=== PATIENT | male | born 1945 | race Caucasian/White ===

== ENCOUNTER 2017-05-20 03:37 | Inpatient (IN) | payer OTHER, MEDICARE ==
[2017-05-20] VITALS (9 sets, daily range): BP systolic 134–172; BP diastolic 70–78; PULSE 69–104; TEMP 36.4–37.6; O2SAT 94–100; Ht 180.3 cm; Wt 120.6 kg
[~2017-05-20] VITALS: Ht 180.3 cm; Wt 120.6 kg
--- NOTE | 2017-05-20 03:53 | EMERGENCY ROOM VISIT NOTE ---
History Report prepared by Radha: Micheal Tello Under the Supervision of: Dr. Ross Calvo M.D. First contact with patient: 03:40 Chief Complaint: CARDIAC ASSESSMENT Stated Complaint: CHEST PAIN/ SHORT OF BREATH History of Present Illness The patient is a 71 year old male who presents to the Emergency Room via EMS with complaints of persistent chest pain that started prior to arrival this morning. He says that the chest pain is in the middle, and is worsened by deep breathing. He adds that the pain woke him up suddenly in the middle of the night , and has been associated with shortness of breath. He notes that for the past few days, he has felt a bit run-down and fatigued. The patient adds that for the past 2 years, he has had persistent leg swelling. He has a history of COPD and CHF, but he does not feel like he is wheezing a lot today. The patient notes that he took 2 aspirin prior to arrival, but he does not take any blood thinners on a daily basis. Per EMS, the patient was 88% on room air in his home , and the patient was given a nebulizer treatment and 7 nitro. The patient notes no history of heart attacks or blood clots. He is an ex-smoker. Source of History: patient, EMS, nursing staff Onset: Prior to arrival this morning Position: chest Timing: other (persistent) Modifying Factors (Worsening): breathing Associated Symptoms: + SOB, + fatigue Note: Associated symptoms: Does not feel like wheezing a lot. 88% on room air prior to arrival. Review of Systems See HPI for pertinent positives & negatives. A total of 10 systems reviewed and were otherwise negative. Past Medical & Surgical Medical Problems: (1) Arthritis (2) CHF (congestive heart failure) (3) COPD (chronic obstructive pulmonary disease) Family History Family history omitted secondary to patient's advanced age. Social History Smoking Status: Former Smoker Marital Status: single Occupation Status: retired Current/Historical Medications Scheduled Ascorbic Acid (Vitamin C), 1,000 MG PO DAILY Calcium Carbonate (Calcium 600), 600 MG PO DAILYBB Celecoxib (CeleBREX), 200 MG PO BID Cholecalciferol (Vitamin D3), 2,000 UNIT PO DAILY Cyanocobalamin (Vitamin B-12), 1,000 MCG PO DAILY Fluticasone Prop/Salmeterol (Advair Diskus 250/50 60 Dose), 1 PUFF INH Q12 Folic Acid (Folic Acid), 1 MG PO 6XWK Furosemide (Lasix), 40 MG PO QAM Furosemide (Lasix), 20 MG PO QPM Sezmbizbqbl-Iexqzzwmqht-Rvk C- (Glucosamine Chondroitin), 1 TABS PO DAILY Methotrexate Sodium (Methotrexate), 5 TABS PO WK Multivitamin (Multivitamin), 1 TAB PO DAILY Potassium Chloride (Potassium Chloride Er), 10 MEQ PO BID Prednisone (Prednisone), 5 MG PO DAILY Vardenafil (Levitra), 20 MG PO DIRECTED Vitamin E (Vitamin E 400 Iu), 400 INTER.UNIT PO DAILY Scheduled PRN Albuterol Sulfate (Proair Respiclick), 2 PUFFS PO Q4 PRN for Wheezing Allergies Coded Allergies: Iodine (Verified Allergy, Unknown, 05/20/17) Physical Exam Vital Signs Date Time Temp Pulse Resp B/P (MAP) Pulse Ox O2 Delivery O2 Flow Rate FiO2 05/20/17 05:23 89 19 142/77 100 BiPAP 4.0 60 Nebulizer 05/20/17 05:07 93 100 60 05/20/17 04:41 101 22 128/60 100 BiPAP Nebulizer 05/20/17 04:41 100 100 100 05/20/17 04:40 100 30 100 BiPAP/CPAP 100 05/20/17 04:31 102 20 132/76 100 BiPAP 05/20/17 04:30 92 Nasal Cannula 4.0 05/20/17 04:22 105 28 125/87 93 Nasal Cannula 4.0 05/20/17 04:00 88 Room Air 05/20/17 03:51 37.1 110 32 167/75 91 Room Air 05/20/17 03:45 110 Physical Exam GENERAL: Patient is in moderate distress and dyspneic. HEENT: No acute trauma, normocephalic atraumatic, mucous membranes moist, no nasal congestion, no scleral icterus. NECK: No stridor, no adenopathy, no meningismus, trachea is midline. LUNGS: Dyspneic/Tachypneic with tight lung sounds throughout and mild expiratory wheezing and crackles at bases. HEART: Tachycardic. No murmurs, rubs, gallops appreciated. ABDOMEN: Soft, nontender, bowel sounds positive, no masses appreciated, no peritonitis. BACK: No midline tenderness, no CVA tenderness EXTREMITIES: Normal motion all extremities. 4+ edema bilateral lower extremities. NEUROLOGIC: Alert and oriented, no acute motor or sensory deficits, no focal weakness, cranial nerves grossly intact. SKIN: No rash, no jaundice, no diaphoresis. Medical Decision & Procedures ER Provider Diagnostic Interpretation: Radiology results and stated below per my review and radiologist interpretation: CHEST 1-VIEW X-RAY: Poor inspiratory effort, diffuse congestive findings, large heart, widened mediastinum. 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 Cardiomegaly. Coronary artery calcifications. No pericardial effusion. Bilateral bullous disease. Bibasilar infiltrates/aspiration. No pleural effusions. No lymphadenopathy. No central PE. More peripheral branches are suboptimally evaluated due to significant respiratory motion and underlying parenchymal abnormalities. Small peripheral PE cannot be excluded based on this exam. Chronic appearing rib deformities. Radiologist: Eriberto Lester M.D. Laboratory Results 05/20/17 03:18 Red Blood Count 4.31, Mean Corpuscular Volume 102.8, Mean Corpuscular Hemoglobin 33.4, Mean Corpuscular Hemoglobin Concent 32.5, Mean Platelet Volume 10.6, Neutrophils (%) (Auto) 80.8, Lymphocytes (%) (Auto) 12.7, Monocytes (%) ( Auto) 4.8, Eosinophils (%) (Auto) 1.1, Basophils (%) (Auto) 0.2, Neutrophils # ( Auto) 7.78, Lymphocytes # (Auto) 1.22, Monocytes # (Auto) 0.46, Eosinophils # ( Auto) 0.11, Basophils # (Auto) 0.02 05/20/17 03:18 Test 05/20/17 03:18 05/20/17 06:02 05/20/17 06:06 White Blood Count 9.63 K/uL (4.8-10.8) Red Blood Count 4.31 M/uL (4.7-6.1) Hemoglobin 14.4 g/dL (14.0-18.0) Hematocrit 44.3 % (42-52) Mean Corpuscular Volume 102.8 fL (80-100) Mean Corpuscular Hemoglobin 33.4 pg (25-34) Mean Corpuscular Hemoglobin Concent 32.5 g/dl (32-36) Platelet Count 187 K/uL (130-400) Mean Platelet Volume 10.6 fL (7.4-10.4) Neutrophils (%) (Auto) 80.8 % Lymphocytes (%) (Auto) 12.7 % Monocytes (%) (Auto) 4.8 % Eosinophils (%) (Auto) 1.1 % Basophils (%) (Auto) 0.2 % Neutrophils # (Auto) 7.78 K/uL (1.4-6.5) Lymphocytes # (Auto) 1.22 K/uL (1.2-3.4) Monocytes # (Auto) 0.46 K/uL (0.11-0.59) Eosinophils # (Auto) 0.11 K/uL (0-0.5) Basophils # (Auto) 0.02 K/uL (0-0.2) RDW Standard Deviation 54.0 fL (36.4-46.3) RDW Coefficient of Variation 14.5 % (11.5-14.5) Immature Granulocyte % (Auto) 0.4 % Immature Granulocyte # (Auto) 0.04 K/uL (0.00-0.02) Prothrombin Time 9.9 SECONDS (9.0-12.0) Prothromb Time International Ratio 0.9 (0.9-1.1) Activated Partial Thromboplast Time 26.8 SECONDS (21.0-31.0) Partial Thromboplastin Ratio 1.0 D-Dimer 600 ug/L FEU (0-500) Anion Gap 7.0 mmol/L (3-11) Est Creatinine Clear Calc Drug Dose 108.4 ml/min Estimated GFR () 102.3 Estimated GFR (Non- 88.3 BUN/Creatinine Ratio 11.3 (10-20) Calcium Level 8.4 mg/dl (8.5-10.1) Magnesium Level 2.2 mg/dl (1.8-2.4) Total Creatine Kinase 60 U/L (39-308) Creatine Kinase MB 0.7 ng/ml (0.5-3.6) Creatine Kinase MB Ratio 1.2 (0-3.0) Troponin I < 0.015 ng/ml (0-0.045) Pro-B-Type Natriuretic Peptide 183 pg/ml (0-900) Laboratory results as reviewed by me. Medications Administered Medications (Trade) Dose Ordered Sig/Malvin Route Start Time Stop Time Status Last Admin Dose Admin Fentanyl Citrate (Fentanyl Inj) 75 mcg NOW STAT IV 05/20/17 04:06 05/20/17 04:08 DC 05/20/17 04:20 75 MCG Nitroglycerin (Nitrostat Tab) 0.4 mg PRN PRN SL 05/20/17 04:15 06/19/17 04:14 05/20/17 04:21 0.4 MG Nitroglycerin (Nitroglycerin 2% Oint) 2 inch NOW ONCE EXT 05/20/17 04:15 05/20/17 06:00 DC 05/20/17 04:21 2 INCH Methylprednisolone Sodium Succinate (Solu-Medrol IV) 125 mg NOW STAT IV 05/20/17 04:13 05/20/17 04:14 DC 05/20/17 04:18 125 MG Diphenhydramine HCl (Benadryl Inj) 50 mg NOW STAT IV 05/20/17 04:18 05/20/17 04:20 DC 05/20/17 04:46 50 MG Albuterol/ Ipratropium (Duoneb) 3 ml NOW STAT INH 05/20/17 04:36 05/20/17 04:37 DC 05/20/17 04:40 3 ML ECG Indication: chest pain Rate (beats per minute): 107 Rhythm: sinus tachycardia, other (poor baseline) Findings: no ectopy, other (no acute STEMI, nonspecific ST abnormalities in septal leads) ED Course 0341: The patient was evaluated in room A2. A complete history and physical exam was performed. 0406: I reevaluated the patient and he has become hypoxic, and is now on 4 liters nasal cannula with an oxygen saturation of 92%. He notes that he is still having some sternal chest pain. Ordered Fentanyl Inj 75 mcg IV. 0412: I reevaluated the patient and he is still quite dyspneic on nasal cannula though he notes that his chest pain is mildly improved. 0413: Ordered Solu-Medrol IV 125 mg IV, Nitroglycerin 2% Oint 2 inch EXT. 0415: Nitrostat Tab 0.4 mg SL PRN. 0418: Ordered Benadryl Inj 50 mg IV. 0433: I reevaluated the patient and his breathing is much improved and he is agreeable to CT. His pain has significantly decreased. 0436: Ordered Duoneb 3 ml INH. 0540: I reevaluated the patient and he feels much better with no further chest pain. He is breathing comfortably. Repeat lung exam shows open lungs with no further wheezing. Exam is much improved. The patient verbally expressed understanding and agreement of the treatment plan. The patient will be evaluated for further treatment. 0553: I discussed the patient with Dr. Eli Wang pattern cleaner - he will evaluate the patient for further treatment. Medical Decision Differential: Cardiac Ischemia (STEMI, NSTEMI, Unstable Angina, etc), Aortic Dissection, Arrhythmia, Pulmonary Embolism, Pneumonia, Pneumothorax, MSK, Infectious, Pericarditis/Myocarditis, Esophageal Rupture, Gastrointestinal, amongst other pathologies entertained. 71 yr old unwell appearing male in acute respiratory distress with active substernal CP noted to be hypoxic on room air and exam with tight lung sounds throughout. Initially CHF vs COPD as primary thus cxr with some congestion though wide mediastinum noted. SLNTG with paste started. ASA by EMS. Fentanyl given as pain continued. Given solumedrol, duoneb and placed on bipap with vast improvement. Benadryl given as need for CT with mild iv dye allergy. CT without large pe. Large aortic root noted without note of dissection/ rupture. Given he has now had resolution of pain I have much lower suspicion that he is actively dissecting and I do not feel further imaging in ED required at this time of aorta though clearly aortic root dilatation is concerning. Initial Trop negative. BNP normal, and no clear congestion noted on CT read thus leaning more this was primary COPD with hypoxia causing cardiac strain. Tolerating Bipap well and otherwise without further complaints. With IV dye load will hold on Lasix given no longer clearly primary diagnosis, though I suspect given his leg swelling he will need some lasix eventually. Medication Reconcilliation Current Medication List: was personally reviewed by me Blood Pressure Screening Patient's blood pressure: Elevated blood pressure Hospitalist will monitor. Consults Time Called: 0550 Consulting Physician: Dr. Eli Wang pattern cleaner Returned Call: [phone] I discussed the patient with Dr. Eli Wang pattern cleaner - he will evaluate the patient for further treatment. Impression Primary Impression: COPD exacerbation Additional Impressions: Substernal chest pain Hypoxia Acute respiratory distress Critical Care I have personally spent greater than 45 minutes of critical care time in the direct management of this patient. This was a life/limb threatening event. This includes time spent evaluating patient, direct bedside care, chart review, placing orders, interpretation of diagnostic studies, discussion with consultants, patient, and family members, as well as other required patient management activities. This 45 minutes is in excess of all separately billable procedures. Scribe Attestation The scribe's documentation has been prepared under my direction and personally reviewed by me in its entirety. I confirm that the note above accurately reflects all work, treatment, procedures, and medical decision making performed by me. Departure Information Dispostion Being Evaluated By Hospitalist Referrals Harjeet Sy D.OAntoinette (PCP) Patient Instructions My [facility] Problem Qualifiers
[2017-05-20 03:59] LABS: BASO % 0.2 %; BASO ABS # 0.02 K/uL (0-0.2); COMPLETE YES; EOS % 1.1 %; HEMATOCRIT 44.3 % (42-52); IG% 0.4 %; LYMPH % 12.7 %; LYMPH ABS # 1.22 K/uL (1.2-3.4); MEAN CELL VOLUME 102.8 fL (80-100); MEAN CORPUSCULAR HEMOGLOBIN 33.4 pg (25-34); MEAN CORPUSCULAR HGB CONC 32.5 g/dl (32-36); MEAN PLATELET VOLUME 10.6 fL (7.4-10.4); MONO % 4.8 %; NEUT % 80.8 %; PLATELET COUNT 187 K/uL (130-400); RED BLOOD COUNT 4.31 M/uL (4.7-6.1); WHITE BLOOD COUNT 9.63 K/uL (4.8-10.8)
[2017-05-20] MEDS ORDERED: FENTANYL CITRATE INJ 50 MCG/1 ML 2 ML VIAL IV STA (04:06)
[2017-05-20 04:12] LABS: INR 0.9 (0.9-1.1); PROTHROMBIN TIME (PATIENT) 9.9 SECONDS (9.0-12.0)
[2017-05-20] MEDS ORDERED: METHYLPREDNISOLONE 125 MG VIAL IV STA (04:13)
[2017-05-20] MEDS ORDERED: NITROGLYCERIN OINT 2% 1GM PACKET EXT ONE (04:15)
[2017-05-20] MEDS ORDERED: NITROGLYCERIN 0.4 MG SL PER TAB CHARGE SL PRN ×2 (04:15→06:45)
[2017-05-20 04:16] LABS: BLOOD UREA NITROGEN 10 mg/dl (7-18); BUN/CREATININE RATIO 11.3 (10-20); CALCIUM 8.4 mg/dl (8.5-10.1); CARBON DIOXIDE 30 mmol/L (21-32); CHLORIDE 107 mmol/L (98-107); CREATININE 0.85 mg/dl (0.60-1.40); GLUCOSE 127 mg/dl (70-99); MAGNESIUM 2.2 mg/dl (1.8-2.4); POTASSIUM 3.6 mmol/L (3.5-5.1); SODIUM 144 mmol/L (136-145)
[2017-05-20] MEDS ORDERED: DiphenhydrAMINE HCL 50 MG/ML VIAL IV STA (04:18)
[2017-05-20 04:21] LABS: CKMB/CK RATIO 1.2 (0-3.0)
[2017-05-20] MEDS ORDERED: OPTIRAY 320 IV PRN (04:30)
[2017-05-20] MEDS ORDERED: POTA1CAP2 PO (04:34)
[2017-05-20] MEDS ORDERED: CLB/200 PO (04:34)
[2017-05-20] MEDS ORDERED: METH2.5T PO (04:34)
[2017-05-20] MEDS ORDERED: PRED-301 PO (04:34)
[2017-05-20] MEDS ORDERED: ADVIN25/60 INH (04:34)
[2017-05-20] MEDS ORDERED: FLV1 PO (04:34)
[2017-05-20] MEDS ORDERED: ALBU18002 PO (04:35)
[2017-05-20] MEDS ORDERED: LVT/20 PO (04:35)
[2017-05-20] MEDS ORDERED: FURO-85 PO ×2 (04:35)
[2017-05-20] MEDS ORDERED: GLUCTAB7 PO (04:36)
[2017-05-20] MEDS ORDERED: ALBUT/IPRATROP 3MG/0.5MG NEB 3 ML VIAL INH STA (04:36)
[2017-05-20] MEDS ORDERED: MULT-506 PO (04:36)
[2017-05-20] MEDS ORDERED: ASCO10003 PO (04:38)
[2017-05-20] MEDS ORDERED: CHOL20005 PO (04:38)
[2017-05-20] MEDS ORDERED: VITA400C3 PO (04:38)
[2017-05-20] MEDS ORDERED: CYAN10005 PO (04:38)
[2017-05-20] MEDS ORDERED: CALC600T PO (04:38)
[2017-05-20] MEDS ORDERED: POTASSIUM CHLORIDE 10 MEQ TABCR PO STA (06:33)
--- NOTE | 2017-05-20 06:36 | DIAGNOSTIC IMAGING REPORT ---
(CHEST FOR PE) ANGIO WITH CT DOSE: 723.20 mGy.cm HISTORY: Chest pain dyspnea TECHNIQUE: Multiaxial CT images of the chest were performed following the intravenous administration of contrast to evaluate the pulmonary arteries. Maximal intensity projection images were also obtained. A dose lowering technique was utilized adhering to the principles of ALARA. COMPARISON STUDY: None. FINDINGS: 4.4 cm dilatation of the a sending thoracic aorta. Emphysematous change with bleb formation throughout. Bibasilar parenchymal infiltrative change. Pulmonary vasculature enhances appropriately. There are no significant filling defect. IMPRESSION: 1. No evidence for major central embolus. 2. 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 3. Bibasilar parenchymal infiltrates. 4. Emphysematous change with bleb formation bilaterally The above report was generated using voice recognition software. It may contain grammatical, syntax or spelling errors. Electronically signed by: Narciso Chowdhury M.D. 05/20/2017 6:35 AM Dictated Date/Time: 05/20/2017 6:33 AM
[2017-05-20] MEDS ORDERED: METOPROLOL TARTRATE 50 MG TAB PO STA (06:38)
[2017-05-20] MEDS ORDERED: FUROSEMIDE INJ 40 MG in SYRINGE 0 ML IV STA (06:38)
[2017-05-20] MEDS ORDERED: ASPIRIN 325 MG ECTAB PO STA (06:38)
[2017-05-20] MEDS ORDERED: FUROSEMIDE 40 MG/4 ML VIAL ONE (06:38)
[2017-05-20] MEDS ORDERED: DOXYCYCLINE IV 100 MG in DEXTROSE 5% 100ML 100 ML IV STA (06:39)
[2017-05-20] MEDS ORDERED: LEVALBUTEROL/IPRATROPIUM NEB INH PRN (06:45)
[2017-05-20] MEDS ORDERED: ACETAMINOPHEN 325 MG TAB PO PRN (06:45)
[2017-05-20] MEDS ORDERED: HYDROmorphone INJ 0.5 MG/0.5 ML SYR IV PRN (07:00)
[2017-05-20] MEDS ORDERED: LEVALBUTEROL 1.25MG/0.5ML NEB INH PRN (07:00)
[2017-05-20] MEDS ORDERED: TRAMADOL HCL 50 MG TAB PO PRN (07:00)
[2017-05-20] MEDS ORDERED: IPRATROPIUM BROMIDE NEB SOLN 0.02% 2.5 ML VIAL INH PRN (07:00)
[2017-05-20] MEDS ORDERED: PROMETHAZINE HCL INJ 12.5 MG in SODIUM CHLORIDE 0.9% 50ML 50 ML IV PRN (07:00)
[2017-05-20 07:06] LABS: ALLEN TEST POS (POS); ARTERIAL BLD GAS O2 SATURATION 98.8 % (90-95); ARTERIAL BLOOD GAS BASE EXCESS -0.8 mEq/L (-9-1.8); ARTERIAL BLOOD GAS HCO3 25 mmol/L (19-24); ARTERIAL BLOOD GAS PO2 135 mm/Hg (80-95); ARTERIAL BLOOD GAS pH 7.36 (7.35-7.45); O2 ADMINISTRATION 60%
--- NOTE | 2017-05-20 07:13 | DIAGNOSTIC IMAGING REPORT ---
CHEST ONE VIEW PORTABLE CLINICAL HISTORY: Chest pain and shortness of breath. COMPARISON STUDY: No previous studies for comparison. FINDINGS: There is no pneumothorax or pleural effusion. Bilateral blebs or bulla are noted. There is no evidence of pulmonary edema. Mild cardiomegaly is noted. There are bibasilar opacities. IMPRESSION: 1. Bibasilar opacities which may reflect pneumonia or atelectasis. 2. Bilateral blebs/bullae within the lungs. 3. Mild cardiomegaly without evidence of pulmonary edema. Electronically signed by: Watson Chaudhari M.D. 05/20/2017 7:11 AM Dictated Date/Time: 05/20/2017 7:09 AM
[2017-05-20] MEDS ORDERED: METOPROLOL TARTRATE 25 MG TAB PO STA (07:48)
--- NOTE | 2017-05-20 08:28 | HISTORY & PHYSICAL EXAMINATION ---
DATE OF ADMISSION: 05/20/2017 PRIMARY CARE PHYSICIAN: Dr. Salcedo. CHIEF COMPLAINT: Chest pain, shortness of breath. HISTORY OF PRESENT ILLNESS: History obtained from the patient and records. Medical history is significant for COPD, past tobacco abuse, rheumatoid arthritis on chronic steroid therapy, erectile dysfunction as per records. History of MRSA. As per the patient in the last 2 weeks, the patient noted increase in weight gain/fluid retention of about 20 pounds, some shortness of breath on exertion. In the last few days, the patient also noted a little worsening of chronic cough productive of yellow white sputum. Denies aspiration. No fever, no chills. Possible sick contacts. Patient woke up this morning with substernal pain, pleuritic. Brought to the Emergency Room. Chest pain and shortness of breath symptoms relieved by nitroglycerin, Solu-Medrol, breathing treatment given in the Emergency Room. BIPAP initiated for respiratory distress. Patient admits to some snoring, is always tired in the morning MEDICAL HISTORY: As above. SURGERIES: He has had carpal tunnel surgery, shoulder surgery, tonsillectomy, wrist surgery. HOME MEDICATIONS: Include, vitamin C, ProAir, Caltrate, Celebrex, vitamin B3, vitamin B12, fluticasone, Lasix, folic acid, glucosamine methotrexate, potassium chloride, multivitamins, prednisone, vitamin E ALLERGIES: TO IODINE. FAMILY HISTORY: Breast cancer. PERSONAL AND SOCIAL HISTORY: Past tobacco abuse, no chronic intake of alcoholic beverages. 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 REVIEW OF SYSTEMS: As per HPI, all other ROS negative. PHYSICAL EXAMINATION: VITAL SIGNS: Blood pressure was noted to be 160/77, pulse rate 110, later 94, RR 32, later 20, temperature 37.5, sats 88 on room air, later 98 on BiPAP GENERAL: Obese, looks younger for stated age. SKIN: Normal color. HEENT: [place] palpebral conjunctivae. Dry mucosa. BiPAP mask in place. NECK: Short neck. LUNGS: Decreased effort. Decreased breath sounds. HEART: Regular rate and rhythm. ABDOMEN: Some distention. EXTREMITIES: Bilateral lower extremity edema/venous stasis. No tenderness. NEUROLOGIC: No gross focality. LABORATORY DATA: Hemoglobin was 14.4, hematocrit 44.3, white cells 9.63, platelets 187. Sodium 140, potassium 3.6, chloride 107, CO2 30, BUN 10, creatinine 0.8, glucose of 127, BNP and troponin normal. IMAGING DATA: CTA initial read showed aneurysmal ascending thoracic aorta measuring 4.5 cm, cardiomegaly, coronary artery calcification, no pericardial effusion, Bullous lung disease, bibasilar infiltrates, question aspiration, no lymphadenopathy, no central PE, suboptimal evaluation of periphery 2 to motion EKG as per my interpretation, rate 105, sinus tachycardia, no ischemia. ASSESSMENT: 1. Acute (? on chronic) respiratory failure multifactorial : chronic obstructive pulmonary disease exacerbation, complicated bronchitis, no sepsis. ro flu Right-sided heart failure (ro sleep disordered breathing) 2. Chest pain multifactorial : chronic obstructive pulmonary disease exacerbation hypertensive urgency rule out acute coronary syndrome. 3. Peripheral vascular disease on CT. 4. Past tobacco abuse. 5. Rheumatoid arthritis,on chronic steroid therapy. 6. Lower extremity swelling secondary RSHF, Rule out deep venous thrombosis. 7, hx MRSA PLAN: PCU continue BiPAP. Baseline ABG. Doxycycline, prednisone course, nebs RTC, p.r.n. flu swab Pulmonary consult RE COPD exacerbation, respiratory failure. Outpatient updated PFTs, sleep study IV diuresis for now, 2D echo RE cp, CHF; Strict IOS, daily weights for possible CHF. follow troponin, ASA for now for CAD prevention until ACS is ruled out. Initiate low dose beta duncan for blood pressure control. Cardio consult RE chest pain, poss RSHF Lower extremity Dopplers RO DVT. Periodic outpx surveillance imaging for TAA DVT prophylaxis, Lovenox subQ. DNR. MTDD
[2017-05-20] MEDS ORDERED: LEVALBUTEROL/IPRATROPIUM NEB INH SCH (09:00)
[2017-05-20] MEDS ORDERED: PERFLUTREN LIPID MICROSPHERE (DEFINITY) IV ONE (09:41)
[2017-05-20] MEDS: MULTIVITAMIN TAB PO SCH (10:34)
[2017-05-20] MEDS: ENOXAPARIN 40 MG/0.4 ML SYR SC SCH (10:35)
[2017-05-20 11:18] LABS: INFLUENZA A PCR Neg for Influ A (NEG); INFLUENZA B PCR Neg for Influ B (NEG)
--- NOTE | 2017-05-20 11:29 | DIAGNOSTIC IMAGING REPORT ---
ULTRASOUND VENOUS DOPPLER LWR EXT BILA CLINICAL HISTORY: leg swelling COMPARISON STUDY: No previous studies for comparison. FINDINGS: On the right, there are chronic changes seen within the distal superficial femoral vein. No acute thrombus is evident. On the left, there is no evidence of acute DVT. The veins are fully compressible. There is no augmentation. There is normal color-flow the proximal trifurcation veins. IMPRESSION: 1. No evidence of acute lower extremity DVT 2. Mild chronic changes visualized within the distal right superficial femoral vein Electronically signed by: Chris Grande M.D. 05/20/2017 11:27 AM Dictated Date/Time: 05/20/2017 11:26 AM
--- NOTE | 2017-05-20 12:45 | ECHOCARDIOGRAM REPORT ---
*NOTICE TO RECEIVING REPUBLICAN AGENCY This information is strictly Confidential and protected under [place] law. [place] law prohibits you from making any further disclosure of this information unless further disclosure is expressly permitted by the written consent of the person to whom it pertains or is authorized by law. A general authorization for the release of medical or other information is not sufficient for this purpose. Hospital accepts no responsibility if the information is made available to any other person, INCLUDING THE PATIENT. Interpretation Summary * Name: OTTO STEWART III Study Date: 05/20/2017 09:21 AM BP: 145/84 mmHg * Patient Location: C.2T\S\E221\S\1 HR: 73 * : 1945 (M/d/yyy) Gender: Male Height: 70 in * Age: 71 yrs Ethnicity: CA Weight: 273 lb * Ordering Physician: Spencer Benitez * Referring Physician: Self, Referred * Performed By: Cade Grimaldo RCS * * Reason For Study: Chest pain * BSA: 2.4 m2 * The study was technically difficult. * The study was technically limited. * -- Conclusions -- * The left ventricular wall motion is normal. * Left ventricular systolic function is normal. * Ejection Fraction = 60-65%. * The right ventricle was not well visualized , however , grossly normal RV chamber size and systolic function were noted on limited visualization. * Grade I diastolic dysfunction, (abnormal relaxation pattern). * There is no significant valvular stenosis or regurgitation on technically limited evaluation. Procedure Details * The study was technically difficult. * There were technical limitations due to patient'sbody habitus * A contrast injection of Definity was performed to improve assessment of LV function. * Contrast was injected into an intravenous site in the right arm. * One vial of Definity ultrasound contrast was diluted in normal saline to a total volume of 10 ml. A total of '4' ml of solution was administered during imaging. * Lot # [id number] of Definity utilized for procedure. * Expiration date . * The attending nurse who injected the contrast agent was ANGELA, RN. * A complete two-dimensional transthoracic echocardiogram was performed (2D, M-mode, Doppler and color flow Doppler). Left Ventricle * The left ventricle is normal in size. * There is normal left ventricular wall thickness. * Ejection Fraction = 60-65%. * Left ventricular systolic function is normal. * The left ventricular wall motion is normal. Right Ventricle * The right ventricle was not well visualized , however , grossly normal RV chamber size and systolic function were noted on limited vizualization. Atria * The left atrial size is normal. * Right atrial size is normal. * There is no evidence of atrial septal defect, but resolution does not allow assessment for a patent foramen ovale. Mitral Valve * Doppler assessement was adequate to exclude stenosis or regurgitation. * There is no mitral valve stenosis. * Significant mitral regurgitation is absent. Tricuspid Valve * Doppler assessement was adequate to exclude stenosis or regurgitation. * There is no tricuspid stenosis. * Significant tricuspid regurgitation is absent. Aortic Valve * The aortic valve was not adequatedly visualized. Doppler assessement was adequate to exclude stenosis or regurgitation. * Aortic stenosis is absent. * There is no significant aortic regurgitation. Pulmonic Valve * The pulmonary valve is not well seen, but the Doppler examination is normal without significant regurgitation or stenosis. Great Vessels * The aortic root and proximal ascending aorta are normal sized. Pericardium/Pleural * There is no pericardial effusion. Great Vessels * Normal inferior vena cava diameter and respiratory variation suggests normal central venous pressure. Left Ventricular Diastolic Function * Grade I diastolic dysfunction, (abnormal relaxation pattern). MMode 2D Measurements and Calculations IVSd 0.97 cm LVIDd 4.5 cm LVIDs 2.4 cm LVPWd 1.1 cm IVS/LVPW 0.84 FS 47.0 % EDV(Teich) 93.2 ml ESV(Teich) 20.0 ml EF(Teich) 78.6 % EDV(cubed) 92.0 ml ESV(cubed) 13.7 ml EF(cubed) 85.1 % LV mass(C)d 166.9 grams LV mass(C)dI 70.1 grams/m\S\2 SV(Teich) 73.2 ml SI(Teich) 30.7 ml/m\S\2 SV(cubed) 78.4 ml SI(cubed) 32.9 ml/m\S\2 Ao root diam 3.5 cm Ao root area 9.4 cm\S\2 LVOT diam 2.0 cm LVOT area 3.2 cm\S\2 LVAd ap4 33.2 cm\S\2 LVLd ap4 8.7 cm EDV(MOD-sp4) 102.2 ml EDV(sp4-el) 107.8 ml LVAs ap4 16.5 cm\S\2 LVLs ap4 6.7 cm ESV(MOD-sp4) 33.5 ml ESV(sp4-el) 34.3 ml EF(MOD-sp4) 67.2 % EF(sp4-el) 68.2 % LVAd ap2 30.1 cm\S\2 LVLd ap2 8.4 cm EDV(MOD-sp2) 87.1 ml EDV(sp2-el) 91.6 ml LVAs ap2 15.4 cm\S\2 LVLs ap2 6.9 cm ESV(MOD-sp2) 27.8 ml ESV(sp2-el) 29.2 ml EF(MOD-sp2) 68.1 % EF(sp2-el) 68.1 % LVLd %diff -3.90 % EDV(MOD-bp) 96.5 ml LVLs %diff 2.5 % ESV(MOD-bp) 30.3 ml EF(MOD-bp) 68.6 % SV(MOD-sp4) 68.7 ml SI(MOD-sp4) 28.8 ml/m\S\2 SV(MOD-sp2) 59.3 ml SI(MOD-sp2) 24.9 ml/m\S\2 SV(MOD-bp) 66.2 ml SI(MOD-bp) 27.8 ml/m\S\2 SV(sp4-el) 73.5 ml SI(sp4-el) 30.8 ml/m\S\2 SV(sp2-el) 62.4 ml SI(sp2-el) 26.2 ml/m\S\2 Doppler Measurements and Calculations MV E max kassie 90.8 cm/sec MV A max kassie 102.8 cm/sec MV E/A 0.88 MV dec time 0.22 sec Ao V2 max 230.1 cm/sec Ao max PG 21.2 mmHg Ao max PG (full) 13.7 mmHg Ao V2 mean 139.2 cm/sec Ao mean PG 9.3 mmHg Ao mean PG (full) 5.3 mmHg Ao V2 VTI 41.1 cm MILLIE(I,A) 2.6 cm\S\2 MILLIE(I,D) 2.6 cm\S\2 MILLIE(V,A) 1.9 cm\S\2 MILLIE(V,D) 1.9 cm\S\2 AI max kassie 409.0 cm/sec AI max PG 66.9 mmHg AI dec slope 181.7 cm/sec\S\2 AI P1/2t 659.1 msec LV V1 max PG 7.4 mmHg LV V1 mean PG 4.0 mmHg LV V1 max 136.2 cm/sec LV V1 mean 94.2 cm/sec LV V1 VTI 32.4 cm SV(Ao) 387.3 ml SI(Ao) 162.5 ml/m\S\2 SV(LVOT) 105.0 ml SI(LVOT) 44.1 ml/m\S\2
[2017-05-20 13:15] LABS: IMMUNOGLOBULN M 66.3 mg/dL (40-230)
--- NOTE | 2017-05-20 13:18 | Pulmonary Consultation ---
History General Date of Service: May 20, 2017. Stated Complaint: CC: Chest pain with SOB, diffuse cystic lung disease HPI The patient is a 71 year old male who presents to [facility] with complaints of Respiratory Failure. The patient's primary care provider is Cobrin Salcedo M.D.. 71y/o male admitted 05/20/17 for Chest pain with SOB. He has a PmHx significant for chronic RA (MTX & prednisone), COPD and CHF. He presented with chest pain and associated SOB that started this am. He notes that his CP is made worse with deep inspiration and awoke him last night. He does not increased fatigue over the previous week. He also notes a history of progressive leg swelling over the past 2 years. When EMS arrived at his home his SaO2 was 88% on room air. During our interview the patient had a dramatic improvement in his overall respiratory status. He did note an acute onset of his productive sputum also complete resolution of his current chest pain/pleurisy. During our conversation he does note a slow decline over the past 1-2 years in his overall physical status/increased dyspnea on exertion. He also notes an increase of belching/ eructation over the past month. + 2 weeks of: 20lb weight gain, SOB, increased chronic coughnow with yellow sputum, possible sick contact Denies: aspiration, fever, chills, wheezing ED/EMS Treatment: 1) Nitro 2) [id number] IV 3) Nedbulizer 4) Duo-Neb 5) Bipap 6) Benadryl 50mg IVIodine contrast allergy Work-Up WBC: 9K (neutron#: 7.78) H/H: 14/44 PLT: 187K AB.36/44/135/25 (60%) D-dimer: 600 Alb: 3.1 Influ A&B Ag: negative CXR: poor penetration, cephalization, hilar fullness, left costo-phrenic blunting CT Thorax: diffuse cytic lung changes, bilateral atelectasis vs. infiltrate at the basis, tracheal-bronchial malacia, widened esophagus, Lingular infiltrate Current medications #1 aspirin 325 mg daily #2 prednisone 40 mg daily #3 Lopressor 12.5 mg twice a day #4 Lasix 40 mg IV daily #5 Lovenox 40 mg subcutaneous daily #6 Atrovent every 6 hours #7 Atrovent/Xopenex every 6 hours when necessary Historian: patient, EMS Review of Systems Constitutional: reports: malaise, weakness Eyes: reports: no symptoms ENT: reports: no symptoms Cardiovascular: reports: as stated in HPI, edema Respiratory: reports: as stated in HPI Gastrointestinal: reports: belching Genitourinary - Male: reports: no symptoms Musculoskeletal: reports: myalgias Integumentary: reports: no symptoms Neurologic: reports: pre-existing deficit Psychiatric: reports: no symptoms Endocrine: no symptoms Hematologic / Lymphatic: no symptoms Allergic / Immunologic: no symptoms Past Medical History Past Medical History: 1) RA---on chronic steroids 2) COPD 3) MRSA 4) Right side heart failure--per reports Past Surgical History: 1) Left Wrist: arthrodesis 2) Carpal tunnel surgery 3) Shoulder surgery 4) Tonsillectomy Family History Breast carcinoma Social History #1 tobacco: Quit smoking back in mid to late 90s #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 #3 chronic alcohol ingestion #4 not /single Hx Tobacco Use In Past Year?: No Smoking Status: Former Smoker Marital status: single Occupational Status: retired History of MDRO History of MDRO: No Allergies Coded Allergies: Iodine (Verified Allergy, Unknown, 05/20/17) Current Medications Reported Home Medications Medications Dose Route/Sig Max Daily Dose Days Date Category Dose Instructions Calcium 600 (Calcium Carbonate) 600 Mg Tab 600 Mg PO DAILYBB 05/20/17 Reported Vitamin B-12 (Cyanocobalamin) 1,000 Mcg Tab 1,000 Mcg PO DAILY 05/20/17 Reported Vitamin D3 (Cholecalciferol) 2,000 Unit Tab 2,000 Unit PO DAILY 05/20/17 Reported Vitamin C (Ascorbic Acid) 1,000 Mg Tab 1,000 Mg PO DAILY 05/20/17 Reported Vitamin E 400 Iu (Vitamin E) 400 Unit Cap 400 Inter.unit PO DAILY 05/20/17 Reported Glucosamine Chondroitin (Oskguycjlor-Jukajbwphma-Tbd C-) 1 Tab Tab 1 Tabs PO DAILY 05/20/17 Reported Multivitamin (Multivitamins) Tab 1 Tab PO DAILY 05/20/17 Reported Lasix (Furosemide) 20 Mg Tab 20 Mg PO QPM 05/20/17 Reported Lasix (Furosemide) 20 Mg Tab 40 Mg PO QAM 05/20/17 Reported Proair Respiclick (Albuterol Sulfate) 108 Mcg/Act Aer 2 Puffs PO Q4 PRN 05/20/17 Reported Levitra (Vardenafil HCl) 20 Mg Tab 20 Mg PO DIRECTED 05/20/17 Reported Potassium Chloride Er (Potassium Chloride) 10 Meq Cap 10 Meq PO BID 05/20/17 Reported Advair Diskus 250/50 60 Dose (Fluticasone Prop/Salmeterol) 1 Ea Aerp 1 Puff INH Q12 05/20/17 Reported Prednisone 5 Mg Tab 5 Mg PO DAILY 05/20/17 Reported Methotrexate (Methotrexate Sodium) 2.5 Mg Tab 5 Tabs PO WK 05/20/17 Reported CeleBREX (Celecoxib) 200 Mg Cap 200 Mg PO BID 05/20/17 Reported Folic Acid 1 Mg Tab 1 Mg PO 6XWK 05/20/17 Reported take daily every day except fridays Physical Physical Exam Vital Signs: Date Time Temp Pulse Resp B/P (MAP) Pulse Ox O2 Delivery O2 Flow Rate FiO2 05/20/17 12:00 Nasal Cannula 4.0 05/20/17 08:02 37.3 94 20 172/78 94 Nasal Cannula 5.0 153/71 05/20/17 07:43 99 20 145/84 98 BiPAP 05/20/17 07:00 98 05/20/17 06:45 94 20 154/79 98 BiPAP 4.0 60 Nebulizer 05/20/17 06:01 90 30 138/68 99 BiPAP 4.0 60 Nebulizer 05/20/17 05:31 92 22 136/71 100 BiPAP 4.0 60 Nebulizer 05/20/17 05:23 89 19 142/77 100 BiPAP 4.0 60 Nebulizer 05/20/17 05:07 93 100 60 05/20/17 04:41 101 22 128/60 100 BiPAP Nebulizer 05/20/17 04:41 100 100 100 05/20/17 04:40 100 30 100 BiPAP/CPAP 100 05/20/17 04:31 102 20 132/76 100 BiPAP 05/20/17 04:30 92 Nasal Cannula 4.0 05/20/17 04:22 105 28 125/87 93 Nasal Cannula 4.0 05/20/17 04:00 88 Room Air 05/20/17 03:51 37.1 110 32 167/75 91 Room Air 05/20/17 03:45 110 General Appearance: mild distress Head: NORMOCEPHALIC, ATRAUMATIC Eyes: PERRLA, NO DISCHARGE, EOMI, SCLERAE NORMAL ENT: NORMAL EAR EXAM, NORMAL NASAL EXAM, NORMAL MOUTH EXAM, other (poor dentition but no oral abscesses or infection noted) Neck: NORMAL RANGE OF MOTION, NO TENDERNESS, TRACHEA MIDLINE Respiratory: other (decreased breath sounds bilaterally greatest at the bases) Cardiovasular: REGULAR RATE/RHYTHM, NORMAL S1S2, NO M/G/R, NO MURMUR, NO GALLOP Abdomen: NON TENDER, NORMAL BOWEL SOUNDS, NO REBOUND, NO MASSES, NO GUARDING, NO ORGANOMEGALY Genitourinary - Male: EXTERNAL GENITALIA NORMAL Back: NORMAL INSPECTION, NO MIDLINE TENDERNESS, NO CVA TENDERNESS, NO PARAVERTEBRAL TTP Upper Extremities: deformity (right upper extremity notable contraction with distraction of the DIP MIP joints) Lower Extremities: edema Edema: Bilateral LE (3+) Pulses: carotid (R) (2+), carotid (L) (2+), dorsalis pedis (R) (1+), dorsalis pedis (L) (1+) Neuro: ALERT, ORIENTED x 3, NORMAL MOTOR EXAM, NORMAL SENSATION Reflexes: biceps (R) (1+), bicpes (L) (1+), patellar (R) (1+), patellar (L) (1+ ) Babinski Testing: right (downgoing), left (downgoing) Psychiatric: NORMAL AFFECT, NO SUICIDAL IDEATION Diagnostics Labs Results Past 24 Hours Test 05/20/17 03:18 05/20/17 06:57 05/20/17 08:00 05/20/17 09:54 Range/Units White Blood Count 9.63 4.8-10.8 K/uL Red Blood Count 4.31 4.7-6.1 M/uL Hemoglobin 14.4 14.0-18.0 g/dL Hematocrit 44.3 42-52 % Mean Corpuscular Volume 102.8 80-100 fL Mean Corpuscular Hemoglobin 33.4 25-34 pg Mean Corpuscular Hemoglobin Concent 32.5 32-36 g/dl Platelet Count 187 130-400 K/uL Mean Platelet Volume 10.6 7.4-10.4 fL Neutrophils (%) (Auto) 80.8 % Lymphocytes (%) (Auto) 12.7 % Monocytes (%) (Auto) 4.8 % Eosinophils (%) (Auto) 1.1 % Basophils (%) (Auto) 0.2 % Neutrophils # (Auto) 7.78 1.4-6.5 K/uL Lymphocytes # (Auto) 1.22 1.2-3.4 K/uL Monocytes # (Auto) 0.46 0.11-0.59 K/uL Eosinophils # (Auto) 0.11 0-0.5 K/uL Basophils # (Auto) 0.02 0-0.2 K/uL RDW Standard Deviation 54.0 36.4-46.3 fL RDW Coefficient of Variation 14.5 11.5-14.5 % Immature Granulocyte % (Auto) 0.4 % Immature Granulocyte # (Auto) 0.04 0.00-0.02 K/uL Prothrombin Time 9.9 9.0-12.0 SECONDS Prothromb Time International Ratio 0.9 0.9-1.1 Activated Partial Thromboplast Time 26.8 21.0-31.0 SECONDS Partial Thromboplastin Ratio 1.0 D-Dimer 600 0-500 ug/L FEU Sodium Level 144 136-145 mmol/L Potassium Level 3.6 3.5-5.1 mmol/L Chloride Level 107 98-107 mmol/L Carbon Dioxide Level 30 21-32 mmol/L Anion Gap 7.0 3-11 mmol/L Blood Urea Nitrogen 10 7-18 mg/dl Creatinine 0.85 0.60-1.40 mg/dl Est Creatinine Clear Calc Drug Dose 108.4 ml/min Estimated GFR () 102.3 Estimated GFR (Non- 88.3 BUN/Creatinine Ratio 11.3 10-20 Random Glucose 127 70-99 mg/dl Calcium Level 8.4 8.5-10.1 mg/dl Magnesium Level 2.2 1.8-2.4 mg/dl Total Creatine Kinase 60 39-308 U/L Creatine Kinase MB 0.7 0.5-3.6 ng/ml Creatine Kinase MB Ratio 1.2 0-3.0 Troponin I < 0.015 < 0.015 0-0.045 ng/ml Pro-B-Type Natriuretic Peptide 183 0-900 pg/ml Arterial Blood pH 7.36 7.35-7.45 Arterial Blood Partial Pressure CO2 44 35-46 mmHg Arterial Blood Partial Pressure O2 135 80-95 mm/Hg Arterial Blood HCO3 25 19-24 mmol/L Arterial Blood Oxygen Saturation 98.8 90-95 % Arterial Blood Base Excess -0.8 -9-1.8 mEq/L Arterial Blood Gas Delivery 60% Leo Test POS POS Thyroid Stimulating Hormone (TSH) 0.569 0.300-4.500 uIu/ml Influenza Type A (RT-PCR) Neg for Influ A NEG Influenza Type A Antigen Neg for Influ A NEG Influenza Type B Antigen Neg for Influ B NEG Influenza Type B (RT-PCR) Neg for Influ B NEG Test 05/20/17 12:09 05/20/17 12:15 Range/Units Troponin I < 0.015 0-0.045 ng/ml Diagnostic Radiology CXR: poor penetration, cephalization, hilar fullness, left costo-phrenic blunting CT Thorax: diffuse cytic lung changes, bilateral atelectasis vs. infiltrate at the basis, tracheal-bronchial malacia, widened esophagus, Lingular infiltrate EKG Sinus tachycardia Impression Assessment and Plan 71-year-old gentleman with hypoxia and abnormal chest CT/multiple cysts: #1 Hypoxia: The patient's clinical history and physical exam suggests he is having an acute on chronic flare at this time. He does have diffuse emphysema with notable cystic lung changes as well as bilateral lower extremity edema. The patient is also been treated with Levitra and has a history of right heart failure. He's been noncompliant with his Levitra as well as other medications. This suggests that the patient might have chronic underlying lung disease with possible right heart failure/cor pulmonale versus ulnar hypertension. At this time echocardiogram is pending. He'll also require patient's previous imaging and possible echocardiograms from the [facility]. #2 cystic lung disease: The patient does have intraparenchymal cyst and abnormal vascular pattern. At this time is not fit any specific pattern based off his age and gender a classic diseases such as [place] Du[place]ie, tracheobronchial papillomatosis, lymphoid interstitial pneumonias, malignancy, chronic infection, lymphangioleiomyomatosis or pulmonary Langerhans' cell histiocytosis also consented this pattern. Once again the patient does not fit the classic profile for most of these diseases. We'll send off at this time multiple serum studies as well as try to obtain previous images. The patient also could have episodes of chronic aspiration which could recuperate this/ these images as he has chronic alcohol issues. Should also not rule out chronic infectious etiologies such as atypical infections with THEO. This would require bronchoscopy for further evaluation but he is unable to go through the procedure safely at this time. 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 Adding this to the patient's underlying cystic lung disease and abnormal high risk CT of the lung vasculitic diseases such as MPG or GPA could be on the differential. The patient may require bronchoscopy in the future but he is on high levels of oxygen support at this time. I will send off for spot protein to creatinine ratio for further evaluation as well as serum studies. #4 right heart failure: Patient has a history father records or right heart failure and previously was treated with Levitra. Further records for evaluation of this particular issue as well as follow-up on the echocardiogram will be important.
--- NOTE | 2017-05-20 13:34 | Cardiology Consultation ---
Cardiology Consultation Date of Consultation: May 20, 2017 History of Present Illness Darshan Maloney III is a 71 year old male seen in cardiology consultation per the request of Dr. Perez for the evaluation of chest discomfort and shortness of breath. The patient's primary care provider is Dr. Corbin Salcedo of [facility]. The patient is not follow-up on a chronic basis with cardiology. Per review of his inpatient and outpatient chart, he has had no past stress testing or echocardiography on file. The patient tells me that he was sleeping in his recliner as per his typical routine last night when he woke up abruptly at 2 AM with severe midline chest discomfort and associated shortness of breath, that was worse on deep inspiration. The discomfort persisted and he was apparently in significant enough respiratory distress that he required transient support with BiPAP. He notes edema has been an issue for at least the last year, with ankle edema. Perhaps he has had a cough with worsening sputum production over the last few days. During my assessment of the patient in room 221-1 he been weaned from BiPAP, he is sitting on the edge of the bed and was very comfortable. Past Medical/Surgical History Problem List: Medical Problems: (1) Arthritis (2) CHF (congestive heart failure) (3) COPD (chronic obstructive pulmonary disease) History Past Medical History: 1. Rheumatoid arthritis 2. Hypertension 3. Chart history of COPD Past Surgical History: 1. Carpal tunnel surgery 2. Remote shoulder surgery 3. 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 His knowledge. Review Of Systems See above for pertinent positives & negatives. A total of 10 systems reviewed and were otherwise negative. Allergies Coded Allergies: Iodine (Verified Allergy, Unknown, 05/20/17) Medications Reported Home Medications Medications Dose Route/Sig Max Daily Dose Days Date Category Dose Instructions Calcium 600 (Calcium Carbonate) 600 Mg Tab 600 Mg PO DAILYBB 05/20/17 Reported Vitamin B-12 (Cyanocobalamin) 1,000 Mcg Tab 1,000 Mcg PO DAILY 05/20/17 Reported Vitamin D3 (Cholecalciferol) 2,000 Unit Tab 2,000 Unit PO DAILY 05/20/17 Reported Vitamin C (Ascorbic Acid) 1,000 Mg Tab 1,000 Mg PO DAILY 05/20/17 Reported Vitamin E 400 Iu (Vitamin E) 400 Unit Cap 400 Inter.unit PO DAILY 05/20/17 Reported Glucosamine Chondroitin (Makuvuaowcl-Rkxvfoudwwt-Aed C-) 1 Tab Tab 1 Tabs PO DAILY 05/20/17 Reported Multivitamin (Multivitamins) Tab 1 Tab PO DAILY 05/20/17 Reported Lasix (Furosemide) 20 Mg Tab 20 Mg PO QPM 05/20/17 Reported Lasix (Furosemide) 20 Mg Tab 40 Mg PO QAM 05/20/17 Reported Proair Respiclick (Albuterol Sulfate) 108 Mcg/Act Aer 2 Puffs PO Q4 PRN 05/20/17 Reported Levitra (Vardenafil HCl) 20 Mg Tab 20 Mg PO DIRECTED 05/20/17 Reported Potassium Chloride Er (Potassium Chloride) 10 Meq Cap 10 Meq PO BID 05/20/17 Reported Advair Diskus 250/50 60 Dose (Fluticasone Prop/Salmeterol) 1 Ea Aerp 1 Puff INH Q12 05/20/17 Reported Prednisone 5 Mg Tab 5 Mg PO DAILY 05/20/17 Reported Methotrexate (Methotrexate Sodium) 2.5 Mg Tab 5 Tabs PO WK 05/20/17 Reported CeleBREX (Celecoxib) 200 Mg Cap 200 Mg PO BID 05/20/17 Reported Folic Acid 1 Mg Tab 1 Mg PO 6XWK 05/20/17 Reported take daily every day except fridays Physical Exam Vital Signs (Last 8hrs): Last 8 Hrs Date Time Temp Pulse Resp B/P (MAP) Pulse Ox O2 Delivery O2 Flow Rate FiO2 05/20/17 12:00 Nasal Cannula 4.0 05/20/17 08:02 37.3 94 20 172/78 94 Nasal Cannula 5.0 153/71 05/20/17 07:43 99 20 145/84 98 BiPAP 05/20/17 07:00 98 05/20/17 06:45 94 20 154/79 98 BiPAP 4.0 60 Nebulizer 05/20/17 06:01 90 30 138/68 99 BiPAP 4.0 60 Nebulizer 05/20/17 05:31 92 22 136/71 100 BiPAP 4.0 60 Nebulizer 05/20/17 05:23 89 19 142/77 100 BiPAP 4.0 60 Nebulizer General Appearance: Alert and Oriented x3. NAD chronically ill in appearance Head: Normocephalic Atraumatic. Eyes: PERRLA, EOMI, conjunctiva and sclera clear Neck: Supple. No carotid bruits noted. No JVD. No HJD. Respiratory: Breath sounds clear to auscultation bilaterally. No w/r/r. Cardiovascular: Reg rate and rhythm. S1 and S2 noted. No murmurs, rubs, gallops. PMI non displace. Abdomen: Normal bowel sounds, soft nontender. no abdominal bruits. Extremities: 2+ nonpitting ankle edema, chronic venous stasis changes Neuro: No focal deficits. Data Last Resulted 05/20/17 03:18 Red Blood Count 4.31, Mean Corpuscular Volume 102.8, Mean Corpuscular Hemoglobin 33.4, Mean Corpuscular Hemoglobin Concent 32.5, Mean Platelet Volume 10.6, Neutrophils (%) (Auto) 80.8, Lymphocytes (%) (Auto) 12.7, Monocytes (%) ( Auto) 4.8, Eosinophils (%) (Auto) 1.1, Basophils (%) (Auto) 0.2, Neutrophils # ( Auto) 7.78, Lymphocytes # (Auto) 1.22, Monocytes # (Auto) 0.46, Eosinophils # ( Auto) 0.11, Basophils # (Auto) 0.02 Last Resulted 05/20/17 03:18 Past 24 Hours Test 05/20/17 03:18 05/20/17 09:54 05/20/17 12:09 Range/Units Creatine Kinase MB 0.7 0.5-3.6 ng/ml Creatine Kinase MB Ratio 1.2 0-3.0 Prothromb Time International Ratio 0.9 0.9-1.1 Prothrombin Time 9.9 9.0-12.0 SECONDS Total Creatine Kinase 60 39-308 U/L Troponin I < 0.015 < 0.015 < 0.015 0-0.045 ng/ml ProBNP screen: 183 PG per mL EKG performed on admission at 3:48 AM on 05/20/70 reviewed in apparently: Sinus rhythm with sinus tachycardia at 107 bpm, no significant ST changes. Chest x-ray radiology report summary: By basilar opacities reflecting possible pneumonia or atelectasis, bilateral blebs, borderline within the lungs, mild cardiomegaly without evidence of papilledema CT angiogram was negative for upon her embolus and per radiology report Dilatation of the thoracic aorta was noted to 4.4 cm at the ascending thoracic aorta Emphysematous changes were noted with bleb formation throughout. Infarction venous duplex: No evidence of acute lower extremity DVT. Mild chronic changes visualized in the right superficial femoral vein Assessment & Plan Echocardiogram performed today and reviewed independently by the undersigned: Technically difficult study, the right ventricle is not well visualized, but was grossly normal in size and systolic function The left ventricle wall motion was normal with normal LVEF. The valves were not well visualized, but no significant stenosis or regurgitation was noted. Impression: 71-year-old male 1. Presented with midline chest discomfort, perhaps a pleuritic component, and respiratory distress. 2. Underlying COPD, emphysema changes on chest x-ray and CT 3. History of rheumatoid arthritis Discussion/recommendations: Would appear the patient had a rapid improvement in his respiratory distress had received 40 mg of IV furosemide, call topical nitroglycerin, IV Solu-Medrol , and BiPAP support. His review graphics studies including his chest x-ray and CT of the chest suggest underlying lung disease, with no overt changes to suggest congestive heart failure. Although his echocardiogram is technically limited due to poor acoustic windows , the biventricular function is grossly normal. He has had serial cardiac enzymes that had been negative thus far, and the single EKG that is on his chart revealed no ischemic changes. His BNP was low, suggestive but did not present with volume overload from congestive heart failure. I question if perhaps he has underlying severe lung disease related to his past cigarette smoking or perhaps related to rheumatoid lung. The patient is being seen by the pulmonary service and multiple tests have been requested. At the present time, I recommend we continue supportive care. I'm going to continue his topical nitrates for now as we trimmed his cardiac enzymes. I've requested another EKG. Frankie Burger,
[2017-05-20] MEDS: IPRATROPIUM BROMIDE NEB SOLN 0.02% 2.5 ML VIAL INH SCH ×2 (15:20→19:42)
[2017-05-20] MEDS: LEVALBUTEROL 1.25MG/0.5ML NEB INH SCH ×2 (15:20→19:42)
[2017-05-20] MEDS ORDERED: FUROSEMIDE INJ 40 MG in SYRINGE 0 ML IV ONE (17:00)
--- NOTE | 2017-05-20 18:52 | Progress Note ---
Internal Med Progress Note Date of Service: May 20, 2017. Provider Documentation: Patient resting comfortably. Sob improved. Chest pain improved. Denies any nausea. Feeling better. cardiology and pulmonary on board. Lasix stopped. To continue prednisone and nebs.Continue to monitor closely ASSESSMENT & PLAN: [] DVT PROPHYLAXIS [] DISPOSITION [] Vital Signs: Date Time Temp Pulse Resp B/P (MAP) Pulse Ox O2 Delivery O2 Flow Rate FiO2 05/20/17 15:50 36.4 69 20 146/74 (98) 96 Nasal Cannula 5.0 05/20/17 15:24 Nasal Cannula 4.0 05/20/17 15:20 104 20 95 Nasal Cannula 5.0 05/20/17 12:31 37.6 73 20 134/70 (91) 94 Nasal Cannula 5.0 05/20/17 12:00 Nasal Cannula 4.0 05/20/17 08:02 37.3 94 20 172/78 94 Nasal Cannula 5.0 153/71 05/20/17 07:43 99 20 145/84 98 BiPAP 05/20/17 07:00 98 05/20/17 06:45 94 20 154/79 98 BiPAP 4.0 60 Nebulizer 05/20/17 06:01 90 30 138/68 99 BiPAP 4.0 60 Nebulizer 05/20/17 05:31 92 22 136/71 100 BiPAP 4.0 60 Nebulizer 05/20/17 05:23 89 19 142/77 100 BiPAP 4.0 60 Nebulizer 05/20/17 05:07 93 100 60 05/20/17 04:41 101 22 128/60 100 BiPAP Nebulizer 05/20/17 04:41 100 100 100 05/20/17 04:40 100 30 100 BiPAP/CPAP 100 05/20/17 04:31 102 20 132/76 100 BiPAP 05/20/17 04:30 92 Nasal Cannula 4.0 05/20/17 04:22 105 28 125/87 93 Nasal Cannula 4.0 05/20/17 04:00 88 Room Air 05/20/17 03:51 37.1 110 32 167/75 91 Room Air 05/20/17 03:45 110 Lab Results: Results Past 24 Hours Test 05/20/17 03:18 05/20/17 06:57 05/20/17 08:00 05/20/17 09:54 Range/Units White Blood Count 9.63 4.8-10.8 K/uL Red Blood Count 4.31 4.7-6.1 M/uL Hemoglobin 14.4 14.0-18.0 g/dL Hematocrit 44.3 42-52 % Mean Corpuscular Volume 102.8 80-100 fL Mean Corpuscular Hemoglobin 33.4 25-34 pg Mean Corpuscular Hemoglobin Concent 32.5 32-36 g/dl Platelet Count 187 130-400 K/uL Mean Platelet Volume 10.6 7.4-10.4 fL Neutrophils (%) (Auto) 80.8 % Lymphocytes (%) (Auto) 12.7 % Monocytes (%) (Auto) 4.8 % Eosinophils (%) (Auto) 1.1 % Basophils (%) (Auto) 0.2 % Neutrophils # (Auto) 7.78 1.4-6.5 K/uL Lymphocytes # (Auto) 1.22 1.2-3.4 K/uL Monocytes # (Auto) 0.46 0.11-0.59 K/uL Eosinophils # (Auto) 0.11 0-0.5 K/uL Basophils # (Auto) 0.02 0-0.2 K/uL RDW Standard Deviation 54.0 36.4-46.3 fL RDW Coefficient of Variation 14.5 11.5-14.5 % Immature Granulocyte % (Auto) 0.4 % Immature Granulocyte # (Auto) 0.04 0.00-0.02 K/uL Prothrombin Time 9.9 9.0-12.0 SECONDS Prothromb Time International Ratio 0.9 0.9-1.1 Activated Partial Thromboplast Time 26.8 21.0-31.0 SECONDS Partial Thromboplastin Ratio 1.0 D-Dimer 600 0-500 ug/L FEU Sodium Level 144 136-145 mmol/L Potassium Level 3.6 3.5-5.1 mmol/L Chloride Level 107 98-107 mmol/L Carbon Dioxide Level 30 21-32 mmol/L Anion Gap 7.0 3-11 mmol/L Blood Urea Nitrogen 10 7-18 mg/dl Creatinine 0.85 0.60-1.40 mg/dl Est Creatinine Clear Calc Drug Dose 108.4 ml/min Estimated GFR () 102.3 Estimated GFR (Non- 88.3 BUN/Creatinine Ratio 11.3 10-20 Random Glucose 127 70-99 mg/dl Calcium Level 8.4 8.5-10.1 mg/dl Magnesium Level 2.2 1.8-2.4 mg/dl Total Creatine Kinase 60 39-308 U/L Creatine Kinase MB 0.7 0.5-3.6 ng/ml Creatine Kinase MB Ratio 1.2 0-3.0 Troponin I < 0.015 < 0.015 0-0.045 ng/ml Pro-B-Type Natriuretic Peptide 183 0-900 pg/ml Arterial Blood pH 7.36 7.35-7.45 Arterial Blood Partial Pressure CO2 44 35-46 mmHg Arterial Blood Partial Pressure O2 135 80-95 mm/Hg Arterial Blood HCO3 25 19-24 mmol/L Arterial Blood Oxygen Saturation 98.8 90-95 % Arterial Blood Base Excess -0.8 -9-1.8 mEq/L Arterial Blood Gas Delivery 60% Leo Test POS POS Thyroid Stimulating Hormone (TSH) 0.569 0.300-4.500 uIu/ml Influenza Type A (RT-PCR) Neg for Influ A NEG Influenza Type A Antigen Neg for Influ A NEG Influenza Type B Antigen Neg for Influ B NEG Influenza Type B (RT-PCR) Neg for Influ B NEG Test 05/20/17 12:09 05/20/17 12:15 Range/Units Troponin I < 0.015 0-0.045 ng/ml Procalcitonin 0.44 0-0.5 ng/ml HIV (1&2) Ab and P24 Ag, 4th Gener NEG NEG Immunoglobulin G 959.0 700-1600 mg/dL Immunoglobulin A 585.0 70-400 mg/dL Immunoglobulin M 66.3 40-230 mg/dL
[2017-05-20] MEDS: DOXYCYCLINE HYCLATE 100 MG CAP PO SCH (20:19)
[2017-05-20] MEDS: METOPROLOL TARTRATE 25 MG TAB PO SCH (20:19)
[2017-05-21] VITALS (11 sets, daily range): BP systolic 133–156; BP diastolic 72–79; PULSE 58–73; TEMP 36.6–37; O2SAT 93–97
[2017-05-21] MEDS: LEVALBUTEROL 1.25MG/0.5ML NEB INH SCH ×4 (01:48→19:37)
[2017-05-21] MEDS: IPRATROPIUM BROMIDE NEB SOLN 0.02% 2.5 ML VIAL INH SCH ×4 (01:48→19:36)
[2017-05-21 05:34] LABS: BASO % 0.1 %; BASO ABS # 0.01 K/uL (0-0.2); COMPLETE YES; EOS % 0.4 %; HEMATOCRIT 40.4 % (42-52); IG% 0.4 %; LYMPH % 13.5 %; LYMPH ABS # 1.25 K/uL (1.2-3.4); MEAN CELL VOLUME 99.8 fL (80-100); MEAN CORPUSCULAR HEMOGLOBIN 33.8 pg (25-34); MEAN CORPUSCULAR HGB CONC 33.9 g/dl (32-36); MEAN PLATELET VOLUME 10.3 fL (7.4-10.4); MONO % 7.6 %; PLATELET COUNT 158 K/uL (130-400); RED BLOOD COUNT 4.05 M/uL (4.7-6.1); WHITE BLOOD COUNT 9.29 K/uL (4.8-10.8)
[2017-05-21 06:00] LABS: BUN/CREATININE RATIO 21.3 (10-20); CALCIUM 8.8 mg/dl (8.5-10.1); CREATININE 0.83 mg/dl (0.60-1.40); POTASSIUM 3.6 mmol/L (3.5-5.1)
[2017-05-21 06:03] LABS: CHOLESTEROL/HDL RATIO 1.6
--- NOTE | 2017-05-21 08:32 | DIAGNOSTIC IMAGING REPORT ---
(BARIUM SWALLOW) ESOPHAGUS CLINICAL HISTORY: possible aspirationdysphagia. Coughing. Heartburn. COMPARISON STUDY: None FLUOROSCOPY TIME: 1.3 minutes. NUMBER OF FLUOROSCOPIC IMAGES: 25 FINDINGS: The patient swallowed effervescent granules and barium without difficulty. No mass lesions or ulcerations were evident within the esophagus. There is disordered esophageal motility. There is a prominent cricopharyngeus impression. The patient swallowed one half inch barium tablet without difficulty. This passed into the stomach. IMPRESSION: 1. Prominent cricopharyngeus impression 2. Disordered esophageal motility 3. No esophageal masses identified. Electronically signed by: Chris Grande M.D. 05/21/2017 8:30 AM Dictated Date/Time: 05/21/2017 8:26 AM
[2017-05-21] MEDS: DOXYCYCLINE HYCLATE 100 MG CAP PO SCH ×2 (08:45→21:41)
[2017-05-21] MEDS: MULTIVITAMIN TAB PO SCH (08:45)
[2017-05-21] MEDS: ASPIRIN 325 MG ECTAB PO SCH (08:46)
[2017-05-21] MEDS: METOPROLOL TARTRATE 25 MG TAB PO SCH ×2 (08:46→21:41)
[2017-05-21] MEDS: POTASSIUM CHLORIDE 10 MEQ TABCR PO SCH (08:46)
[2017-05-21] MEDS: ENOXAPARIN 40 MG/0.4 ML SYR SC SCH (08:47)
--- NOTE | 2017-05-21 09:58 | Progress Note ---
Medicine Progress Note Date & Time of Visit: May 21, 2017 at 09:51. Subjective patient seen sitting in bedside chair, comfortable on 4 liters NC states breathing continues to improve, still has productive cough , green sputum no chest pain today denies other symptoms Objective Last 8 Hrs Date Time Temp Pulse Resp B/P (MAP) Pulse Ox O2 Delivery O2 Flow Rate FiO2 05/21/17 08:00 Nasal Cannula 4.0 05/21/17 07:36 36.6 72 18 133/75 (94) 96 Nasal Cannula 4.0 05/21/17 07:04 68 20 94 Nasal Cannula 4.0 05/21/17 04:00 36.6 70 20 142/72 (95) 95 Nasal Cannula 5.0 05/21/17 04:00 Nasal Cannula 4.0 Physical Exam: General- oriented x 3, not in distress, speaks in sentences with no effort Head- atraumatic Eyes-EOMI, anicteric ENT- oropharynx clear Neck- supple, no JVD Lungs- distant but clear breath sounds bilaterally Heart- regular rhythm; no murmur, normal rate Abdomen- normal bowel sounds, soft, nontender Extremities- (+) mild lower leg edema with hyperpigmentation Neuro- alert, oriented x 3; no gross focal deficits Skin- warm & dry Laboratory Results: Last 24 Hours Test 05/20/17 09:54 05/20/17 12:09 05/20/17 12:15 05/21/17 05:13 Troponin I < 0.015 ng/ml < 0.015 ng/ml Procalcitonin 0.44 ng/ml HIV (1&2) Ab and P24 Ag, 4th Gener NEG Immunoglobulin G 959.0 mg/dL Immunoglobulin A 585.0 mg/dL Immunoglobulin M 66.3 mg/dL White Blood Count 9.29 K/uL Red Blood Count 4.05 M/uL Hemoglobin 13.7 g/dL Hematocrit 40.4 % Mean Corpuscular Volume 99.8 fL Mean Corpuscular Hemoglobin 33.8 pg Mean Corpuscular Hemoglobin Concent 33.9 g/dl Platelet Count 158 K/uL Mean Platelet Volume 10.3 fL Neutrophils (%) (Auto) 78.0 % Lymphocytes (%) (Auto) 13.5 % Monocytes (%) (Auto) 7.6 % Eosinophils (%) (Auto) 0.4 % Basophils (%) (Auto) 0.1 % Neutrophils # (Auto) 7.24 K/uL Lymphocytes # (Auto) 1.25 K/uL Monocytes # (Auto) 0.71 K/uL Eosinophils # (Auto) 0.04 K/uL Basophils # (Auto) 0.01 K/uL RDW Standard Deviation 53.7 fL RDW Coefficient of Variation 14.8 % Immature Granulocyte % (Auto) 0.4 % Immature Granulocyte # (Auto) 0.04 K/uL Sodium Level 140 mmol/L Potassium Level 3.6 mmol/L Chloride Level 104 mmol/L Carbon Dioxide Level 30 mmol/L Anion Gap 6.0 mmol/L Blood Urea Nitrogen 18 mg/dl Creatinine 0.83 mg/dl Est Creatinine Clear Calc Drug Dose 109.8 ml/min Estimated GFR () 103.3 Estimated GFR (Non- 89.2 BUN/Creatinine Ratio 21.3 Random Glucose 102 mg/dl Calcium Level 8.8 mg/dl Triglycerides Level 52 mg/dl Cholesterol Level 139 mg/dl HDL Cholesterol 85 mg/dl LDL Cholesterol, Calculated 44 mg/dl VLDL Cholesterol, Calculated 10 mg/dl Cholesterol/HDL Ratio 1.6 Assessment & Plan ASSESSMENT: ACUTE HYPOXIC RESPIRATORY FAILURE SECONDARY TO COPD EXACERBATION, POSSIBLE BILATERAL LOWER LOBE PNEUMONIA VS. BRONCHITIS R/O ASPIRATION CYSTIC LUNG CHANGES -- now on 4 liters NC continue Prednisone 40mg then taper, Nebs q6h, Doxycycline PO -- appreciate Pulm SVC input CHF DIASTOLIC TYPE -- received IV Lasix with good response usually on PO Lasix -- echo noted Doppler US no DVT -- Cardiology consulted, appreciate the input ESOPHAGEAL DYSMOTILITY -- r/o Aspiration -- Speech Tx eval Peripheral vascular disease on CT. Past tobacco abuse. Rheumatoid arthritis,on chronic steroid therapy. hx MRSA DVT prophylaxis - Lovenox DNR Disposition anticipate d/c home when medically stable, cleared by Pulm will benefit from Home Health Services may need oxygen supplement, 2 step exercise test and Nebulizer Machine at home Current Inpatient Medications: Current Inpatient Medications Medications (Trade) Dose Ordered Sig/Malvin Route Start Time Stop Time Status Last Admin Dose Admin Ioversol (Optiray 320) 100 ml UD PRN IV 05/20/17 04:30 05/24/17 04:29 Aspirin (Ecotrin Tab) 325 mg QAM PO 05/21/17 09:00 06/20/17 08:59 05/21/17 08:46 325 MG Metoprolol Tartrate (Lopressor Tab) 12.5 mg BID PO 05/20/17 21:00 06/19/17 20:59 05/21/17 08:46 12.5 MG Enoxaparin Sodium (Lovenox Inj) 40 mg Q24H SC 05/20/17 09:00 06/19/17 08:59 05/21/17 08:47 40 MG Acetaminophen (Tylenol Tab) 650 mg Q4H PRN PO 05/20/17 06:45 06/19/17 06:44 Nitroglycerin (Nitrostat Tab) 0.4 mg UD PRN SL 05/20/17 06:45 06/19/17 06:44 Prednisone (PredniSONE TAB) 40 mg DAILY PO 05/21/17 09:00 05/26/17 08:59 05/21/17 08:47 40 MG Folic Acid (Folvite Tab) 1 mg [id number]@0900 PO 05/20/17 09:00 06/19/17 08:59 05/21/17 08:45 1 MG Multivitamins (Multivitamin Tab) 1 tab DAILY PO 05/20/17 09:00 06/19/17 08:59 05/21/17 08:45 1 TAB Potassium Chloride (Klor-Con M10) 20 meq DAILY PO 05/21/17 09:00 06/20/17 08:59 05/21/17 08:46 20 MEQ Ipratropium Cresco (Atrovent 0.02% 0.5MG/2.5ML Neb) 0.5 mg Q6R INH 05/20/17 09:00 06/19/17 08:59 05/21/17 07:04 0.5 MG Levalbuterol (Xopenex 1.25MG/ 0.5ML Neb) 1.25 mg Q6R INH 05/20/17 09:00 06/19/17 08:59 05/21/17 07:04 1.25 MG Ipratropium Cresco (Atrovent 0.02% 0.5MG/2.5ML Neb) 0.5 mg Q4H PRN INH 05/20/17 07:00 06/19/17 06:59 Levalbuterol (Xopenex 1.25MG/ 0.5ML Neb) 1.25 mg Q4H PRN INH 05/20/17 07:00 06/19/17 06:59 Hydromorphone HCl (Dilaudid Inj) 0.5 mg Q3H PRN IV 05/20/17 07:00 06/03/17 06:59 Tramadol HCl (Ultram Tab) not relieved by tylenol @ Q6H PRN PO 05/20/17 07:00 06/19/17 06:59 Promethazine HCl 12.5 mg/Sodium Chloride 50.5 ml @ 204 mls/hr Q6H PRN IV 05/20/17 07:00 06/19/17 06:59 Doxycycline Hyclate (Vibramycin Cap) 100 mg BID PO 05/20/17 21:00 05/27/17 20:59 05/21/17 08:45 100 MG
--- NOTE | 2017-05-21 10:13 | Cardiology Follow-Up ---
Subjective General Date of Service: May 21, 2017. Chief Complaint: follow up chest pain, SOB Pt evaluation today including: conversation w/ patient, physical exam History of Present Illness The patient is a 71 year old male seen in follow up. Patient notes mild CP with deep inspiration that he believes is improved. SOB is improved. Telemetry reveals at 7 beat run of ventricular ectopy on 05/21/17 at 1:20 am at 69 bpm with offset to SR. Allergies Coded Allergies: Iodine (Verified Allergy, Unknown, 05/20/17) Social History Smoking Status: Former Smoker Hx Tobacco Use In Past Year?: No Hx Alcohol Use - Type And Amou: Yes (3-4 BEERS ON OCCASION) Hx Substance Use - Type And Am: No Problem List Medical Problems: (1) Acute respiratory distress Status: Acute (2) COPD exacerbation Status: Acute (3) Hypoxia Status: Acute (4) Respiratory failure Status: Acute (5) Substernal chest pain Status: Acute Physical Exam Vital Signs Last Vital Signs Documentation Date Time Temp Pulse Resp B/P (MAP) Pulse Ox O2 Delivery O2 Flow Rate FiO2 05/21/17 08:00 Nasal Cannula 4.0 05/21/17 07:36 36.6 72 18 133/75 (94) 96 05/20/17 06:45 60 Physical Exam Constitutional: Level of Distress: NAD Head: normocephalic Neck: supple Lungs: Auscultation: no wheezing, no rales/crackles Cardiovascular: Heart Auscultation: RRR, no murmurs Abdomen: Inspection & Palpation: soft, non-distended, no tenderness, guarding & rebound Extremities: pertinent finding (1-2+ ankle edema , non pitting, venous stasis changes ) Assessment and Plan Assessment and Plan Echocardiogram performed 05/20/17 and reviewed independently by the undersigned: Technically difficult study, the right ventricle is not well visualized, but was grossly normal in size and systolic function The left ventricle wall motion was normal with normal LVEF. The valves were not well visualized, but no significant stenosis or regurgitation was noted. Impression: 71-year-old male 1. Presented with midline chest discomfort, perhaps a pleuritic component, and respiratory distress. 2. Underlying COPD, emphysema changes and cystic changes on chest x-ray and CT , concern for tracheomalacia 3. History of rheumatoid arthritis 4. Asymptomatic ventricular ectopy Plan: Serial EKG and troponin levels are negative and do not suggest ischemia. RV function is grossly normal. Pt states he has been prescribed Levitra as outpt by PCP for erectile dysfunction, not for RH failure or pulm HTN and he has not taken it. edema likely due to venous insufficiency although perhaps underlying RH failure (although echo not suggestive of RV dysfunction or cor pulmonale). Pulm input noted and appreciated. Continue oxygen supplementation. Continue low dose metoprolol. Continue lovenox for DVT prophylaxis. Laboratory Results Last 24 Hours Test 05/20/17 12:09 05/20/17 12:15 05/21/17 05:13 Troponin I < 0.015 ng/ml Procalcitonin 0.44 ng/ml HIV (1&2) Ab and P24 Ag, 4th Gener NEG Immunoglobulin G 959.0 mg/dL Immunoglobulin A 585.0 mg/dL Immunoglobulin M 66.3 mg/dL White Blood Count 9.29 K/uL Red Blood Count 4.05 M/uL Hemoglobin 13.7 g/dL Hematocrit 40.4 % Mean Corpuscular Volume 99.8 fL Mean Corpuscular Hemoglobin 33.8 pg Mean Corpuscular Hemoglobin Concent 33.9 g/dl Platelet Count 158 K/uL Mean Platelet Volume 10.3 fL Neutrophils (%) (Auto) 78.0 % Lymphocytes (%) (Auto) 13.5 % Monocytes (%) (Auto) 7.6 % Eosinophils (%) (Auto) 0.4 % Basophils (%) (Auto) 0.1 % Neutrophils # (Auto) 7.24 K/uL Lymphocytes # (Auto) 1.25 K/uL Monocytes # (Auto) 0.71 K/uL Eosinophils # (Auto) 0.04 K/uL Basophils # (Auto) 0.01 K/uL RDW Standard Deviation 53.7 fL RDW Coefficient of Variation 14.8 % Immature Granulocyte % (Auto) 0.4 % Immature Granulocyte # (Auto) 0.04 K/uL Sodium Level 140 mmol/L Potassium Level 3.6 mmol/L Chloride Level 104 mmol/L Carbon Dioxide Level 30 mmol/L Anion Gap 6.0 mmol/L Blood Urea Nitrogen 18 mg/dl Creatinine 0.83 mg/dl Est Creatinine Clear Calc Drug Dose 109.8 ml/min Estimated GFR () 103.3 Estimated GFR (Non- 89.2 BUN/Creatinine Ratio 21.3 Random Glucose 102 mg/dl Calcium Level 8.8 mg/dl Triglycerides Level 52 mg/dl Cholesterol Level 139 mg/dl HDL Cholesterol 85 mg/dl LDL Cholesterol, Calculated 44 mg/dl VLDL Cholesterol, Calculated 10 mg/dl Cholesterol/HDL Ratio 1.6
--- NOTE | 2017-05-21 18:57 | Pulmonology Progress Note ---
Pulmonary Progress Note Date of Service May 21, 2017. Attending Dr. Ramires Subjective Patient notes he continues have improvement in his overall respiratory status and is close to his baseline: Objective Patient able to sit up in a chair complete full sentences with no signs of accessory muscle use or increased work of breathing: He is currently using 4 L nasal cannula Vital signs: Stable on 4 L nasal cannula Respiratory: Decreased breath sounds globally Cardiac: S1-S2 distant heart sounds unable to auscultate Abdomen: Positive bowel sounds soft nontender Extremities: 1+ pitting edema Echocardiogram: Within normal limits HIV study: Negative Immunoglobulins: Elevated IgA Pending: DON, ANCA, anti protease 3, anti myeloperoxidase DVT study: No evidence of acute lower extremity DVTs, mild chronic changes within the distal right superficial femoral vein Barium swallow: Disordered esophageal motility, no esophageal mass identified Thoracic CT angio: No evidence for major central emboli Assessment & Plan 71-year-old gentleman with hypoxia and abnormal chest CT/multiple cysts: 1. Hypoxia: At this time the patient's hypoxia is most likely chronic in nature from his underlying pulmonary disease. The echocardiogram does not show signs right ventricular dysfunction. Continue current oxygen support as well as medical regimen. Should performed 2 step tomorrow for evaluation of possible pending discharge. 2. Cystic lung disease: Patient does not fit 1 particular cystic lung disease category but he does have a long history of rheumatoid arthritis and an elevated IgA which could be consistent with active rheumatoid lung but this is most likely seen with fibrosing are inflammatory lung changes not cystic. Patient will need further workup after his discharge. 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 Adding this to the patient's underlying cystic lung disease and abnormal high risk CT of the lung vasculitic diseases such as MPG or GPA could be on the differential. The patient may require bronchoscopy in the future but he is on high levels of oxygen support at this time. I will send off for spot protein to creatinine ratio for further evaluation as well as serum studies. Data Medications: Current Inpatient Medications Medications (Trade) Dose Ordered Sig/Malvin Route Start Time Stop Time Status Last Admin Dose Admin Ioversol (Optiray 320) 100 ml UD PRN IV 05/20/17 04:30 05/24/17 04:29 Aspirin (Ecotrin Tab) 325 mg QAM PO 05/21/17 09:00 06/20/17 08:59 05/21/17 08:46 325 MG Metoprolol Tartrate (Lopressor Tab) 12.5 mg BID PO 05/20/17 21:00 06/19/17 20:59 05/21/17 08:46 12.5 MG Enoxaparin Sodium (Lovenox Inj) 40 mg Q24H SC 05/20/17 09:00 06/19/17 08:59 05/21/17 08:47 40 MG Acetaminophen (Tylenol Tab) 650 mg Q4H PRN PO 05/20/17 06:45 06/19/17 06:44 Nitroglycerin (Nitrostat Tab) 0.4 mg UD PRN SL 05/20/17 06:45 06/19/17 06:44 Prednisone (PredniSONE TAB) 40 mg DAILY PO 05/21/17 09:00 05/26/17 08:59 05/21/17 08:47 40 MG Folic Acid (Folvite Tab) 1 mg SuMoTuWeThSa@0900 PO 05/20/17 09:00 06/19/17 08:59 05/21/17 08:45 1 MG Multivitamins (Multivitamin Tab) 1 tab DAILY PO 05/20/17 09:00 06/19/17 08:59 05/21/17 08:45 1 TAB Potassium Chloride (Klor-Con M10) 20 meq DAILY PO 05/21/17 09:00 06/20/17 08:59 05/21/17 08:46 20 MEQ Ipratropium Kinde (Atrovent 0.02% 0.5MG/2.5ML Neb) 0.5 mg Q6R INH 05/20/17 09:00 06/19/17 08:59 05/21/17 14:16 0.5 MG Levalbuterol (Xopenex 1.25MG/ 0.5ML Neb) 1.25 mg Q6R INH 05/20/17 09:00 06/19/17 08:59 05/21/17 14:16 1.25 MG Ipratropium Kinde (Atrovent 0.02% 0.5MG/2.5ML Neb) 0.5 mg Q4H PRN INH 05/20/17 07:00 06/19/17 06:59 Levalbuterol (Xopenex 1.25MG/ 0.5ML Neb) 1.25 mg Q4H PRN INH 05/20/17 07:00 06/19/17 06:59 Hydromorphone HCl (Dilaudid Inj) 0.5 mg Q3H PRN IV 05/20/17 07:00 06/03/17 06:59 Tramadol HCl (Ultram Tab) not relieved by tylenol @ Q6H PRN PO 05/20/17 07:00 06/19/17 06:59 Promethazine HCl 12.5 mg/Sodium Chloride 50.5 ml @ 204 mls/hr Q6H PRN IV 05/20/17 07:00 06/19/17 06:59 Doxycycline Hyclate (Vibramycin Cap) 100 mg BID PO 05/20/17 21:00 05/27/17 20:59 05/21/17 08:45 100 MG I & O: 24-Hour Column 05/22/17 08:00 Intake Total 275 ml Output Total 300 ml Balance -25 ml Vital Signs: Date Time Temp Pulse Resp B/P (MAP) Pulse Ox O2 Delivery O2 Flow Rate FiO2 05/21/17 16:00 Nasal Cannula 4.0 05/21/17 15:19 36.9 73 20 137/76 (96) 93 Nasal Cannula 4.0 05/21/17 14:17 71 20 95 Nasal Cannula 4.0 05/21/17 11:57 Nasal Cannula 4.0 05/21/17 11:27 37.0 58 18 133/77 (95) 97 Nasal Cannula 4.0 05/21/17 08:00 Nasal Cannula 4.0 05/21/17 07:36 36.6 72 18 133/75 (94) 96 Nasal Cannula 4.0 05/21/17 07:04 68 20 94 Nasal Cannula 4.0 05/21/17 04:00 36.6 70 20 142/72 (95) 95 Nasal Cannula 5.0 05/21/17 04:00 Nasal Cannula 4.0 05/21/17 01:48 59 20 96 Nasal Cannula 5.0 05/21/17 00:01 Nasal Cannula 4.0 05/21/17 00:00 36.6 60 20 141/75 (97) 97 Nasal Cannula 5.0 05/20/17 20:00 Nasal Cannula 4.0 05/20/17 19:42 71 20 95 Nasal Cannula 5.0 05/20/17 19:00 36.7 73 145/70 (95) 95 Nasal Cannula 5.0 Laboratory Results: Last 24 Hours Test 05/21/17 05:13 White Blood Count 9.29 K/uL Red Blood Count 4.05 M/uL Hemoglobin 13.7 g/dL Hematocrit 40.4 % Mean Corpuscular Volume 99.8 fL Mean Corpuscular Hemoglobin 33.8 pg Mean Corpuscular Hemoglobin Concent 33.9 g/dl Platelet Count 158 K/uL Mean Platelet Volume 10.3 fL Neutrophils (%) (Auto) 78.0 % Lymphocytes (%) (Auto) 13.5 % Monocytes (%) (Auto) 7.6 % Eosinophils (%) (Auto) 0.4 % Basophils (%) (Auto) 0.1 % Neutrophils # (Auto) 7.24 K/uL Lymphocytes # (Auto) 1.25 K/uL Monocytes # (Auto) 0.71 K/uL Eosinophils # (Auto) 0.04 K/uL Basophils # (Auto) 0.01 K/uL RDW Standard Deviation 53.7 fL RDW Coefficient of Variation 14.8 % Immature Granulocyte % (Auto) 0.4 % Immature Granulocyte # (Auto) 0.04 K/uL Sodium Level 140 mmol/L Potassium Level 3.6 mmol/L Chloride Level 104 mmol/L Carbon Dioxide Level 30 mmol/L Anion Gap 6.0 mmol/L Blood Urea Nitrogen 18 mg/dl Creatinine 0.83 mg/dl Est Creatinine Clear Calc Drug Dose 109.8 ml/min Estimated GFR () 103.3 Estimated GFR (Non- 89.2 BUN/Creatinine Ratio 21.3 Random Glucose 102 mg/dl Calcium Level 8.8 mg/dl Triglycerides Level 52 mg/dl Cholesterol Level 139 mg/dl HDL Cholesterol 85 mg/dl LDL Cholesterol, Calculated 44 mg/dl VLDL Cholesterol, Calculated 10 mg/dl Cholesterol/HDL Ratio 1.6
[2017-05-22] VITALS (9 sets, daily range): BP systolic 128–158; BP diastolic 63–79; PULSE 57–80; TEMP 36.4–37.2; O2SAT 92–95
[2017-05-22] MEDS: LEVALBUTEROL 1.25MG/0.5ML NEB INH SCH ×2 (02:09→13:57)
[2017-05-22] MEDS: IPRATROPIUM BROMIDE NEB SOLN 0.02% 2.5 ML VIAL INH SCH ×2 (02:09→13:57)
[2017-05-22 06:04] LABS: BUN/CREATININE RATIO 21.5 (10-20); CALCIUM 8.6 mg/dl (8.5-10.1); CREATININE 0.82 mg/dl (0.60-1.40); POTASSIUM 3.9 mmol/L (3.5-5.1)
[2017-05-22] MEDS: ASPIRIN 325 MG ECTAB PO SCH (08:29)
[2017-05-22] MEDS: POTASSIUM CHLORIDE 10 MEQ TABCR PO SCH (08:30)
[2017-05-22] MEDS: METOPROLOL TARTRATE 25 MG TAB PO SCH (08:32)
[2017-05-22] MEDS: MULTIVITAMIN TAB PO SCH (08:32)
[2017-05-22] MEDS: DOXYCYCLINE HYCLATE 100 MG CAP PO SCH (08:34)
[2017-05-22] MEDS: ENOXAPARIN 40 MG/0.4 ML SYR SC SCH (08:36)
--- NOTE | 2017-05-22 15:41 | Pulmonology Progress Note ---
Pulmonary Progress Note Date of Service May 22, 2017. Attending Dr. Ramires Subjective Patient states that he is feeling great today. He is experiencing no real SOB , chest tightness, or chest pain. He does have some very mild on and off cough. Esophagus X-ray yesterday showed prominent cricopharyngeus impression along with disordered esophageal motility, but no masses. Labs reviewed- stable. VS reviewed- note SaO2 >92% on room air. Objective General: Patient is awake, alert, cooperative, and in no acute distress. Obese. Head: Normocephalic, Atraumatic. ENT: PERRLA, No discharge, EOMI, Sclera normal Neck: Normal ROM. Trachea midline. No stridor Respiratory: Mild wheeze LLL. Normal breath sounds. No respiratory distress. No accessory muscle use. Cardiovascular: Regular rate and rhythm. No murmur appreciate. Normal S1/S2. Abdomen: Nontender to palpation. Normal bowel sounds hear throughout. No guarding. Abdomen is soft and nontender Back: Normal inspection. Extremities: 1+ pitting edema of the RLE. Neuro: Alert, Oriented x 3. CN II-XII grossly intact. Sensation and motor function grossly intact. Psych: Mood and affect are normal. Assessment & Plan 1. Hypoxia: Resolved. Likely from underlying pulmonary disease. 2 Step completed today- patient does not require O2. 2. Cystic lung disease: Patient's overall picture is atypical for any particular cystic lung disease category. Multiple studies currently pending. Patient will need further workup as an outpatient to determine the etiology of his cystic lung disease. 3. 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 The patient ultimately may require bronchoscopy in the future pending further workup, but he overall is improved now. He is OK for D/C from Pulmonary perspective, and he will need follow up in 1-2 weeks for further evaluation of cystic lung dz. and tracheobronchial malacia. Thank you Patient seen and examined and the plan agreed with. Data Medications: Current Inpatient Medications Medications (Trade) Dose Ordered Sig/Malvin Route Start Time Stop Time Status Last Admin Dose Admin Ioversol (Optiray 320) 100 ml UD PRN IV 05/20/17 04:30 05/24/17 04:29 Aspirin (Ecotrin Tab) 325 mg QAM PO 05/21/17 09:00 06/20/17 08:59 05/22/17 08:29 325 MG Metoprolol Tartrate (Lopressor Tab) 12.5 mg BID PO 05/20/17 21:00 06/19/17 20:59 05/22/17 08:32 12.5 MG Enoxaparin Sodium (Lovenox Inj) 40 mg Q24H SC 05/20/17 09:00 06/19/17 08:59 05/22/17 08:36 40 MG Acetaminophen (Tylenol Tab) 650 mg Q4H PRN PO 05/20/17 06:45 06/19/17 06:44 Nitroglycerin (Nitrostat Tab) 0.4 mg UD PRN SL 05/20/17 06:45 06/19/17 06:44 Prednisone (PredniSONE TAB) 40 mg DAILY PO 05/21/17 09:00 05/26/17 08:59 05/22/17 08:33 40 MG Folic Acid (Folvite Tab) 1 mg SuMoTuWeThSa@0900 PO 05/20/17 09:00 06/19/17 08:59 05/22/17 08:29 1 MG Multivitamins (Multivitamin Tab) 1 tab DAILY PO 05/20/17 09:00 06/19/17 08:59 05/22/17 08:32 1 TAB Potassium Chloride (Klor-Con M10) 20 meq DAILY PO 05/21/17 09:00 06/20/17 08:59 05/22/17 08:30 20 MEQ Ipratropium [place]ket (Atrovent 0.02% 0.5MG/2.5ML Neb) 0.5 mg Q6R INH 05/20/17 09:00 06/19/17 08:59 05/22/17 13:57 0.5 MG Levalbuterol (Xopenex 1.25MG/ 0.5ML Neb) 1.25 mg Q6R INH 05/20/17 09:00 06/19/17 08:59 05/22/17 13:57 1.25 MG Ipratropium [place] (Atrovent 0.02% 0.5MG/2.5ML Neb) 0.5 mg Q4H PRN INH 05/20/17 07:00 06/19/17 06:59 Levalbuterol (Xopenex 1.25MG/ 0.5ML Neb) 1.25 mg Q4H PRN INH 05/20/17 07:00 06/19/17 06:59 Hydromorphone HCl (Dilaudid Inj) 0.5 mg Q3H PRN IV 05/20/17 07:00 06/03/17 06:59 Tramadol HCl (Ultram Tab) not relieved by tylenol @ Q6H PRN PO 05/20/17 07:00 06/19/17 06:59 Promethazine HCl 12.5 mg/Sodium Chloride 50.5 ml @ 204 mls/hr Q6H PRN IV 05/20/17 07:00 06/19/17 06:59 Doxycycline Hyclate (Vibramycin Cap) 100 mg BID PO 05/20/17 21:00 05/27/17 20:59 05/22/17 08:34 100 MG I & O: 24-Hour Column 05/23/17 08:00 Intake Total 560 ml Output Total 700 ml Balance -140 ml Vital Signs: Date Time Temp Pulse Resp B/P (MAP) Pulse Ox O2 Delivery O2 Flow Rate FiO2 05/22/17 13:58 72 20 93 Room Air 05/22/17 12:00 Room Air 05/22/17 11:21 36.5 60 18 140/72 (94) 92 Room Air 05/22/17 10:19 Room Air 05/22/17 08:27 80 128/71 (90) 05/22/17 08:00 Room Air 05/22/17 07:34 36.5 58 18 158/79 (105) 94 Room Air 05/22/17 04:00 Room Air 05/22/17 03:56 37.2 67 17 138/70 (92) 93 Room Air 05/22/17 02:10 63 20 94 Nasal Cannula 3.0 05/22/17 00:22 36.4 57 18 137/63 (87) 95 Nasal Cannula 2.0 05/22/17 00:01 Nasal Cannula 2.0 05/21/17 23:51 97 Nasal Cannula 2.0 05/21/17 19:48 Nasal Cannula 4.0 05/21/17 19:38 68 20 94 Nasal Cannula 3.0 05/21/17 19:26 36.8 72 20 156/79 (104) 96 Nasal Cannula 4.0 05/21/17 16:00 Nasal Cannula 4.0 Laboratory Results: Last 24 Hours Test 05/22/17 05:11 Sodium Level 141 mmol/L Potassium Level 3.9 mmol/L Chloride Level 103 mmol/L Carbon Dioxide Level 34 mmol/L Anion Gap 4.0 mmol/L Blood Urea Nitrogen 18 mg/dl Creatinine 0.82 mg/dl Est Creatinine Clear Calc Drug Dose 110.7 ml/min Estimated GFR () 103.8 Estimated GFR (Non- 89.6 BUN/Creatinine Ratio 21.5 Random Glucose 96 mg/dl Calcium Level 8.6 mg/dl
--- NOTE | 2017-05-22 16:01 | Progress Note ---
Medicine Progress Note Date & Time of Visit: May 22, 2017 at 15:53. Subjective patient states he feels much better overall denies dyspnea, ambulated in the hallways with no problems cough has improved no fever/chills denies other symptoms states he is ready and would like to be discharged today Objective Last 8 Hrs Date Time Temp Pulse Resp B/P (MAP) Pulse Ox O2 Delivery O2 Flow Rate FiO2 05/22/17 15:48 36.5 72 20 93 Room Air 05/22/17 13:58 72 20 93 Room Air 05/22/17 12:00 Room Air 05/22/17 11:21 36.5 60 18 140/72 (94) 92 Room Air 05/22/17 10:19 Room Air 05/22/17 08:27 80 128/71 (90) 05/22/17 08:00 Room Air Physical Exam: General- oriented x 3, not in distress, speaks in sentences with no effort Eyes- anicteric Neck- no JVD Lungs- clear breath sounds bilaterally Heart- regular rhythm; no murmur, normal rate Abdomen- normal bowel sounds, soft, nontender Extremities- (+) mild lower leg edema with hyperpigmentation Neuro- alert, oriented x 3; no gross focal deficits Skin- warm & dry Laboratory Results: Last 24 Hours Test 05/22/17 05:11 Sodium Level 141 mmol/L Potassium Level 3.9 mmol/L Chloride Level 103 mmol/L Carbon Dioxide Level 34 mmol/L Anion Gap 4.0 mmol/L Blood Urea Nitrogen 18 mg/dl Creatinine 0.82 mg/dl Est Creatinine Clear Calc Drug Dose 110.7 ml/min Estimated GFR () 103.8 Estimated GFR (Non- 89.6 BUN/Creatinine Ratio 21.5 Random Glucose 96 mg/dl Calcium Level 8.6 mg/dl Assessment & Plan ASSESSMENT: ACUTE HYPOXIC RESPIRATORY FAILURE SECONDARY TO COPD EXACERBATION, POSSIBLE BILATERAL LOWER LOBE PNEUMONIA VS. BRONCHITIS CYSTIC LUNG CHANGES -- evaluated by Pulmonary was placed on IV Solumedrol, then Prednisone 40mg daily, Doxycycline 100mg po BID and Nebs q6h gradually improved, weaned off oxygen -- d/c plan: Prednisone taper starting at 40mg po daily then resume usual Prednisone 5mg po every other day Doxycycline 100mg po BID x 5 more days to complete 7 day treatment continue usual Advair, PRN Albuterol -- ff up with PCP in 1 week ff up with Pulmonary Dr. Ramires in 2 weeks for further work up of Cystic Lung Changes, Tracheo-Bronchomalacia (may need bronchoscopy) CHF DIASTOLIC TYPE -- received IV Lasix with good response usually on PO Lasix -- echo noted Doppler US no DVT -- Cardiology consulted patient stable from the Cardiac standpoint continue usual Lasix regimen ESOPHAGEAL DYSMOTILITY -- seen on Barium Swallow -- evaluated by Speech Therapy, recommendations: 1. SLIPPERY regular diet: Choose foods that are moist, loose, slippery; avoid foods that are thick, dry, doughy, pasty; use sauces/gravy/condiments /healthy oils to make foods slippery as needed 2. Compensatory Strategies: Sit fully upright for meals and remain upright for 30 minutes after meal; keep head of bed elevated AT LEAST 30 degrees at ALL times--even for sleep; alternate solids and liquids frequently during meals; avoid icy cold beverages--especially during meals 3. Noify PCP if you experience worsening dysphagia symptoms or s/s aspiration or pain/discomfort with swallowing. Peripheral vascular disease on CT. Past tobacco abuse. Rheumatoid arthritis,on chronic steroid therapy. hx MRSA DVT prophylaxis - Lovenox DNR Disposition d/c home today ff up with PCP in 3-5 days ff up with Pulmonary [facility] Dr. Ramires in 2 weeks Current Inpatient Medications: Current Inpatient Medications Medications (Trade) Dose Ordered Sig/Malvin Route Start Time Stop Time Status Last Admin Dose Admin Ioversol (Optiray 320) 100 ml UD PRN IV 05/20/17 04:30 05/24/17 04:29 Aspirin (Ecotrin Tab) 325 mg QAM PO 05/21/17 09:00 06/20/17 08:59 05/22/17 08:29 325 MG Metoprolol Tartrate (Lopressor Tab) 12.5 mg BID PO 05/20/17 21:00 06/19/17 20:59 05/22/17 08:32 12.5 MG Enoxaparin Sodium (Lovenox Inj) 40 mg Q24H SC 05/20/17 09:00 06/19/17 08:59 05/22/17 08:36 40 MG Acetaminophen (Tylenol Tab) 650 mg Q4H PRN PO 05/20/17 06:45 06/19/17 06:44 Nitroglycerin (Nitrostat Tab) 0.4 mg UD PRN SL 05/20/17 06:45 06/19/17 06:44 Prednisone (PredniSONE TAB) 40 mg DAILY PO 05/21/17 09:00 05/26/17 08:59 05/22/17 08:33 40 MG Folic Acid (Folvite Tab) 1 mg SuMoTuWeThSa@0900 PO 05/20/17 09:00 06/19/17 08:59 05/22/17 08:29 1 MG Multivitamins (Multivitamin Tab) 1 tab DAILY PO 05/20/17 09:00 06/19/17 08:59 05/22/17 08:32 1 TAB Potassium Chloride (Klor-Con M10) 20 meq DAILY PO 05/21/17 09:00 06/20/17 08:59 05/22/17 08:30 20 MEQ Ipratropium Bre[place] (Atrovent 0.02% 0.5MG/2.5ML Neb) 0.5 mg Q6R INH 05/20/17 09:00 06/19/17 08:59 05/22/17 13:57 0.5 MG Levalbuterol (Xopenex 1.25MG/ 0.5ML Neb) 1.25 mg Q6R INH 05/20/17 09:00 06/19/17 08:59 05/22/17 13:57 1.25 MG Ipratropium Bre[place] (Atrovent 0.02% 0.5MG/2.5ML Neb) 0.5 mg Q4H PRN INH 05/20/17 07:00 06/19/17 06:59 Levalbuterol (Xopenex 1.25MG/ 0.5ML Neb) 1.25 mg Q4H PRN INH 05/20/17 07:00 06/19/17 06:59 Hydromorphone HCl (Dilaudid Inj) 0.5 mg Q3H PRN IV 05/20/17 07:00 06/03/17 06:59 Tramadol HCl (Ultram Tab) not relieved by tylenol @ Q6H PRN PO 05/20/17 07:00 06/19/17 06:59 Promethazine HCl 12.5 mg/Sodium Chloride 50.5 ml @ 204 mls/hr Q6H PRN IV 05/20/17 07:00 06/19/17 06:59 Doxycycline Hyclate (Vibramycin Cap) 100 mg BID PO 05/20/17 21:00 05/27/17 20:59 05/22/17 08:34 100 MG
[2017-05-22] MEDS ORDERED: DXY100 PO (16:07)
[2017-05-22] MEDS ORDERED: CLB/200 PO (16:07)
[2017-05-22] MEDS ORDERED: PRED10TA PO (16:07)
[2017-05-22] MEDS ORDERED: LPR25 PO (16:07)
--- NOTE | 2017-05-22 16:17 | Discharge Summary ---
Discharge Summary Date of Service May 22, 2017. Discharge Summary Admission Date: May 20, 2017 at 06:04 Discharge Date: May 23, 2017 Discharge Disposition: Home Principal Diagnosis: ACUTE HYPOXIC RESPIRATORY FAILURE SECONDARY TO COPD EXACERBATION, POSSIBLE BILATERAL LOWER LOBE PNEUMONIA VS. BRONCHITIS CYSTIC LUNG CHANGES Secondary Diagnoses/Problems: PLEASE REFER TO HOSPITAL COURSE BELOW. Procedures: (CHEST FOR PE) ANGIO WITH CT DOSE: 723.20 mGy.cm HISTORY: Chest pain dyspnea TECHNIQUE: Multiaxial CT images of the chest were performed following the intravenous administration of contrast to evaluate the pulmonary arteries. Maximal intensity projection images were also obtained. A dose lowering technique was utilized adhering to the principles of ALARA. COMPARISON STUDY: None. FINDINGS: 4.4 cm dilatation of the a sending thoracic aorta. Emphysematous change with bleb formation throughout. Bibasilar parenchymal infiltrative change. Pulmonary vasculature enhances appropriately. There are no significant filling defect. IMPRESSION: 1. No evidence for major central embolus. 2. 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 3. Bibasilar parenchymal infiltrates. 4. Emphysematous change with bleb formation bilaterally Ordering Phy: Cathy Calloway MD Service Date: 05/21/17 Admit Date: 05/20/1709/18/17 MNE: [id number] CONF: DICTATED BY: Chris Grande M.D.]] CC: Corbin Hayes M.D. Palepu, Rajendra P., MD Waddington, Thomas W., MD Endcc: (BARIUM SWALLOW) ESOPHAGUS CLINICAL HISTORY: possible aspirationdysphagia. Coughing. Heartburn. COMPARISON STUDY: None FLUOROSCOPY TIME: 1.3 minutes. NUMBER OF FLUOROSCOPIC IMAGES: 25 FINDINGS: The patient swallowed effervescent granules and barium without difficulty. No mass lesions or ulcerations were evident within the esophagus. There is disordered esophageal motility. There is a prominent cricopharyngeus impression. The patient swallowed one half inch barium tablet without difficulty. This passed into the stomach. IMPRESSION: 1. Prominent cricopharyngeus impression 2. Disordered esophageal motility 3. No esophageal masses identified. 2D ECHO: * -- Conclusions -- * The left ventricular wall motion is normal. * Left ventricular systolic function is normal. * Ejection Fraction = 60-65%. * The right ventricle was not well visualized , however , grossly normal RV chamber size and systolic function were noted on limited visualization. * Grade I diastolic dysfunction, (abnormal relaxation pattern). * There is no significant valvular stenosis or regurgitation on technically limited evaluation. ULTRASOUND VENOUS DOPPLER LWR EXT BILA CLINICAL HISTORY: leg swelling COMPARISON STUDY: No previous studies for comparison. FINDINGS: On the right, there are chronic changes seen within the distal superficial femoral vein. No acute thrombus is evident. On the left, there is no evidence of acute DVT. The veins are fully compressible. There is no augmentation. There is normal color-flow the proximal trifurcation veins. IMPRESSION: 1. No evidence of acute lower extremity DVT 2. Mild chronic changes visualized within the distal right superficial femoral vein Consultations: PULMONARY DR. CALLOWAY, [facility] [employer] PROGRAM CHAIR DR. DOYLE Pending Studies/Follow-Up: PLEASE REFER TO HOSPITAL COURSE BELOW. Medication Reconciliation New Medications: Prednisone Tab (Prednisone) 10 Mg Tab 10 MG PO UD, #20 TAB take 4 tabs po daily x 2 days, then take 3 tabs po daily x 2 days, then take 2 tabs po daily x 2 days, then take 1 tab po daily x 2 days, then resume your usual Prednisone 5mg po every other day Doxycycline Hyclate (Doxycycline Hyclate) 100 Mg Cap 100 MG PO BID for 5 Days, #10 CAP 0 Refills Metoprolol Tartrate (Lopressor) 25 Mg Tab 12.5 MG PO BID for 30 Days, #30 TAB 2 Refills Changed Medications: Celecoxib (CeleBREX) 200 Mg Cap 200 MG PO BID PRN for Pain for 15 Days (Medication details modified) Continued Medications: Albuterol Sulfate (Proair Respiclick) 108 Mcg/Act Aer 2 PUFFS PO Q4 PRN for Wheezing Ascorbic Acid (Vitamin C) 1,000 Mg Tab 1000 MG PO DAILY Calcium Carbonate (Calcium 600) 600 Mg Tab 600 MG PO DAILYBB Cholecalciferol (Vitamin D3) 2,000 Unit Tab 2000 UNIT PO DAILY Cyanocobalamin (Vitamin B-12) 1,000 Mcg Tab 1000 MCG PO DAILY, TAB Fluticasone Prop/Salmeterol (Advair Diskus 250/50 60 Dose) 1 Ea Aerp 1 PUFF INH Q12, INHALER Folic Acid (Folic Acid) 1 Mg Tab 1 MG PO [id number] take daily every day except fridays Furosemide (Lasix) 20 Mg Tab 40 MG PO QAM, 3 Refills Furosemide (Lasix) 20 Mg Tab 20 MG PO QPM Lxlzmsgokit-Ksckjhlxgbf-Dwy C- (Glucosamine Chondroitin) 1 Tab Tab 1 TABS PO DAILY Multivitamin (Multivitamin) Tab 1 TAB PO DAILY, TAB Potassium Chloride (Potassium Chloride Er) 10 Meq Cap 10 MEQ PO BID, CAP 3 Refills Prednisone (Prednisone) 5 Mg Tab 5 MG PO DAILY, TAB Vitamin E (Vitamin E 400 Iu) 400 Unit Cap 400 INTER.UNIT PO DAILY, CAP Discontinued Medications: Methotrexate Sodium (Methotrexate) 2.5 Mg Tab 5 TABS PO WK, TAB Vardenafil (Levitra) 20 Mg Tab 20 MG PO DIRECTED, TAB Admission Information HPI (per Admitting provider): CHIEF COMPLAINT: Chest pain, shortness of breath. HISTORY OF PRESENT ILLNESS: History obtained from the patient and records. Medical history is significant for COPD, past tobacco abuse, rheumatoid arthritis on chronic steroid therapy, erectile dysfunction as per records. History of MRSA. As per the patient in the last 2 weeks, the patient noted increase in weight gain/fluid retention of about 20 pounds, some shortness of breath on exertion. In the last few days, the patient also noted a little worsening of chronic cough productive of yellow white sputum. Denies aspiration. No fever, no chills. Possible sick contacts. Patient woke up this morning with substernal pain, pleuritic. Brought to the Emergency Room. Chest pain and shortness of breath symptoms relieved by nitroglycerin, Solu-Medrol, breathing treatment given in the Emergency Room. BIPAP initiated for respiratory distress. Patient admits to some snoring, is always tired in the morning Physical Exam (per Admitting): VITAL SIGNS: Blood pressure was noted to be 160/77, pulse rate 110, later 94, RR 32, later 20, temperature 37.5, sats 88 on room air, later 98 on BiPAP GENERAL: Obese, looks younger for stated age. SKIN: Normal color. HEENT: [place] palpebral conjunctivae. Dry mucosa. BiPAP mask in place. NECK: Short neck. LUNGS: Decreased effort. Decreased breath sounds. HEART: Regular rate and rhythm. ABDOMEN: Some distention. EXTREMITIES: Bilateral lower extremity edema/venous stasis. No tenderness. NEUROLOGIC: No gross focality. Hospital Course ACUTE HYPOXIC RESPIRATORY FAILURE SECONDARY TO COPD EXACERBATION, POSSIBLE BILATERAL LOWER LOBE PNEUMONIA VS. BRONCHITIS CYSTIC LUNG CHANGES -- CT Chest: 1. No evidence for major central embolus. 2. 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 3. Bibasilar parenchymal infiltrates. 4. Emphysematous change with bleb formation bilaterally -- evaluated by Pulmonary S[facility] Dr. Calloway was placed on IV Solumedrol, then Prednisone 40mg daily, Doxycycline 100mg po BID and Nebs q6h gradually improved, weaned off oxygen -- d/c plan: Prednisone taper starting at 40mg po daily then resume usual Prednisone 5mg po every other day Doxycycline 100mg po BID x 5 more days to complete 7 day treatment continue usual Advair, PRN Albuterol -- ff up with PCP in 1 week ff up with Pulmonary Dr. 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 Doyle consulted -- Cardiac markers and EKG negative Echo: preserved LVEF Doppler US no DVT -- started on Metoprolol 12.5mg po BID -- remained euvolemic overall patient stable from the Cardiac standpoint continue usual Lasix regimen ESOPHAGEAL DYSMOTILITY -- seen on Barium Swallow -- evaluated by Speech Therapy, recommendations: 1. SLIPPERY regular diet: Choose foods that are moist, loose, slippery; avoid foods that are thick, dry, doughy, pasty; use sauces/gravy/condiments /healthy oils to make foods slippery as needed 2. Compensatory Strategies: Sit fully upright for meals and remain upright for 30 minutes after meal; keep head of bed elevated AT LEAST 30 degrees at ALL times--even for sleep; alternate solids and liquids frequently during meals; avoid icy cold beverages--especially during meals 3. Noify PCP if you experience worsening dysphagia symptoms or s/s aspiration or pain/discomfort with swallowing. Peripheral vascular disease on CT. Past tobacco abuse. Rheumatoid arthritis,on chronic steroid therapy. Disposition d/c home ff up with PCP in 3-5 days ff up with Pulmonary [facility] Dr. Calloway in 2 weeks Total time spent on discharge = 35 minutes This includes examination of the patient, discharge planning, medication reconciliation, and communication with other providers. Discharge Instructions Discharge Instructions Date of Service May 22, 2017. Admission Reason for Admission: Respiratory Failure Discharge Discharge Diagnosis / Problem: ACUTE COPD EXACERBATION SECONDARY TO PNEUMONIA Discharge Goals Goal(s): Diagnostic testing, Therapeutic intervention Activity Recommendations Activity Limitations: as noted below (NO HEAVY EXERTION UNTIL FOLLOW UP WITH PRIMARY CARE PHYSICIAN) Lifting Limitations: until after follow-up appointment Exercise/Sports Limitations: until after follow-up appointment . Instructions / Follow-Up Instructions / Follow-Up PLEASE REVIEW YOUR NEW MEDICATION LIST AND FOLLOW INSTRUCTIONS CAREFULLY. TAKE YOGURT WHILE ON ANTIBIOTICS AND AT LEAST 1 WEEK AFTER. FINISH THE PREDNISONE TAPER THEN RESUME USUAL PREDNISONE 5MG EVERY OTHER DAY. HOLD METHOTREXATE FOR NOW UNTIL FOLLOW UP WITH YOUR PRIMARY CARE PHYSICIAN. CALL YOUR PRIMARY CARE PHYSICIAN OR RETURN TO ER IMMEDIATELY IF WITH RECURRENCE/ WORSENING OF SYMPTOMS. FOLLOW UP WITH DR. HAYES IN 3-5 DAYS (CLINIC WILL CALL YOU FOR THE APPOINTMENT). FOLLOW UP WITH DR. CATHY CALLOWAY (LUNG SPECIALIST) IN 2 WEEKS. PLEASE CALL HIS OFFICE FOR AN APPOINTMENT. TEL NO. Please follow the Speech Therapist recommendations: 1. SLIPPERY regular diet: Choose foods that are moist, loose, slippery; avoid foods that are thick, dry, doughy, pasty; use sauces/gravy/condiments /healthy oils to make foods slippery as needed 2. Compensatory Strategies: Sit fully upright for meals and remain upright for 30 minutes after meal; keep head of bed elevated AT LEAST 30 degrees at ALL times--even for sleep; alternate solids and liquids frequently during meals; avoid icy cold beverages--especially during meals 3. Noify PCP if you experience worsening dysphagia symptoms or s/s aspiration or pain/discomfort with swallowing. Call your Primary Care doctor if any of the following symptoms or problems start or get worse: * Shortness of breath or difficulty breathing * Wake up at night short of breath * Chest pain * Cough * Swelling of your hands, feet, or legs * More fatigued or tired with your normal activity * Palpitations - sudden fast heart beats WEIGHT * Weigh yourself every morning after using the bathroom. * Use the same scale. * Wear the same amount of clothing. * Write your weight down on a chart. * Call your Primary Care doctor if you gain more than 2-3 pounds in 1-2 days. MEDICATIONS * Use this discharge instruction sheet for medication instructions. * Take your medications at the time your doctor ordered. * Do not skip a dose of your medicines. * If you miss a dose of medicine, take it as soon as possible, but DO NOT DOUBLE A DOSE. * Read your medicine information when you get home. * Know all of the side effects of your medicine. If in doubt, ask your pharmacist * Call your Primary Care doctor's office if you have any side effects. * Be sure all of your doctors know what medicine and herbs you take (including cold, flu, and herbal medicine). Take the following with you to your follow-up doctor appointments: * Weight Chart * Medication List * List of questions Do not drink excessive alcohol, beer or wine. Current Hospital Diet Patient's current hospital diet: AHA Diet (Heart Healthy) Discharge Diet Recommended Diet: AHA Diet (Heart Healthy) Fluid Restriction: 2000 ml (8 cups) Pending Studies Studies pending at discharge: yes List of pending studies: C/O LUNG SPECIALIST Laboratory Results Lipid Panel Test 05/21/17 05:13 Range/Units Triglycerides Level 52 0-150 mg/dl Cholesterol Level 139 0-200 mg/dl HDL Cholesterol 85 mg/dl Cholesterol/HDL Ratio 1.6 LDL Cholesterol, Calculated 44 mg/dl
[2017-05-22 22:35] LABS: ALPHA-1-ANTITRYPSIN TC 67710E 174 MG/DL (83-199); MYELOPEROXIDASE AB <1.0 AI (<1.0)
== END 2017-05-22 16:42 | disposition home or self-care (01) | DRG 193 ==
LOC: EDBD 03:37 → C.EDA 03:39 → C.2T 06:04 → ENRESERV 07:07
PROVIDERS: ADMIT Internal Medicine; ATTEND Internal Medicine
DX: J18.9 Pneumonia, unspecified organism (principal); J96.01 Acute respiratory failure with hypoxia; J44.1 Chronic obstructive pulmonary disease with (acute) exacerbation; I50.30 Unspecified diastolic (congestive) heart failure; Z66 Do not resuscitate; K22.4 Dyskinesia of esophagus; I73.9 Peripheral vascular disease, unspecified; M06.9 Rheumatoid arthritis, unspecified; Z79.52 Long term (current) use of systemic steroids; Z87.891 Personal history of nicotine dependence; Z79.82 Long term (current) use of aspirin; Z80.3 Family history of malignant neoplasm of breast

== ENCOUNTER → 2017-07-19 | Outpatient (CLI) | payer OTHER, MEDICARE ==
[~2017-07-19] MED LIST: ADVIN25/60 INH; ALBU18002 PO; ASCO10003 PO; CALC600T PO; CHOL20005 PO; CLB/200 PO; CYAN10005 PO; DXY100 PO; FLV1 PO; FURO-85 PO; GLUCTAB7 PO; LPR25 PO; MULT-506 PO; POTA1CAP2 PO; PRED-301 PO; PRED10TA PO; VITA400C3 PO
[2017-07-19 16:44] LABS: BASO % 0.5 %; BASO ABS # 0.03 K/uL (0-0.2); COMPLETE YES; EOS % 2.4 %; HEMATOCRIT 42.4 % (42-52); IG% 0.4 %; LYMPH % 22.8 %; LYMPH ABS # 1.26 K/uL (1.2-3.4); MEAN CELL VOLUME 98.8 fL (80-100); MEAN CORPUSCULAR HEMOGLOBIN 31.9 pg (25-34); MEAN CORPUSCULAR HGB CONC 32.3 g/dl (32-36); MEAN PLATELET VOLUME 11.3 fL (7.4-10.4); MONO % 8.7 %; NEUT % 65.2 %; PLATELET COUNT 203 K/uL (130-400); RED BLOOD COUNT 4.29 M/uL (4.7-6.1); WHITE BLOOD COUNT 5.53 K/uL (4.8-10.8)
[2017-07-19 16:50] LABS: PARTIAL THROMBOPLASTIN RATIO 1.2; PROTHROMBIN TIME (PATIENT) 10.2 SECONDS (9.0-12.0)
[2017-07-19 17:04] LABS: ALT/SGPT 17 U/L (12-78); AST/SGOT 11 U/L (15-37); BLOOD UREA NITROGEN 11 mg/dl (7-18); BUN/CREATININE RATIO 13.1 (10-20); CALCIUM 8.4 mg/dl (8.5-10.1); CARBON DIOXIDE 28 mmol/L (21-32); CHLORIDE 104 mmol/L (98-107); CREATININE 0.84 mg/dl (0.60-1.40); GLUCOSE 92 mg/dl (70-99); POTASSIUM 3.9 mmol/L (3.5-5.1); SODIUM 139 mmol/L (136-145)
[2017-07-19 17:06] LABS: ALB/GLOB RATIO 0.8 (0.9-2); ALKALINE PHOSPHATASE 82 U/L (45-117)
== END | disposition home or self-care (01) ==
LOC: C.LABBFT 14:34
PROVIDERS: ATTEND Internal Medicine Critical Care Medicine
DX: J44.9 Chronic obstructive pulmonary disease, unspecified (principal); R06.02 Shortness of breath; R05 Cough

== ENCOUNTER → 2017-07-29 | Day surgery (SDC) | payer OTHER, MEDICARE ==
[2017-07-29] VITALS (13 sets, daily range): BP systolic 107–163; BP diastolic 49–89; PULSE 62–75; TEMP 36.5–36.8; O2SAT 91–100; Ht 180.3 cm; Wt 117.2 kg
[~2017-07-29] VITALS: Ht 180.3 cm; Wt 117.2 kg
[~2017-07-29] MED LIST changes: +FENTANYL CITRATE INJ 50 MCG/1 ML 2 ML VIAL IV ONE; +LIDOCAINE 4% INH SOLN 4 ML BTL ONE; +LIDOCAINE HCL 2% LOCAL 50ML VIAL INFIL ONE; +MIDAZOLAM HCL 5 MG/ML 1 ML VIAL IV ONE; +NURSING VERBAL MED ORDER ONE
--- NOTE | 2017-07-29 09:32 | History and Physical ---
History & Physical Date of Service Jul 29, 2017. History & Physical 72-year-old gentleman here for bronchoscopic evaluation of diffuse cystic lung disease, tracheobronchial malacia and poorly controlled COPD requiring chronic prednisone. 71-year-old gentleman here for post hospital follow-up admitted from 05/20/2017 through 05/23/2017 for shortness of breath: Patient has a long history of poorly controlled COPD on chronic prednisone use baseline 5 milligrams daily. He was admitted to the hospital started on IV steroids as well as antibiotics in CT of the chest was performed noting diffuse cystic lung changes. He presents to the office today noting a dramatic improvement in his overall of pulmonary status and is currently back to his baseline respiratory/ADLs. He currently denies: Fever, chills, productive cough , pleurisy or classic cardiac chest pain. PmHx significant for chronic RA (MTX & prednisone), COPD and CHF Echocardiogram 05/20/2017 LV: EF=60-65% RV: Poor visualization, grossly normal RV chamber size and function Atria: Left and right atrial size within normal limits Valve: Anatomically within normal limits Grade 1 diastolic dysfunction Review of Systems Constitutional: negative. Eyes: negative. ENT: negative. Cardiovascular: negative. Respiratory: as noted in HPI. Gastrointestinal: negative. Genitourinary: negative. Musculoskeletal: negative. Integumentary: negative. Neurological: negative. Psychiatric: negative. Endocrine: negative. Hematologic/Lymphatic: negative. Active Problems 1. Arthritis (M19.90) 2. Chest pain (R07.9) 3. Congestive heart failure (I50.9) 4. COPD (chronic obstructive pulmonary disease) with chronic bronchitis (J44.9) 5. Cough (R05) 6. Dyspnea (R06.00) 7. Respiratory failure (J96.90) 8. SOB (shortness of breath) (R06.02) Surgical History 1. History of carpal tunnel surgery 2. History of shoulder surgery 3. History of tonsillectomy 4. History of wrist surgery Social History Former smoker (Z87.891) Social alcohol use (Z78.9) Current Meds 1. Advair Diskus 250-50 MCG/DOSE Inhalation Aerosol Powder Breath Activated; INHALE 1 2. Calcium 600 TABS; TAKE 2 TABLETS DAILY 3. Folic Acid 1 MG Oral Tablet; TAKE 1 TABLET DAILY 4. Glucosamine-Chondroitin Oral Capsule 5. Lasix 20 MG Oral Tablet; TAKE 3 TABLETS DAILY 6. Metoprolol Tartrate 25 MG Oral Tablet; TAKE 1 TABLET TWICE DAILY 7. Multivitamins TABS 8. Potassium Chloride 10 MEQ TBCR; TAKE 1 TABLET TWICE DAILY 9. PredniSONE taper 10. PredniSONE 5 MG Oral Tablet; TAKE 1 TABLET DIRECTED 11. Vitamin B-12 1000 MCG Oral Tablet; TAKE 1 TABLET DAILY DIRECTED 12. Vitamin C 1000 MG Oral Tablet; TAKE 1 TABLET DAILY 13. Vitamin D3 2000 UNIT Oral Capsule; one daily 14. Vitamin E 100 UNIT Oral Capsule; one daily Allergies 1. iodine Vitals Height: 5 ft 11 in Weight: 267 lb 5 oz BMI Calculated: 37.28 BSA Calculated: 2.39 Blood Pressure: 120 / 64 Respiration: 18 Heart Rate: 56 O2 Saturation: 92, RA Temperature: 97.7 F Physical Exam Constitutional General appearance: No acute distress, well appearing and well nourished. Eyes Conjunctiva and lids: No swelling, erythema, or discharge. Pupils and irises: Equal, round and reactive to light. Ears, Nose, Mouth, and Throat External inspection of ears and nose: Normal. Otoscopic examination: Tympanic membrance translucent with normal light reflex. Canals patent without erythema. Oropharynx: Normal with no erythema, edema, exudate or lesions. Pulmonary Respiratory effort: No increased work of breathing or signs of respiratory distress. Auscultation of lungs: Abnormal. ~Decreased breath sounds bilaterally. Cardiovascular Palpation of heart: Normal PMI, no thrills. Auscultation of heart: Normal rate and rhythm, normal S1 and S2, without murmurs. Examination of extremities for edema and/or varicosities: Normal. Abdomen Abdomen: Non-tender, no masses. Liver and spleen: No hepatomegaly or splenomegaly. Lymphatic Palpation of lymph nodes in neck: No lymphadenopathy. Musculoskeletal Gait and station: Normal. Digits and nails: Abnormal. ~Notable it DIP MIP destruction bilaterally right greater than left. Inspection/palpation of joints, bones, and muscles: Normal. Skin Skin and subcutaneous tissue: Normal without rashes or lesions. Neurologic Cranial nerves: Cranial nerves 2-12 intact. Reflexes: 2+ and symmetric. Sensation: No sensory loss. Psychiatric Orientation to person, place and time: Normal. Mood and affect: Normal.
--- NOTE | 2017-07-29 09:49 | Procedure Note ---
Pre-Mod Sedation Assessment General Date of Moderate Sedation: Jul 29, 2017. Vital Signs: Vital Signs Past 12 Hours Date Time Temp Pulse Resp B/P (MAP) Pulse Ox O2 Delivery O2 Flow Rate FiO2 07/29/17 09:27 36.5 66 18 151/60 93 Room Air 07/29/17 08:52 36.5 66 18 151/60 (90) 93 Room Air Review Cardiovascular: regular rate, rhythm, no edema, no gallop, no JVD Abdomen: normal bowel sounds, non tender, soft, no organomegaly, no pulsatile mass Lungs: + pertinent finding (Decreased breath sounds at the bases left greater than right mild rhonchi appreciated) Airway Class: III Pre-Sedation Airway Assessment Oral Cavity: Dentures Able to Visualize Vocal Cords: Yes Short Thick Neck: Yes Hx of Sleep Apnea: No Smoking Status: Former Smoker Mallampati Classification: Class III ASA Classification: Class III Procedure Planning Contraindications-for Mod Sed: None Yes Notes The planned sedation has been discussed with the patient and consent obtained. I have identified the patient, determined the appropriateness of sedation and have assessed the patient immediately prior to the procedure. All medicine(s) and interventions are by my order.
--- NOTE | 2017-07-29 09:49 | History & Physical Bridge Note ---
H&P Re-Evaluation Bridge Note: I have examined the patient, reviewed the History & Physical and in the interval since the performance of the History & Physical I have noted the following changes of clinical significance: No changes noted
--- NOTE | 2017-07-29 10:52 | Bronchoscopy Procedure Note ---
Bronchoscopy Procedure Note Procedure: Bronchoscopy, conscious sedation, bronchial lavage left lower lobe Consent: Obtained through the patient placed into the chart Pre-procedural diagnosis: Chronic cough with cystic changes of the lung Post-procedural diagnosis: Chronic bronchitis Start time: 1012 End time: 1030 Total time: 17 minutes Analgesia: 2% liquid lidocaine: Via nebulizer 4% gel lidocaine: Via right naris 2% liquid lidocaine: Via bronchoscopy Sedation: Versed IV: 3mg Fentanyl IV: 75 g Procedure: The Olympus video bronchoscope was used for this procedure and passed down through the right naris Right naris/posterior naris/posterior oropharynx: Mild erythema and edema of the right naris Glottis: Anatomically within normal limits Vocal cords: Proper abduction and abduction, anatomically within normal limits, mucus secretions appreciated around true and false vocal cords Subglottis/trachea/Johnna: Anatomically within normal limits Right bronchial tree: Right mainstem bronchus: Anatomically within normal limits Right upper lobe: Anatomically within normal limits Bronchus intermedius: Anatomically within normal limits Right middle lobe: Anatomically within normal limits Right lower lobe: Anatomically within normal limits Findings: No significant findings noted Left bronchial tree: Left mainstem bronchus: Anatomically within normal limits Left upper lobe: Notable collapse of the LB1& LB2 subsegments suggesting EDAC like changes Lingula: Anatomically within normal limits, minimal mucus plugs appreciate the opening Left lower lobe: Notable EDAC with diffuse mucus plugs at each of the subsegments Findings: EDAC with diffuse mucus plugging Bronchial alveolar lavage: Left lower lobe EBL: None Complications: None Follow-up: ASU
--- NOTE | 2017-07-29 10:52 | Procedure Note ---
Post-Moderate Sedation Plan General Date of Moderate Sedation Jul 29, 2017. Vital Signs: Vital Signs Past 12 Hours Date Time Temp Pulse Resp B/P (MAP) Pulse Ox O2 Delivery O2 Flow Rate FiO2 07/29/17 10:44 36.8 75 20 151/60 92 Nasal Cannula 4 07/29/17 10:38 68 21 141/77 94 Nasal Cannula 4.0 07/29/17 10:33 69 24 155/81 95 Mask 6.0 07/29/17 10:28 65 21 155/77 95 Mask 6.0 07/29/17 10:23 64 23 163/72 95 Mask 6.0 07/29/17 10:18 62 22 136/68 98 Mask 6.0 07/29/17 09:59 67 18 149/89 100 Mask 6.0 07/29/17 09:27 36.5 66 18 151/60 93 Room Air 07/29/17 08:52 36.5 66 18 151/60 (90) 93 Room Air Review - Discharge Plan Post Moderate Sedation Plan: On clinical assessment, the patient appears to have tolerated the conscious sedation without complications. Patient is recovering as anticipated. Patient will continue to be monitored by nursing and may be discharged when conscious sedation discharge criteria are met.
--- NOTE | 2017-07-29 11:08 | Discharge Instructions ---
Discharge Instructions Date of Service Jul 29, 2017. Admission Reason for Admission: Copd, Cough, Sob Discharge Discharge Diagnosis / Problem: Dynamic airway collapse with associated bronchiectasis especially in the le Discharge Goals Goal(s): Diagnostic testing Activity Recommendations Activity Limitations: resume your previous activity . Instructions / Follow-Up Instructions / Follow-Up Follow-up in the [facility] Current Hospital Diet Patient's current hospital diet: Discharge Diet Recommended Diet: Regular Diet Procedures Procedures Performed: Bronchoscopy, conscious sedation and bronchial lavage of the left lower lobe Pending Studies Studies pending at discharge: no Laboratory Results Lipid Panel Test 05/21/17 05:13 Range/Units Triglycerides Level 52 0-150 mg/dl Cholesterol Level 139 0-200 mg/dl HDL Cholesterol 85 mg/dl Cholesterol/HDL Ratio 1.6 LDL Cholesterol, Calculated 44 mg/dl Medical Emergencies . Who to Call and When: Medical Emergencies: If at any time you feel your situation is an emergency, please call 911 immediately. . Non-Emergent Contact Non-Emergency issues call your: [employer] . . "Provider Documentation" section prepared by Harjeet Ramires. . VTE Core Measure Inpt VTE Proph given/why not?: Treatment not indicated
== END | disposition home or self-care (01) ==
LOC: C.ACU 07:28
PROVIDERS: ATTEND Internal Medicine Critical Care Medicine
DX: J42 Unspecified chronic bronchitis (principal); J44.9 Chronic obstructive pulmonary disease, unspecified; R06.02 Shortness of breath; M19.90 Unspecified osteoarthritis, unspecified site; I50.9 Heart failure, unspecified; Z79.52 Long term (current) use of systemic steroids; Z98.890 Other specified postprocedural states; Z90.89 Acquired absence of other organs; Z87.891 Personal history of nicotine dependence

== ENCOUNTER → 2018-04-20 | Outpatient (CLI) | payer OTHER ==
[~2018-04-20] MED LIST changes: -CLB/200 PO; -DXY100 PO; -FENTANYL CITRATE INJ 50 MCG/1 ML 2 ML VIAL IV ONE; -LIDOCAINE 4% INH SOLN 4 ML BTL ONE; -LIDOCAINE HCL 2% LOCAL 50ML VIAL INFIL ONE; -MIDAZOLAM HCL 5 MG/ML 1 ML VIAL IV ONE; -NURSING VERBAL MED ORDER ONE; -PRED10TA PO
== END | disposition home or self-care (01) ==
LOC: C.LAB 02:39
DX: Z02.83 Encounter for blood-alcohol and blood-drug test (principal)

== ENCOUNTER 2024-06-22 10:24 | Inpatient (IN) ==
--- NOTE | 2024-06-22 10:34 | Emergency Department Note ---
Impression & Plan Thrombocytopenia, Elevated troponin, Symptomatic anemia, Myocardial infarction due to demand ischemia, Lower GI bleed ED Provider Note NAME: OTTO STEWART III AGE: 79 SEX: M : 1945 ARRIVES VIA: Ambulance INFORMANT: Patient ED PROVIDER(S): KATELYNN Guerin, Akira Murillo DO CHIEF COMPLAINT: Shortness of breath HISTORY OF PRESENT ILLNESS: This 79-year-old man patient presents to the emergency department via EMS for evaluation of shortness of breath of the last 2 to 3 weeks. He reports worsening today. He reports right lower extremity pain, with bilateral lower extremity edema. He reports he does take Lasix at home, for congestive heart failure. He also reports left-sided chest pain, with no radiation. REVIEW OF SYSTEMS: A review of systems was performed with positives and pertinent negatives listed in the history of present illness. All other systems were reviewed and are negative. ALLERGIES: See below MEDICATIONS: See below PMH: See below PHYSICAL EXAM: VITALS: Vitals are noted on the nurse's note and reviewed by myself. Vital signs stable. GENERAL: 79-year-old male, in no acute distress, nondiaphoretic, well-developed well-nourished. SKIN: The skin was without rashes, erythema, edema, or bruising. HEAD: Normocephalic atraumatic. EARS: External auditory canals clear, tympanic membranes pearly escamilla without erythema or effusion bilaterally. EYES: Pupils equal round and reactive to light and accommodation. Conjunctivae without injection, sclerae without icterus. Extraocular movements intact. NOSE: Patent, turbinates without inflammation or discharge. No sinus tenderness. MOUTH: Mucous membranes moist. Pharynx without erythema or exudate. Uvula midline. Airway patent. Tongue does not deviate. NECK: Supple without nuchal rigidity. No lymphadenopathy. No thyromegaly. Cervical spine is nontender. No JVD. HEART: Tachycardia present without murmurs gallops or rubs. LUNGS: Coarse lung sounds throughout, no wheezing noted. ABDOMEN: Positive bowel sounds x 4. Soft, nontender, without masses or organomegaly. Olivera sign negative. No guarding or rebound tenderness. MUSCULOSKELETAL: Bilateral lower extremity pitting edema, limited ROM due to swelling and pain. Sensation intact to dull and sharp. NEURO: Patient was alert and oriented to person place and time. No focal neurological deficits. MEDICAL DECISION MAKING: The patient is a pleasant 79-year-old male who arrives to the emergency department for evaluation of the above-stated complaint. A saline lock was established, CBC, CMP, lipase, lactate, troponin, proBNP were obtained. CBC shows no leukocytosis, with a hemoglobin of 4.3, hematocrit 13.4. Platelet count 11. CMP shows potassium 3.4, calcium 8.0, BNP 867, initial troponin 163.2, repeat 2330. EKG shows sinus tachycardia with some ST depression present in lateral leads as well as T wave inversions. No previous for comparison. Chest x-ray was obtained which per my initial interpretation shows pulmonary edema. Type and screen was obtained, packed red blood cells were ordered for administration. A rectal examination was performed and the patient to determine presence of lower GI bleed. Fecal occult was positive. I contacted the hospitalist for patient admission. Kassandra Basliio PA-C agreed to evaluate the patient, and admit the patient under Dr. Duong castillo service. Please refer to their documentation for further patient workup and care. DIFFERENTIAL DIAGNOSIS: Infection, dehydration, metabolic abnormality, hypo/hyperglycemia, electrolyte disturbance, anemia, hypoxia, cardiac sources, intracerebral event, toxicologic, neurologic, as well as other pathologies. Continuous cardiac cath technician: Order was placed for continuous cardiac cath technician. Patient was placed on the cardiac cath technician. Patient was noted to be in sinus tachycardia at an initial rate of 97 bpm. The patient's case was discussed with Dr. Murillo, who agreed with my evaluation and treatment plan. The chart was completed utilizing [email or web address] Speech voice recognition software. Grammatical errors, random word insertions, pronoun errors, and incomplete sentences are an occasional consequence of this system due to software limitations, ambient noise, and hardware issues. Any formal questions or concerns about the content, text, or information contained within the body of this dictation should be directly addressed to the physician for clarification. 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 Symptomatic anemia (Acute) Hypokalemia Elevated troponin (Acute) Thrombocytopenia (Acute) Hematochezia Anemia Prediabetes Heart failure, diastolic, due to HTN Chronic venous insufficiency Rheumatoid arthritis (Chronic) Osteoporosis (Chronic) Migraine variant (Chronic) HTN (hypertension) (Chronic) COPD (chronic obstructive pulmonary disease) (Chronic) Medical History (Updated 06/27/24 @ 01:36 by KATELYNN Forbes) 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 Venous ulcer Lymphedema Chronic venous insufficiency Ocular migraine senior care (current) use of systemic steroids for RA Hypertension History of COVID-2021--mild symptoms, no symptoms now Osteoporosis Torn rotator cuff Edema COPD, moderate uses daily inhalers as prescribed--pt states he rarely uses rescue inhaler Rheumatoid arthritis on prednisone Surgical History (Updated 06/22/24 @ 11:49 by Olinda Basilio PA-C) S/P left cataract extraction History of surgical fusion joint left wrist--hardware in place History of shoulder surgery left "calcium deposit removed" History of tooth extraction full upper/partial lower History of repair of right rotator cuff History of carpal tunnel release of both wrists History of bronchoscopy 07/2017 @ [facility] S/P tonsillectomy Family History (Updated 06/22/24 @ 11:49 by Olinda Basilio PA-C) Other Cancer Heart disease No family history of adverse response to anesthesia Social History (Updated 06/22/24 @ 11:50 by Olinda Basilio PA-C) Smoking Status: Former smoker Tobacco Type: Cigarettes Smoking End Date: 2001; Second Hand Exposure: Yes; Do You Dip or Chew Tobacco: No; Hx Alcohol Use: Yes Alcohol type: beer Hx Substance Use: No Preferred Language: Icelandic Communication Ability: Effective Visual Impairment: No Limitations Hearing Ability: Normal 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 Required: No Beliefs That Will Affect Care: None marital status: Single Current Living Situation: Alone Feels Safe at Home: Yes Safety Concerns: Feels Safe At This Time Diet: ideal protein and low salt Diet Comment: educated to increase protein to assist with wound healing caffeine: No Assistive Devices: None Allergies Allergies Allergy/AdvReac Type Severity Reaction Status Date / Time Iodinated Contrast Media Allergy Intermediate Hives Verified 06/22/24 12:08 iodine Allergy Intermediate HIVES Verified 06/22/24 12:08 Home Meds Home Medications Medication Instructions Recorded Confirmed celecoxib 200 mg capsule (Celebrex) 200 mg PO BID 06/14/22 06/22/24 chlorthalidone 25 mg tablet 25 mg PO QAM 06/14/22 06/22/24 coenzyme Q10 10 mg capsule 10 mg PO DAILY 06/14/22 06/22/24 diclofenac sodium 1 % topical gel 1 g topical QID PRN joint pain 06/14/22 06/22/24 (Voltaren Arthritis Pain) tiotropium bromide 18 mcg capsule 1 cap inhalation BID 06/14/22 06/22/24 with inhalation device (Spiriva with HandiHaler) triamcinolone acetonide 0.1 % 1 applic topical DAILY PRN Rash 06/18/22 06/22/24 topical ointment albuterol sulfate 90 mcg/actuation 2 puff inhalation Q6H PRN 06/27/22 06/22/24 aerosol inhaler Shortness Of Breath ascorbic acid (vitamin C) 1,000 mg 1 g PO DAILY 06/27/22 06/22/24 capsule calcium carbonate 600 mg PO DAILY 06/27/22 06/22/24 cholecalciferol (vitamin D3) 50 50 mcg PO DAILY 06/27/22 06/22/24 mcg (2,000 unit) capsule cyanocobalamin (vitamin B-12) 1,000 mcg PO DAILY 06/27/22 06/22/24 1,000 mcg capsule fluticasone 250 mcg-salmeterol 50 1 inh inhalation Q12H 06/27/22 06/22/24 mcg/dose blistr powdr for inhalation folic acid 1 mg tablet 1 mg PO QAM 06/27/22 06/22/24 furosemide 20 mg tablet 20 mg PO HS 06/27/22 06/22/24 furosemide 40 mg tablet 40 mg PO QDL 06/27/22 06/22/24 metoprolol succinate 25 mg 12.5 mg PO BID 06/27/22 06/22/24 tablet,extended release 24 hr multivitamin 1 tab PO DAILY 06/27/22 06/22/24 potassium chloride 10 mEq 10 meq PO BID 06/27/22 06/22/24 capsule,extended release prednisone 5 mg tablet 5 mg PO QAM 06/27/22 06/22/24 vitamin E mixed 400 unit capsule 400 unit PO DAILY 06/27/22 06/22/24 turmeric 400 mg capsule 400 mg PO DAILY 05/21/24 06/22/24 vit C 30 mg-s.segov[place] 250 mg-celery 1 cap PO DAILY 05/21/24 06/22/24 seed 75 mg-grape seed extrt capsule (Tart Segovia) acetaminophen 500 mg tablet 500 mg PO Q6H PRN PAIN/FEVER 06/22/24 06/22/24 Results & Data (ED) Home Medications Current Medication List: was personally reviewed by me Laboratory Data Attestation: I reviewed the patient's lab results. 06/26/24 07:26 06/26/24 07:26 Lab Results 06/22/24 06/22/24 06/22/24 Range/Units 10:46 11:34 12:32 WBC 5.06 (4.8-10.8) K/ul RBC 1.10 L (4.70-6.10) M/uL Hgb 4.3 L* (14.0-18.0) g/dl Hct 13.4 L* (42.0-52.0) % MCV 121.8 H (80.0-100.0) fL MCH 39.1 H (25.0-34.0) pg MCHC 32.1 (32.0-36.0) g/dL RDW Std Deviation 77.1 H (36.4-46.3) fL RDW Coeff of Kellie 17.7 H (11.5-14.5) % Plt Count 11 L* (130-400) K/uL MPV 13.0 H (9.4-12.4) fL Immature Gran % (Auto) 0.4 % Neut % (Auto) 74.7 % Lymph % (Auto) 18.4 % Cedar % (Auto) 6.1 % Eos % (Auto) 0.4 % Baso % (Auto) 0.0 % Neut # (Auto) 3.78 (1.40-6.50) K/uL Lymph # (Auto) 0.93 L (1.20-3.40) K/uL Cedar # (Auto) 0.31 (0.11-0.59) K/uL Eos # (Auto) 0.02 (0.00-0.50) K/uL Baso # (Auto) 0.00 (0.00-0.20) K/uL Immature Gran # (Auto) 0.02 (0.01-0.20) K/uL Platelet Estimate Signific. Decreased L (Normal) Polychromasia 1+ Macrocytosis Present Tear Drop Cells 1+ Peripher Smr Path Cons Haptoglobin 253 H (43-212) mg/dL Sodium 141 (136-145) mmol/L Potassium 3.4 L (3.5-5.1) mmol/L Chloride 106 (98-107) mmol/L Carbon Dioxide 23 (21-32) mmol/L Anion Gap 12 H (3-11) BUN 23 (6-23) mg/dl Creatinine 1.11 (0.6-1.4) mg/dl Est Cr Clr Drug Dosing Not Reportable eGFR 67.97 BUN/Creatinine Ratio 20.7 H (10-20) Glucose 156 H (70-99(Fasting)) mg/dl Calcium 8.0 L (8.6-10.3) mg/dl Magnesium 2.5 H (1.7-2.4) mg/dl Iron 257 H (35-175) mcg/dl Transferrin 247 (200-360) mg/dl Ferritin 464.0 H (8-388) ng/ml Total Bilirubin 0.5 (0.2-1.0) mg/dl AST 16 (13-39) U/L ALT 11 (7-52) U/L Alkaline Phosphatase 77 (34-104) U/L Lactate Dehydrogenase 177 (86-244) U/L Troponin I High Sens 163.2 H* 221.4 H* D (0-20) pg/ml B-Natriuretic Peptide 867 H (0-100) pg/ml Total Protein 6.3 (6.0-8.3) gm/dl Albumin 3.4 (3.4-5.0) gm/dl Globulin 2.9 (2.5-4.0) gm/dl Albumin/Globulin Ratio 1.2 (0.9-2) Lipase 18 (11-82) U/L Adenovirus (PCR) Not Detected (NotDetected) B. pertussis DNA (PCR) Not Detected (NotDetected) B.parapertussis DNA PCR Not Detected (NotDetected) C. pneumoniae DNA (PCR) Not Detected (NotDetected) Coronavirus OC43 (PCR) Not Detected (NotDetected) Coronavirus HKU1 (PCR) Not Detected (NotDetected) Coronavirus 229E (PCR) Not Detected (NotDetected) SARS-CoV-2 (PCR) Not Detected (NotDetected) Coronavirus NL63 (PCR) Not Detected (NotDetected) Human Metapneumovir PCR Not Detected (NotDetected) Influenza Type A (PCR) Not Detected (NotDetected) Influenza Type B (PCR) Not Detected (NotDetected) M. pneumoniae (PCR) Not Detected (NotDetected) Parainfluenza 1 (PCR) Not Detected (NotDetected) Parainfluenza 2 (PCR) Not Detected (NotDetected) Parainfluenza 3 (PCR) Not Detected (NotDetected) Parainfluenza 4 (PCR) Not Detected (NotDetected) RSV (PCR) Not Detected (NotDetected) Entero/Rhino (PCR) Not Detected (NotDetected) Blood Type O Positive Antibody Screen NEGATIVE Direct Antiglob Test Negative (Negative) KATHLEEN (IgG-AHG) Neg (Negative) KATHLEEN, Polyspecific Neg (Negative) KATHLEEN C3b, C3d 5 Min Neg (Negative) Crossmatch See Detail Administered Medications Acetaminophen (Acetaminophen 325 Mg Tab) 650 mg PO Q4H PRN PRN Reason: Pain or Fever Stop: 07/22/24 13:37 Last Admin: 06/22/24 18:37 Dose: 325 mg Documented By: ASHISH Fluticasone/Vilanterol (Fluticasone/Vilanterol 100/25mcg 14 Puffs/Inhaler) 1 puffs INH DAILY CURTIS Stop: 07/23/24 08:59 Last Admin: 06/26/24 07:40 Dose: 1 puffs Documented By: Admin: 06/25/24 07:29 Dose: 1 puffs Documented By: Admin: 06/24/24 09:18 Dose: 1 puffs Documented By: Admin: 06/23/24 09:16 Dose: 1 puffs Documented By: ASHISH Folic Acid (Folic Acid 1 Mg Tab) 1 mg PO QAM CURTIS Stop: 07/24/24 10:53 Last Admin: 06/26/24 07:40 Dose: 1 mg Documented By: Admin: 06/25/24 07:30 Dose: 1 mg Documented By: Admin: 06/24/24 11:51 Dose: 1 mg Documented By: MADDIE Furosemide (Furosemide 20 Mg Tab) 20 mg PO QAM CURTIS Stop: 07/26/24 08:59 Last Admin: 06/26/24 07:42 Dose: 20 mg Documented By: SHILOH Losartan Potassium (Losartan Potassium 25 Mg Tab) 25 mg PO QAM CURTIS Stop: 07/24/24 11:59 Last Admin: 06/26/24 07:40 Dose: 25 mg Documented By: Admin: 06/25/24 07:31 Dose: 25 mg Documented By: Admin: 06/24/24 13:14 Dose: 25 mg Documented By: MADDIE Metoprolol Succinate (Metoprolol Succ 25mg Ext Rel Tab) 12.5 mg PO BID CURTIS Stop: 07/22/24 20:59 Last Admin: 06/26/24 21:12 Dose: 12.5 mg Documented By: Admin: 06/26/24 07:40 Dose: 12.5 mg Documented By: Admin: 06/25/24 20:08 Dose: Not Given Documented By: Admin: 06/25/24 07:31 Dose: 12.5 mg Documented By: Admin: 06/24/24 20:02 Dose: 12.5 mg Documented By: Admin: 06/24/24 09:19 Dose: 12.5 mg Documented By: Admin: 06/23/24 19:56 Dose: 12.5 mg Documented By: Admin: 06/23/24 09:19 Dose: Not Given Documented By: Admin: 06/22/24 20:20 Dose: 12.5 mg Documented By: NAVI Pantoprazole Sodium (Pantoprazole 40 Mg Tab) 40 mg PO DAILY CURTIS Stop: 07/24/24 08:59 Last Admin: 06/26/24 07:40 Dose: 40 mg Documented By: Admin: 06/25/24 07:31 Dose: 40 mg Documented By: Admin: 06/24/24 09:19 Dose: 40 mg Documented By: SHAMA Potassium Chloride (Potassium Chloride 10 Meq Tabcr) 10 meq PO BID CURTIS Stop: 07/22/24 20:59 Last Admin: 06/26/24 21:13 Dose: 10 meq Documented By: Admin: 06/26/24 07:39 Dose: 10 meq Documented By: Admin: 06/25/24 20:09 Dose: 10 meq Documented By: Admin: 06/25/24 07:35 Dose: 10 meq Documented By: Admin: 06/24/24 20:02 Dose: 10 meq Documented By: Admin: 06/24/24 09:30 Dose: 10 meq Documented By: Admin: 06/23/24 20:00 Dose: 10 meq Documented By: Admin: 06/23/24 09:17 Dose: 10 meq Documented By: Admin: 06/22/24 20:39 Dose: 10 meq Documented By: NAVI Prednisolone Sodium Phosphate (Prednisolone Sod Phos 1% 10 Ml Btl) 1 drops OP QID CURTIS Stop: 07/23/24 16:59 Last Admin: 06/26/24 21:12 Dose: 1 drops Documented By: Admin: 06/26/24 16:07 Dose: 1 drops Documented By: Admin: 06/26/24 12:11 Dose: 1 drops Documented By: Admin: 06/26/24 07:41 Dose: 1 drops Documented By: Admin: 06/25/24 20:09 Dose: 1 drops Documented By: Admin: 06/25/24 16:49 Dose: 1 drops Documented By: Admin: 06/25/24 12:11 Dose: 1 drops Documented By: Admin: 06/25/24 07:33 Dose: 1 drops Documented By: Admin: 06/24/24 20:02 Dose: 1 drops Documented By: Admin: 06/24/24 17:04 Dose: 1 drops Documented By: Admin: 06/24/24 13:14 Dose: 1 drops Documented By: Admin: 06/24/24 09:19 Dose: 1 drops Documented By: Admin: 06/23/24 19:58 Dose: 1 drops Documented By: Admin: 06/23/24 18:26 Dose: 1 drops Documented By: ASHISH Prednisone (Prednisone 5 Mg Tab) 5 mg PO QAM CURTIS Stop: 07/23/24 08:59 Last Admin: 06/26/24 07:41 Dose: 5 mg Documented By: Admin: 06/25/24 07:32 Dose: 5 mg Documented By: Admin: 06/24/24 09:19 Dose: 5 mg Documented By: Admin: 06/23/24 09:17 Dose: 5 mg Documented By: ASHISH Spironolactone (Spironolactone 25 Mg Tab) 25 mg PO QAM CURTIS Stop: 07/24/24 08:59 Last Admin: 06/26/24 07:41 Dose: 25 mg Documented By: Admin: 06/25/24 07:32 Dose: 25 mg Documented By: Admin: 06/24/24 09:19 Dose: 25 mg Documented By: SHAMA Umeclidinium Edgerton (Umeclidinium [place]gerton 62.5mcg/Blister 7 Puffs/Inhaler) 1 puffs INH DAILY CURTIS Stop: 07/23/24 08:59 Last Admin: 06/26/24 07:42 Dose: 1 puffs Documented By: Admin: 06/25/24 07:33 Dose: 1 puffs Documented By: Admin: 06/24/24 09:18 Dose: 1 puffs Documented By: Admin: 06/23/24 09:16 Dose: 1 puffs Documented By: ASHISH Discontinued Medications Acetaminophen (Acetaminophen 1000 Mg/100 Ml Iv) Confirm Administered Dose 1,000 mg IV .STK-MED ONE Stop: 06/23/24 09:37 Last Admin: 06/23/24 10:38 Dose: 1,000 mg Documented By: MAJO Fentanyl Citrate (Fentanyl Citrate Pf 100 Mcg/2 Ml Vial) Confirm Administered Dose 100 mcg .ROUTE .STK-MED ONE Stop: 06/23/24 09:37 Last Admin: 06/23/24 16:51 Dose: Not Given Documented By: ASHISH Furosemide (Furosemide 40 Mg/4 Ml Vial) 20 mg IV ONE ONE Stop: 06/22/24 13:43 Last Admin: 06/22/24 17:08 Dose: 20 mg Documented By: ASHISH Furosemide (Furosemide 20 Mg Tab) 20 mg PO HS CURTIS Stop: 07/22/24 20:59 Last Admin: 06/22/24 20:21 Dose: 20 mg Documented By: NAVI Furosemide (Furosemide 40 Mg Tab) 40 mg PO QDL CURTIS Stop: 07/23/24 11:29 Last Admin: 06/23/24 13:18 Dose: 40 mg Documented By: ASHISH Furosemide (Furosemide Inj 20 Mg/2 Ml Vial) 20 mg IV ONE ONE Stop: 06/23/24 00:08 Last Admin: 06/23/24 00:19 Dose: 20 mg Documented By: NAVI Furosemide (Furosemide Inj 20 Mg/2 Ml Vial) 20 mg IV ONE ONE Stop: 06/23/24 03:49 Last Admin: 06/23/24 04:15 Dose: 20 mg Documented By: NAVI Furosemide (Furosemide 40 Mg Tab) 40 mg PO ONCE ONE Stop: 06/23/24 20:01 Last Admin: 06/23/24 19:55 Dose: 40 mg Documented By: NAVI Furosemide (Furosemide 40 Mg/4 Ml Vial) 40 mg IV ONE ONE Stop: 06/25/24 10:26 Last Admin: 06/25/24 12:28 Dose: 40 mg Documented By: BRIGHT Pantoprazole Sodium 80 mg/ (Dextrose) 120 mls @ 480 mls/hr IV ONE ONE Stop: 06/22/24 14:14 Last Infusion: 06/22/24 16:39 Dose: Infused Documented By: Admin: 06/22/24 15:40 Dose: 480 mls/hr Documented By: ASHISH Pantoprazole Sodium (Protonix) 40 mg in 10 mls @ 5 mls/min IV BID CURTIS Stop: 07/22/24 20:59 Last Admin: 06/23/24 09:17 Dose: 5 mls/min Documented By: Admin: 06/22/24 20:19 Dose: 5 mls/min Documented By: NAVI Potassium Chloride (Potassium Chloride Crtab 20 Meq Tabcr) 40 meq PO NOW STA Stop: 06/22/24 12:18 Last Admin: 06/22/24 12:24 Dose: 40 meq Documented By: CEF Potassium Chloride (Potassium Chloride Crtab 20 Meq Tabcr) 40 meq PO NOW STA Stop: 06/24/24 08:38 Last Admin: 06/24/24 09:18 Dose: 40 meq Documented By: CB Imaging Data Attestation: I personally reviewed and interpreted this imaging study as follows: Discharge Plan Visit Data Chief Complaint: Shortness of Breath/Dyspnea Stated Complaint: SOB ED Provider: Akira Murillo ED Midlevel Provider: Jenny Saeed Discharge Problem: Thrombocytopenia, Elevated troponin, Symptomatic anemia, Myocardial infarction due to demand ischemia, Lower GI bleed Patient Disposition: Admitted As Inpatient Discharge Instructions Interventions: ED Discharge Assessment Last Done: 06/22/24 13:05
[2024-06-22 11:19] LABS: Alanine Aminotransferase 11 U/L (7-52); Albumin Globulin Ratio 1.2 (0.9-2); Albumin Level 3.4 gm/dl (3.4-5.0); Alkaline Phosphatase 77 U/L (34-104); Anion Gap 12 (3-11); Aspartate Aminotransferase 16 U/L (13-39); BUN Creatinine Ratio 20.7 (10-20); Bilirubin,Total 0.5 mg/dl (0.2-1.0); Blood Urea Nitrogen 23 mg/dl (6-23); Carbon Dioxide 23 mmol/L (21-32); Chloride 106 mmol/L (98-107); Globulin 2.9 gm/dl (2.5-4.0); Glucose 156 mg/dl (70-99(Fasting)); Lipase 18 U/L (11-82); Potassium 3.4 mmol/L (3.5-5.1); Sodium 141 mmol/L (136-145); Total Protein 6.3 gm/dl (6.0-8.3)
[2024-06-22 11:20] LABS: Hematocrit (blood only) 13.4 % (42.0-52.0); Hemoglobin 4.3 g/dl (14.0-18.0); Mean Corpuscular Hemoglobin 39.1 pg (25.0-34.0); Mean Corpuscular Hgb Conc 32.1 g/dL (32.0-36.0); Mean Corpuscular Volume 121.8 fL (80.0-100.0); Platelet Count 11 K/uL (130-400); RDW Coefficient of Variation 17.7 % (11.5-14.5); RDW Standard Deviation 77.1 fL (36.4-46.3); White Blood Count 5.06 K/ul (4.8-10.8)
[2024-06-22] MEDS ORDERED: SODIUM CHLORIDE 0.9% 100 ML IV PRN ×2 (11:24→13:37)
[2024-06-22 11:28] LABS: Eosinophils # (auto) 0.02 K/uL (0.00-0.50); Eosinophils % (auto) 0.4 %; Immature Granulocytes # (auto) 0.02 K/uL (0.01-0.20); Immature Granulocytes % (auto) 0.4 %; Lymphocytes # (auto) 0.93 K/uL (1.20-3.40); Lymphocytes % (auto) 18.4 %; Macrocytosis Present; Monocytes # (auto) 0.31 K/uL (0.11-0.59); Monocytes % (auto) 6.1 %; Neutrophils # (auto) 3.78 K/uL (1.40-6.50); Neutrophils % (auto) 74.7 %; Platelet Estimate Signific. Decreased (Normal); Polychromasia 1+; Tear Drop Cells 1+
[2024-06-22 11:34] LABS: Troponin I High Sensitivity 163.2 pg/ml (0-20)
[2024-06-22 11:47] LABS: Adenovirus PCR Not Detected (NotDetected); Bordetella parapertussis PCR Not Detected (NotDetected); Bordetella pertussis PCR Not Detected (NotDetected); Chlamydia pneumoniae PCR Not Detected (NotDetected); Coronavirus 229E PCR Not Detected (NotDetected); Coronavirus CoV-2 (COVID19)PCR Not Detected (NotDetected); Coronavirus HKU1 PCR Not Detected (NotDetected); Coronavirus NL63 PCR Not Detected (NotDetected); Coronavirus OC43PCR Not Detected (NotDetected); Human Metapneumovirus PCR Not Detected (NotDetected); Influenza A PCR Not Detected (NotDetected); Influenza B PCR Not Detected (NotDetected); Mycoplasma pneumoniae PCR Not Detected (NotDetected); Parainfluenza Virus 1 PCR Not Detected (NotDetected); Parainfluenza Virus 2 PCR Not Detected (NotDetected); Parainfluenza Virus 3 PCR Not Detected (NotDetected); Parainfluenza Virus 4 PCR Not Detected (NotDetected); Respiratory Syncytial VirusPCR Not Detected (NotDetected); Rhinovirus/Enterovirus PCR Not Detected (NotDetected)
--- NOTE | 2024-06-22 12:00 | History & Physical Report ---
Date of Service June 22, 2024 Assessment & Plan (1) Anemia: Plan: This is a 79 y/o male with rheumatoid arthritis, chronic steroid use, COPD, HTN, HFpEF, and other history as outlined below who presents to the ED today with worsening shortness of breath for the last 2-3 weeks. Work-up in the ED reveals profound anemia with Hgb of 4.3. Outpatient labs reviewed, and this anemia is new within the last year but significantly worse since labs in March. FOBT in the ED was positive and pt reports intermittent gross hematochezia over the last several months. He has refused recommended outpatient colonoscopy over the last few years, even with positive Cologuard in 2018. - Admit to PCU - Transfuse two units of PRBCs now, follow H&H for stability post-transfusion. - Additional lab work-up ordered to include: iron studies, folate, B12, retic count, peripheral smear, LDH, haptoglobin - Consult hematology - CT abd/pel to rule out retroperitoneal bleed (2) Thrombocytopenia: Plan: Outpatient labs reviewed - platelets were normal in September, decreased but >50,000 in March. Today, decreased to 11,000 and notes new episodic epistaxis over the last few days as well as easy bruising. Transfuse platelets due to bleeding issues with count <50,000 Unclear etiology for drop - consult hematology for additional evaluation (3) Hematochezia: Plan: Ongoing issues x months. No recent colonoscopy Consult GI for additional work-up NPO, IV PPI for now (4) Heart failure, diastolic, due to HTN: Plan: Update ECHO - last done in 2017 IV Lasix between first and second unit of PRBCs (5) Rheumatoid arthritis: Plan: Chronic, stable. On chronic prednisone Continue home regiment (6) HTN (hypertension): Plan: Chronic, BPs in the ED currently lower, likely due to profound anemia. Resume furosemide tomorrow Continue beta-duncan with holds (7) COPD (chronic obstructive pulmonary disease): Plan: Chronic, stable Continue outpatient regimen (8) Elevated troponin: Plan: Likely demand in the setting of profound anemia Trend troponin Repeat EKG in the AM, sooner if develops chest pain (9) Hypokalemia: Plan: Check mag Potassium chloride 40 mEq oral x 1 dose Repeat labs in the AM Plan Pt seen and reviewed with collaborating physician, Dr. Bautista. Plan of care discussed and as outlined above. Code status: full code DVT prophylaxis: hold pharmaceutical prophylaxis in the setting of profound anemia and thrombocytopenia, will re-evaluate tomorrow. Admit to PCU, hematology and GI consults pending Frankie Basilio PA-C History of Present Illness Chief Complaint: shortness of breath Primary Care Provider: Corbin Salcedo MD This is a 79 y/o male with rheumatoid arthritis, chronic steroid use, COPD, HTN, HFpEF, and other history as outlined below who presents to the ED today with worsening shortness of breath for the last 2-3 weeks. Pt underwent cataract surgery earlier this month and has noted progressive dyspnea on exertion since the procedure. Initially dyspnea on with exertion but now present occasionally at rest. He has associated lightheadedness and at times, associated chest pain. He denies syncopal episodes although has had an occasional episode of near- syncope with these symptoms. He reports intermittent episodes of hematochezia for several months. These vary in severity and seem to resolve without intervention. He is unsure if they are getting worse. He had a positive Cologard six years ago but declined to have a colonoscopy in follow-up. His appetite is poor at baseline. No vomiting. Denies dysuria or hematuria. He has developed episodes of epistaxis over the last few days, which is new for him. He has also noted easy bruising. He denies any new medications or vaccines in the last three months. He has a remote history of blood transfusion when he was in the service years ago. Outpatient labs 09/10/23: Hgb 14.6, Hct 45.0, WBC 5.72, Platelets 163 03/12/24: Hgb 11.2 (L), Hct 34.7 (L), WBC 4.51, Platelets 57 (L) Allergies Allergy/AdvReac Type Severity Reaction Status Date / Time Iodinated Contrast Media Allergy Intermediate Hives Verified 06/22/24 12:08 iodine Allergy Intermediate HIVES Verified 06/22/24 12:08 Home Medications Medication Instructions Recorded Confirmed Type celecoxib 200 mg capsule (Celebrex) 200 mg PO BID 06/14/22 06/22/24 History chlorthalidone 25 mg tablet 25 mg PO QAM 06/14/22 06/22/24 History coenzyme Q10 10 mg capsule 10 mg PO DAILY 06/14/22 06/22/24 History diclofenac sodium 1 % topical gel 1 g topical QID PRN joint pain 06/14/22 06/22/24 History (Voltaren Arthritis Pain) tiotropium bromide 18 mcg capsule 1 cap inhalation BID 06/14/22 06/22/24 History with inhalation device (Spiriva with HandiHaler) triamcinolone acetonide 0.1 % 1 applic topical DAILY PRN Rash 06/18/22 06/22/24 History topical ointment albuterol sulfate 90 mcg/actuation 2 puff inhalation Q6H PRN 06/27/22 06/22/24 History aerosol inhaler Shortness Of Breath ascorbic acid (vitamin C) 1,000 mg 1 g PO DAILY 06/27/22 06/22/24 History capsule calcium carbonate 600 mg PO DAILY 06/27/22 06/22/24 History cholecalciferol (vitamin D3) 50 50 mcg PO DAILY 06/27/22 06/22/24 History mcg (2,000 unit) capsule cyanocobalamin (vitamin B-12) 1,000 mcg PO DAILY 06/27/22 06/22/24 History 1,000 mcg capsule fluticasone 250 mcg-salmeterol 50 1 inh inhalation Q12H 06/27/22 06/22/24 History mcg/dose blistr powdr for inhalation folic acid 1 mg tablet 1 mg PO QAM 06/27/22 06/22/24 History furosemide 20 mg tablet 20 mg PO HS 06/27/22 06/22/24 History furosemide 40 mg tablet 40 mg PO QDL 06/27/22 06/22/24 History metoprolol succinate 25 mg 12.5 mg PO BID 06/27/22 06/22/24 History tablet,extended release 24 hr multivitamin 1 tab PO DAILY 06/27/22 06/22/24 History potassium chloride 10 mEq 10 meq PO BID 06/27/22 06/22/24 History capsule,extended release prednisone 5 mg tablet 5 mg PO QAM 06/27/22 06/22/24 History vitamin E mixed 400 unit capsule 400 unit PO DAILY 06/27/22 06/22/24 History turmeric 400 mg capsule 400 mg PO DAILY 05/21/24 06/22/24 History vit C 30 mg-s.[place] 250 mg-celery 1 cap PO DAILY 05/21/24 06/22/24 History seed 75 mg-grape seed extrt capsule (Tart [place]) acetaminophen 500 mg tablet 500 mg PO Q6H PRN PAIN/FEVER 06/22/24 06/22/24 History Past Med/Surg History Problem List (Updated 06/22/24 @ 16:39 by Olinda Basilio PA-C) Hypokalemia Elevated troponin Thrombocytopenia Hematochezia Anemia Prediabetes Heart failure, diastolic, due to HTN Chronic venous insufficiency Rheumatoid arthritis (Chronic) Osteoporosis (Chronic) Migraine variant (Chronic) HTN (hypertension) (Chronic) COPD (chronic obstructive pulmonary disease) (Chronic) Medical History (Updated 06/22/24 @ 16:39 by Olinda Basilio PA-C) 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 Venous ulcer Lymphedema Chronic venous insufficiency 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 Hypertension History of COVID-2021--mild symptoms, no symptoms now Osteoporosis Torn rotator cuff Edema COPD, moderate uses daily inhalers as prescribed--pt states he rarely uses rescue inhaler Rheumatoid arthritis on prednisone Surgical History (Updated 06/22/24 @ 11:49 by Olinda Basilio PA-C) S/P left cataract extraction History of surgical fusion joint left wrist--hardware in place History of shoulder surgery left "calcium deposit removed" History of tooth extraction full upper/partial lower History of repair of right rotator cuff History of carpal tunnel release of both wrists History of bronchoscopy 07/2017 @ [facility] S/P tonsillectomy Family History (Updated 06/22/24 @ 11:49 by Olinda Basilio PA-C) Other Cancer Heart disease No family history of adverse response to anesthesia Social History (Updated 06/22/24 @ 11:50 by Olinda Basilio PA-C) Smoking Status: Former smoker Tobacco Type: Cigarettes Smoking End Date: 2001; Second Hand Exposure: Yes; Do You Dip or Chew Tobacco: No; Hx Alcohol Use: Yes Alcohol type: beer Hx Substance Use: No Preferred Language: Georgian Communication Ability: Effective Visual Impairment: No Limitations Hearing Ability: Normal Wireless Telegrapher Required: No Beliefs That Will Affect Care: None marital status: Single Current Living Situation: Alone Feels Safe at Home: Yes Diet: ideal protein and low salt Diet Comment: educated to increase protein to assist with wound healing caffeine: No Assistive Devices: Denture - Upper and Denture - Lower Review of Systems Review of Systems: All systems reviewed & are unremarkable except as noted in Subjective Physical Exam Physical Exam: General: awake, alert, NAD HEENT: no scleral icterus Heart: regular but tachycardic ~100 bpm Lungs: diminished at bases bilaterally but o/w clear Abdomen: soft, NT, +BS Extremities: right > left 2-3+ pitting edema, chronic skin changes Neurologic: Ox3, no confusion or dysarthria, moving all extremities Results & Data Results & Data Vital Signs (Past 12 Hours) Vital Signs Temp Pulse Resp BP Pulse Ox O2 Del Method 06/22/24 10:47 36.6 C 97 H 19 117/52 L 95 Room Air 06/22/24 10:41 95 Room Air 06/22/24 10:40 95 Room Air 06/22/24 10:35 105 H Laboratory Results Lab Results 06/22/24 Range/Units 10:46 WBC 5.06 (4.8-10.8) K/ul RBC 1.10 L (4.70-6.10) M/uL Hgb 4.3 L* (14.0-18.0) g/dl Hct 13.4 L* (42.0-52.0) % MCV 121.8 H (80.0-100.0) fL MCH 39.1 H (25.0-34.0) pg MCHC 32.1 (32.0-36.0) g/dL RDW Std Deviation 77.1 H (36.4-46.3) fL RDW Coeff of Kellie 17.7 H (11.5-14.5) % Plt Count 11 L* (130-400) K/uL MPV 13.0 H (9.4-12.4) fL Immature Gran % (Auto) 0.4 % Neut % (Auto) 74.7 % Lymph % (Auto) 18.4 % [place] % (Auto) 6.1 % Eos % (Auto) 0.4 % Baso % (Auto) 0.0 % Neut # (Auto) 3.78 (1.40-6.50) K/uL Lymph # (Auto) 0.93 L (1.20-3.40) K/uL [place] # (Auto) 0.31 (0.11-0.59) K/uL Eos # (Auto) 0.02 (0.00-0.50) K/uL Baso # (Auto) 0.00 (0.00-0.20) K/uL Immature Gran # (Auto) 0.02 (0.01-0.20) K/uL Platelet Estimate Signific. Decreased L (Normal) Polychromasia 1+ Macrocytosis Present Tear Drop Cells 1+ Sodium 141 (136-145) mmol/L Potassium 3.4 L (3.5-5.1) mmol/L Chloride 106 (98-107) mmol/L Carbon Dioxide 23 (21-32) mmol/L Anion Gap 12 H (3-11) BUN 23 (6-23) mg/dl Creatinine 1.11 (0.6-1.4) mg/dl Est Cr Clr Drug Dosing Not Reportable eGFR 67.97 BUN/Creatinine Ratio 20.7 H (10-20) Glucose 156 H (70-99(Fasting)) mg/dl Calcium 8.0 L (8.6-10.3) mg/dl Total Bilirubin 0.5 (0.2-1.0) mg/dl AST 16 (13-39) U/L ALT 11 (7-52) U/L Alkaline Phosphatase 77 (34-104) U/L Troponin I High Sens 163.2 H* (0-20) pg/ml B-Natriuretic Peptide 867 H (0-100) pg/ml Total Protein 6.3 (6.0-8.3) gm/dl Albumin 3.4 (3.4-5.0) gm/dl Globulin 2.9 (2.5-4.0) gm/dl Albumin/Globulin Ratio 1.2 (0.9-2) Lipase 18 (11-82) U/L Adenovirus (PCR) Not Detected (NotDetected) B. pertussis DNA (PCR) Not Detected (NotDetected) B.parapertussis DNA PCR Not Detected (NotDetected) C. pneumoniae DNA (PCR) Not Detected (NotDetected) Coronavirus OC43 (PCR) Not Detected (NotDetected) Coronavirus HKU1 (PCR) Not Detected (NotDetected) Coronavirus 229E (PCR) Not Detected (NotDetected) SARS-CoV-2 (PCR) Not Detected (NotDetected) Coronavirus NL63 (PCR) Not Detected (NotDetected) Human Metapneumovir PCR Not Detected (NotDetected) Influenza Type A (PCR) Not Detected (NotDetected) Influenza Type B (PCR) Not Detected (NotDetected) M. pneumoniae (PCR) Not Detected (NotDetected) Parainfluenza 1 (PCR) Not Detected (NotDetected) Parainfluenza 2 (PCR) Not Detected (NotDetected) Parainfluenza 3 (PCR) Not Detected (NotDetected) Parainfluenza 4 (PCR) Not Detected (NotDetected) RSV (PCR) Not Detected (NotDetected) Entero/Rhino (PCR) Not Detected (NotDetected) Diagnostic Findings Chest X-Ray 06/22/24 10:35 XR chest 2V PA/lateral CLINICAL HISTORY: Shortness of breath. COMPARISON STUDY: Chest radiograph and chest CT May 20, 2017. FINDINGS: There is no pneumothorax. Small bilateral pleural effusions are present. There is moderate cardiomegaly. Mild interstitial thickening is present. There is no lobar consolidation. Severe osteoarthritis of the glenohumeral joint is incidentally noted. IMPRESSION: 1. Cardiomegaly with interstitial thickening suggestive of pulmonary edema. An infectious process could appear similar although is considered less likely. Radiographic follow-up is recommended. 2. Small bilateral pleural effusions. ACT 112: Negative or not required by law. Electronically signed by: Watson Chaudhari M.D. 06/22/2024 11:56 AM Supervising Physician Co-Signing Physician Notes 79-year-old male with PMH of prediabetes, COPD, HTN, diastolic heart failure, peripheral vascular disease, lipo dermatosclerosis 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, osteoarthritis of both knees, rheumatoid arthritis on chronic prednisone therapy, migraine, long-term use of steroids presented to the ED with complaint of shortness of breath. Patient reports after he woke up today morning, he was getting ready/got shower to go to his doctor's appointment today. After shower, he started feeling short of breath, did not felt relief with breathing treatment, hence decided to come to the ED. He also reports he has been having some nasal bleeds since last few days [employer]. He also reports he has been having intermittent blood in his stool, red and black, since about 6 months [employer]. He does have history of positive Cologuard, but he has refused colonoscopy in the past. Cancer history in the family: 1 sister with breast cancer, another with liver and brain cancer, and mother with blood cancer. Patient denies fever/sore throat/cough/abdominal pain/any increased or unusual pain than his baseline. Patient recently had left eye cataract surgery, denies use of any vaccine open Flu/COVID] recently, denies any medication changes in the last 3 months. Patient reports he was a big-time drinker in the past, reports currently he is drinking 10-15 beers a month, and last beer is a week ago per patient.Patient quit smoking in per him, denies recreational drug use. Labs reviewedoutpatient and inpatient: Hemoglobin and platelets from December 2022 to March 2024: Hb fluctuation from 14-11 , platelet fluctuation from 185K to 57. Lowest number from March 2024. Admitting hemoglobin of 4.3, admitting platelets of 11K Potassium of 3.4, renal function WNL, LFT and lipase WNL, troponin 163.2, BNP 867. RPP negative. CXR suggestive of pulmonary edema with small bilateral pleural effusion. Active problems: Bicytopenia: Nasal bleeding GI bleed Admitting platelets and hemoglobin low. Patient with history of blood in stool and recent nasal bleed. Patient with history of Cologuard positive and has refused colonoscopy. Transfuse 2 unit PRBC, 4 unit platelets. Goal of hemoglobin greater than 7 and platelet greater than 50K. Hold 2 more unit PRBC and 4 more unit of platelets. GI consult, hematology consult. Bilirubin WNL, complete other hemolysis workup: LDH, haptoglobin, uric acid, peripheral blood smear, [place] test. Will get CT abdomen pelvis to rule out retroperitoneal bleed/splenomegaly/malignancy. Will get iron profile, vitamin B12, folate studies. Fall precaution, strict bedrest. N.p.o., IV PPI twice daily, monitor H&H every 6 hours.Get FOBT.Hold all BP meds. Pulmonary edema: Noted on CXR, will get echo, BNP elevated, 20 Mg IV Lasix in between blood transfusion. Elevated troponin: Likely demand ischemia secondary to anemia. Trend troponin, patient had brief episode of chest discomfort with shortness of breath in the morning. Continue telemetry monitoring. Getting echo. Hypokalemia: Potassium of 3.4, repleted 40 mEq p.o. On exam: GENERAL: Alert and oriented x3. NAD, on 2L NC O2. HEENT: No pallor, no icterus. Pupils equal, round and reactive to light. Oral mucosa moist. NECK: No JVD, no neck masses. HEART: S1 and S2 heard. Regular rate and rhythm. tachy in 90s. No murmur, no gallop. RESPIRATORY SYSTEM: Normal AP diameter. No accessory muscle use. No wheezing, no crackles. ABDOMEN: Soft, bowel sounds present, nontender, no distention. CENTRAL NERVOUS SYSTEM: No facial droop. Speech is clear. Obeys simple commands. Moves extremities. EXTREMITIES: ble chronic skin changes and lymphedema noted. 2-3+ ble edema noted. I have seen and examined the patient and have discussed the case with the provider above. I agree with the assessment and plan as stated. Time spent: 45 min (1) Anemia Anemia type: unspecified type Qualified Code(s): D64.9 - Anemia, unspecified (5) Rheumatoid arthritis Rheumatoid arthritis location: unspecified site Rheumatoid factor presence: unspecified presence Qualified Code(s): M06.9 - Rheumatoid arthritis, unspecified (6) HTN (hypertension) Hypertension type: primary hypertension Qualified Code(s): I10 - Essential (primary) hypertension (7) COPD (chronic obstructive pulmonary disease) COPD type: unspecified COPD Qualified Code(s): J44.9 - Chronic obstructive pulmonary disease, unspecified
[2024-06-22] MEDS: POTASSIUM CHLORIDE CRTAB 20 MEQ TABCR PO STA (12:24)
[2024-06-22 13:07] LABS: Magnesium 2.5 mg/dl (1.7-2.4)
[2024-06-22 13:15] LABS: Troponin I High Sensitivity 221.4 pg/ml (0-20)
[2024-06-22 13:18] LABS: Reticulocyte % 1.96 % (0.50-2.00); Reticulocytes # 0.02 10^6/uL (0.020-0.100)
[2024-06-22 13:56] LABS: Folate (Folic Acid),Ser orPlas > 22.30 ng/ml (>5.38)
[2024-06-22 13:57] LABS: Vitamin B12 1040 pg/ml (180-914)
--- NOTE | 2024-06-22 14:14 | Gastrointestinal Consultation ---
Date of Consultation June 22, 2024 Assessment & Plan (1) Anemia: Patient is a 79 year old male with a past medical history of rheumatoid arthritis, chronic steroid use, COPD, HTN, HFpEF, who presented to the ED today with worsening shortness of breath for the past few months. He was found to have a hgb of 4.3 and platelets of 11 which per patient is new. He reports off and on hematochezia as well as new nose bleeds. - follow hgb/hct. transfuse as needed. he is being set up currently to get a transfusion. - continue with protonix 40mg IV bid. - he will likely need endoscopic evaluation at some point, but this cannot be done with the current state of low hgb and platelets. agree with hematology evaluation. - I will discuss further with Dr. Zelaya, further recommendations to follow. Supervising Physician Co-Signing Physician Notes I saw and examined this patient with our nurse practitioner and agree with her assessment and plan. Patient presents with severe anemia with hemoglobin 4.3 and a low platelet count of 11,000. Iron studies not consistent with iron deficiency anemia. B12 folate normal. Concern for primary hematologic process. Past history of excessive alcohol use however CT scan imaging does not suggest any evidence of liver disease or portal hypertension. Await hematologic evaluation prior to any endoscopic intervention at this time. Continue to monitor blood count check stool for occult blood. History of Present Illness Reason for Consultation: anemia/intermittent hematochezia. Requesting Physician: Olinda LEA Attending Physician: Marielena Bautista MD History of Present Illness Patient is a 79 year old male with a past medical history of rheumatoid arthritis, chronic steroid use, COPD, HTN, HFpEF, who presented to the ED today with worsening shortness of breath for the past few months. He admits that it started out as just being with activity but then gradually started to happen at rest. he feels that symptoms really started to worsen after he underwent cataract surgery earlier this month. He has associated lightheadedness and at times, as well as associated chest pain. He denies syncopal episodes although has had an occasional episode of near-syncope with these symptoms. He reports intermittent episodes of hematochezia for several months but tells me these are not a regular occurrence and he can go weeks between the episodes. he tells me that he suspects they were related to hemorrhoids. He had a positive Cologard six years ago but declined to have a colonoscopy in follow-up. He admits to a poor appetite. No nausea or vomiting. Denies dysuria or hematuria. He has developed episodes of epistaxis over the last few days, which is new for him, but he does not feel it was an excessive amount of blood. He has also noted easy bruising. no blood thinners. He admits to daily use of celebrex. He has regular bowel movements once daily. he denies any melena. 06/22/24 hgb 4.3, platelets 11, iron 257, ferritin 464, b12 1040, folate 22.3. troponin 220. he tells me he has never had an EGD or colonoscopy. Allergies Allergy/AdvReac Type Severity Reaction Status Date / Time Iodinated Contrast Media Allergy Intermediate Hives Verified 06/22/24 12:08 iodine Allergy Intermediate HIVES Verified 06/22/24 12:08 Home Medications Medication Instructions Recorded Confirmed Type celecoxib 200 mg capsule (Celebrex) 200 mg PO BID 06/14/22 06/22/24 History chlorthalidone 25 mg tablet 25 mg PO QAM 06/14/22 06/22/24 History coenzyme Q10 10 mg capsule 10 mg PO DAILY 06/14/22 06/22/24 History diclofenac sodium 1 % topical gel 1 g topical QID PRN joint pain 06/14/22 06/22/24 History (Voltaren Arthritis Pain) tiotropium bromide 18 mcg capsule 1 cap inhalation BID 06/14/22 06/22/24 History with inhalation device (Spiriva with HandiHaler) triamcinolone acetonide 0.1 % 1 applic topical DAILY PRN Rash 06/18/22 06/22/24 History topical ointment albuterol sulfate 90 mcg/actuation 2 puff inhalation Q6H PRN 06/27/22 06/22/24 History aerosol inhaler Shortness Of Breath ascorbic acid (vitamin C) 1,000 mg 1 g PO DAILY 06/27/22 06/22/24 History capsule calcium carbonate 600 mg PO DAILY 06/27/22 06/22/24 History cholecalciferol (vitamin D3) 50 50 mcg PO DAILY 06/27/22 06/22/24 History mcg (2,000 unit) capsule cyanocobalamin (vitamin B-12) 1,000 mcg PO DAILY 06/27/22 06/22/24 History 1,000 mcg capsule fluticasone 250 mcg-salmeterol 50 1 inh inhalation Q12H 06/27/22 06/22/24 History mcg/dose blistr powdr for inhalation folic acid 1 mg tablet 1 mg PO QAM 06/27/22 06/22/24 History furosemide 20 mg tablet 20 mg PO HS 06/27/22 06/22/24 History furosemide 40 mg tablet 40 mg PO QDL 06/27/22 06/22/24 History metoprolol succinate 25 mg 12.5 mg PO BID 06/27/22 06/22/24 History tablet,extended release 24 hr multivitamin 1 tab PO DAILY 06/27/22 06/22/24 History potassium chloride 10 mEq 10 meq PO BID 06/27/22 06/22/24 History capsule,extended release prednisone 5 mg tablet 5 mg PO QAM 06/27/22 06/22/24 History vitamin E mixed 400 unit capsule 400 unit PO DAILY 06/27/22 06/22/24 History turmeric 400 mg capsule 400 mg PO DAILY 05/21/24 06/22/24 History vit C 30 mg-s.segovia 250 mg-celery 1 cap PO DAILY 05/21/24 06/22/24 History seed 75 mg-grape seed extrt capsule (Tart Segovia) acetaminophen 500 mg tablet 500 mg PO Q6H PRN PAIN/FEVER 06/22/24 06/22/24 History Patient History Medical History (Updated 06/22/24 @ 16:39 by Olinda Basilio PA-C) 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 Venous ulcer Lymphedema Chronic venous insufficiency Ocular migraine correction (current) use of systemic steroids for RA Hypertension History of COVID-2021--mild symptoms, no symptoms now Osteoporosis Torn rotator cuff Edema COPD, moderate uses daily inhalers as prescribed--pt states he rarely uses rescue inhaler Rheumatoid arthritis on prednisone Surgical History (Updated 06/22/24 @ 11:49 by Olinda Basilio PA-C) S/P left cataract extraction History of surgical fusion joint left wrist--hardware in place History of shoulder surgery left "calcium deposit removed" History of tooth extraction full upper/partial lower History of repair of right rotator cuff History of carpal tunnel release of both wrists History of bronchoscopy 07/2017 @ [facility] S/P tonsillectomy Family History (Updated 06/22/24 @ 11:49 by Olinda Basilio PA-C) Other Cancer Heart disease No family history of adverse response to anesthesia Social History (Updated 06/22/24 @ 11:50 by Olinda Basilio PA-C) Smoking Status: Former smoker Tobacco Type: Cigarettes Smoking End Date: 2001; Second Hand Exposure: Yes; Do You Dip or Chew Tobacco: No; Hx Alcohol Use: Yes Alcohol type: beer Hx Substance Use: No Preferred Language: Romansh Communication Ability: Effective Visual Impairment: No Limitations Hearing Ability: Normal Research And Development Researcher Required: No Beliefs That Will Affect Care: None marital status: Single Current Living Situation: Alone Feels Safe at Home: Yes Diet: ideal protein and low salt Diet Comment: educated to increase protein to assist with wound healing caffeine: No Assistive Devices: Denture - Upper and Denture - Lower Review of Systems Review of Systems: All systems reviewed & are unremarkable except as noted in HPI & below Physical Exam Constitutional: WD/WN, vitals as above Respiratory: normal respiratory effort, lungs clear to auscultation Cardiovascular: Rate/Rhythm: regular rate and regular rhythm Gastrointestinal (Abdomen): normal bowel sounds, soft, nontender, no hepatosplenomegaly Psychiatric: Orientation: alert and oriented x 3 Affect: euthymic affect Results & Data Vital Signs (Past 12 Hours) Vital Signs Temp Pulse Pulse Resp BP BP Pulse Ox 06/22/24 13:32 97.9 F 104 H 20 103/59 L 98 06/22/24 10:47 97.9 F 97 H 19 117/52 L 95 06/22/24 10:41 95 06/22/24 10:40 95 06/22/24 10:35 105 H O2 Del Method O2 Flow Rate 06/22/24 13:32 Nasal Cannula 2 06/22/24 10:47 Room Air 06/22/24 10:41 Room Air 06/22/24 10:40 Room Air 06/22/24 10:35 Coding Level of Care Code 41601 INT INP/OBS CARE 2/55MIN Diagnoses Anemia D64.9
--- OUTSIDE RECORDS SUMMARY | 2024-06-22 14:14 | External Medical Summary | Summary of Care ---
Author Name Unknown Organization [facility] Address [address] [place] [address] Phone [phone] Care Team Providers Care Cattle Producers Name Role Phone Corbin Salcedo MD Primary Care Provider +1- [phone] Reason for Visit * Reason Onset Date Comments Health Maintenance 05/28/2024 Encounter Details Date Type Department Care Team (Late st Contact Info) Description 05/28/2024 Telephone [facility] [address] [place] [address] Corbin Salcedo MD [address] [place] [address] Health Maintenance Allergies Active Allergy Reactions Criticality Noted Date Comments Iodinated Contrast Media Low 06/29/2022 Other reaction(s): Hives Iodine 06/29/2022 Other reaction(s): HIVES Ivp Dye Hives 02/28/1999 documented as of this encounter (statuses as of 06/16/2024) Medications Medication Sig Dispensed Refills Start Date End Date Status VITAMIN E 400 UNIT PO CAPS one tablet by mouth daily Active VITAMIN C 1000 MG PO TABS one tablet by mouth daily Active CYANOCOBALAMIN 1000 MCG PO TABS one tablet by mouth daily Active CALCIUM 600 600 MG PO TABS one tablet by mouth daily Active VITAMIN D3 2000 UNIT PO CAPS one tablet by mouth daily Active PROAIR HFA 108 (90 Base) MCG/ACT inhalerIndication s:COPD, moderate (HCC) USE 2 PUFFS BY MOUTH EVERY 4 HOURS NEEDED WHEEZING 8.5 g 5 05/30/2017 Active Tiotropium [place] Monohydrate 18 MCG Inhalation Capsule Inhale 1 Capsule by mouth in the morning. For inhaler only, do not swallow. . Active Garlic 100 MG Tablet Take 1 Tablet by mouth in the morning. Active Turmeric Curcumin 500 MG CAPS Take by mouth . Active Coenzyme Q10 (CO Q 10) 10 MG CAPS Take by mouth. Acti ve Betamethasone Dipropionate 0.05 % External OintmentIndicatio ns:Rash and nonspecific skin eruption Apply 2x daily (or more if itchy instead of scratching) to isolated very itchy areas of rash on arms/legs/trunk . 50 g 02/20/2021 Active Triamcinolone Acetonide 0.1 % External Cream (Aristocort) Apply topically to affected area 2 times a day. To affected area. 80 g 5 12/27/2022 Active NATURAL SUPPLEMENT Take by mouth at bedtime. CBD gummies for slee[p Active Diclofenac Sodium 1 % External Gel (Voltaren) APPLY TO AFFECTED AREA 3 TIMES A DAY 100 g 3 05/01/2023 Active Clotrimazole 1 % External Cream (Lotrimin) APPLY TO THE AFFTECTED AREA OF BOTH BOTTOM FEET AT TWICE DAILY 05/15/2023 Active Spiriva Respimat 2.5 MCG/ACT Inhalation Aerosol Solution (Tiotropium [place] Monohydrate) INHALE 2 PUFFS ONCE DAILY 12 g 3 10/16/2023 Active Glucosamine-Chond roitin 500-400 MG Oral Capsule Active Furosemide 20 MG Oral Tablet (Lasix)Indication s:Edema TAKE TWO TABLETS BY MOUTH EVERY MORNING AND 1 EVERY EVENING 270 Tablet 1 12/11/2023 Active Folic Acid 1 MG Oral TabletIndications :Arthritis, rheumatoid (HCC) Take 1 Tablet by mouth in the morning. 90 Tablet 1 12/11/2023 Active Celecoxib 200 MG Oral Capsule (CeleBREX) Take 1 Capsule by mouth 2 times a day. 180 Capsule 1 01/15/2024 Active Potassium Chloride ER 20 MEQ Oral Tablet Extended Release TAKE ONE TABLET BY MOUTH EVERY MORNING AND 1 TABLET BEFORE BEDTIME 180 Tablet 1 01/20/2024 Active Metoprolol Tartrate 25 MG Oral Tablet (Lopressor) TAKE 1/2 TABLET TWICE A DAY BY MOUTH 90 Tablet 1 03/07/2024 Active Fluticasone-Salme terol 250-50 MCG/ACT Inhalation Aerosol Powder Breath Activated (Advair Diskus) USE 1 INHALATION BY MOUTH EVERY 12 HOURS--SAME ADVAIR 180 Each 1 04/10/2024 Active predniSONE 5 MG Oral Tablet (Deltasone) TAKE 1 TABLET BY MOUTH EVERY DAY IN THE MORNING 90 Tablet 1 04/13/2024 Active Chlorthalidone 25 MG Oral Tablet (Hygroton) TAKE 1 TABLET BY MOUTH EVERY DAY 90 Tablet 1 12/17/2023 06/10/20 24 Discontinued documented as of this encounter (statuses as of 06/16/2024) Active Problems Problem Noted Date Diagnosed Date Primary osteoarthritis of both knees 12/05/2023 Prediabetes 01/07/2023 Overview: Per Prediabetes protocol 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 05/21/2022 COPD, group B, by GOLD 2017 classification 07/11 Overview: Per COPD GOLD Classification longterm (current) use of systemic steroids Other rheumatoid arthritis w ith rheumatoid factor of left ankle and foot 02/18/2019 Other atherosclerosis of eugene roxanne arteries of extremities, bilateral legs 02/18/2019 Heart failure, diastolic, due to HTN 02/13/2018 History of migraine 02/13/2018 HTN, goal below 140/90 09/05/2011 BMI 35-39 ISOLATED (SEE ACTUAL BMI) 02/13/2010 Overview: Per Obesity Protocol, #19 documented as of this encounter (statuses as of 06/16/2024) Resolved Problems Problem Noted Date Diagnosed Date Resolved Date Other rheumatoid arthritis w ith rheumatoid factor of right ankle and foot 02/18/2019 3 Pulmonary emphysema 05/24/2017 02/14/20 18 Alcohol ingestion, more than 4 drinks/day on alcohol screening 05/24/2017 02/18/2019 Ascending aorta dilatation 05/24/2017 1 10/26/2018 Chronic use of steroids 09/09/201208/03 COPD, moderate 10/04/2011 07/14/2020 Overview: Per COPD GOLD Classification Benign neoplasm of soft tissue of leg 02/24/2009 09/09/2012 Migraine variant 05/20/2008 02/13/2018 Osteoporosis 08/18/2002 08/25/2019 COPD, severity to be determined 02/17/2001 10/04/2011 Arthritis, rheumatoid 2018 Overview: duplicate Edema 02/13/2018 documented as of this encounter (statuses as of 06/16/2024) Immunizations Name Administration Dates Next Due COVID-19 mRNA, LNP-s, No Pre serve, 2-Dose Series ([employer]) 03/27/2022,08/16/2021,12/06/2020,10/31 COVID-19, MRNA-LNP, 23-24, P F, 50 MCG/0.5 mL, 12 YRS AND ABOVE, IM (MODERNA-Spikevax) 05/22/2023 Pneumococcal Conjugate Vacc, 13 Valent (Prevnar) 09/28/2016 Pneumococcal Polysaccharide PPV23 (Pneumovax) 12/23/2017,10/10/2010 RSV Vac., Recomb, Adjuvant, PF,0.5 Ml (Arexvy) 08/14/2023 Seasonal Influenza Vac., MDV , IM, 0.5 mL (Fluzone) 06/28/2014,07/13/2013,06/10/2012,07/04,07/10/2010,06/13/2009,06/16/20 08,06/30/2007,2006 Seasonal Influenza Virus Vac cine, Unspecified Formulation 05/22/2023 Seasonal Influenza, PF, 6 M & above, IM , (FluLaval or Fluzone) 05/26/2020,06/03/2018,06/07/2017 Seasonal Influenza, Quadriva lent Hd (Fluzone Hd) 05/21/2022,05/20/2021 Seasonal Influenza, Quadriva lent, No Preserve, IM 2016,06/09/2015 Seasonal Influenza, Trivalen t, Adjuvanted, 65+ YRS, PF, (Fluad) 06/23/2019 TD, Preservative Free 08/25/2019 08/25/2029 TDAP (age 10 and older)(Boostrix) 08/14/2023 TDAP, Age 7 and older, IM (Adacel) 08/17/2009 Zoster Vaccine Recombinant (Shingrix) 03/21/2022 ,01/16/2022 documented as of this encounter Social History Tobacco Use Types Packs/Day Years Used Date Smoking Tobacco: Former Cigarettes 1 30 1 - 2002 Smokeless Tobacco: Never Alcohol Use Standard Drinks/Week Comments Yes 2 (1 standard drink = 0.6 oz pur e alcohol) per week PHQ-2 Answer Date Recorded PHQ Adult Total Score 0 12/14/2022 Hunger Vital Sign Answer Date Recorded Within the past 12 months, y ou worried that your food would run out before you got the money to buy more. Never true 03/26/20 23 Within the past 12 months, t he food you bought just didn't last and you didn't have money to get more. Never true 03/26/2023 Childcare Answer Date Recorded Do you feel overwhelmed with taking care of a child, family member or friend? No 03/26/2023 Does your family need help f inding childcare? (Household - for ages 0-17 years) Not on file 03/26/2023 Clothing Answer Date Recorded Have you been unable to get clothing when it was really needed? No 03/26/2023 Is your family able to get c lothes or diapers when needed? (Household - for ages 0-17 years) Not on file 03/26/2023 Personal Safety Answer Date Recorded Do you feel unsafe or have concerns for your saf ety? No 03/26/2023 Do you have concerns for you r family's safety? (Household - for ages 0-17 years) Not on file 03/26/2023 Utilities Answer Date Recorded Do you have trouble paying y our heating, water, or electric bill? (Adult - for ages 18 years and over) Not on file 03/31/2024 Is your family able to pay t he heat, water, or electric bill? (Household - for ages 0-17 years) Not on file 03/31/2024 Does your family have access to good internet? (Household - for ages 0-17 years) Not on file 03/31/2024 Employment Status Answer Date Recorded Are you unemployed or without regular income? No 03/26/2023 Does the household have a re gular source of income? (Household - for ages 0-17 years) Not on file 03/26/2023 Social Connections Answer Date Recorded How often do you feel lonely or isolated from those around you? (Adult - for ages 18 years and over) Not on file 03/31/2024 Financial Resource Strain Answer Date R ecorded Do you have any trouble payi ng for your medications, or do you think you might in the future? No 03/26/2023 Does your family have troubl e paying for medicine? (Household - for ages 0-17 years) Not on file 03/26/2023 Transportation Needs Answer Date Record ed READ ONLY Do you have troubl e getting a ride to medical visits or work? Never True 03/26/2023 Does your family have a hard time getting a ride to doctors visits? (Household - for ages 0-17 years) Not on file 03/26/2023 Has lack of transportation k ept you from medical appointments, meetings, work, or from getting things needed for daily living? Check all that apply. (Adult - for ages 18 years and over) Not on file 03/26/2023 Do you (or your family) have trouble finding or paying for a ride (transportation)? (Household - for ages 0-17 years) Not on file 03/26/2023 Housing Stability Answer Date Recorded Do you currently live in a s helter or have no steady place to sleep at night? No 03/26/2023 READ ONLY Do you think you a re at risk of becoming homeless? No 03/26/2023 Does your family worry about paying for your home or becoming homeless? (Household - for ages 0-17 years) Not on file 0 03/26/2023 Are you homeless or worried that you might be in the future? (Adult - for ages 18 years and over) Not on file Are you (or your family) kobi eless or worried that you might be in the future? (Household - for ages 0-17 years) Not on file Food Insecurity Answer Date Recorded Do you need food for this week? No 03/26/2023 Are you able to get enough f ood for your family? (Household - for ages 0-17 years) Not on file 03/26/2023 Does your family need food t his week? (Household - for ages 0-17 years) Not on file 03/26/2023 Do you always have enough fo od for your family? (Household - for ages 0-17 years) Not on file 03/26/2023 Sex and Gender Information Value Date Recorded Sex Assigned at Male 06/23/2019 9:44 AM EDT Gender Identity Male 06/23/2019 9:44 AM EDT Sexual Orientation Straight 02/18/2019 7: 19 AM EDT Job Start Date Occupation Industry Not on file Not on file Not on file documented as of this encounter Miscellaneous Notes * Telephone Encounter - Della Phillip LPN - 05/28/2024 1:07 PM EDT Care Gaps Comprehensive Care Outreach Last Office/Telemedicine Visit: 03/12/2024 (in office), Visit date not found (telemedicine) Next Office Visit: 10/06/2024 Hemoglobin AIC Results: Lab Results Component Value Date/Time HEMOGLOBIN A1C - [facility] 5.6 03/12/2024 08:58 AM HEMOGLOBIN A1C - [facility] 6.0 (H) 09/10/2023 08:51 AM HEMOGLOBIN A1C - [facility] 6.1 (H) 03/27/2023 12:45 PM BP Readings from Last 1 Encounters: 03/12/24 108/62 Reviewed Health Maintenance below: Health Maintenance Topic Date Due Adult Wellness Visit 08/18/2022 Depression Screening 12/15/2023 Influenza Vaccine (FLU shot) (1) 05/03/2024 COVID-19 Vaccine ( season) 2024 awv Care Gap Outreach Action Taken: Image Insightt message sent documented in this encounter Plan of Treatment Upcoming Encounters Date Type Department Care Team ([facility] st Contact Info) Description 07/14/2024 8:30 AM EST Nurse Only Ancillary Department, [address] [address] [place], Nurse Annual Wellness [address] [place] [address] 09/21/2024 8:40 AM EST Office Visit Rheumatology [facility] [address] [facility] [address] [facility] [place] [address] Jad Parker MD [address] [facility] [address] [facility] [place], [place] [address] 10/06/2024 7:40 AM EST Office Visit [facility], [facility] [address] [facility] [address] Corbin Salcedo MD [address] [facility] [place] [id number] Health Maintenance Due Date Last Done Comments Adult Wellness Visit 08/18/2022 08/18/2021 Depression Screening 12/15/2023 12/14/2022 COVID-19 Vaccine ( season) 2024 12/11/2023, 05/22/2023, 03/27/2022, Additional history exists Influenza Vaccine (FLU shot) (#1) 2024 05/22/2023, 05/21/2022, 05/20/2021, Additional history exists Albumin/Creatinine Ratio 01/11/2025 01/11/2022, 12/02 GFR 03/12/2025 03/12/2024, 0 05/2024, 03/04/2023, Additional history exists HbA1c 03/12/2025 03/12/2024, 0 05/2024, 03/27/2023, Additional history exists O2 ASSESSMENT COMPLETED IN PAST YEAR FOR COPD 03/12/2025 03/12/2024 DXA Scan 01/19/2027 01/20/2024, 01/01, 09/01/2019, Additional history exists DTap/Tdap Vaccines (4 - Td or Tdap) 08/14/2033 08/14/2023, 08/25/2019, 08/17/2009, Additional history exists Pneumococcal Vaccine: 65+ Years Completed 12/23/2017, 09/28/2016, 10/10/2010 Zoster Vaccines Completed 03/21/2022, 01/16/2022 Alpha-1 Antitrypsin Completed 09/10/2023 HPV (Gardasil) Vaccine Aged Out No lo nger eligible based on patient's age to complete this topic Hepatitis B Vaccine Aged Out No longe r eligible based on patient's age to complete this topic MENINGOCOCCAL (MENACTRA/MENVEO) Aged Out No longer eligible based on patient's age to complete this topic documented as of this encounter Medical Devices Not on filedocumented as of this encounter Care Teams Cattle Producers Relationship Specialty Start Date End Date Corbin Salcedo MD [address] [place] [address] PCP - General 11/27/02 documented as of this encounter
--- OUTSIDE RECORDS SUMMARY | 2024-06-22 14:14 | External Medical Summary | Summary of Care ---
Author Name Unknown Organization [facility] Address [address] [place] [address] Phone [phone] Care Team Providers Care Security Systems Integrator Name Role Phone Claire Hayes MD Primary Care Provider +1- [phone] Reason for Visit * Reason Comments eRx-Medication Refill Encounter Details Date Type Department Care Team (Late st Contact Info) Description 06/09/2024 Refill [facility] [address] [place] [address] Claire Hayes MD [address] [place] [address] Allergies Active Allergy Reactions Criticality Noted Date Comments Iodinated Contrast Media Low 06/29/2022 Other reaction(s): Hives Iodine 06/29/2022 Other reaction(s): HIVES Ivp Dye Hives 02/28/1999 documented as of this encounter (statuses as of 06/10/2024) Medications Medication Sig Dispensed Refills Start Date [...] WHEEZING 8.5 g 5 05/30/2017 Active Tiotropium [place] Monohydrate 18 MCG Inhalation Capsule Inhale 1 [...] Respimat 2.5 MCG/ACT Inhalation Aerosol Solution (Tiotropium [place] Monohydrate) INHALE 2 PUFFS ONCE DAILY 12 [...] BY MOUTH EVERY DAY 90 Tablet 1 06/10/2024 Active Chlorthalidone 25 MG Oral Tablet (Hygroton) TAKE 1 TABLET BY MOUTH EVERY DAY 90 Tablet 1 12/17/2023 06/10/20 24 Discontinued documented as of this encounter (statuses as of 06/10/2024) Active Problems Problem Noted Date Diagnosed Date Primary osteoarthritis of both knees 12/05/2023 Prediabetes 01/07/2023 Overview: Per Prediabetes protocol 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 05/21/2022 COPD, group B, by GOLD 2017 classification 07/11 Overview: Per COPD GOLD Classification snf (current) use of systemic steroids Other rheumatoid [...] as of this encounter (statuses as of 06/10/2024) Resolved Problems Problem Noted Date Diagnosed Date [...] as of this encounter (statuses as of 06/10/2024) Immunizations Name Administration Dates Next Due COVID-19 mRNA, LNP-s, No Pre serve, 2-Dose Series ([employer]) 03/27/2022,08/16/2021,12/06/2020,10/31 COVID-19, MRNA-LNP, 23-24, P F, 50 [...] encounter Miscellaneous Notes * Telephone Encounter - Ross Wong RPh - 06/10/2024 4:07 PM EDT Signed Prescriptions: Disp Refills Chlorthalidone 25 MG Oral Tablet (Hygroton)90 Tab*1 Sig: TAKE 1TABLET BY MOUTH EVERY DAYAuthorizing Provider: CLAIRE HAYES User: ROSS WONG [facility] documented in this encounter Plan of Treatment Upcoming Encounters Date Type Department Care Team (Late st Contact Info) Description 10/06/2024 7:40 AM EST Office Visit [facility] [address] [place] [address] Claire Hayes MD [address] [place] [address] Health Maintenance Due Date Last Done Comments [...] filedocumented as of this encounter Care Teams Security Systems Integrator Relationship Specialty Start Date End Date Claire Hayes MD [address] [place] [address] PCP - General 11/27/02 documented as of this encounter
--- OUTSIDE RECORDS SUMMARY | 2024-06-22 14:14 | External Medical Summary | Summary of Care ---
Author Name Unknown Organization [facility] Address [address] [place] [address] Phone [phone] Care Team Providers Care Director Medicare Sales Name Role Phone Corbin Salcedo MD Primary Care Provider +1- [phone] Reason for Visit * Reason Onset Date Comments Advice 03/17/2024 Encounter Details Date Type Department Care Team (Late st Contact Info) Description 03/17/2024 Telephone [facility] [address] [place] [address] Corbin Salcedo MD [address] [place] [address] Advice Allergies Active Allergy Reactions Criticality Noted Date [...] Active PROAIR HFA 108 (90 Base) MCG/ACT inhalerIndications:C OPD, moderate (HCC) USE 2 PUFFS BY MOUTH EVERY 4 HOURS NEEDED WHEEZING 8.5 g 5 05/30/2017 Active Tiotropium [place] Monohydrate 18 MCG Inhalation Capsule Inhale 1 Capsule by mouth in the morning. For inhaler only, do not swallow. . Active Garlic 100 MG Tablet Take 1 Tablet by mouth in the morning. Active Turmeric Curcumin 500 MG CAPS Take by mouth . Active Coenzyme Q10 (CO Q 10) 10 MG CAPS Take by mouth. Active Betamethasone Dipropionate 0.05 % External OintmentIndications: Rash and nonspecific skin eruption Apply 2x daily (or more if itchy instead of scratching) to isolated very itchy areas of rash on arms/legs/trunk. 50 g 02/20/2021 Active Triamcinolone Acetonide 0.1 [...] Respimat 2.5 MCG/ACT Inhalation Aerosol Solution (Tiotropium [place] Monohydrate) INHALE 2 PUFFS ONCE DAILY 12 g 3 10/16/2023 Active Glucosamine-Chondroi tin 500-400 MG Oral Capsule Active Furosemide 20 MG Oral Tablet (Lasix)Indications:E karo TAKE TWO TABLETS BY MOUTH EVERY MORNING AND 1 EVERY EVENING 270 Tablet 1 12/11/2023 Active Folic Acid 1 MG Oral TabletIndications:Ar thritis, rheumatoid (HCC) Take 1 Tablet by mouth [...] BY MOUTH 90 Tablet 1 03/07/2024 Active documented as of this encounter (statuses as of 06/16/2024) Active Problems Problem Noted Date Diagnosed Date Primary osteoarthritis of both knees 12/05/2023 Prediabetes 01/07/2023 Overview: Per Prediabetes protocol 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 Please advise, thank you. documented in this encounter Plan of Treatment Upcoming Encounters Date Type Department Care Team (Late st Contact Info) Description 06/22/2024 2:20 PM EDT Office Visit Rheumatology [address] [place] [address] Jad Parker MD [address] [place] [address] [place] [address] 07/14/2024 8:30 AM EST Nurse Only Ancillary Department, [place] [address] [place] [address] [place], Nurse Annual Wellness [address] [place] [address] 10/06/2024 7:40 AM EST Office Visit Family Practice, [place] [address] [place] [facility] [place] [address] Corbin Salcedo MD [address] [place] [address] Health Maintenance Due Date Last Done Comments Adult Wellness Visit 08/18/2022 08/18/2021 Depression Screening 12/15/2023 12/14/2022 COVID-19 Vaccine ( season) 2024 12/11/2023, 05/22/2023, 03/27/2022, Additional history exists Influenza Vaccine (FLU shot) (#1) 2024 05/22/2023, 05/21/2022, 05/20/2021, Additional history exists Albumin/Creatinine Ratio 01/11/2025 01/11/2022, 12/02 GFR 03/12/2025 03/12/2024, /0 05/2024, 03/04/2023, Additional history exists HbA1c 03/12/2025 03/12/2024, 01/0 05/2024, 03/27/2023, Additional history exists O2 ASSESSMENT [...] filedocumented as of this encounter Care Teams Director Medicare Sales Relationship Specialty Start Date End Date Corbin Salcedo MD [address] [place] [address] PCP - General 11/27/02 documented as of this encounter
--- OUTSIDE RECORDS SUMMARY | 2024-06-22 14:14 | External Medical Summary | Summary of Care ---
Author Name Unknown Organization [facility] Address [address] [place] [address] Phone [phone] Care Team Providers Care Toll Gate Keeper Name Role Phone Corbin Salcedo MD Primary Care Provider +1- [phone] Reason for Visit * Reason Onset Date Comments Health Maintenance 05/28/2024 Encounter Details Date Type Department Care Team (Late st Contact Info) Description 05/28/2024 Telephone [facility] [address] [place] [address] Corbin Salcedo MD [address] [place] [address] Health Maintenance Allergies Active Allergy Reactions Criticality Noted Date Comments Iodinated Contrast Media Low 06/29/2022 Other reaction(s): Hives Iodine 06/29/2022 Other reaction(s): HIVES Ivp Dye Hives 02/28/1999 documented as of this encounter (statuses as of 06/17/2024) Medications Medication Sig Dispensed Refills Start Date [...] WHEEZING 8.5 g 5 05/30/2017 Active Tiotropium [place] Monohydrate 18 MCG Inhalation Capsule Inhale 1 [...] Respimat 2.5 MCG/ACT Inhalation Aerosol Solution (Tiotropium [place] Monohydrate) INHALE 2 PUFFS ONCE DAILY 12 [...] as of this encounter (statuses as of 06/17/2024) Active Problems Problem Noted Date Diagnosed Date Primary osteoarthritis of both knees 12/05/2023 Prediabetes 01/07/2023 Overview: Per Prediabetes protocol 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 05/21/2022 COPD, group B, by GOLD 2017 classification 07/11 Overview: Per COPD GOLD Classification [facility] (current) use of systemic steroids Other rheumatoid [...] as of this encounter (statuses as of 06/17/2024) Resolved Problems Problem Noted Date Diagnosed Date [...] as of this encounter (statuses as of 06/17/2024) Immunizations Name Administration Dates Next Due COVID-19 mRNA, LNP-s, No Pre serve, 2-Dose Series ([employer]) 03/27/2022,08/16/2021,12/06/2020,10/31 COVID-19, MRNA-LNP, 23-24, P F, 50 [...] 2024 awv Care Gap Outreach Action Taken: Adonitt message sent documented in this encounter Plan of Treatment Upcoming Encounters Date Type Department Care Team (Late st Contact Info) Description 06/22/2024 2:20 PM EDT Office Visit Rheumatology [address] [place] [address] Jad Parker MD [address] [place] [address] 07/21/2024 8:30 AM EST Nurse Only Ancillary Department, [place] [address] [facility] [address] [place], Nurse Annual Wellness [address] [facility] [address] 10/06/2024 7:40 AM EST Office Visit Family Practice, [place] [address] [facility] [id number] Corbin Salcedo MD [address] [place] [facility] [address] Health Maintenance Due Date Last Done Comments [...] filedocumented as of this encounter Care Teams Toll Gate Keeper Relationship Specialty Start Date End Date Corbin Salcedo MD [address] [place] [address] PCP - General 11/27/02 documented as of this encounter
--- NOTE | 2024-06-22 14:21 | CT Scan Report ---
CT SCAN OF THE ABDOMEN AND PELVIS WITHOUT IV CONTRAST CLINICAL HISTORY: Acute anemia. Thrombocytopenia COMPARISON STUDY: No priors. TECHNIQUE: CT scan of the abdomen and pelvis is performed from the lung bases to the proximal femora. Images are reviewed in the axial, sagittal, and coronal planes. IV contrast was not administered for this examination. A dose lowering technique was utilized adhering to the principles of ALARA. The ex amination is degraded by motion artifact, as well as by streak artifact from the arms which could not be elevated above the abdomen. CT DOSE: 1394.82 mGy.cm FINDINGS: Lung bases: The heart is top normal in size and without pericardial effusion. The coronary arteries a nd aortic valve leaflets are densely calcified. There is diminished attenuation of the cardiac blood pool last compared to the myocardium suggesting anemia. Emphysematous change is noted. There are smal l pleural effusions with dependent consolidation. There is a tiny hiatal hernia. Liver: The unenhanced liver is normal in size, contour, and attenuation. There is no intrahepatic justin iary ductal dilatation. Gallbladder: Unremarkable. Spleen: Normal in size and attenuation. Pancreas: Unremarkable. Adrenal glands: Unremarkable. Kidneys: The unenhanced kidneys demonstrate mild cortical atrophy and are without hydronephrosis. The re are no renal calculi identified. A 2 cm cyst is noted on the left. Abdominal vasculature: The abdominal aorta is normal in course and caliber noting advanced atheroscle rotic calcification. Bowel: There is mild colonic diverticulosis without CT evidence of acute diverticulitis. No bowel obs truction is seen mild to moderate fecal retention is noted throughout the colon. The appendix is wel l-visualized and normal. Peritoneum/retroperitoneum: No retroperitoneal hematoma is identified. There is no intraperitoneal fr ee air or abdominal ascites. Lymphadenopathy: None. Pelvic viscera: The prostate gland is enlarged and heterogeneous. The bladder wall appears thickened/ trabeculated indicating chronic outlet obstruction. Skeletal structures: The skeletal structures are osteopenic. No lytic or blastic lesions are seen. Mo derate lumbosacral spondylosis is observed. There are chronic/healed left-sided rib fractures. IMPRESSION: 1. No acute infectious or inflammatory findings are identified in the abdomen or pelvis. 2. Emphysema. 3. Small pleural effusions with dependent consolidation. Correlate clinically for evidence of pneumon ia/aspiration pneumonitis. 4. Mild colonic diverticulosis without CT evidence of acute diverticulitis. 5. Additional findings as above. ACT 112: Negative or not required by law. Electronically signed by: Jose Ramirez M.D. 06/22/2024 2:20 PM
[2024-06-22] MEDS: PANTOprazole 80 MG in DEXTROSE 5% 100 ML IV ONE (15:40)
[2024-06-22] MEDS ORDERED: ALBUTEROL HFA 8 GM INHALER INH PRN (16:41)
[2024-06-22] MEDS: FUROSEMIDE 40 MG/4 ML VIAL IV ONE (17:08)
[2024-06-22] MEDS: ACETAMINOPHEN 325 MG TAB PO PRN (18:37)
[2024-06-22] MEDS: PANTOprazole 40 MG/10 ML SYR IV SCH (20:19)
[2024-06-22] MEDS: METOPROLOL SUCC 25MG EXT REL TAB PO SCH (20:20)
[2024-06-22] MEDS: FUROSEMIDE 20 MG TAB PO SCH (20:21)
[2024-06-22] MEDS: POTASSIUM CHLORIDE 10 MEQ TABCR PO SCH (20:39)
[2024-06-22 20:51] LABS: Hematocrit (blood only) 14.2 % (42.0-52.0); Hemoglobin 4.7 g/dl (14.0-18.0); Platelet Count 25 K/uL (130-400)
[2024-06-23] MEDS ORDERED: SODIUM CHLORIDE 0.9% 100 ML IV PRN ×2 (00:08→15:51)
[2024-06-23] MEDS: FUROSEMIDE INJ 20 MG/2 ML VIAL IV ONE ×2 (00:19→04:15)
[2024-06-23 03:15] LABS: BUN Creatinine Ratio 19.4 (10-20); Calcium 7.9 mg/dl (8.6-10.3); Creatinine Clr Calc Pharmacy 84.8 ml/min; Magnesium 2.3 mg/dl (1.7-2.4); Potassium 3.8 mmol/L (3.5-5.1)
[2024-06-23 03:27] LABS: Troponin I High Sensitivity 6001.1 pg/ml (0-20)
--- NOTE | 2024-06-23 07:22 | Oncology Consultation ---
Date of Consultation June 23, 2024 Assessment & Plan (1) Pancytopenia: had a lengthy discussion with the patient in the hospital internal medicine doctor, at this point I am concerned about an underlying bone marrow dysfunction given the multiple cell line dysfunctions. I recommend a bone marrow biopsy as there is a huge concern about underlying myelodysplastic syndrome. Hematology will continue to follow the patient make appropriate recommendation. Transfuse if hemoglobin is close to 7 or platelet count is less than 10 or if the patient is actively bleeding. Plan Thank you for this interesting hematological consult. Total of 60 minutes on counseling, coordination of care, review of prior records. History of Present Illness Reason for Consultation: Bicytopenia, anemia and thrombocytopenia Attending Physician: Malik Calderon, History of Present Illness the patient is a very pleasant 79-year-old man, who comes to the hospital with hematochezia. On admission he was found to be severely anemic and thrombocytopenic. He has received platelet transfusion. After platelet transfusion he stopped bleeding. Hematology has been consulted to assist in management of this patient with bicytopenia, macrocytic anemia and severe thrombocytopenia. Allergies Allergy/AdvReac Type Severity Reaction Status Date / Time Iodinated Contrast Media Allergy Intermediate Hives Verified 06/22/24 12:08 iodine Allergy Intermediate HIVES Verified 06/22/24 12:08 Home Medications Medication Instructions Recorded Confirmed Type celecoxib 200 mg capsule (Celebrex) 200 mg PO BID 06/14/22 06/22/24 History chlorthalidone 25 mg tablet 25 mg PO QAM 06/14/22 06/22/24 History coenzyme Q10 10 mg capsule 10 mg PO DAILY 06/14/22 06/22/24 History diclofenac sodium 1 % topical gel 1 g topical QID PRN joint pain 06/14/22 06/22/24 History (Voltaren Arthritis Pain) tiotropium bromide 18 mcg capsule 1 cap inhalation BID 06/14/22 06/22/24 History with inhalation device (Spiriva with HandiHaler) triamcinolone acetonide 0.1 % 1 applic topical DAILY PRN Rash 06/18/22 06/22/24 History topical ointment albuterol sulfate 90 mcg/actuation 2 puff inhalation Q6H PRN 06/27/22 06/22/24 History aerosol inhaler Shortness Of Breath ascorbic acid (vitamin C) 1,000 mg 1 g PO DAILY 06/27/22 06/22/24 History capsule calcium carbonate 600 mg PO DAILY 06/27/22 06/22/24 History cholecalciferol (vitamin D3) 50 50 mcg PO DAILY 06/27/22 06/22/24 History mcg (2,000 unit) capsule cyanocobalamin (vitamin B-12) 1,000 mcg PO DAILY 06/27/22 06/22/24 History 1,000 mcg capsule fluticasone 250 mcg-salmeterol 50 1 inh inhalation Q12H 06/27/22 06/22/24 History mcg/dose blistr powdr for inhalation folic acid 1 mg tablet 1 mg PO QAM 06/27/22 06/22/24 History furosemide 20 mg tablet 20 mg PO HS 06/27/22 06/22/24 History furosemide 40 mg tablet 40 mg PO QDL 06/27/22 06/22/24 History metoprolol succinate 25 mg 12.5 mg PO BID 06/27/22 06/22/24 History tablet,extended release 24 hr multivitamin 1 tab PO DAILY 06/27/22 06/22/24 History potassium chloride 10 mEq 10 meq PO BID 06/27/22 06/22/24 History capsule,extended release prednisone 5 mg tablet 5 mg PO QAM 06/27/22 06/22/24 History vitamin E mixed 400 unit capsule 400 unit PO DAILY 06/27/22 06/22/24 History turmeric 400 mg capsule 400 mg PO DAILY 05/21/24 06/22/24 History vit C 30 mg-s.segovia 250 mg-celery 1 cap PO DAILY 05/21/24 06/22/24 History seed 75 mg-grape seed extrt capsule (Tart Segovia) acetaminophen 500 mg tablet 500 mg PO Q6H PRN PAIN/FEVER 06/22/24 06/22/24 History Patient History Medical History (Updated 06/23/24 @ 16:01 by Malik Calderon DO) 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 Venous ulcer Lymphedema Chronic 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 insufficiency 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 for RA Hypertension History of COVID-2021--mild symptoms, no symptoms now Osteoporosis Torn rotator cuff Edema COPD, moderate uses daily inhalers as prescribed--pt states he rarely uses rescue inhaler Rheumatoid arthritis on prednisone Surgical History (Updated 06/22/24 @ 11:49 by Olinda Basilio PA-C) S/P left cataract extraction History of surgical fusion joint left wrist--hardware in place History of shoulder surgery left "calcium deposit removed" History of tooth extraction full upper/partial lower History of repair of right rotator cuff History of carpal tunnel release of both wrists History of bronchoscopy 07/2017 @ [facility] S/P tonsillectomy Family History (Updated 06/22/24 @ 11:49 by Olinda Basilio PA-C) Other Cancer Heart disease No family history of adverse response to anesthesia Social History (Updated 06/22/24 @ 11:50 by Olinda Basilio PA-C) Smoking Status: Former smoker Tobacco Type: Cigarettes Smoking End Date: 2001; Second Hand Exposure: Yes; Do You Dip or Chew Tobacco: No; Hx Alcohol Use: Yes Alcohol type: beer Hx Substance Use: No Preferred Language: Malian Communication Ability: Effective Visual Impairment: No Limitations Hearing Ability: Normal Franchise Development Manager Required: No Beliefs That Will Affect Care: None marital status: Single Current Living Situation: Alone Feels Safe at Home: Yes Safety Concerns: Feels Safe At This Time Diet: ideal protein and low salt Diet Comment: educated to increase protein to assist with wound healing caffeine: No Assistive Devices: None Review of Systems Review of Systems: All systems reviewed & are unremarkable except as noted in HPI & below Constitutional: as per Subjective / HPI Eyes: as per Subjective / HPI Ear, Nose, Mouth, Throat: as per Subjective / HPI Respiratory: as per Subjective / HPI Cardiovascular: as per Subjective / HPI Gastrointestinal: as per Subjective / HPI Genitourinary: + as per Subjective / HPI Musculoskeletal: as per Subjective / HPI Integumentary: as per Subjective / HPI Neurologic: as per Subjective / HPI Psychiatric: as per Subjective / HPI Physical Exam Constitutional: WD/WN, vitals as above Eyes: PERRL, conjunctivae normal, anicteric sclerae ENMT: external ear and nose normal, oropharynx normal Neck: trachea midline, no thyromegaly Respiratory: normal respiratory effort, lungs clear to auscultation Cardiovascular: RRR, no murmur, no edema Gastrointestinal (Abdomen): normal bowel sounds, soft, nontender, no hepatosplenomegaly Musculoskeletal: no cyanosis or clubbing, extremities motor strength 5/5 Skin: no rashes, warm and dry Neurologic: patellar DTR's 2+ bilat, sensation intact Psychiatric: A+Ox3, euthymic affect Genitourinary: no testicular masses, no penis abnormality Lymphatic: no cervical or axillary lymphadenopathy Results & Data Vital Signs (Past 12 Hours) Vital Signs Temp Pulse Pulse Resp BP BP Pulse Ox 06/23/24 07:12 36.7 C 75 16 113/64 95 06/23/24 06:26 101/49 L 06/23/24 06:10 36.8 C 75 16 94/52 L 94 06/23/24 05:10 36.7 C 75 17 109/65 94 06/23/24 04:40 36.8 C 70 16 117/66 94 06/23/24 04:25 36.8 C 70 18 107/65 94 06/23/24 04:08 36.5 C 76 17 104/61 95 06/23/24 03:39 36.8 C 78 17 106/58 L 93 06/23/24 02:39 36.8 C 78 17 106/58 L 93 06/23/24 02:39 36.7 C 75 20 119/69 94 06/23/24 01:39 36.6 C 80 17 111/66 95 06/23/24 01:38 36.6 C 79 18 111/66 95 06/23/24 01:09 36.9 C 80 17 113/66 94 06/23/24 01:00 83 06/23/24 00:54 36.6 C 80 17 118/64 94 06/23/24 00:29 36.8 C 87 17 120/67 94 06/23/24 00:09 37.4 C 85 20 113/56 L 94 06/23/24 00:09 37.4 C 85 20 113/56 L 94 06/22/24 23:31 06/22/24 23:15 36.7 C 84 17 109/62 93 06/22/24 22:15 36.6 C 82 17 109/59 L 96 06/22/24 21:45 36.7 C 82 20 113/63 97 06/22/24 21:30 36.7 C 86 18 112/64 95 06/22/24 21:30 36.7 C 86 18 112/64 95 06/22/24 21:13 36.7 C 89 18 112/67 95 06/22/24 20:09 36.7 C 83 18 103/61 96 06/22/24 19:54 36.7 C 84 18 104/62 95 O2 Del Method O2 Flow Rate 06/23/24 07:12 06/23/24 06:26 06/23/24 06:10 2 06/23/24 05:10 2 06/23/24 04:40 2 06/23/24 04:25 2 06/23/24 04:08 06/23/24 03:39 2 06/23/24 02:39 2 06/23/24 02:39 2 06/23/24 01:39 06/23/24 01:38 06/23/24 01:09 06/23/24 01:00 06/23/24 00:54 06/23/24 00:29 06/23/24 00:09 06/23/24 00:09 2 06/22/24 23:31 Nasal Cannula 2 06/22/24 23:15 06/22/24 22:15 06/22/24 21:45 2 06/22/24 21:30 2 06/22/24 21:30 2 06/22/24 21:13 2 06/22/24 20:09 06/22/24 19:54 Room Air
[2024-06-23 08:42] LABS: Hematocrit (blood only) 21.1 % (42.0-52.0); Hemoglobin 7.1 g/dl (14.0-18.0); Mean Corpuscular Hemoglobin 33.8 pg (25.0-34.0); Mean Corpuscular Hgb Conc 33.6 g/dL (32.0-36.0); Mean Corpuscular Volume 100.5 fL (80.0-100.0); Mean Platelet Volume 10.9 fL (9.4-12.4); Platelet Count 25 K/uL (130-400); RDW Coefficient of Variation 23.4 % (11.5-14.5); RDW Standard Deviation 79.9 fL (36.4-46.3); White Blood Count 2.99 K/ul (4.8-10.8)
[2024-06-23 08:47] LABS: Anisocytosis Present; Basophils # (auto) 0.01 K/uL (0.00-0.20); Basophils % (auto) 0.3 %; Eosinophils # (auto) 0.06 K/uL (0.00-0.50); Lymphocytes # (auto) 0.81 K/uL (1.20-3.40); Lymphocytes % (auto) 27.1 %; Monocytes % (auto) 6.7 %; Neutrophils # (auto) 1.91 K/uL (1.40-6.50); Neutrophils % (auto) 63.9 %
[2024-06-23] MEDS: UMECLIDINIUM BROMIDE 62.5MCG/BLISTER 7 PUFFS/INHALER INH SCH (09:16)
[2024-06-23] MEDS: FLUTICASONE/VILANTEROL 100/25MCG 14 PUFFS/INHALER INH SCH (09:16)
[2024-06-23] MEDS: predniSONE 5 MG TAB PO SCH (09:17)
[2024-06-23] MEDS: ACETAMINOPHEN 1000 MG/100 ML IV IV ONE (10:38)
[2024-06-23] MEDS: FUROSEMIDE 40 MG TAB PO SCH (13:18)
--- NOTE | 2024-06-23 15:42 | CT Scan Report ---
CT-GUIDED BONE MARROW BIOPSY CLINICAL HISTORY: Pancytopenia PROCEDURE: Procedure and risks were explained. Informed consent was obtained. A final timeout was com pleted. The patient was placed prone on the CT exam table. The left gluteal region was prepped and dr aped in sterile fashion. 1% lidocaine was utilized for skin anesthesia. The patient received 1 g Tyle nol IV. Utilizing CT guidance, an 11-gauge bone biopsy needle was advanced into the left iliac bone. Multiple aspirates and one bone core was obtained and given to the lab. The needle was removed and Band-Aid a pplied. The patient tolerated the procedure well. Vital signs will be monitored on the floor. IMPRESSION: Bone marrow biopsy as above. Performed, dictated, and signed by Micheal Morel PA-C; to be co-signed by Dr. Jose Ramirez. Electronically signed by: Jose Ramirez M.D. 06/23/2024 3:59 PM
--- NOTE | 2024-06-23 16:03 | Hospitalist Progress Note ---
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 Patient symptoms improved posttransfusion Given additional unit of PRBCs, 10 to get hemoglobin greater than 8 in the setting of cardiac disease Communication with oncology, proceed with bone marrow biopsy today. Communication after bone marrow biopsy with oncology, concern for mild dysplasia or even possible some type of bone marrow cancer. Transfuse platelets only if having spontaneous bleeding or platelets less than 10 Goal-directed medical therapy for his decreased ejection fraction Continue eyedrops as at home Suspect patient's lower GI bleeding may be due to his thrombocytopenia. Patient's blood counts will need to be stabilized prior to undergoing any type of GI procedure GI consultation noted Patient support people at bedside and updated Monitor electrolytes, renal function and blood counts Admission and Anticipated Discharge Date Admission Date: June 22, 2024 Subjective Patient feeling significantly improved after blood transfusions, shortness of breath improved. No chest pain Physical Exam Physical Exam: Constitutional: Alert, nontoxic HEENT: Mucous membranes moist. Lungs: Clear to auscultation, decreased, no wheezes rales or rhonchi CV: S1-S2, regular Abdomen: Soft, nontender, nondistended Extremities: No significant edema, trace pretibial edema Neuro: No focal deficits generalized weakness Psych: Cooperative, normal mood Results & Data Results & Data Vital Signs (Past 12 Hours) Vital Signs Temp Pulse Pulse Resp BP BP Pulse Ox 06/23/24 15:00 36.7 C 70 16 109/60 95 06/23/24 12:21 36.6 C 72 15 110/62 98 06/23/24 09:20 59 L 06/23/24 08:50 36.7 C 71 16 112/66 100 06/23/24 08:13 70 06/23/24 08:13 06/23/24 08:07 36.8 C 64 20 146/62 H 99 06/23/24 07:12 36.7 C 75 16 113/64 95 06/23/24 06:26 101/49 L 06/23/24 06:10 36.8 C 75 16 94/52 L 94 06/23/24 05:10 36.7 C 75 17 109/65 94 06/23/24 04:40 36.8 C 70 16 117/66 94 06/23/24 04:25 36.8 C 70 18 107/65 94 06/23/24 04:08 36.5 C 76 17 104/61 95 O2 Del Method O2 Flow Rate 06/23/24 15:00 Nasal Cannula 5 06/23/24 12:21 Nasal Cannula 5 06/23/24 09:20 06/23/24 08:50 Nasal Cannula 4 06/23/24 08:13 06/23/24 08:13 Nasal Cannula 5 06/23/24 08:07 Nasal Cannula 8 06/23/24 07:12 06/23/24 06:26 06/23/24 06:10 2 06/23/24 05:10 2 06/23/24 04:40 2 06/23/24 04:25 2 06/23/24 04:08 Diagnostic Findings Reviewed imaging, laboratory and diagnostic studies. Pertinent findings as below. Echocardiogram ejection fraction 40 to 45%, Significant hypokinesis of the anterior septal wall, right ventricular pressure greater than 60 mmHg Troponin 6001 After transfusion platelets and PRBCs hemoglobin 7.1, platelets 25, WBCs 2.99 (7) HTN (hypertension) Hypertension type: primary hypertension Qualified Code(s): I10 - Essential (primary) hypertension
[2024-06-23] MEDS: fentaNYL citrate PF 100 MCG/2 ML VIAL ONE (16:51)
[2024-06-23] MEDS: prednisoLONE sod phos 1% 10 ML BTL OP SCH (18:26)
[2024-06-23] MEDS: FUROSEMIDE 40 MG TAB PO ONE (19:55)
[2024-06-23] MEDS ORDERED: PANTOprazole 40 MG TAB PO SCH (21:00)
--- NOTE | 2024-06-24 04:48 | Communication Note ---
Date of Service: June 24, 2024 Patient with hematochezia as per RN. No abdominal pain. Patient was straining prior to episode as per RN. AP LGIB CBC now Clear liquid diet until CBC resulted
[2024-06-24 06:29] LABS: Hematocrit (blood only) 23.4 % (42.0-52.0); Hemoglobin 7.9 g/dl (14.0-18.0); Mean Corpuscular Hemoglobin 33.1 pg (25.0-34.0); Mean Corpuscular Hgb Conc 33.8 g/dL (32.0-36.0); Mean Corpuscular Volume 97.9 fL (80.0-100.0); Mean Platelet Volume 12.2 fL (9.4-12.4); Platelet Count 18 K/uL (130-400); RDW Standard Deviation 78.4 fL (36.4-46.3); Red Blood Count 2.39 M/uL (4.70-6.10); White Blood Count 3.12 K/ul (4.8-10.8)
[2024-06-24 06:48] LABS: Anisocytosis Present; Eosinophils # (auto) 0.11 K/uL (0.00-0.50); Eosinophils % (auto) 3.5 %; Immature Granulocytes # (auto) 0.01 K/uL (0.01-0.20); Immature Granulocytes % (auto) 0.3 %; Lymphocytes # (auto) 0.76 K/uL (1.20-3.40); Lymphocytes % (auto) 24.4 %; Monocytes % (auto) 6.4 %; Neutrophils # (auto) 2.04 K/uL (1.40-6.50); Neutrophils % (auto) 65.4 %; Polychromasia 1+
[2024-06-24 06:49] LABS: BUN Creatinine Ratio 18.3 (10-20); Calcium 7.7 mg/dl (8.6-10.3); Creatinine Clr Calc Pharmacy 72.4 ml/min; Potassium 3.7 mmol/L (3.5-5.1)
[2024-06-24] MEDS ORDERED: SODIUM CHLORIDE 0.9% 100 ML IV PRN (07:59)
[2024-06-24] MEDS: POTASSIUM CHLORIDE CRTAB 20 MEQ TABCR PO STA (09:18)
[2024-06-24] MEDS: PANTOprazole 40 MG TAB PO SCH (09:19)
[2024-06-24] MEDS: SPIRONOLACTONE 25 MG TAB PO SCH (09:19)
[2024-06-24] MEDS: FOLIC ACID 1 MG TAB PO SCH (11:51)
--- NOTE | 2024-06-24 11:58 | Hospitalist Progress Note ---
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 Patient with evidence of bleeding from: Most likely due to the thrombocytopenia indication for platelet transfusion Transfuse 1 pack of platelets Continue to monitor blood counts Okay MedSurg Activity as tolerated Anticipate discharge when blood counts have stabilized and no evidence of ongoing significant blood loss. Will follow-up with hematology outpatient for management options of his bone marrow failure. Patient with demand ischemia TN and systolic congestive heart failure. Continue to work towards goal directed medical therapy Add low-dose ARB Admission and Anticipated Discharge Date Admission Date: June 22, 2024 Subjective Patient had bloody stool overnight. No lightheadedness, no chest pain, no shortness of breath. Physical Exam Physical Exam: Constitutional: Alert, nontoxic, no acute distress HEENT: Mucous membranes moist. Lungs: Clear to auscultation, decreased, no wheezes rales or rhonchi CV: S1-S2, regular Abdomen: Soft, nontender, nondistended Extremities: Trace ankle edema right greater than left, chronic Neuro: No focal deficits Psych: Cooperative, normal mood Results & Data Results & Data Vital Signs (Past 12 Hours) Vital Signs Temp Pulse Pulse Resp BP BP Pulse Ox 06/24/24 10:50 36.6 C 73 18 114/74 93 06/24/24 10:09 36.6 C 65 18 112/63 94 06/24/24 09:39 37.1 C 63 18 118/66 95 06/24/24 09:24 36.7 C 61 18 115/67 94 06/24/24 09:07 36.4 C L 63 18 108/62 97 06/24/24 08:30 06/24/24 07:21 36.6 C 71 18 106/52 L 96 06/24/24 07:20 63 06/24/24 04:39 68 18 121/61 94 06/24/24 02:43 36.6 C 66 18 103/55 L 96 O2 Del Method O2 Flow Rate 06/24/24 10:50 06/24/24 10:09 2 06/24/24 09:39 2 06/24/24 09:24 2 06/24/24 09:07 3 06/24/24 08:30 Nasal Cannula 2 06/24/24 07:21 Nasal Cannula 2 06/24/24 07:20 06/24/24 04:39 Nasal Cannula 3 06/24/24 02:43 Nasal Cannula Diagnostic Findings Reviewed imaging, laboratory and diagnostic studies. Pertinent findings as below. WBCs 3.1 Hemoglobin 7.9, improved Platelets 18, decreasing Basic metabolic profile stable Bone marrow biopsy pathology pending (7) HTN (hypertension) Hypertension type: primary hypertension Qualified Code(s): I10 - Essential (primary) hypertension
[2024-06-24] MEDS: LOSARTAN POTASSIUM 25 MG TAB PO SCH (13:14)
[2024-06-24 15:23] LABS: Hematocrit (blood only) 23.7 % (42.0-52.0); Hemoglobin 7.9 g/dl (14.0-18.0); Mean Corpuscular Hemoglobin 32.9 pg (25.0-34.0); Mean Corpuscular Hgb Conc 33.3 g/dL (32.0-36.0); Mean Corpuscular Volume 98.8 fL (80.0-100.0); Mean Platelet Volume 11.1 fL (9.4-12.4); Platelet Count 43 K/uL (130-400); RDW Coefficient of Variation 22.5 % (11.5-14.5); RDW Standard Deviation 77.3 fL (36.4-46.3); White Blood Count 2.97 K/ul (4.8-10.8)
--- NOTE | 2024-06-25 05:27 | Electrocardiogram Report ---
Test Reason : Blood Pressure : */* mmHG Vent. Rate : 102 BPM Atrial Rate : 102 BPM P-R Int : 160 ms QRS Dur : 80 ms QT Int : 340 ms P-R-T Axes : 56 13 121 degrees QTcB Int : 443 ms Sinus tachycardia Abnormal ECG When compared with ECG of 21-May-2017 06:44, Vent. rate has increased by [address] now depressed in Inferolateral leads T wave inversion now evident in Lateral leads Confirmed by Watson Miranda ([id number]) on 06/25/2024 5:27:24 AM Referred By: REFERRED SELF Confirmed By: Watson Miranda
[2024-06-25 07:47] LABS: Hematocrit (blood only) 22.5 % (42.0-52.0); Hemoglobin 7.5 g/dl (14.0-18.0); Mean Corpuscular Hemoglobin 33.3 pg (25.0-34.0); Mean Corpuscular Hgb Conc 33.3 g/dL (32.0-36.0); Platelet Count 31 K/uL (130-400); RDW Coefficient of Variation 22.1 % (11.5-14.5); RDW Standard Deviation 78.4 fL (36.4-46.3); Red Blood Count 2.25 M/uL (4.70-6.10); White Blood Count 2.81 K/ul (4.8-10.8)
[2024-06-25 08:02] LABS: BUN Creatinine Ratio 19.6 (10-20); Creatinine Clr Calc Pharmacy 85.8 ml/min; Potassium 4.2 mmol/L (3.5-5.1)
[2024-06-25] MEDS ORDERED: SODIUM CHLORIDE 0.9% 100 ML IV PRN (10:25)
[2024-06-25] MEDS: FUROSEMIDE 40 MG/4 ML VIAL IV ONE (12:28)
--- NOTE | 2024-06-25 12:34 | Hospitalist Progress Note ---
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 Still on oxygen. Transfuse 1 additional unit of packed red blood cells to try and get his hemoglobin closer to 8 in the setting of demand ischemia myocardial infarction No evidence of ongoing bleeding, no additional platelets at this time Monitor CBC Attempted titrate oxygen to off Two-step oxygen testing today to evaluate for home oxygen Anticipate if hemoglobin stable, no recurrent bleeding, discharge home tomorrow with outpatient follow-up with PCP and hematology to review bone marrow biopsy results. Admission and Anticipated Discharge Date Admission Date: June 22, 2024 Subjective Patient feeling better. Denies bleeding from his gums, no blood in his urine, no additional bloody stools. Little bit of blood when he blows his nose probably from the oxygen drying his nasal passages. Physical Exam Physical Exam: Constitutional: Alert, nontoxic HEENT: Mucous membranes moist. Lungs: Decreased breath sounds, no Rales or wheezes CV: S1-S2, regular, systolic murmur Abdomen: Soft, nontender, nondistended Extremities: No significant edema Neuro: No focal deficits Psych: Cooperative, normal mood Results & Data Results & Data Vital Signs (Past 12 Hours) Vital Signs Temp Pulse Pulse Resp BP BP Pulse Ox 06/25/24 12:25 37.2 C 70 18 106/65 95 06/25/24 12:09 37.2 C 67 16 111/64 95 06/25/24 07:52 36.5 C 65 16 112/58 L 96 06/25/24 07:20 O2 Del Method O2 Flow Rate 06/25/24 12:25 2 06/25/24 12:09 2 06/25/24 07:52 Nasal Cannula 2 06/25/24 07:20 Nasal Cannula 2 Diagnostic Findings Reviewed imaging, laboratory and diagnostic studies. Pertinent findings as below. WBCs 2.8 Hemoglobin 7.5 Platelets 31 Electrolytes all within normal range Creatinine 0.92 (7) HTN (hypertension) Hypertension type: primary hypertension Qualified Code(s): I10 - Essential (primary) hypertension
--- NOTE | 2024-06-26 05:57 | Electrocardiogram Report ---
Test Reason : Blood Pressure : */* mmHG Vent. Rate : 75 BPM Atrial Rate : 75 BPM P-R Int : 156 ms QRS Dur : 78 ms QT Int : 418 ms P-R-T Axes : 43 14 39 degrees QTcB Int : 466 ms Sinus rhythm with Premature atrial complexes When compared with ECG of 22-Jun-2024 10:38, ST no longer depressed in Inferior leads T wave inversion no longer evident in Lateral leads Confirmed by Watson Miranda ([id number] on 06/26/2024 5:57:49 AM Referred By: REFERRED SELF Confirmed By: Watson Miranda
[2024-06-26] MEDS: FUROSEMIDE 20 MG TAB PO SCH (07:42)
[2024-06-26 08:23] LABS: BUN Creatinine Ratio 21.6 (10-20); Creatinine Clr Calc Pharmacy 89.7 ml/min; Potassium 4.1 mmol/L (3.5-5.1)
[2024-06-26 08:28] LABS: Hematocrit (blood only) 25.7 % (42.0-52.0); Hemoglobin 8.2 g/dl (14.0-18.0); Mean Corpuscular Hemoglobin 31.8 pg (25.0-34.0); Mean Corpuscular Hgb Conc 31.9 g/dL (32.0-36.0); Mean Corpuscular Volume 99.6 fL (80.0-100.0); Mean Platelet Volume 12.1 fL (9.4-12.4); Platelet Count 24 K/uL (130-400); RDW Coefficient of Variation 21.7 % (11.5-14.5); RDW Standard Deviation 75.5 fL (36.4-46.3); Red Blood Count 2.58 M/uL (4.70-6.10)
--- NOTE | 2024-06-26 17:06 | Hospitalist Progress Note ---
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: (2) Symptomatic anemia: (3) Pancytopenia: (4) Myocardial infarction due to demand ischemia: (5) Acute on chronic systolic (congestive) heart failure: (6) Lower GI bleed: (7) HTN (hypertension): Plan Pancytopenia Possible myelodysplastic syndrome Symptomatic anemia S/P bone marrow biopsy--pathology pending S/P 6 units PRBCs, 2 units platelets --Anemia workup reviewed --Flow cytometry studies pending --Appreciate hematology oncology input Monitor CBC closely Plan to keep hemoglobin> 7 and platelet count > 10K Continue PT OT, fall precautions May need endoscopic evaluation at some point GI consulted as well Check fecal occult Continue Protonix Acute HFpEF Valvular heart disease Significant troponin elevation ?Demand ischemia --ECHO: Mild concentric LVH, large apical, septal, anteroseptal wall motion abnormality with hypokinesis of the segments, EF 45 to 50%, left atrium is mildly dilated, mild valvular aortic stenosis, trace aortic, tricuspid regurgitation, right ventricular systolic pressure elevated at > 60 mmHg --Received IV Lasix Monitor volume status, I's and O's, daily weight Will request cardiology evaluation Continue Lasix, Aldactone Hypoxia Secondary to above Continue supplemental oxygen as needed Will need to step prior to discharge Hypokalemia Replace and monitor Other chronic conditions Rheumatoid arthritis--on chronic steroids Hypertension--blood pressure low COPD--continue home inhalers Continue home medications as able DVT Px: SCDs for now CODE STATUS Full code Admission and Anticipated Discharge Date Admission Date: June 22, 2024 Subjective Patient is seen and examined at bedside States feeling very tired and and reports generalized weakness Also reports bilateral leg pain States having minimal rectal bleed today Denies any chest pain, dyspnea, nausea, vomiting, abdominal pain Review of Systems Review of Systems: All systems reviewed & are unremarkable except as noted in Subjective Physical Exam Physical Exam: Physical Exam: Vitals signs as noted above General Appearance:Obese, no apparent distress Head: normocephalic, Atraumatic Eyes: normal inspection, EOMI Neck: supple, Trachea midline Respiratory/Chest: Decreased breath sounds, CTA, No accessory muscle use Cardiovascular: S1, S2, + murmur Abdomen/GI:Soft, Non tender, Bowel sounds present Extremities/Musculoskeletal:normal inspection, no edema, + chronic venous stasis changes Neurologic/Psych:AAOX3, grossly no focal neurological deficits Skin: normal color, warm Results & Data Results & Data Vital Signs (Past 12 Hours) Vital Signs Temp Pulse Resp BP Pulse Ox Pulse Ox O2 Del Method 06/26/24 16:12 75 96/58 L 06/26/24 16:00 94 06/26/24 15:29 36.9 C 66 16 93/50 L 94 Nasal Cannula 06/26/24 08:00 97 06/26/24 07:36 Nasal Cannula 06/26/24 07:31 36.7 C 69 16 108/65 97 Room Air O2 Del Method O2 Flow Rate O2 Flow Rate 06/26/24 16:12 06/26/24 16:00 Nasal Cannula 1 06/26/24 15:29 1 06/26/24 08:00 Nasal Cannula 2 06/26/24 07:36 2 06/26/24 07:31 Laboratory Results Short CBC 06/26/24 Range/Units 07:26 WBC 2.50 L (4.8-10.8) K/ul Hgb 8.2 L (14.0-18.0) g/dl Hct 25.7 L (42.0-52.0) % Plt Count 24 L* (130-400) K/uL BMP 06/26/24 07:26 Sodium 140 Potassium 4.1 Chloride 104 Carbon Dioxide 32 BUN 19 Creatinine 0.88 Glucose 99 Calcium 8.0 L (7) HTN (hypertension) Hypertension type: primary hypertension Qualified Code(s): I10 - Essential (primary) hypertension
[2024-06-27 07:44] LABS: Hematocrit (blood only) 22.5 % (42.0-52.0); Hemoglobin 7.4 g/dl (14.0-18.0); Mean Corpuscular Hemoglobin 31.6 pg (25.0-34.0); Mean Corpuscular Hgb Conc 32.9 g/dL (32.0-36.0); Mean Corpuscular Volume 96.2 fL (80.0-100.0); Platelet Count 20 K/uL (130-400); RDW Coefficient of Variation 20.6 % (11.5-14.5); RDW Standard Deviation 70.5 fL (36.4-46.3); Red Blood Count 2.34 M/uL (4.70-6.10); White Blood Count 2.69 K/ul (4.8-10.8)
[2024-06-27 07:50] LABS: BUN Creatinine Ratio 25.5 (10-20); Calcium 8.1 mg/dl (8.6-10.3); Creatinine Clr Calc Pharmacy 83.9 ml/min; Potassium 4.1 mmol/L (3.5-5.1)
[2024-06-27 08:11] LABS: Anisocytosis Present; Eosinophils # (auto) 0.07 K/uL (0.00-0.50); Eosinophils % (auto) 2.6 %; Immature Granulocytes # (auto) 0.01 K/uL (0.01-0.20); Immature Granulocytes % (auto) 0.4 %; Lymphocytes # (auto) 0.64 K/uL (1.20-3.40); Lymphocytes % (auto) 23.8 %; Monocytes # (auto) 0.18 K/uL (0.11-0.59); Monocytes % (auto) 6.7 %; Neutrophils # (auto) 1.79 K/uL (1.40-6.50); Neutrophils % (auto) 66.5 %; Polychromasia 1+
--- NOTE | 2024-06-27 08:22 | Cardiology Consultation ---
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 Found to be profoundly anemic in addition to other abnormalities. Significant elevation in troponin with new echocardiogram imaging abnormalities. Request for cardiology evaluation. Plan: 1. symptomatic anemia 2. Hematochezia 3. thrombocytopenia 4. 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 Hematology is on board with recent bone marrow biopsy, results pending. -Has received a total of 6 units of PRBCs since day of admission. Hgb this AM 7.4g/dl -Continued management per hematology/GI (due to hematochezia) and primary team. 5. Myocardial infarction due to demand ischemia -Initial troponin 163.2 and has since trended to 6001.1pg/ml. Last checked 06/23. -patients EKG shows evidence of infarct and echocardiogram demonstrates wall motion abnormalities with a moderately reduced EF. -Patient remains asymptomatic. While his shortness of breath that prompted presentation was likely multifactorial, his profound anemia is the largest target for his obvious demand ischemia -Patient's hemoglobin and platelet count make is too dangerous to attempt heparin or consideration for anti-platelet therapy at this time. Consideration for adding anti-platelet therapy will be at the discretion of hematology when they feel it is appropriate. -Pursuing invasive cardiac imaging through catheterization therefore can not be of consideration at this time. -At this time, cardiology will pursue conservative management with medication therapies. Continue Toprol xl 12.5mg PO BID, Spironolactone 25mg Daily, and Losartan 25mg daily 6. Acute on chronic systolic heart failure: -patient offers no significant complaints at time of exam; however, is currently on supplemental O2 at 1LPM. -Appears near euvolemic on exam, trace BLE edema -Continue current HF regimen including Toprol xl, Spironolactone, Losartan and Furosemide 20mg PO QD. -Monitor fluid status closely in the setting of multiple transfusions. -Strict I&O, daily weights, and close monitoring of labs. -Renal function and electrolytes remain stable. goal serum K > 4.0, and serum mag > 2.0 Case has been discussed with Dr. Koroma. Further recommendations regarding plan of care as per his assessment. I spent a total of 40 minutes on the date of service in preparation, delivery, documentation of the care provided to the patient excluding any time spent in the performance of separately billed services. KATELYNN Florian [facility] Supervising Physician Co-Signing Physician Notes Patient seen and personally examined. Full cardiac assessment as outlined above. Care and management discussed in detail with advanced provider and personally endorsed 79-year-old male presented with symptomatic anemia with profound anemia in association with significant blood dyscrasia. No acute cardiac symptoms however on presentation elevated troponins noted echocardiogram consistent with LAD distribution wall motion abnormality and mildly reduced ejection fraction. Stress mediated component not completely excluded. Would recommend repeat echocardiogram 1 month EKGs without evidence of acute ST elevation myocardial infarction Goal management of above would be ongoing medical therapies. High risk for anticoagulant for any procedure Patient agreeable Already on good therapies as noted Would add statin Recommend discuss with hematology. We would optimally like patient to be on antiplatelet therapy with aspiri 81 mg/day n History of Present Illness Reason for Consultation: CHF; abnormal echo [facility]: Rubin Crockett MD History of Present Illness HPI: patient is a 79 year old male with PMHx significant for RA, chronic steroid use, COPD, HTN, HFpEF, thrombocytopenia that presented to the ER on 06/22/24 with worsening shortness of breath x2-3 weeks. FOBT positive and patient endorses gross hematochezia over the last several months. He had refused a colonscopy OP despite a d postive cologuard in 2018 H/H on admission 4.3/13.4 Platelet count 11 chest xray IMPRESSION: 1. Cardiomegaly with interstitial thickening suggestive of pulmonary edema. An infectious process could appear similar although is considered less likely. Radiographic follow-up is recommended. 2. Small bilateral pleural effusions. High sensitivity Troponin 163.2 and has since trended up to 6001.1 on 06/23/24. Initial EKG on admission demonstrates ST with ST-T wave abnormality in the inferior and lateral leads.(ST depression) Repeat EKG demonstrates SR with PAC's, now there is presence of inverted T waves in his lateral leads Echocardiogram demonstrates Mild concentric LVH large sized apical, septal and anterior-septal wall motion abnormality with hypokinesis of the segments All other wall segments are hyperdynamic LVEF 45-50% Left atrium is mildly dilated Aortic valve mildly calcified Mild Trace AI Trace TR right ventricular systolic pressure is > 60mmHg Patient is not on Telemetry. Allergies Allergy/AdvReac Type Severity Reaction Status Date / Time Iodinated Contrast Media Allergy Intermediate Hives Verified 06/22/24 12:08 iodine Allergy Intermediate HIVES Verified 06/22/24 12:08 Home Medications Medication Instructions Recorded Confirmed Type celecoxib 200 mg capsule (Celebrex) 200 mg PO BID 06/14/22 06/22/24 History chlorthalidone 25 mg tablet 25 mg PO QAM 06/14/22 06/22/24 History coenzyme Q10 10 mg capsule 10 mg PO DAILY 06/14/22 06/22/24 History diclofenac sodium 1 % topical gel 1 g topical QID PRN joint pain 06/14/22 06/22/24 History (Voltaren Arthritis Pain) tiotropium bromide 18 mcg capsule 1 cap inhalation BID 06/14/22 06/22/24 History with inhalation device (Spiriva with HandiHaler) triamcinolone acetonide 0.1 % 1 applic topical DAILY PRN Rash 06/18/22 06/22/24 History topical ointment albuterol sulfate 90 mcg/actuation 2 puff inhalation Q6H PRN 06/27/22 06/22/24 History aerosol inhaler Shortness Of Breath ascorbic acid (vitamin C) 1,000 mg 1 g PO DAILY 06/27/22 06/22/24 History capsule calcium carbonate 600 mg PO DAILY 06/27/22 06/22/24 History cholecalciferol (vitamin D3) 50 50 mcg PO DAILY 06/27/22 06/22/24 History mcg (2,000 unit) capsule cyanocobalamin (vitamin B-12) 1,000 mcg PO DAILY 06/27/22 06/22/24 History 1,000 mcg capsule fluticasone 250 mcg-salmeterol 50 1 inh inhalation Q12H 06/27/22 06/22/24 History mcg/dose blistr powdr for inhalation folic acid 1 mg tablet 1 mg PO QAM 06/27/22 06/22/24 History furosemide 20 mg tablet 20 mg PO HS 06/27/22 06/22/24 History furosemide 40 mg tablet 40 mg PO QDL 06/27/22 06/22/24 History metoprolol succinate 25 mg 12.5 mg PO BID 06/27/22 06/22/24 History tablet,extended release 24 hr multivitamin 1 tab PO DAILY 06/27/22 06/22/24 History potassium chloride 10 mEq 10 meq PO BID 06/27/22 06/22/24 History capsule,extended release prednisone 5 mg tablet 5 mg PO QAM 06/27/22 06/22/24 History vitamin E mixed 400 unit capsule 400 unit PO DAILY 06/27/22 06/22/24 History turmeric 400 mg capsule 400 mg PO DAILY 05/21/24 06/22/24 History vit C 30 mg-s.[place] 250 mg-celery 1 cap PO DAILY 05/21/24 06/22/24 History seed 75 mg-grape seed extrt capsule (Tart Segov[place]) acetaminophen 500 mg tablet 500 mg PO Q6H PRN PAIN/FEVER 06/22/24 06/22/24 History Patient History Medical History 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 Venous ulcer Lymphedema Chronic venous insufficiency Ocular migraine half-way (current) use of systemic steroids for RA Hypertension History of COVID-2021--mild symptoms, no symptoms now Osteoporosis Torn rotator cuff Edema COPD, moderate uses daily inhalers as prescribed--pt states he rarely uses rescue inhaler Rheumatoid arthritis on prednisone Surgical History S/P left cataract extraction History of surgical fusion joint left wrist--hardware in place History of shoulder surgery left "calcium deposit removed" History of tooth extraction full upper/partial lower History of repair of right rotator cuff History of carpal tunnel release of both wrists History of bronchoscopy 07/2017 @ [facility] S/P tonsillectomy Family History Other Cancer Heart disease No family history of adverse response to anesthesia Social History Smoking Status: Former smoker Tobacco Type: Cigarettes Smoking End Date: 2001; Second Hand Exposure: Yes; Do You Dip or Chew Tobacco: No; Hx Alcohol Use: Yes Alcohol type: beer Hx Substance Use: No Preferred Language: Swiss Communication Ability: Effective Visual Impairment: No Limitations Hearing Ability: Normal Electric Motor Analyst Required: No Beliefs That Will Affect Care: None marital status: Single Current Living Situation: Alone Feels Safe at Home: Yes Safety Concerns: Feels Safe At This Time Diet: ideal protein and low salt Diet Comment: educated to increase protein to assist with wound healing caffeine: No Assistive Devices: None Review of Systems Review of Systems: All systems reviewed & are unremarkable except as noted in HPI & below Physical Exam Constitutional: well developed and well nourished Neck: normal visual inspection and trachea midline Respiratory: normal respiratory effort, lungs clear to auscultation Cardiovascular: Rate/Rhythm: regular rate and regular rhythm Heart Sounds: normal S1, normal S2 and + murmur (+I/ systolic) Vessels: no JVD Extremities: + edema (trace BLE) Skin: no rashes, warm and dry Psychiatric: A+Ox3, euthymic affect Results & Data Vital Signs (Past 12 Hours) Vital Signs Temp Pulse Resp BP Pulse Ox Pulse Ox O2 Del Method 06/27/24 07:26 Nasal Cannula 06/27/24 07:26 06/27/24 07:13 36.5 C 62 16 111/60 94 Nasal Cannula 06/27/24 00:00 94 06/26/24 23:45 Nasal Cannula 06/26/24 22:42 36.5 C 70 18 107/66 93 Nasal Cannula O2 Del Method O2 Flow Rate O2 Flow Rate 06/27/24 07:26 1 06/27/24 07:26 Nasal Cannula 1 06/27/24 07:13 1 06/27/24 00:00 Nasal Cannula 1 06/26/24 23:45 1 06/26/24 22:42 1 Laboratory Results CBC 06/27/24 Range/Units 06:42 WBC 2.69 L (4.8-10.8) K/ul RBC 2.34 L (4.70-6.10) M/uL Hgb 7.4 L (14.0-18.0) g/dl Hct 22.5 L (42.0-52.0) % Plt Count 20 L* (130-400) K/uL Neut # (Auto) 1.79 (1.40-6.50) K/uL Lymph # (Auto) 0.64 L (1.20-3.40) K/uL [place] # (Auto) 0.18 (0.11-0.59) K/uL Eos # (Auto) 0.07 (0.00-0.50) K/uL Baso # (Auto) 0.00 (0.00-0.20) K/uL Comprehensive Metabolic Panel 06/27/24 Range/Units 06:42 Sodium 137 (136-145) mmol/L Potassium 4.1 (3.5-5.1) mmol/L Chloride 104 (98-107) mmol/L Carbon Dioxide 28 (21-32) mmol/L BUN 24 H (6-23) mg/dl Creatinine 0.94 (0.6-1.4) mg/dl Glucose 96 (70-99(Fasting)) mg/dl Calcium 8.1 L (8.6-10.3) mg/dl Intake and Output 06/26/24 06/27/24 06/27/24 22:59 06:59 14:59 Intake Total 780 / 1080 300 / 1080 Output Total 500 / 500 Balance 780 / 580 -200 / 580 Intake: Oral 780 / 1080 300 / 1080 Output: Urine 500 / 500 Other: # Unmeasured Voids 800
--- NOTE | 2024-06-27 11:53 | Electrocardiogram Report ---
Test Reason : Blood Pressure : */* mmHG Vent. Rate : 67 BPM Atrial Rate : 67 BPM P-R Int : 164 ms QRS Dur : 88 ms QT Int : 396 ms P-R-T Axes : 30 3 110 degrees QTcB Int : 418 ms Sinus rhythm with Premature atrial complexes Nonspecific T wave abnormality Abnormal ECG When compared with ECG of 23-Jun-2024 05:18, Inverted T waves have replaced nonspecific T wave abnormality in Lateral leads Confirmed by Wiley Love ([id number] on 06/27/2024 11:53:22 AM Referred By: REFERRED SELF Confirmed By: Wiley Love
--- NOTE | 2024-06-27 14:10 | Hospitalist Progress Note ---
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: (2) Symptomatic anemia: (3) Pancytopenia: (4) Myocardial infarction due to demand ischemia: (5) Acute on chronic systolic (congestive) heart failure: (6) Lower GI bleed: (7) HTN (hypertension): Plan Pancytopenia Possible myelodysplastic syndrome Symptomatic anemia Myelosuppression from chronic alcohol use likely contributing as well S/P bone marrow biopsy--pathology pending S/P 6 units PRBCs, 2 units platelets --Anemia workup reviewed --Flow cytometry studies pending --Appreciate hematology oncology input Plan to keep hemoglobin> 7 and platelet count > 10K Continue PT OT, fall precautions May need endoscopic evaluation at some point GI consulted as well Fecal occult negative Continue Protonix Hemoglobin 7.4 today Platelet count 20K today Monitor CBC and transfuse as needed Acute HFpEF Valvular heart disease Significant troponin elevation ?Demand ischemia Vs stress-induced --ECHO: Mild concentric LVH, large apical, septal, anteroseptal wall motion abnormality with hypokinesis of the segments, EF 45 to 50%, left atrium is mildly dilated, mild valvular aortic stenosis, trace aortic, tricuspid regurgitation, right ventricular systolic pressure elevated at > 60 mmHg --Received IV Lasix Monitor volume status, I's and O's, daily weight Appreciate cardiology input Continue Lasix, Aldactone Needs repeat echo in 1 month Added Lipitor Consider aspirin 81 mg daily when hemoglobin stable Hypoxia Secondary to above Continue supplemental oxygen as needed Will need 2 step prior to discharge Hypokalemia Replace and monitor Other chronic conditions Rheumatoid arthritis--on chronic steroids Hypertension--blood pressure low COPD--continue home inhalers Alcohol use disorder--currently no signs of withdrawal. Counseled to quit alcohol use Continue home medications as able DVT Px: SCDs for now Re: anemia, thrombocytopenia CODE STATUS Full code Admission and Anticipated Discharge Date Admission Date: June 22, 2024 Subjective Patient is seen and examined at bedside States having mild right foot pain today No overt bleeding issues today Family at bedside Denies any chest pain, dyspnea, nausea, vomiting, abdominal pain Review of Systems Review of Systems: All systems reviewed & are unremarkable except as noted in Subjective Physical Exam Physical Exam: Physical Exam: Vitals signs as noted above General Appearance:Obese, no apparent distress Head: normocephalic, Atraumatic Eyes: normal inspection, EOMI Neck: supple, Trachea midline Respiratory/Chest: Decreased breath sounds, CTA, No accessory muscle use Cardiovascular: S1, S2, + murmur Abdomen/GI:Soft, Non tender, Bowel sounds present Extremities/Musculoskeletal:normal inspection, no edema, + chronic venous stasis changes Neurologic/Psych:AAOX3, grossly no focal neurological deficits Skin: normal color, warm Results & Data Results & Data Vital Signs (Past 12 Hours) Vital Signs Temp Pulse Resp BP Pulse Ox O2 Del Method O2 Del Method 06/27/24 07:26 Nasal Cannula 06/27/24 07:26 Nasal Cannula 06/27/24 07:13 36.5 C 62 16 111/60 94 Nasal Cannula O2 Flow Rate O2 Flow Rate 06/27/24 07:26 1 06/27/24 07:26 1 06/27/24 07:13 1 Laboratory Results Short CBC 06/27/24 Range/Units 06:42 WBC 2.69 L (4.8-10.8) K/ul Hgb 7.4 L (14.0-18.0) g/dl Hct 22.5 L (42.0-52.0) % Plt Count 20 L* (130-400) K/uL BMP 06/27/24 06:42 Sodium 137 Potassium 4.1 Chloride 104 Carbon Dioxide 28 BUN 24 H Creatinine 0.94 Glucose 96 Calcium 8.1 L (7) HTN (hypertension) Hypertension type: primary hypertension Qualified Code(s): I10 - Essential (primary) hypertension
[2024-06-28] MEDS: ATORVASTATIN 20 MG TAB PO SCH (08:32)
[2024-06-28 08:50] LABS: BUN Creatinine Ratio 25.9 (10-20); Calcium 8.2 mg/dl (8.6-10.3); Creatinine Clr Calc Pharmacy 95.6 ml/min; Potassium 4.3 mmol/L (3.5-5.1)
[2024-06-28 09:58] LABS: Hematocrit (blood only) 24.6 % (42.0-52.0); Hemoglobin 7.9 g/dl (14.0-18.0); Mean Corpuscular Hemoglobin 31.9 pg (25.0-34.0); Mean Corpuscular Hgb Conc 32.1 g/dL (32.0-36.0); Mean Corpuscular Volume 99.2 fL (80.0-100.0); Mean Platelet Volume 11.5 fL (9.4-12.4); Platelet Count 15 K/uL (130-400); RDW Coefficient of Variation 20.2 % (11.5-14.5); RDW Standard Deviation 70.8 fL (36.4-46.3); Red Blood Count 2.48 M/uL (4.70-6.10); White Blood Count 2.77 K/ul (4.8-10.8)
[2024-06-28 09:59] LABS: Anisocytosis Present; Eosinophils # (auto) 0.09 K/uL (0.00-0.50); Eosinophils % (auto) 3.2 %; Immature Granulocytes # (auto) 0.02 K/uL (0.01-0.20); Immature Granulocytes % (auto) 0.7 %; Lymphocytes # (auto) 0.55 K/uL (1.20-3.40); Lymphocytes % (auto) 19.9 %; Monocytes % (auto) 7.2 %; Neutrophils # (auto) 1.91 K/uL (1.40-6.50)
--- NOTE | 2024-06-28 17:58 | Hospitalist Progress Note ---
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 Maloney is a 79 y/o male with rheumatoid arthritis, chronic steroid use, COPD, HTN, HFpEF, and other history as outlined below who was admitted for sob and found to be anemic with hemoglobin to 4.3. Patient is s/p 6 transfusions of PRBC and 2 platelets this admission. Bone marrow biopsy pending. Spoke to Dr. Amaya who remarks that there is a likely MDS component, however results will likely take time as there is further evaluation for ?MGUS or other platelet dyscrasia. Course also complicated by NSTEMI iso of notable anemia and heart failure. #Pancytopenia, c/f myelodysplastic syndrome #Symptomatic anemia, likely will be transfusion dependent Myelosuppression from chronic alcohol use likely contributing as well S/P bone marrow biopsy--pathology pending S/P 6 units PRBCs, 2 units platelets --Anemia workup reviewed --Flow cytometry studies pending, will likely be "weeks" per hematology --Appreciate hematology oncology input Plan to keep hemoglobin> 7 and platelet count > 10K Plan for close OP f/u and transfusions prn Continue PT OT, fall precautions -[facility] dispo May need endoscopic evaluation at some point GI consulted as well: no further recommendations, continue protonix BID Fecal occult negative Trend CBC, transfuse prn #Acute on Chronic heart failure with preserved EF #NSTEMI iso severe anemia #Valvular heart disease --ECHO: Mild concentric LVH, large apical, septal, anteroseptal wall motion abnormality with hypokinesis of the segments, EF 45 to 50%, left atrium is mildly dilated, mild valvular aortic stenosis, trace aortic, tricuspid regurgitation, right ventricular systolic pressure elevated at > 60 mmHg --Received IV Lasix Monitor volume status, I's and O's, daily weight Appreciate cardiology input Continue Toprol xl 12.5mg PO BID, Spironolactone 25mg Daily, and Losartan 25mg daily Continue lasix 20mg daily Needs repeat echo in 1 month Continue Lipitor Consider aspirin 81 mg daily when hemoglobin stable #Hypoxia Secondary to above Continue supplemental oxygen as needed Will need 2 step prior to discharge #Hypokalemia Replace and monitor Other chronic conditions Rheumatoid arthritis--on chronic steroids Hypertension--blood pressure low COPD--continue home inhalers Alcohol use disorder--currently no signs of withdrawal. Counseled to quit alcohol use Continue home medications as able DVT Px: SCDs for now Re: anemia, thrombocytopenia CODE STATUS Full code Admission and Anticipated Discharge Date Admission Date: June 22, 2024 Subjective NAEO Reports feeling good overall with no acute concerns Physical Exam Constitutional: WD/WN, vitals as above Respiratory: normal respiratory effort, lungs clear to auscultation Cardiovascular: RRR ZAY+ Results & Data Results & Data Vital Signs (Past 12 Hours) Vital Signs Temp Pulse Resp BP Pulse Ox O2 Del Method O2 Flow Rate 06/28/24 16:01 70 105/51 L 06/28/24 15:27 36.6 C 64 16 96/41 L 95 Nasal Cannula 1 06/28/24 08:15 Nasal Cannula 1 06/28/24 07:49 36.5 C 68 16 111/65 94 Nasal Cannula 1 Laboratory Results Short CBC 06/28/24 Range/Units 07:42 WBC 2.77 L (4.8-10.8) K/ul Hgb 7.9 L (14.0-18.0) g/dl Hct 24.6 L (42.0-52.0) % Plt Count 15 L* (130-400) K/uL BMP 06/28/24 07:42 Sodium 138 Potassium 4.3 Chloride 104 Carbon Dioxide 29 BUN 21 Creatinine 0.81 Glucose 100 H Calcium 8.2 L Medications Administered Home Medications Medication Instructions Recorded Confirmed Last Taken celecoxib 200 mg capsule (Celebrex) 200 mg PO BID 06/14/22 06/22/24 06/21/24 chlorthalidone 25 mg tablet 25 mg PO QAM 06/14/22 06/22/24 06/21/24 coenzyme Q10 10 mg capsule 10 mg PO DAILY 06/14/22 06/22/24 06/21/24 diclofenac sodium 1 % topical gel 1 g topical QID PRN joint pain 06/14/22 06/22/24 05/26/24 (Voltaren Arthritis Pain) tiotropium bromide 18 mcg capsule 1 cap inhalation BID 06/14/22 06/22/24 06/21/24 with inhalation device (Spiriva with HandiHaler) triamcinolone acetonide 0.1 % 1 applic topical DAILY PRN Rash 06/18/22 06/22/24 05/26/24 topical ointment albuterol sulfate 90 mcg/actuation 2 puff inhalation Q6H PRN 06/27/22 06/22/24 05/26/24 aerosol inhaler Shortness Of Breath ascorbic acid (vitamin C) 1,000 mg 1 g PO DAILY 06/27/22 06/22/24 06/21/24 capsule calcium carbonate 600 mg PO DAILY 06/27/22 06/22/24 06/21/24 cholecalciferol (vitamin D3) 50 50 mcg PO DAILY 06/27/22 06/22/24 06/21/24 mcg (2,000 unit) capsule cyanocobalamin (vitamin B-12) 1,000 mcg PO DAILY 06/27/22 06/22/24 06/21/24 1,000 mcg capsule fluticasone 250 mcg-salmeterol 50 1 inh inhalation Q12H 06/27/22 06/22/24 06/21/24 mcg/dose blistr powdr for inhalation folic acid 1 mg tablet 1 mg PO QAM 06/27/22 06/22/24 06/21/24 furosemide 20 mg tablet 20 mg PO HS 06/27/22 06/22/24 06/20/24 furosemide 40 mg tablet 40 mg PO QDL 06/27/22 06/22/24 06/21/24 metoprolol succinate 25 mg 12.5 mg PO BID 06/27/22 06/22/24 06/21/24 tablet,extended release 24 hr multivitamin 1 tab PO DAILY 06/27/22 06/22/24 06/21/24 potassium chloride 10 mEq 10 meq PO BID 06/27/22 06/22/24 06/21/24 capsule,extended release prednisone 5 mg tablet 5 mg PO QAM 06/27/22 06/22/24 06/21/24 vitamin E mixed 400 unit capsule 400 unit PO DAILY 06/27/22 06/22/24 06/21/24 turmeric 400 mg capsule 400 mg PO DAILY 05/21/24 06/22/24 06/21/24 vit C 30 mg-s.segovia 250 mg-celery 1 cap PO DAILY 09/06/22/24 06/21/24 seed 75 mg-grape seed extrt capsule (Tart Segov[place]) acetaminophen 500 mg tablet 500 mg PO Q6H PRN PAIN/FEVER 06/22/24 06/22/24 Unknown Active Medications Generic Name Dose Route Start Last Admin Trade Name Freq PRN Reason Stop Dose Admin Acetaminophen 650 mg 06/22/24 13:38 06/22/24 18:37 Acetaminophen 325 Mg Tab PO 07/22/24 13:37 325 mg Q4H PRN Administration Pain or Fever Atorvastatin Calcium 20 mg 06/28/24 09:00 06/28/24 08:32 Atorvastatin 20 Mg Tab PO 07/28/24 08:59 20 mg QAM CURTIS Administration Fluticasone/Vilanterol 1 puffs 06/23/24 09:00 06/28/24 08:26 Fluticasone/Vilanterol 100/25mcg 14 Puffs/Inhaler INH 07/23/24 08:59 1 puffs DAILY CURTIS Administration Folic Acid 1 mg 06/24/24 10:54 06/28/24 08:31 Folic Acid 1 Mg Tab PO 07/24/24 10:53 1 mg QAM CURTIS Administration Furosemide 20 mg 06/26/24 09:00 06/28/24 08:31 Furosemide 20 Mg Tab PO 07/26/24 08:59 20 mg QAM CURTIS Administration Losartan Potassium 25 mg 06/24/24 12:00 06/26/24 07:40 Losartan Potassium 25 Mg Tab PO 07/24/24 11:59 25 mg QAM CURTIS Administration Metoprolol Succinate 12.5 mg 06/22/24 21:00 06/28/24 08:31 Metoprolol Succ 25mg Ext Rel Tab PO 07/22/24 20:59 12.5 mg BID CURTIS Administration Pantoprazole Sodium 40 mg 06/24/24 09:00 06/28/24 08:29 Pantoprazole 40 Mg Tab PO 07/24/24 08:59 40 mg DAILY CURTIS Administration Potassium Chloride 10 meq 06/22/24 21:00 06/28/24 08:30 Potassium Chloride 10 Meq Tabcr PO 07/22/24 20:59 10 meq BID CURTIS Administration Prednisolone Sodium Phosphate 1 drops 06/23/24 17:00 06/28/24 16:47 Prednisolone Sod Phos 1% 10 Ml Btl OP 07/23/24 16:59 1 drops QID CURTIS Administration Prednisone 5 mg 06/23/24 09:00 06/28/24 08:31 Prednisone 5 Mg Tab PO 07/23/24 08:59 5 mg QAM CURTIS Administration Spironolactone 25 mg 06/24/24 09:00 06/28/24 08:29 Spironolactone 25 Mg Tab PO 07/24/24 08:59 25 mg QAM CURTIS Administration Umeclidinium [place] 1 puffs 06/23/24 09:00 06/28/24 08:27 Umeclidinium [place] 62.5mcg/Blister 7 Puffs/Inhaler INH 07/23/24 08:59 1 puffs DAILY CURTIS Administration (7) HTN (hypertension) Hypertension type: primary hypertension Qualified Code(s): I10 - Essential (primary) hypertension
[2024-06-29 08:45] LABS: BUN Creatinine Ratio 24.3 (10-20); Calcium 8.5 mg/dl (8.6-10.3); Creatinine Clr Calc Pharmacy 87.6 ml/min; Potassium 4.4 mmol/L (3.5-5.1)
[2024-06-29 08:47] LABS: Hemoglobin 7.6 g/dl (14.0-18.0); Mean Corpuscular Hemoglobin 31.3 pg (25.0-34.0); Mean Corpuscular Hgb Conc 31.7 g/dL (32.0-36.0); Mean Corpuscular Volume 98.8 fL (80.0-100.0); Mean Platelet Volume 13.1 fL (9.4-12.4); Platelet Count 13 K/uL (130-400); RDW Coefficient of Variation 20.1 % (11.5-14.5); RDW Standard Deviation 67.7 fL (36.4-46.3); Red Blood Count 2.43 M/uL (4.70-6.10); White Blood Count 2.74 K/ul (4.8-10.8)
--- NOTE | 2024-06-29 14:54 | Hospitalist Progress Note ---
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 Maloney is a 79 y/o male with rheumatoid arthritis, chronic steroid use, COPD, HTN, HFpEF, and other history as outlined below who was admitted for sob and found to be anemic with hemoglobin to 4.3. Patient is s/p 6 transfusions of PRBC and 2 platelets this admission. Bone marrow biopsy pending. Spoke to Dr. Amaya who remarks that there is a likely MDS component, however results will likely take time as there is further evaluation for ?MGUS or other platelet dyscrasia. Course also complicated by NSTEMI iso of notable anemia and heart failure. Patient likely to dispo tomorrow #Pancytopenia, c/f myelodysplastic syndrome #Symptomatic anemia, likely will be transfusion dependent Myelosuppression from chronic alcohol use likely contributing as well S/P bone marrow biopsy--pathology pending S/P 6 units PRBCs, 2 units platelets --Anemia workup reviewed --Flow cytometry studies pending, will likely be "weeks" per hematology --Appreciate hematology oncology input Plan to keep hemoglobin> 7 and platelet count > 10K Plan for close OP f/u and transfusions prn Continue PT OT, fall precautions -[facility] rehab dispo May need endoscopic evaluation at some point GI consulted as well: no further recommendations, continue protonix BID Fecal occult negative Trend CBC, transfuse prn #Acute on Chronic heart failure with preserved EF #NSTEMI iso severe anemia #Valvular heart disease --ECHO: Mild concentric LVH, large apical, septal, anteroseptal wall motion abnormality with hypokinesis of the segments, EF 45 to 50%, left atrium is mildly dilated, mild valvular aortic stenosis, trace aortic, tricuspid regurgitation, right ventricular systolic pressure elevated at > 60 mmHg --Received IV Lasix Monitor volume status, I's and O's, daily weight Appreciate cardiology input Continue Toprol xl 12.5mg PO BID, Spironolactone 25mg Daily, and Losartan 25mg daily Continue lasix 20mg daily Needs repeat echo in 1 month Continue Lipitor Consider aspirin 81 mg daily when hemoglobin stable #Hypoxia Secondary to above Continue supplemental oxygen as needed Will need 2 step prior to discharge #Hypokalemia Replace and monitor Other chronic conditions Rheumatoid arthritis--on chronic steroids Hypertension--blood pressure low COPD--continue home inhalers Alcohol use disorder--currently no signs of withdrawal. Counseled to quit alcohol use Continue home medications as able DVT Px: SCDs for now Re: anemia, thrombocytopenia CODE STATUS Full code Admission and Anticipated Discharge Date Admission Date: June 22, 2024 Subjective NAEO Physical Exam Constitutional: WD/WN, vitals as above Respiratory: normal respiratory effort, lungs clear to auscultation Cardiovascular: RRR, no murmur, no edema Skin: no edema, venous stasis changes Results & Data Results & Data Vital Signs (Past 12 Hours) Vital Signs Temp Pulse Resp BP Pulse Ox O2 Del Method O2 Flow Rate 06/29/24 14:52 36.5 C 66 18 110/62 95 Nasal Cannula 1 06/29/24 07:59 Nasal Cannula 06/29/24 07:24 36.4 C L 60 18 106/57 L 94 Nasal Cannula 1 Laboratory Results Short CBC 06/29/24 Range/Units 07:47 WBC 2.74 L (4.8-10.8) K/ul Hgb 7.6 L (14.0-18.0) g/dl Hct 24.0 L (42.0-52.0) % Plt Count 13 L* (130-400) K/uL BMP 06/29/24 07:47 Sodium 140 Potassium 4.4 Chloride 104 Carbon Dioxide 32 BUN 18 Creatinine 0.74 Glucose 94 Calcium 8.5 L Medications Administered Home Medications Medication Instructions Recorded Confirmed Last Taken celecoxib 200 mg capsule (Celebrex) 200 mg PO BID 06/14/22 06/22/24 06/21/24 chlorthalidone 25 mg tablet 25 mg PO QAM 06/14/22 06/22/24 06/21/24 coenzyme Q10 10 mg capsule 10 mg PO DAILY 06/14/22 06/22/24 06/21/24 diclofenac sodium 1 % topical gel 1 g topical QID PRN joint pain 06/14/22 06/22/24 05/26/24 (Voltaren Arthritis Pain) tiotropium bromide 18 mcg capsule 1 cap inhalation BID 06/14/22 06/22/24 06/21/24 with inhalation device (Spiriva with HandiHaler) triamcinolone acetonide 0.1 % 1 applic topical DAILY PRN Rash 06/18/22 06/22/24 05/26/24 topical ointment albuterol sulfate 90 mcg/actuation 2 puff inhalation Q6H PRN 06/27/22 06/22/24 05/26/24 aerosol inhaler Shortness Of Breath ascorbic acid (vitamin C) 1,000 mg 1 g PO DAILY 06/27/22 06/22/24 06/21/24 capsule calcium carbonate 600 mg PO DAILY 06/27/22 06/22/24 06/21/24 cholecalciferol (vitamin D3) 50 50 mcg PO DAILY 06/27/22 06/22/24 06/21/24 mcg (2,000 unit) capsule cyanocobalamin (vitamin B-12) 1,000 mcg PO DAILY 06/27/22 06/22/24 06/21/24 1,000 mcg capsule fluticasone 250 mcg-salmeterol 50 1 inh inhalation Q12H 06/27/22 06/22/24 06/21/24 mcg/dose blistr powdr for inhalation folic acid 1 mg tablet 1 mg PO QAM 06/27/22 06/22/24 06/21/24 furosemide 20 mg tablet 20 mg PO HS 06/27/22 06/22/24 06/20/24 furosemide 40 mg tablet 40 mg PO QDL 06/27/22 06/22/24 06/21/24 metoprolol succinate 25 mg 12.5 mg PO BID 06/27/22 06/22/24 06/21/24 tablet,extended release 24 hr multivitamin 1 tab PO DAILY 06/27/22 06/22/24 06/21/24 potassium chloride 10 mEq 10 meq PO BID 06/27/22 06/22/24 06/21/24 capsule,extended release prednisone 5 mg tablet 5 mg PO QAM 06/27/22 06/22/24 06/21/24 vitamin E mixed 400 unit capsule 400 unit PO DAILY 06/27/22 06/22/24 06/21/24 turmeric 400 mg capsule 400 mg PO DAILY 05/21/24 06/22/24 06/21/24 vit C 30 mg-s.segovia 250 mg-celery 1 cap PO DAILY 0906/22/24 06/21/24 seed 75 mg-grape seed extrt capsule (Tart [place]) acetaminophen 500 mg tablet 500 mg PO Q6H PRN PAIN/FEVER 06/22/24 06/22/24 Unknown Active Medications Generic Name Dose Route Start Last Admin Trade Name Freq PRN Reason Stop Dose Admin Acetaminophen 650 mg 06/22/24 13:38 06/22/24 18:37 Acetaminophen 325 Mg Tab PO 07/22/24 13:37 325 mg Q4H PRN Administration Pain or Fever Atorvastatin Calcium 20 mg 06/28/24 09:00 06/29/24 08:11 Atorvastatin 20 Mg Tab PO 07/28/24 08:59 20 mg QAM CURTIS Administration Fluticasone/Vilanterol 1 puffs 06/23/24 09:00 06/29/24 08:11 Fluticasone/Vilanterol 100/25mcg 14 Puffs/Inhaler INH 07/23/24 08:59 1 puffs DAILY CURTIS Administration Folic Acid 1 mg 06/24/24 10:54 06/29/24 08:12 Folic Acid 1 Mg Tab PO 07/24/24 10:53 1 mg QAM CURTIS Administration Furosemide 20 mg 06/26/24 09:00 06/29/24 08:12 Furosemide 20 Mg Tab PO 07/26/24 08:59 20 mg QAM CURTIS Administration Losartan Potassium 25 mg 06/24/24 12:00 06/26/24 07:40 Losartan Potassium 25 Mg Tab PO 07/24/24 11:59 25 mg QAM CURTIS Administration Metoprolol Succinate 12.5 mg 06/22/24 21:00 06/29/24 08:12 Metoprolol Succ 25mg Ext Rel Tab PO 07/22/24 20:59 12.5 mg BID CURTIS Administration Pantoprazole Sodium 40 mg 06/24/24 09:00 06/29/24 08:13 Pantoprazole 40 Mg Tab PO 07/24/24 08:59 40 mg DAILY CURTIS Administration Potassium Chloride 10 meq 06/22/24 21:00 06/29/24 08:21 Potassium Chloride 10 Meq Tabcr PO 07/22/24 20:59 10 meq BID CURTIS Administration Prednisolone Sodium Phosphate 1 drops 06/23/24 17:00 06/29/24 14:11 Prednisolone Sod Phos 1% 10 Ml Btl OP 07/23/24 16:59 1 drops QID CURTIS Administration Prednisone 5 mg 06/23/24 09:00 06/29/24 08:13 Prednisone 5 Mg Tab PO 07/23/24 08:59 5 mg QAM CURTIS Administration Spironolactone 25 mg 06/24/24 09:00 06/29/24 08:14 Spironolactone 25 Mg Tab PO 07/24/24 08:59 25 mg QAM CURTIS Administration Umeclidinium [place] 1 puffs 06/23/24 09:00 06/29/24 08:14 Umeclidinium [place] 62.5mcg/Blister 7 Puffs/Inhaler INH 07/23/24 08:59 1 puffs DAILY CURTIS Administration (7) HTN (hypertension) Hypertension type: primary hypertension Qualified Code(s): I10 - Essential (primary) hypertension
[2024-06-30 08:06] LABS: Calcium 8.5 mg/dl (8.6-10.3); Creatinine Clr Calc Pharmacy 80.1 ml/min; Potassium 4.4 mmol/L (3.5-5.1)
[2024-06-30 08:39] LABS: Hematocrit (blood only) 22.1 % (42.0-52.0); Hemoglobin 7.3 g/dl (14.0-18.0); Mean Corpuscular Volume 96.9 fL (80.0-100.0); Mean Platelet Volume 12.1 fL (9.4-12.4); Platelet Count 8 K/uL (130-400); RDW Coefficient of Variation 19.9 % (11.5-14.5); RDW Standard Deviation 67.3 fL (36.4-46.3); Red Blood Count 2.28 M/uL (4.70-6.10); White Blood Count 2.75 K/ul (4.8-10.8)
[2024-06-30] MEDS ORDERED: SODIUM CHLORIDE 0.9% 50 ML IV PRN ×2 (08:42→09:00)
[2024-06-30] MEDS ORDERED: SODIUM CHLORIDE 0.9% 100 ML IV PRN ×2 (08:42→09:00)
--- NOTE | 2024-06-30 13:32 | Hospitalist Progress Note ---
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 Maloney is a 79 y/o male with rheumatoid arthritis, chronic steroid use, COPD, HTN, HFpEF, and other history as outlined below who was admitted for sob and found to be anemic with hemoglobin to 4.3. Patient is s/p 6 transfusions of PRBC and 2 platelets this admission. Bone marrow biopsy pending. Spoke to Dr. Amaya who remarks that there is a likely MDS component, however results will likely take time as there is further evaluation for ?MGUS or other platelet dyscrasia. Course also complicated by NSTEMI iso of notable anemia and heart failure. Was to discharge today after platelet transfusion, however, no beds available. Possibly tomorrow Platelets 8 today---1 Unit ordered. #Pancytopenia, c/f myelodysplastic syndrome #Symptomatic anemia, likely will be transfusion dependent Myelosuppression from chronic alcohol use likely contributing as well S/P bone marrow biopsy--pathology pending S/P 6 units PRBCs, 3 units platelets --Anemia workup reviewed --Flow cytometry studies pending, will likely be "weeks" per hematology --Appreciate hematology oncology input Plan to keep hemoglobin> 7 and platelet count > 10K Plan for close OP f/u and transfusions prn Continue PT OT, fall precautions:rehab May need endoscopic evaluation at some point GI consulted as well: no further recommendations, continue protonix BID Fecal occult negative Trend CBC, transfuse prn #Acute on Chronic heart failure with preserved EF #NSTEMI iso severe anemia #Valvular heart disease --ECHO: Mild concentric LVH, large apical, septal, anteroseptal wall motion abnormality with hypokinesis of the segments, EF 45 to 50%, left atrium is mildly dilated, mild valvular aortic stenosis, trace aortic, tricuspid regurgitation, right ventricular systolic pressure elevated at > 60 mmHg --Received IV Lasix Monitor volume status, I's and O's, daily weight Appreciate cardiology input Continue Toprol xl 12.5mg PO BID, Spironolactone 25mg Daily, and Losartan 25mg daily Continue lasix 20mg daily Needs repeat echo in 1 month Continue Lipitor Consider aspirin 81 mg daily when hemoglobin stable #Hypoxia Secondary to above Continue supplemental oxygen as needed Will need 2 step prior to discharge #Hypokalemia Replace and monitor Other chronic conditions Rheumatoid arthritis--on chronic steroids Hypertension--blood pressure low COPD--continue home inhalers Alcohol use disorder--currently no signs of withdrawal. Counseled to quit alcohol use Continue home medications as able DVT Px: SCDs for now Re: anemia, thrombocytopenia CODE STATUS Full code Admission and Anticipated Discharge Date Admission Date: June 22, 2024 Subjective NAEO Reports accidentally pinching scrotum on urinal with some discomfort and small lesion Otherwise, no sob, chest pain, or other acute concerns Physical Exam Constitutional: WD/WN, vitals as above Respiratory: normal respiratory effort, lungs clear to auscultation Cardiovascular: RRR, no murmur, no edema Gastrointestinal (Abdomen): normal bowel sounds, soft, nontender, no hepatosplenomegaly Results & Data Results & Data Vital Signs (Past 12 Hours) Vital Signs Temp Pulse Pulse Resp BP BP Pulse Ox 06/30/24 12:36 36.9 C 67 20 135/65 94 06/30/24 11:28 36.5 C 65 20 98/60 L 96 06/30/24 10:59 36.4 C L 65 20 100/59 L 96 06/30/24 10:25 36.5 C 66 20 95/60 L 95 06/30/24 10:08 36.7 C 67 20 106/64 94 06/30/24 09:41 36.6 C 71 20 96/58 L 95 06/30/24 08:30 06/30/24 07:40 36.7 C 64 18 116/66 95 O2 Del Method O2 Flow Rate 06/30/24 12:36 1 06/30/24 11:28 1 06/30/24 10:59 1 06/30/24 10:25 1 06/30/24 10:08 1 06/30/24 09:41 1 06/30/24 08:30 Nasal Cannula 1 06/30/24 07:40 Nasal Cannula 1 Laboratory Results Short CBC 06/30/24 Range/Units 07:36 WBC 2.75 L (4.8-10.8) K/ul Hgb 7.3 L (14.0-18.0) g/dl Hct 22.1 L (42.0-52.0) % Plt Count 8 L* (130-400) K/uL BMP 06/30/24 07:36 Sodium 140 Potassium 4.4 Chloride 104 Carbon Dioxide 30 BUN 17 Creatinine 0.81 Glucose 98 Calcium 8.5 L Medications Administered Home Medications Medication Instructions Recorded Confirmed Last Taken celecoxib 200 mg capsule (Celebrex) 200 mg PO BID 06/14/22 06/22/24 06/21/24 chlorthalidone 25 mg tablet 25 mg PO QAM 06/14/22 06/22/24 06/21/24 coenzyme Q10 10 mg capsule 10 mg PO DAILY 06/14/22 06/22/24 06/21/24 diclofenac sodium 1 % topical gel 1 g topical QID PRN joint pain 06/14/22 06/22/24 05/26/24 (Voltaren Arthritis Pain) tiotropium bromide 18 mcg capsule 1 cap inhalation BID 06/14/22 06/22/24 06/21/24 with inhalation device (Spiriva with HandiHaler) triamcinolone acetonide 0.1 % 1 applic topical DAILY PRN Rash 06/18/22 06/22/24 05/26/24 topical ointment albuterol sulfate 90 mcg/actuation 2 puff inhalation Q6H PRN 06/27/22 06/22/24 05/26/24 aerosol inhaler Shortness Of Breath ascorbic acid (vitamin C) 1,000 mg 1 g PO DAILY 06/27/22 06/22/24 06/21/24 capsule calcium carbonate 600 mg PO DAILY 06/27/22 06/22/24 06/21/24 cholecalciferol (vitamin D3) 50 50 mcg PO DAILY 06/27/22 06/22/24 06/21/24 mcg (2,000 unit) capsule cyanocobalamin (vitamin B-12) 1,000 mcg PO DAILY 06/27/22 06/22/24 06/21/24 1,000 mcg capsule fluticasone 250 mcg-salmeterol 50 1 inh inhalation Q12H 06/27/22 06/22/24 06/21/24 mcg/dose blistr powdr for inhalation folic acid 1 mg tablet 1 mg PO QAM 06/27/22 06/22/24 06/21/24 furosemide 20 mg tablet 20 mg PO HS 06/27/22 06/22/24 06/20/24 furosemide 40 mg tablet 40 mg PO QDL 06/27/22 06/22/24 06/21/24 metoprolol succinate 25 mg 12.5 mg PO BID 06/27/22 06/22/24 06/21/24 tablet,extended release 24 hr multivitamin 1 tab PO DAILY 06/27/22 06/22/24 06/21/24 potassium chloride 10 mEq 10 meq PO BID 06/27/22 06/22/24 06/21/24 capsule,extended release prednisone 5 mg tablet 5 mg PO QAM 06/27/22 06/22/24 06/21/24 vitamin E mixed 400 unit capsule 400 unit PO DAILY 06/27/22 06/22/24 06/21/24 turmeric 400 mg capsule 400 mg PO DAILY 05/21/24 06/22/24 06/21/24 vit C 30 mg-s.[place] 250 mg-celery 1 cap PO DAILY 05/21/24 06/22/24 06/21/24 seed 75 mg-grape seed extrt capsule (Tart [place]) acetaminophen 500 mg tablet 500 mg PO Q6H PRN PAIN/FEVER 06/22/24 06/22/24 Unknown Active Medications Generic Name Dose Route Start Last Admin Trade Name Freq PRN Reason Stop Dose Admin Acetaminophen 650 mg 06/22/24 13:38 06/22/24 18:37 Acetaminophen 325 Mg Tab PO 07/22/24 13:37 325 mg Q4H PRN Administration Pain or Fever Atorvastatin Calcium 20 mg 06/28/24 09:00 06/30/24 08:20 Atorvastatin 20 Mg Tab PO 07/28/24 08:59 20 mg QAM CURTIS Administration Fluticasone/Vilanterol 1 puffs 06/23/24 09:00 06/30/24 08:20 Fluticasone/Vilanterol 100/25mcg 14 Puffs/Inhaler INH 07/23/24 08:59 1 puffs DAILY CURTIS Administration Folic Acid 1 mg 06/24/24 10:54 06/30/24 08:20 Folic Acid 1 Mg Tab PO 07/24/24 10:53 1 mg QAM CURTIS Administration Furosemide 20 mg 06/26/24 09:00 06/30/24 08:21 Furosemide 20 Mg Tab PO 07/26/24 08:59 20 mg QAM CURTIS Administration Losartan Potassium 25 mg 06/24/24 12:00 06/26/24 07:40 Losartan Potassium 25 Mg Tab PO 07/24/24 11:59 25 mg QAM CURTIS Administration Metoprolol Succinate 12.5 mg 06/22/24 21:00 06/30/24 08:21 Metoprolol Succ 25mg Ext Rel Tab PO 07/22/24 20:59 12.5 mg BID CURTIS Administration Pantoprazole Sodium 40 mg 06/24/24 09:00 06/30/24 08:21 Pantoprazole 40 Mg Tab PO 07/24/24 08:59 40 mg DAILY CURTIS Administration Potassium Chloride 10 meq 06/22/24 21:00 06/30/24 08:30 Potassium Chloride 10 Meq Tabcr PO 07/22/24 20:59 10 meq BID CURTIS Administration Prednisolone Sodium Phosphate 1 drops 06/23/24 17:00 06/30/24 08:23 Prednisolone Sod Phos 1% 10 Ml Btl OP 07/23/24 16:59 1 drops QID CURTIS Administration Prednisone 5 mg 06/23/24 09:00 06/30/24 08:22 Prednisone 5 Mg Tab PO 07/23/24 08:59 5 mg QAM CURTIS Administration Spironolactone 25 mg 06/24/24 09:00 06/30/24 10:27 Spironolactone 25 Mg Tab PO 07/24/24 08:59 25 mg QAM CURTIS Administration Umeclidinium [place] 1 puffs 06/23/24 09:00 06/30/24 09:55 Umeclidinium [place] 62.5mcg/Blister 7 Puffs/Inhaler INH 07/23/24 08:59 1 puffs DAILY CURTIS Administration (7) HTN (hypertension) Hypertension type: primary hypertension Qualified Code(s): I10 - Essential (primary) hypertension
[2024-07-01 08:43] LABS: BUN Creatinine Ratio 23.9 (10-20); Calcium 8.4 mg/dl (8.6-10.3); Creatinine Clr Calc Pharmacy 73.7 ml/min
[2024-07-01 09:03] LABS: Hematocrit (blood only) 20.2 % (42.0-52.0); Hemoglobin 6.5 g/dl (14.0-18.0); Mean Corpuscular Hemoglobin 31.7 pg (25.0-34.0); Mean Corpuscular Hgb Conc 32.2 g/dL (32.0-36.0); Mean Corpuscular Volume 98.5 fL (80.0-100.0); Mean Platelet Volume 12.5 fL (9.4-12.4); Platelet Count 8 K/uL (130-400); RDW Coefficient of Variation 19.9 % (11.5-14.5); RDW Standard Deviation 68.1 fL (36.4-46.3); Red Blood Count 2.05 M/uL (4.70-6.10); White Blood Count 2.69 K/ul (4.8-10.8)
[2024-07-01] MEDS ORDERED: SODIUM CHLORIDE 0.9% 100 ML IV PRN ×2 (09:06)
[2024-07-01] MEDS ORDERED: SODIUM CHLORIDE 0.9% 50 ML IV PRN ×2 (09:06)
[2024-07-01] MEDS ORDERED: FUROSEMIDE INJ 20 MG/2 ML VIAL IV ONE (12:31)
[2024-07-01] MEDS: FUROSEMIDE INJ 20 MG/2 ML VIAL IV SCH (16:45)
--- NOTE | 2024-07-01 17:09 | Hospitalist Progress Note ---
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 Maloney is a 79 y/o male with rheumatoid arthritis, chronic steroid use, COPD, HTN, HFpEF, and other history as outlined below who was admitted for sob and found to be anemic with hemoglobin to 4.3. Patient is s/p 6 transfusions of PRBC and 2 platelets this admission. Bone marrow biopsy pending. Prior hospitalist spoke with Dr. Amaya who remarks that there is a likely MDS component, however results will likely take time as there is further evaluation for ?MGUS or other platelet dyscrasia. Pancytopenia, c/f myelodysplastic syndrome Symptomatic anemia, likely will be transfusion dependent Myelosuppression from chronic alcohol use likely contributing as well S/P bone marrow biopsy--pathology pending S/P 6 units PRBCs, 3 units platelets --Anemia workup reviewed --Flow cytometry studies pending, will likely be "weeks" per hematology --Appreciate hematology oncology input Plan to keep hemoglobin> 7 and platelet count > 10K Plan for close OP f/u and transfusions prn Continue PT OT, fall precautions:rehab May need endoscopic evaluation at some point GI consulted as well: no further recommendations, continue protonix BID Fecal occult negative Trend CBC, transfuse prn And to give 1 unit PRBC, 2 unit platelets today Monitor CBC, will give a dose of Lasix after blood transfusion Acute on Chronic heart failure with preserved EF NSTEMI iso severe anemia Valvular heart disease --ECHO: Mild concentric LVH, large apical, septal, anteroseptal wall motion abnormality with hypokinesis of the segments, EF 45 to 50%, left atrium is mildly dilated, mild valvular aortic stenosis, trace aortic, tricuspid regurgitation, right ventricular systolic pressure elevated at > 60 mmHg --Received IV Lasix Monitor I's and O's, daily weight Appreciate cardiology input Continue Toprol xl 12.5mg PO BID, Spironolactone 25mg Daily, and Losartan 25mg daily Continue lasix 20mg daily Needs repeat echo in 1 month Continue Lipitor Consider aspirin 81 mg daily when hemoglobin stable Monitor volume status Hypoxia Secondary to above Continue supplemental oxygen as needed Hypokalemia Replace and monitor Other chronic conditions Rheumatoid arthritis--on chronic steroids Hypertension--blood pressure low COPD--continue home inhalers Alcohol use disorder--currently no signs of withdrawal. Counseled to quit alcohol use Continue home medications as able DVT Px: SCDs for now Re: anemia, thrombocytopenia CODE STATUS Full code Disposition Rehab as able Admission and Anticipated Discharge Date Admission Date: June 22, 2024 Subjective Patient is seen and examined at bedside Subjectively feels well Family at bedside Noted drop in hemoglobin, platelet count No overt bleeding issues Denies any chest pain, dyspnea No other complaints Review of Systems Review of Systems: All systems reviewed & are unremarkable except as noted in Subjective Physical Exam Physical Exam: Physical Exam: Vitals signs as noted above General Appearance:Obese, no apparent distress Head: normocephalic, Atraumatic Eyes: normal inspection, EOMI Neck: supple, Trachea midline Respiratory/Chest: Decreased breath sounds, CTA, No accessory muscle use Cardiovascular: S1, S2, + murmur Abdomen/GI:Soft, Non tender, Bowel sounds present Extremities/Musculoskeletal:normal inspection, no edema, + chronic venous stasis changes Neurologic/Psych:AAOX3, grossly no focal neurological deficits Skin: normal color, warm Results & Data Results & Data Vital Signs (Past 12 Hours) Vital Signs Temp Pulse Pulse Resp BP BP Pulse Ox 07/01/24 16:26 36.6 C 63 16 114/60 94 07/01/24 16:11 36.9 C 65 16 117/63 93 07/01/24 15:56 36.6 C 70 18 110/52 L 94 07/01/24 15:39 36.8 C 71 16 118/62 94 07/01/24 14:36 36.6 C 68 16 115/62 95 07/01/24 13:36 37 C 67 16 103/58 L 95 07/01/24 13:06 36.7 C 69 16 105/52 L 95 07/01/24 12:51 36.8 C 71 18 109/51 L 96 07/01/24 12:36 36.7 C 73 18 101/41 L 94 07/01/24 12:19 36.7 C 70 18 110/51 L 94 07/01/24 11:15 07/01/24 11:02 36.5 C 67 16 104/52 L 97 07/01/24 10:32 68 18 99/46 L 94 07/01/24 10:17 60 16 105/52 L 94 07/01/24 10:01 36.6 C 69 18 94/54 L 91 07/01/24 08:16 105/53 L 07/01/24 07:14 36.7 C 64 16 91/51 L 95 O2 Del Method O2 Flow Rate 07/01/24 16:26 07/01/24 16:11 1 07/01/24 15:56 1 07/01/24 15:39 07/01/24 14:36 1 07/01/24 13:36 1 07/01/24 13:06 1 07/01/24 12:51 1 07/01/24 12:36 1 07/01/24 12:19 1 07/01/24 11:15 Nasal Cannula 1 07/01/24 11:02 1 07/01/24 10:32 1 07/01/24 10:17 1 07/01/24 10:01 1 07/01/24 08:16 07/01/24 07:14 Nasal Cannula 1 Laboratory Results Short CBC 07/01/24 Range/Units 07:48 WBC 2.69 L (4.8-10.8) K/ul Hgb 6.5 L* (14.0-18.0) g/dl Hct 20.2 L* (42.0-52.0) % Plt Count 8 L* (130-400) K/uL BMP 07/01/24 07:48 Sodium 141 Potassium 4.0 Chloride 105 Carbon Dioxide 32 BUN 21 Creatinine 0.88 Glucose 96 Calcium 8.4 L (7) HTN (hypertension) Hypertension type: primary hypertension Qualified Code(s): I10 - Essential (primary) hypertension
[2024-07-01 20:17] VITALS: TEMP 97.9; O2SAT 93
[2024-07-01 20:17] LABS: Hematocrit (blood only) 22.4 % (42.0-52.0); Hemoglobin 7.5 g/dl (14.0-18.0); Mean Corpuscular Hemoglobin 32.1 pg (25.0-34.0); Mean Corpuscular Hgb Conc 33.5 g/dL (32.0-36.0); Mean Corpuscular Volume 95.7 fL (80.0-100.0); Mean Platelet Volume 10.3 fL (9.4-12.4); Platelet Count 33 K/uL (130-400); RDW Coefficient of Variation 19.5 % (11.5-14.5); RDW Standard Deviation 63.2 fL (36.4-46.3); Red Blood Count 2.34 M/uL (4.70-6.10)
[2024-07-02 07:25] VITALS: BP 102/54; PULSE 61; RESP 16
[2024-07-02 07:35] LABS: Hemoglobin 7.1 g/dl (14.0-18.0); Mean Corpuscular Hemoglobin 31.8 pg (25.0-34.0); Mean Corpuscular Hgb Conc 32.3 g/dL (32.0-36.0); Mean Corpuscular Volume 98.7 fL (80.0-100.0); Mean Platelet Volume 11.2 fL (9.4-12.4); Platelet Count 33 K/uL (130-400); RDW Coefficient of Variation 19.6 % (11.5-14.5); RDW Standard Deviation 65.5 fL (36.4-46.3); Red Blood Count 2.23 M/uL (4.70-6.10); White Blood Count 2.94 K/ul (4.8-10.8)
[2024-07-02 07:50] LABS: BUN Creatinine Ratio 22.1 (10-20); Calcium 8.3 mg/dl (8.6-10.3); Creatinine Clr Calc Pharmacy 75.4 ml/min
--- NOTE | 2024-07-02 12:57 | Hospitalist Progress Note ---
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 Maloney is a 79 y/o male with rheumatoid arthritis, chronic steroid use, COPD, HTN, HFpEF, and other history as outlined below who was admitted for sob and found to be anemic with hemoglobin to 4.3. Patient is s/p 6 transfusions of PRBC and 2 platelets this admission. Bone marrow biopsy pending. Prior hospitalist spoke with Dr. Amaya who remarks that there is a likely MDS component, however results will likely take time as there is further evaluation for ?MGUS or other platelet dyscrasia. Pancytopenia, c/f myelodysplastic syndrome Symptomatic anemia, likely will be transfusion dependent Myelosuppression from chronic alcohol use likely contributing as well S/P bone marrow biopsy--pathology pending S/P 7 units PRBCs, 5 units platelets --Anemia workup reviewed --Flow cytometry studies pending --Appreciate hematology oncology input Plan to keep hemoglobin> 7 and platelet count > 10K Plan for close OP f/u and transfusions prn Continue PT OT, fall precautions:rehab May need endoscopic evaluation at some point GI consulted as well: no further recommendations, continue Protonix BID Fecal occult negative Trend CBC, transfuse prn Plan to discharge to rehab facility today Will need blood work at rehab facility to monitor is hemoglobin, platelet count Acute on Chronic heart failure with preserved EF NSTEMI iso severe anemia Valvular heart disease --ECHO: Mild concentric LVH, large apical, septal, anteroseptal wall motion abnormality with hypokinesis of the segments, EF 45 to 50%, left atrium is mildly dilated, mild valvular aortic stenosis, trace aortic, tricuspid regurgitation, right ventricular systolic pressure elevated at > 60 mmHg --Received IV Lasix Monitor I's and O's, daily weight Appreciate cardiology input Continue Toprol xl 12.5mg PO BID, Spironolactone 25mg Daily, and Losartan 25mg daily Continue lasix 20mg daily Needs repeat echo in 1 month Continue Lipitor Consider aspirin 81 mg daily when hemoglobin stable Monitor volume status Continue current medications Hypoxia Secondary to above Continue supplemental oxygen as needed Hypokalemia Replace and monitor Other chronic conditions Rheumatoid arthritis--on chronic steroids Hypertension--blood pressure low COPD--continue home inhalers Alcohol use disorder--currently no signs of withdrawal. Counseled to quit alcohol use Continue home medications as able DVT Px: SCDs for now Re: anemia, thrombocytopenia CODE STATUS Full code Disposition Rehab today Admission and Anticipated Discharge Date Admission Date: June 22, 2024 Subjective Patient is seen and examined at bedside No new complaints today Family at bedside No overt bleeding issues Denies any chest pain, dyspnea, nausea, vomiting, abdominal pain Plan to be discharged to rehab facility today Review of Systems 2 Review of Systems: All systems reviewed & are unremarkable except as noted in Subjective Physical Exam Physical Exam: Physical Exam: Vitals signs as noted above General Appearance:Obese, no apparent distress Head: normocephalic, Atraumatic Eyes: normal inspection, EOMI Neck: supple, Trachea midline Respiratory/Chest: Decreased breath sounds, CTA, No accessory muscle use Cardiovascular: S1, S2, + murmur Abdomen/GI:Soft, Non tender, Bowel sounds present Extremities/Musculoskeletal:normal inspection, no edema, + chronic venous stasis changes Neurologic/Psych:AAOX3, grossly no focal neurological deficits Skin: normal color, warm Results & Data Results & Data Vital Signs (Past 12 Hours) Vital Signs Temp Pulse Resp BP Pulse Ox O2 Del Method O2 Flow Rate 07/02/24 10:29 Nasal Cannula 1 07/02/24 07:24 36.6 C 61 16 102/54 L 93 Nasal Cannula 1 Laboratory Results Short CBC 07/01/24 07/02/24 Range/Units 20:01 06:55 WBC 3.10 L 2.94 L (4.8-10.8) K/ul Hgb 7.5 L 7.1 L (14.0-18.0) g/dl Hct 22.4 L 22.0 L (42.0-52.0) % Plt Count 33 L D 33 L (130-400) K/uL BMP 07/02/24 06:55 Sodium 141 Potassium 4.0 Chloride 103 Carbon Dioxide 32 BUN 19 Creatinine 0.86 Glucose 101 H Calcium 8.3 L (7) HTN (hypertension) Hypertension type: primary hypertension Qualified Code(s): I10 - Essential (primary) hypertension
--- NOTE | 2024-07-02 13:14 | Discharge Summary ---
Date of Service July 02, 2024 Admission HPI Per Admitting Provider This is a 79 y/o male with rheumatoid arthritis, chronic steroid use, COPD, HTN, HFpEF, and other history as outlined below who presents to the ED today with worsening shortness of breath for the last 2-3 weeks. Pt underwent cataract surgery earlier this month and has noted progressive dyspnea on exertion since the procedure. Initially dyspnea on with exertion but now present occasionally at rest. He has associated lightheadedness and at times, associated chest pain. He denies syncopal episodes although has had an occasional episode of near- syncope with these symptoms. He reports intermittent episodes of hematochezia for several months. These vary in severity and seem to resolve without intervention. He is unsure if they are getting worse. He had a positive Cologard six years ago but declined to have a colonoscopy in follow-up. His appetite is poor at baseline. No vomiting. Denies dysuria or hematuria. He has developed episodes of epistaxis over the last few days, which is new for him. He has also noted easy bruising. He denies any new medications or vaccines in the last three months. He has a remote history of blood transfusion when he was in the service years ago. Outpatient labs 09/10/23: Hgb 14.6, Hct 45.0, WBC 5.72, Platelets 163 03/12/24: Hgb 11.2 (L), Hct 34.7 (L), WBC 4.51, Platelets 57 (L) Admission Exam Per Admitting Provider General: awake, alert, NAD HEENT: no scleral icterus Heart: regular but tachycardic ~100 bpm Lungs: diminished at bases bilaterally but o/w clear Abdomen: soft, NT, +BS Extremities: right > left 2-3+ pitting edema, chronic skin changes Neurologic: Ox3, no confusion or dysarthria, moving all extremities Principal Diagnosis Myelodysplasia of the bone marrow Pancytopenia Acute on chronic heart failure with preserved EF Hypoxia Discharge Data Allergies Allergy/AdvReac Type Severity Reaction Status Date / Time Iodinated Contrast Media Allergy Intermediate Hives Verified 06/22/24 12:08 iodine Allergy Intermediate HIVES Verified 06/22/24 12:08 Consultations 06/22/24 12:03 ED Decision to Admit Stat 06/22/24 13:38 Consult Gastroenterology Routine Consult Hematology Routine 06/27/24 08:00 Consult Cardiology Routine Ordered Studies Laboratory Results WBC 2.94 K/ul (4.8-10.8) L 07/02/24 06:55 RBC 2.23 M/uL (4.70-6.10) L 07/02/24 06:55 Hgb 7.1 g/dl (14.0-18.0) L 07/02/24 06:55 Hct 22.0 % (42.0-52.0) L 07/02/24 06:55 MCV 98.7 fL (80.0-100.0) 07/02/24 06:55 MCH 31.8 pg (25.0-34.0) 07/02/24 06:55 MCHC 32.3 g/dL (32.0-36.0) 07/02/24 06:55 RDW Std Deviation 65.5 fL (36.4-46.3) H 07/02/24 06:55 RDW Coeff of Kellie 19.6 % (11.5-14.5) H 07/02/24 06:55 Plt Count 33 K/uL (130-400) L 07/02/24 06:55 MPV 11.2 fL (9.4-12.4) 07/02/24 06:55 Immature Gran % (Auto) 0.7 % 06/28/24 07:42 Neut % (Auto) 69.0 % 06/28/24 07:42 Lymph % (Auto) 19.9 % 06/28/24 07:42 Bullock % (Auto) 7.2 % 06/28/24 07:42 Eos % (Auto) 3.2 % 06/28/24 07:42 Baso % (Auto) 0.0 % 06/28/24 07:42 Reticulocyte % (Auto) 1.96 % (0.50-2.00) 06/22/24 12:41 Neut # (Auto) 1.91 K/uL (1.40-6.50) 06/28/24 07:42 Lymph # (Auto) 0.55 K/uL (1.20-3.40) L 06/28/24 07:42 Bullock # (Auto) 0.20 K/uL (0.11-0.59) 06/28/24 07:42 Eos # (Auto) 0.09 K/uL (0.00-0.50) 06/28/24 07:42 Baso # (Auto) 0.00 K/uL (0.00-0.20) 06/28/24 07:42 Reticulocyte # 0.020 10^6/uL (0.020-0.100) 06/22/24 12:41 Immature Gran # (Auto) 0.02 K/uL (0.01-0.20) 06/28/24 07:42 Platelet Estimate Signific. Decreased (Normal) L 06/22/24 10:46 Polychromasia 1+ 06/27/24 06:42 Anisocytosis Present 06/28/24 07:42 Macrocytosis Present 06/22/24 10:46 Tear Drop Cells 1+ 06/22/24 10:46 Peripher Smr Path Cons Cancelled 06/22/24 12:41 Haptoglobin 253 mg/dL (43-212) H 06/22/24 10:46 Sodium 141 mmol/L (136-145) 07/02/24 06:55 Potassium 4.0 mmol/L (3.5-5.1) 07/02/24 06:55 Chloride 103 mmol/L (98-107) 07/02/24 06:55 Carbon Dioxide 32 mmol/L (21-32) 07/02/24 06:55 Anion Gap 6 (3-11) 07/02/24 06:55 BUN 19 mg/dl (6-23) 07/02/24 06:55 Creatinine 0.86 mg/dl (0.6-1.4) 07/02/24 06:55 Est Cr Clr Drug Dosing 75.4 ml/min 07/02/24 06:55 eGFR 88.63 07/02/24 06:55 BUN/Creatinine Ratio 22.1 (10-20) H 07/02/24 06:55 Glucose 101 mg/dl (70-99(Fasting)) H 07/02/24 06:55 Calcium 8.3 mg/dl (8.6-10.3) L 07/02/24 06:55 Magnesium 2.3 mg/dl (1.7-2.4) 06/23/24 02:43 Iron 257 mcg/dl (35-175) H 06/22/24 12:32 Transferrin 247 mg/dl (200-360) 06/22/24 12:32 Ferritin 464.0 ng/ml (8-388) H 06/22/24 12:32 Total Bilirubin 0.5 mg/dl (0.2-1.0) 06/22/24 10:46 AST 16 U/L (13-39) 06/22/24 10:46 ALT 11 U/L (7-52) 06/22/24 10:46 Alkaline Phosphatase 77 U/L (34-104) 06/22/24 10:46 Lactate Dehydrogenase 177 U/L (86-244) 06/22/24 12:32 Troponin I High Sens 6001.1 pg/ml (0-20) H* D 06/23/24 02:43 B-Natriuretic Peptide 867 pg/ml (0-100) H 06/22/24 10:46 Total Protein 6.3 gm/dl (6.0-8.3) 06/22/24 10:46 Albumin 3.4 gm/dl (3.4-5.0) 06/22/24 10:46 Globulin 2.9 gm/dl (2.5-4.0) 06/22/24 10:46 Albumin/Globulin Ratio 1.2 (0.9-2) 06/22/24 10:46 Lipase 18 U/L (11-82) 06/22/24 10:46 Vitamin B12 1040 pg/ml (180-914) H 06/22/24 12:41 Folate > 22.30 ng/ml (>5.38) 06/22/24 12:41 Stool Occult Bld Scrn Negative (Negative) 06/27/24 13:45 Adenovirus (PCR) Not Detected (NotDetected) 06/22/24 10:46 B. pertussis DNA (PCR) Not Detected (NotDetected) 06/22/24 10:46 B.parapertussis DNA PCR Not Detected (NotDetected) 06/22/24 10:46 C. pneumoniae DNA (PCR) Not Detected (NotDetected) 06/22/24 10:46 Coronavirus OC43 (PCR) Not Detected (NotDetected) 06/22/24 10:46 Coronavirus HKU1 (PCR) Not Detected (NotDetected) 06/22/24 10:46 Coronavirus 229E (PCR) Not Detected (NotDetected) 06/22/24 10:46 SARS-CoV-2 (PCR) Not Detected (NotDetected) 06/22/24 10:46 Coronavirus NL63 (PCR) Not Detected (NotDetected) 06/22/24 10:46 Human Metapneumovir PCR Not Detected (NotDetected) 06/22/24 10:46 Influenza Type A (PCR) Not Detected (NotDetected) 06/22/24 10:46 Influenza Type B (PCR) Not Detected (NotDetected) 06/22/24 10:46 M. pneumoniae (PCR) Not Detected (NotDetected) 06/22/24 10:46 Parainfluenza 1 (PCR) Not Detected (NotDetected) 06/22/24 10:46 Parainfluenza 2 (PCR) Not Detected (NotDetected) 06/22/24 10:46 Parainfluenza 3 (PCR) Not Detected (NotDetected) 06/22/24 10:46 Parainfluenza 4 (PCR) Not Detected (NotDetected) 06/22/24 10:46 RSV (PCR) Not Detected (NotDetected) 06/22/24 10:46 Entero/Rhino (PCR) Not Detected (NotDetected) 06/22/24 10:46 BM Chromosome Analysis See Comment 06/23/24 Unknown Flow Cytometry Comment See Comment 06/23/24 Unknown Blood Type O Positive 07/01/24 09:13 Blood Type Recheck O Positive 06/22/24 12:41 Antibody Screen NEGATIVE 07/01/24 09:13 Direct Antiglob Test Negative (Negative) 06/22/24 11:34 KATHLEEN (IgG-AHG) Neg (Negative) 06/22/24 11:34 KATHLEEN, Polyspecific Neg (Negative) 06/22/24 11:34 KATLHEEN C3b, C3d 5 Min Neg (Negative) 06/22/24 11:34 Crossmatch See Detail 07/01/24 09:13 Impressions Chest X-Ray 06/22/24 10:35 XR chest 2V PA/lateral CLINICAL HISTORY: Shortness of breath. COMPARISON STUDY: Chest radiograph and chest CT May 20, 2017. FINDINGS: There is no pneumothorax. Small bilateral pleural effusions are present. There is moderate cardiomegaly. Mild interstitial thickening is present. There is no lobar consolidation. Severe osteoarthritis of the glenohumeral joint is incidentally noted. IMPRESSION: 1. Cardiomegaly with interstitial thickening suggestive of pulmonary edema. An infectious process could appear similar although is considered less likely. Radiographic follow-up is recommended. 2. Small bilateral pleural effusions. ACT 112: Negative or not required by law. Electronically signed by: Watson Chaudhari M.D. 06/22/2024 11:56 AM Abdomen/Pelvis CT 06/22/24 12:26 CT SCAN OF THE ABDOMEN AND PELVIS WITHOUT IV CONTRAST CLINICAL HISTORY: Acute anemia. Thrombocytopenia COMPARISON STUDY: No priors. TECHNIQUE: CT scan of the abdomen and pelvis is performed from the lung bases to the proximal femora. Images are reviewed in the axial, sagittal, and coronal planes. IV contrast was not administered for this examination. A dose lowering technique was utilized adhering to the principles of ALARA. The examination is degraded by motion artifact, as well as by streak artifact from the arms which could not be elevated above the abdomen. CT DOSE: 1394.82 mGy.cm FINDINGS: Lung bases: The heart is top normal in size and without pericardial effusion. The coronary arteries and aortic valve leaflets are densely calcified. There is diminished attenuation of the cardiac blood pool last compared to the myocardium suggesting anemia. Emphysematous change is noted. There are small pleural effusions with dependent consolidation. There is a tiny hiatal hernia. Liver: The unenhanced liver is normal in size, contour, and attenuation. There is no intrahepatic biliary ductal dilatation. Gallbladder: Unremarkable. Spleen: Normal in size and attenuation. Pancreas: Unremarkable. Adrenal glands: Unremarkable. Kidneys: The unenhanced kidneys demonstrate mild cortical atrophy and are without hydronephrosis. There are no renal calculi identified. A 2 cm cyst is noted on the left. Abdominal vasculature: The abdominal aorta is normal in course and caliber noting advanced atherosclerotic calcification. Bowel: There is mild colonic diverticulosis without CT evidence of acute diverticulitis. No bowel obstruction is seen mild to moderate fecal retention is noted throughout the colon. The appendix is well-visualized and normal. Peritoneum/retroperitoneum: No retroperitoneal hematoma is identified. There is no intraperitoneal free air or abdominal ascites. Lymphadenopathy: None. Pelvic viscera: The prostate gland is enlarged and heterogeneous. The bladder wall appears thickened/trabeculated indicating chronic outlet obstruction. Skeletal structures: The skeletal structures are osteopenic. No lytic or blastic lesions are seen. Moderate lumbosacral spondylosis is observed. There are chronic/healed left-sided rib fractures. IMPRESSION: 1. No acute infectious or inflammatory findings are identified in the abdomen or pelvis. 2. Emphysema. 3. Small pleural effusions with dependent consolidation. Correlate clinically for evidence of pneumonia/aspiration pneumonitis. 4. Mild colonic diverticulosis without CT evidence of acute diverticulitis. 5. Additional findings as above. ACT 112: Negative or not required by law. Electronically signed by: Jose Ramirez M.D. 06/22/2024 2:20 PM Bone Marrow Biopsy w/ CT 06/23/24 09:12 CT-GUIDED BONE MARROW BIOPSY CLINICAL HISTORY: Pancytopenia PROCEDURE: Procedure and risks were explained. Informed consent was obtained. A final timeout was completed. The patient was placed prone on the CT exam table. The left gluteal region was prepped and draped in sterile fashion. 1% lidocaine was utilized for skin anesthesia. The patient received 1 g Tylenol IV. Utilizing CT guidance, an 11-gauge bone biopsy needle was advanced into the left iliac bone. Multiple aspirates and one bone core was obtained and given to the lab. The needle was removed and Band-Aid applied. The patient tolerated the procedure well. Vital signs will be monitored on the floor. IMPRESSION: Bone marrow biopsy as above. Performed, dictated, and signed by Micheal Morel PA-C; to be co-signed by Dr. Jose Ramirez. Electronically signed by: Jose Ramirez M.D. 06/23/2024 3:59 PM Hospital Course (1) 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: (2) Symptomatic anemia: (3) Pancytopenia: (4) Myocardial infarction due to demand ischemia: (5) Acute on chronic systolic (congestive) heart failure: (6) Lower GI bleed: (7) HTN (hypertension): Plan Mr. Maloney is a 79 y/o male with rheumatoid arthritis, chronic steroid use, COPD, HTN, HFpEF, and other history as outlined below who was admitted for sob and found to be anemic with hemoglobin to 4.3. Patient is s/p 6 transfusions of PRBC and 2 platelets this admission. Bone marrow biopsy pending. Prior hospitalist spoke with Dr. Amaya who remarks that there is a likely MDS component, however results will likely take time as there is further evaluation for ?MGUS or other platelet dyscrasia. Pancytopenia, c/f myelodysplastic syndrome Symptomatic anemia, likely will be transfusion dependent Myelosuppression from chronic alcohol use likely contributing as well S/P bone marrow biopsy--pathology pending S/P 7 units PRBCs, 5 units platelets --Anemia workup reviewed --Flow cytometry studies pending --Appreciate hematology oncology input Plan to keep hemoglobin> 7 and platelet count > 10K Plan for close OP f/u and transfusions prn Continue PT OT, fall precautions:rehab May need endoscopic evaluation at some point GI consulted as well: no further recommendations, continue Protonix BID Fecal occult negative Trend CBC, transfuse prn Plan to discharge to rehab facility today Will need blood work at rehab facility to monitor is hemoglobin, platelet count Acute on Chronic heart failure with preserved EF NSTEMI iso severe anemia Valvular heart disease --ECHO: Mild concentric LVH, large apical, septal, anteroseptal wall motion abnormality with hypokinesis of the segments, EF 45 to 50%, left atrium is mildly dilated, mild valvular aortic stenosis, trace aortic, tricuspid regurgitation, right ventricular systolic pressure elevated at > 60 mmHg --Received IV Lasix Monitor I's and O's, daily weight Appreciate cardiology input Continue Toprol xl 12.5mg PO BID, Spironolactone 25mg Daily, and Losartan 25mg daily Continue lasix 20mg daily Needs repeat echo in 1 month Continue Lipitor Consider aspirin 81 mg daily when hemoglobin stable Monitor volume status Continue current medications Hypoxia Secondary to above Continue supplemental oxygen as needed Hypokalemia Replace and monitor Other chronic conditions Rheumatoid arthritis--on chronic steroids Hypertension--blood pressure low COPD--continue home inhalers Alcohol use disorder--currently no signs of withdrawal. Counseled to quit alcohol use Continue home medications as able DVT Px: SCDs for now Re: anemia, thrombocytopenia CODE STATUS Full code Disposition Rehab today Total Time Total Time Spent Total Time Spent (In Minutes): 47 minutes Discharge Plan Discharge Items Patient Disposition: Home - Home Health Services Reason For Visit: ACUTE ANEMIA, HF Discharge Diagnosis: Myelodysplasia of the bone marrow Pancytopenia Acute on chronic heart failure with preserved EF Hypoxia Activity: As commented below Activity Comment: Increase activity as tolerated Non-emergency contact: Primary Care Provider and Oncologist Call non-emergency contact if: you have any medication questions and your symptoms worsen Follow-up/Referrals: Corbin Salcedo MD [Primary Care Provider] - Alphonso Amaya MD [Physician] - Diet: Low Sodium (2gm) Fluids: 1800ml (7 cups) Addtl Attending Provider Instructions: Call 911 and go to the Emergency Room if: * You have tightness or pain in your chest that does not go away with rest or Nitroglycerin * You are very short of breath even with rest Call your doctor if any of the following symptoms or problems start or get worse: * Shortness of breath or difficulty breathing * Wake up at night short of breath * Chest pain * Cough * Swelling of your hands, fee, or legs * More fatigued or tired with your normal activity * Palpitations - sudden fast heart beats WEIGHT * Weigh yourself every morning after using the bathroom. * Use the same scale. * Wear the same amount of clothing. * Write your weight down on your chart. * Call your doctor if you gain more than 2-3 pounds in 1-2 days. MEDICATIONS * Use this discharge instruction sheet for instructions. * Take your medications at the time your doctor ordered. * Do not skip a dose of your medicines. * If you miss a dose of medicine, take as soon as possible, but DO NOT DOUBLE A DOSE. * Read your medicine information when you get home. * Know all of the side effects of your medicine. * Call your doctor's office if you have any side effects. * Be sure all of your doctors know what medicine and herbs you take (including cold, flu, and herbal medicine). * Pain Medicine: If you do not get relief from your pain, please call your doctor for help. Take the following with you to your follow-up doctor appointments: * Weight Chart * Medication List * List of questions Do not drink excessive alcohol, beer or wine. 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 -- Strongly advised to avoid alcohol use in the future. --Your blood pressure has been running low while you are hospitalized. Monitor your blood pressure regularly as advised. Discuss with your physician for further adjustment of medications as needed. --Your home diuretics may need to be readjusted based on your volume status. 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 Pending Studies at Discharge: Yes Studies:: Bone marrow biopsy pathology Stand-Alone Forms: My [facility] [address], Smoking Cessation Medications and DC Order Prescriptions: New atorvastatin 20 mg Tablet 20 mg PO QAM Qty: 30 0RF spironolactone 25 mg Tablet 25 mg PO QAM Qty: 30 0RF pantoprazole 40 mg Tablet,Delayed Release (Dr/Ec) 40 mg PO DAILY Qty: 30 0RF Continued Spiriva with HandiHaler 18 mcg capsule, w/inhalation device 1 cap inhalation BID Rx Instructions: puncture 1 cap using device; one dose = 2 inhalations diclofenac sodium [Voltaren Arthritis Pain] 1 % gel 1 g topical QID PRN (Reason: joint pain) Rx Instructions: apply to single elbow, wrist or hand; for hand includes palm/fingers/back of hand coenzyme Q10 10 mg capsule 10 mg PO DAILY triamcinolone acetonide 0.1 % ointment 1 applic topical DAILY PRN (Reason: Rash) albuterol sulfate 90 mcg/actuation HFA aerosol inhaler 2 puff inhalation Q6H PRN (Reason: Shortness Of Breath) ascorbic acid (vitamin C) 1,000 mg capsule 1 g PO DAILY calcium carbonate 600 mg calcium (1,500 mg) tablet 600 mg PO DAILY Rx Instructions: before breakfast cholecalciferol (vitamin D3) 50 mcg (2,000 unit) capsule 50 mcg PO DAILY cyanocobalamin (vitamin B-12) 1,000 mcg capsule 1,000 mcg PO DAILY fluticasone propion-salmeterol 250-50 mcg/dose blister with device 1 inh inhalation Q12H folic acid 1 mg tablet 1 mg PO QAM metoprolol succinate 25 mg tablet extended release 24 hr 12.5 mg PO BID multivitamin Tablet 1 tab PO DAILY potassium chloride 10 mEq capsule, extended release 10 meq PO BID prednisone 5 mg tablet 5 mg PO QAM vitamin E mixed 400 unit capsule 400 unit PO DAILY Tart Segovia 50-880-23-75-20 mg Capsule 1 cap PO DAILY turmeric 400 mg Capsule 400 mg PO DAILY acetaminophen [Tylenol Ex Str Rapid Release] 500 mg Tablet 500 mg PO Q6H PRN (Reason: PAIN/FEVER) Changed furosemide 20 mg tablet 20 mg PO DAILY Qty: 0 0RF Held furosemide 40 mg tablet 40 mg PO QDL Hold Instructions: Until further recommendations from your primary care physician/cold storage superintendent and your blood pressure improves Discontinued celecoxib [Celebrex] 200 mg capsule 200 mg PO BID chlorthalidone 25 mg tablet 25 mg PO QAM Discharge Orders: Discharge Order (Routine); Ordered 07/02/24 Ordered By: Rubin Crockett Admission Data Admit Date/Time: 06/22/24 12:34 Attending Provider: Rubin Crockett Admit Provider: Marielena Bautista Primary Care Provider: Corbin Salcedo Other Providers: Marielena Bautista; Roderick Zelaya I; Alphonso Amaya; [facility]; Jenni Galindo; Richard Burger; Terrence Koroma; Harjeet Castañeda; Kulwinder Roberson; Narciso Tim; Khushbu Manuel; Mary Jane Aiken; John Travis Ashley M.; Cooper Augustine; Eyad Medeiros; Dalila Garcia; Razia Duarte; Janett Berger; Lvi Alaniz; Phillip Peter; Gretchen Maharaj; Barbara Ballard
== END 2024-07-02 16:47 | disposition home health service (06) | DRG 811 ==
LOC: ED 10:24 → 4W 12:34 → SUATTDRO 12:34 → 4W 13:05 → 3W 06-24 16:22

== ENCOUNTER 2024-07-14 06:21 | Inpatient (IN) ==
[2024-07-14 07:13] LABS: Hematocrit (blood only) 23.8 % (42.0-52.0); Hemoglobin 7.6 g/dl (14.0-18.0); Mean Corpuscular Hemoglobin 30.5 pg (25.0-34.0); Mean Corpuscular Hgb Conc 31.9 g/dL (32.0-36.0); Mean Corpuscular Volume 95.6 fL (80.0-100.0); Mean Platelet Volume 11.8 fL (9.4-12.4); Platelet Count 9 K/uL (130-400); RDW Coefficient of Variation 17.4 % (11.5-14.5); RDW Standard Deviation 58.3 fL (36.4-46.3); Red Blood Count 2.49 M/uL (4.70-6.10); White Blood Count 2.46 K/ul (4.8-10.8)
[2024-07-14 07:19] LABS: BUN Creatinine Ratio 22.3 (10-20); Calcium 8.7 mg/dl (8.6-10.3); Creatinine Clr Calc Pharmacy 81.5 ml/min; Potassium 4.2 mmol/L (3.5-5.1)
[2024-07-14 07:22] LABS: Eosinophils # (auto) 0.07 K/uL (0.00-0.50); Eosinophils % (auto) 2.8 %; Immature Granulocytes # (auto) 0.01 K/uL (0.01-0.20); Immature Granulocytes % (auto) 0.4 %; Lymphocytes # (auto) 0.88 K/uL (1.20-3.40); Lymphocytes % (auto) 35.8 %; Monocytes # (auto) 0.18 K/uL (0.11-0.59); Monocytes % (auto) 7.3 %; Neutrophils # (auto) 1.32 K/uL (1.40-6.50); Neutrophils % (auto) 53.7 %; RBC Morphology Unremarkable
--- NOTE | 2024-07-14 07:32 | Emergency Department Note ---
Impression & Plan GIB (gastrointestinal bleeding), Anemia, Thrombocytopenia ED Provider Note NAME: OTTO STEWART III AGE: 79 SEX: M : 1945 ARRIVES VIA: Ambulance INFORMANT: Patient, ED PROVIDER(S): Caprice Sagastume MD CHIEF COMPLAINT: GIB HPI: This is a 79-year-old male presenting for GI bleed. Patient has history of pancytopenia, significant anemia requiring multiple transfusions. Patient had bleeding from his rectum in the past 3 to 4 days. He notes there was blood mixed in his stool. Today he notes that it was some small amounts of clot and blood dripping out of his rectum with standing. He notes no current pain with this. He reports he was here a few weeks ago for low blood levels. ROS: See above HPI for pertinent positives & negatives. A total of 10 systems reviewed and were otherwise negative. PAST MEDICAL HISTORY: See Below PAST SURGICAL HISTORY: See Below FAMILY HISTORY: See Below SOCIAL HISTORY: See Below HOME MEDICATIONS: See Below ALLERGIES: See Below VITALS: See Below PHYSICAL EXAMINATION: General: resting comfortably in no acute distress Head: Normocephalic and atraumatic Eyes: Normal inspection, extraocular muscles intact Ear, nose, throat: Normal external exam Neck: Normal range of motion Respiratory: lungs clear to auscultation bilaterally Cardiovascular: Regular rate/rhythm, no murmur GI: soft, nontender, no guarding or rebound : Blood clot in rectal vault, slight excoriation to the buttocks Extremities: nontender, moves all extremities Neuro: The patient awake and alert, appropriately conversive, no focal deficits, symmetric faces Skin: Warm, dry, and intact MEDICAL DECISION MAKING: This is a 79-year-old male presenting for GI bleed. Patient has reassuring vital signs at this time we will continue to trend his blood pressure. Will get type and screen in case blood products are required. -Hemoglobin is 7.6, with active GI bleed, will give 1 unit at this time -Otherwise his platelet count is currently 9. This is concerning as he is still actively bleeding. Will get plate transfusion as well. -Patient currently otherwise hemodynamically stable. -Due to his current anemia, pancytopenia, MDS, will require admission due to active GI bleed and GI management. Discussed care with managing hospitalist service, under Dr. Ma Differential diagnosis: Lower GI bleed, hemorrhoids, AVM, thrombocytopenia, anemia ER treatment provided: See below Diagnostics interpreted by me: ECG: None Cardiac Monitoring: An order was placed for continuous cardiac monitoring. The monitor shows a rate of 63 with sinus rhythm. Laboratory studies: As stated above and show below. Imaging studies: See below. Critical Care Note: I have personally spent 35 minutes of critical care time in the direct management of this patient. This includes bedside care, interpretation of diagnostic studies, and testing, discussion with consultants, patient, and family members, and other required patient management activities. This 35 minutes is in excess of all separately billable procedures. 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 Symptomatic anemia (Acute) Hypokalemia Elevated troponin (Acute) Thrombocytopenia (Acute) Hematochezia Anemia Prediabetes Heart failure, diastolic, due to HTN Chronic venous insufficiency Rheumatoid arthritis (Chronic) Osteoporosis (Chronic) Migraine variant (Chronic) HTN (hypertension) (Chronic) COPD (chronic obstructive pulmonary disease) (Chronic) Medical History 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 Venous ulcer Lymphedema Chronic venous insufficiency 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 Hypertension History of COVID-2021--mild symptoms, no symptoms now Osteoporosis Torn rotator cuff Edema COPD, moderate uses daily inhalers as prescribed--pt states he rarely uses rescue inhaler Rheumatoid arthritis on prednisone Surgical History S/P left cataract extraction History of surgical fusion joint left wrist--hardware in place History of shoulder surgery left "calcium deposit removed" History of tooth extraction full upper/partial lower History of repair of right rotator cuff History of carpal tunnel release of both wrists History of bronchoscopy 07/2017 @ [facility] S/P tonsillectomy Family History Other Cancer Heart disease No family history of adverse response to anesthesia Social History Smoking Status: Former smoker Tobacco Type: Cigarettes Second Hand Exposure: Yes; Do You Dip or Chew Tobacco: No; Hx Alcohol Use: Yes Alcohol type: beer Hx Substance Use: No Preferred Language: Zimbabwean Communication Ability: Effective Visual Impairment: No Limitations Hearing 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: Normal 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 Health Insurance Required: No Beliefs That Will Affect Care: None marital status: Single Current Living Situation: Alone Feels Safe at Home: Yes Diet: ideal protein and low salt Diet Comment: educated to increase protein to assist with wound healing caffeine: No Assistive Devices: None Allergies Allergies Allergy/AdvReac Type Severity Reaction Status Date / Time Iodinated Contrast Media Allergy Intermediate Hives Verified 07/10/24 11:34 iodine Allergy Intermediate HIVES Verified 07/10/24 11:34 Home Meds Home Medications Medication Instructions Recorded Confirmed coenzyme Q10 10 mg capsule 10 mg PO DAILY 06/14/22 07/14/24 diclofenac sodium 1 % topical gel 1 g topical QID PRN joint pain 06/14/22 07/14/24 (Voltaren Arthritis Pain) tiotropium bromide 18 mcg capsule 1 cap inhalation BID 06/14/22 07/14/24 with inhalation device (Spiriva with HandiHaler) triamcinolone acetonide 0.1 % 1 applic topical DAILY PRN Rash 06/18/22 07/14/24 topical ointment albuterol sulfate 90 mcg/actuation 2 puff inhalation Q6H PRN 06/27/22 07/14/24 aerosol inhaler Shortness Of Breath ascorbic acid (vitamin C) 1,000 mg 1 g PO DAILY 06/27/22 07/14/24 capsule calcium carbonate 600 mg PO DAILY 06/27/22 07/14/24 cholecalciferol (vitamin D3) 50 50 mcg PO DAILY 06/27/22 07/14/24 mcg (2,000 unit) capsule cyanocobalamin (vitamin B-12) 1,000 mcg PO DAILY 06/27/22 07/14/24 1,000 mcg capsule fluticasone 250 mcg-salmeterol 50 1 inh inhalation Q12H 06/27/22 07/14/24 mcg/dose blistr powdr for inhalation folic acid 1 mg tablet 1 mg PO QAM 06/27/22 07/14/24 furosemide 40 mg tablet 40 mg PO QDL 06/27/22 07/14/24 metoprolol succinate 25 mg 12.5 mg PO BID 06/27/22 07/14/24 tablet,extended release 24 hr multivitamin 1 tab PO DAILY 06/27/22 07/14/24 potassium chloride 10 mEq 10 meq PO BID 06/27/22 07/14/24 capsule,extended release prednisone 5 mg tablet 5 mg PO QAM 06/27/22 07/14/24 vitamin E mixed 400 unit capsule 400 unit PO DAILY 06/27/22 07/14/24 turmeric 400 mg capsule 400 mg PO DAILY 05/21/24 07/14/24 vit C 30 mg-s.segovia 250 mg-celery 1 cap PO DAILY 05/21/24 07/14/24 seed 75 mg-grape seed extrt capsule (Tart Segovia) acetaminophen 500 mg tablet 500 mg PO Q6H PRN PAIN/FEVER 06/22/24 07/14/24 colchicine 0.6 mg tablet 0.6 mg PO UD 07/14/24 07/14/24 ondansetron HCl 8 mg tablet 8 mg PO DIRECTED PRN n/v 07/14/24 07/14/24 Previous Rx's Medication Instructions Recorded atorvastatin 20 mg tablet 20 mg PO QAM #30 tabs 07/02/24 furosemide 20 mg tablet 20 mg PO DAILY #0 tabs 07/02/24 pantoprazole 40 mg tablet,delayed 40 mg PO DAILY #30 tabs 07/02/24 release spironolactone 25 mg tablet 25 mg PO QAM #30 tabs 07/02/24 Results & Data (ED) Vital Signs Vital Signs - 24 hr 07/14/24 06:12 07/14/24 06:32 07/14/24 08:29 Temperature 36.6 C 36.7 C Temperature Source Oral Oral Pulse Rate 70 67 64 Pulse Rhythm Regular Regular Pulse Strength Normal Respiratory Rate 17 18 Respiratory Effort / Characteristics Non-Labored Spontaneous Respiratory Depth Normal Respiratory Pattern Regular Blood Pressure 122/53 L 136/63 Blood Pressure Mean 76 87 Blood Pressure Position Sitting Semi-fowlers Pulse Oximetry 95 92 Oxygen Delivery Method Room Air Sepsis Recent Fever Within 48 Hours No Sepsis New/Unexplained Change in Mental Status N/A Sepsis Action Taken by Nursing No Action Required 07/14/24 08:47 Temperature 36.7 C Temperature Source Oral Pulse Rate 60 Pulse Rhythm Pulse Strength Respiratory Rate 20 Respiratory Effort / Characteristics Respiratory Depth Respiratory Pattern Blood Pressure 131/50 L Blood Pressure Mean 77 Blood Pressure Position Semi-fowlers Pulse Oximetry 97 Oxygen Delivery Method Sepsis Recent Fever Within 48 Hours Sepsis New/Unexplained Change in Mental Status Sepsis Action Taken by Nursing Laboratory Data 07/14/24 06:42 07/14/24 06:42 Lab Results 07/14/24 07/14/24 Range/Units 06:42 06:48 WBC 2.46 L (4.8-10.8) K/ul RBC 2.49 L (4.70-6.10) M/uL Hgb 7.6 L (14.0-18.0) g/dl Hct 23.8 L (42.0-52.0) % MCV 95.6 (80.0-100.0) fL MCH 30.5 (25.0-34.0) pg MCHC 31.9 L (32.0-36.0) g/dL RDW Std Deviation 58.3 H (36.4-46.3) fL RDW Coeff of Kellie 17.4 H (11.5-14.5) % Plt Count 9 L* (130-400) K/uL MPV 11.8 (9.4-12.4) fL Immature Gran % (Auto) 0.4 % Neut % (Auto) 53.7 % Lymph % (Auto) 35.8 % Sherman % (Auto) 7.3 % Eos % (Auto) 2.8 % Baso % (Auto) 0.0 % Neut # (Auto) 1.32 L (1.40-6.50) K/uL Lymph # (Auto) 0.88 L (1.20-3.40) K/uL Sherman # (Auto) 0.18 (0.11-0.59) K/uL Eos # (Auto) 0.07 (0.00-0.50) K/uL Baso # (Auto) 0.00 (0.00-0.20) K/uL Immature Gran # (Auto) 0.01 (0.01-0.20) K/uL RBC Morphology Unremarkable Sodium 141 (136-145) mmol/L Potassium 4.2 (3.5-5.1) mmol/L Chloride 105 (98-107) mmol/L Carbon Dioxide 30 (21-32) mmol/L Anion Gap 6 (3-11) BUN 21 (6-23) mg/dl Creatinine 0.94 (0.6-1.4) mg/dl Est Cr Clr Drug Dosing 81.5 ml/min eGFR 82.98 BUN/Creatinine Ratio 22.3 H (10-20) Glucose 106 H (70-99(Fasting)) mg/dl Calcium 8.7 (8.6-10.3) mg/dl Blood Type O Positive Antibody Screen NEGATIVE Crossmatch See Detail Administered Medications Colchicine (Colchicine 0.6 Mg Tab) 0.6 mg PO DAILY CURTIS Stop: 08/13/24 09:15 Last Admin: 07/14/24 10:12 Dose: 0.6 mg Documented By: ANT Cyanocobalamin (Cyanocobalamin (B-12) 500 Mcg Tablet) 1,000 mcg PO DAILY CURTIS Stop: 08/13/24 08:59 Last Admin: 07/14/24 10:12 Dose: 1,000 mcg Documented By: ANT Folic Acid (Folic Acid 1 Mg Tab) 1 mg PO QAM CURTIS Stop: 08/13/24 09:15 Last Admin: 07/14/24 10:12 Dose: 1 mg Documented By: ANT Furosemide (Furosemide 20 Mg Tab) 20 mg PO DAILY CURTIS Stop: 08/13/24 09:15 Last Admin: 07/14/24 10:11 Dose: 20 mg Documented By: ANT Pantoprazole Sodium 40 mg/ (Dextrose) 100 mls @ 20 mls/hr IV Q5H CURTIS Stop: 08/13/24 09:29 Last Admin: 07/14/24 10:12 Dose: 8 mg/hr, 20 mls/hr Documented By: ANT Metoprolol Succinate (Metoprolol Succ 25mg Ext Rel Tab) 12.5 mg PO BID CURTIS Stop: 08/13/24 09:15 Last Admin: 07/14/24 10:11 Dose: 12.5 mg Documented By: ANT Multivitamins (Multivitamin Tab) 1 tab PO DAILY CURTIS Stop: 08/13/24 08:59 Last Admin: 07/14/24 10:12 Dose: 1 tab Documented By: ANT Vitamin D (Cholecalciferol 25 Mcg (1000 Units) Tab) 50 mcg PO DAILY CURTIS Stop: 08/13/24 08:59 Last Admin: 07/14/24 10:12 Dose: 50 mcg Documented By: ANT Discharge Plan Visit Data Chief Complaint: Rectal Bleed Stated Complaint: RECTAL BLEED ED Provider: Caprice Sagastume Discharge Problem: GIB (gastrointestinal bleeding), Anemia, Thrombocytopenia Patient Disposition: Admitted As Inpatient Discharge Instructions Interventions: ED Discharge Assessment Last Done: 07/14/24 09:16
[2024-07-14] MEDS ORDERED: SODIUM CHLORIDE 0.9% 50 ML IV PRN ×5 (07:33→19:38)
[2024-07-14] MEDS ORDERED: SODIUM CHLORIDE 0.9% 100 ML IV PRN ×5 (07:33→19:38)
[2024-07-14] MEDS ORDERED: ACETAMINOPHEN 500 MG TAB PO PRN (09:16)
[2024-07-14] MEDS ORDERED: ALBUTEROL HFA 8 GM INHALER INH PRN (09:16)
--- NOTE | 2024-07-14 09:59 | Gastrointestinal Consultation ---
Date of Consultation July 14, 2024 Assessment & Plan (1) Anemia: Recent history of bone marrow biopsy suggestive of Myelodysplastic Syndrome for which he is following with hematology. History of positive cologuard study that he had previously refused endoscopic intervention for. GI has been consulted due to concern for anemia & GI bleed. Unfortunately, patient is not a current candidate for endoscopic evaluation due to his thromboyctopenia. Supervising Physician Co-Signing Physician Notes I saw and examined this patient with our nurse practitioner and agree with her assessment and plan. Definite bright red blood per rectum on digital rectal exam and perianal area. No signs of external hemorrhoids or anal fissures. Could possibly be due to internal hemorrhoids less likely neoplasm or proctitis. However did have a positive Cologuard test many years ago. Could consider doing a diagnostic sigmoidoscopy if rectal bleeding persists or if there is further concern about the etiology of his rectal bleeding. Unless his platelet count could be treated to a safer level we are limited in doing a colonoscopy at this time. Await hematology input. History of Present Illness Reason for Consultation: Rectal bleed Attending Physician: Marielena Bautista MD History of Present Illness Patient is a 79 yo male with PMH of rheumatoid arthritis, COPD, HTN, HFpEF who presents to the hospital with worsening shortness of breath over the past few m onths. He was recently hospitalized and noted to have pancytopenia. He underwent a bone marrow biopsy that indicated a myelodysplastic syndrome. He is following with hematology. GI was involved during his last admission due to concerns for possible GI bleeding. He notes intermittent BRBPR. No rectal pain. He notes some resolution with Preparation H but then symptoms returned. Patient has a history of a positive Cologuard study for which he had declined endoscopic evaluation in the past. GI was unable to pursue endoscopic evaluation for this patient due to his significant pancytopenia during the last admission. He notes poor appetite. He denies n/v. No changes in his bowel habits. He uses Celebrex daily. No hematochezia or melena. He notes regular nosebleeds. He is notably pancytopenic. H/H is currently 7.5/23.8. Platelets are lower than previous admission at 9,000. Allergies Allergy/AdvReac Type Severity Reaction Status Date / Time Iodinated Contrast Media Allergy Intermediate Hives Verified 07/10/24 11:34 iodine Allergy Intermediate HIVES Verified 07/10/24 11:34 Home Medications Medication Instructions Recorded Confirmed Type coenzyme Q10 10 mg capsule 10 mg PO DAILY 06/14/22 07/14/24 History diclofenac sodium 1 % topical gel 1 g topical QID PRN joint pain 06/14/22 07/14/24 History (Voltaren Arthritis Pain) tiotropium bromide 18 mcg capsule 1 cap inhalation BID 06/14/22 07/14/24 History with inhalation device (Spiriva with HandiHaler) triamcinolone acetonide 0.1 % 1 applic topical DAILY PRN Rash 06/18/22 07/14/24 History topical ointment albuterol sulfate 90 mcg/actuation 2 puff inhalation Q6H PRN 06/27/22 07/14/24 History aerosol inhaler Shortness Of Breath ascorbic acid (vitamin C) 1,000 mg 1 g PO DAILY 06/27/22 07/14/24 History capsule calcium carbonate 600 mg PO DAILY 06/27/22 07/14/24 History cholecalciferol (vitamin D3) 50 50 mcg PO DAILY 06/27/22 07/14/24 History mcg (2,000 unit) capsule cyanocobalamin (vitamin B-12) 1,000 mcg PO DAILY 06/27/22 07/14/24 History 1,000 mcg capsule fluticasone 250 mcg-salmeterol 50 1 inh inhalation Q12H 06/27/22 07/14/24 History mcg/dose blistr powdr for inhalation folic acid 1 mg tablet 1 mg PO QAM 06/27/22 07/14/24 History furosemide 40 mg tablet 40 mg PO QDL 06/27/22 07/14/24 History metoprolol succinate 25 mg 12.5 mg PO BID 06/27/22 07/14/24 History tablet,extended release 24 hr multivitamin 1 tab PO DAILY 06/27/22 07/14/24 History potassium chloride 10 mEq 10 meq PO BID 06/27/22 07/14/24 History capsule,extended release prednisone 5 mg tablet 5 mg PO QAM 06/27/22 07/14/24 History vitamin E mixed 400 unit capsule 400 unit PO DAILY 06/27/22 07/14/24 History turmeric 400 mg capsule 400 mg PO DAILY 05/21/24 07/14/24 History vit C 30 mg-s.segovia 250 mg-celery 1 cap PO DAILY 05/21/24 07/14/24 History seed 75 mg-grape seed extrt capsule (Tart Segovia) acetaminophen 500 mg tablet 500 mg PO Q6H PRN PAIN/FEVER 06/22/24 07/14/24 History atorvastatin 20 mg tablet 20 mg PO QAM #30 tabs 07/02/24 07/14/24 Rx furosemide 20 mg tablet 20 mg PO DAILY #0 tabs 07/02/24 07/14/24 Rx pantoprazole 40 mg tablet,delayed 40 mg PO DAILY #30 tabs 07/02/24 07/14/24 Rx release spironolactone 25 mg tablet 25 mg PO QAM #30 tabs 07/02/24 07/14/24 Rx colchicine 0.6 mg tablet 0.6 mg PO UD 07/14/24 07/14/24 History ondansetron HCl 8 mg tablet 8 mg PO DIRECTED PRN n/v 07/14/24 07/14/24 History Patient History Medical History 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 Venous ulcer Lymphedema Chronic venous insufficiency 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 for RA Hypertension History of COVID-2021--mild symptoms, no symptoms now Osteoporosis Torn rotator cuff Edema COPD, moderate uses daily inhalers as prescribed--pt states he rarely uses rescue inhaler Rheumatoid arthritis on prednisone Surgical History S/P left cataract extraction History of surgical fusion joint left wrist--hardware in place History of shoulder surgery left "calcium deposit removed" History of tooth extraction full upper/partial lower History of repair of right rotator cuff History of carpal tunnel release of both wrists History of bronchoscopy 07/2017 @ [facility] S/P tonsillectomy Family History Other Cancer Heart disease No family history of adverse response to anesthesia Social History Smoking Status: Former smoker Tobacco Type: Cigarettes Second Hand Exposure: Yes; Do You Dip or Chew Tobacco: No; Hx Alcohol Use: Yes Alcohol type: beer Hx Substance Use: No Preferred Language: Montenegrin Communication Ability: Effective Visual Impairment: No Limitations Hearing Ability: Normal Computing Consultant Required: No Beliefs That Will Affect Care: None marital status: Single Current Living Situation: Alone Feels Safe at Home: Yes Diet: ideal protein and low salt Diet Comment: educated to increase protein to assist with wound healing caffeine: No Assistive Devices: None Review of Systems Constitutional: no fever and no chills Respiratory: + dyspnea on exertion Gastrointestinal: + blood in stools; no abdominal pain, no heartburn, no nausea, no vomiting, no coffee ground emesis, no hematemesis, no change in bowel habits, no constipation, no diarrhea/loose stools and no melena Psychiatric: no problem reported Hematologic / Lymphatic: no unexplained weight loss Physical Exam Constitutional: well developed Respiratory: normal respiratory effort Gastrointestinal (Abdomen): normal bowel sounds, soft, nontender, no hepatosplenomegaly Psychiatric: Orientation: alert and oriented x 3 Results & Data Vital Signs (Past 12 Hours) Vital Signs Temp Pulse Pulse Resp BP BP Pulse Ox 07/14/24 09:32 36.2 C L 66 12 120/49 L 98 07/14/24 09:31 07/14/24 09:31 36.4 C L 68 12 120/49 L 96 07/14/24 09:22 36.4 C L 72 20 118/58 L 96 07/14/24 09:02 36.5 C 64 18 131/61 94 07/14/24 08:47 36.7 C 60 20 131/50 L 97 07/14/24 08:29 36.7 C 64 18 136/63 92 07/14/24 06:32 67 07/14/24 06:12 36.6 C 70 17 122/53 L 95 Pulse Ox O2 Del Method O2 Del Method 07/14/24 09:32 07/14/24 09:31 96 Room Air 07/14/24 09:31 Room Air 07/14/24 09:22 Room Air 07/14/24 09:02 07/14/24 08:47 07/14/24 08:29 07/14/24 06:32 07/14/24 06:12 Room Air PG Care Time/CCT Total # of Minutes Spent Total Time Spent with Patient: Total time spent is greater than 50% in coordination of care (as documented) at patient's floor/unit and/or counseling patient: Coding Level of Care Code 26521 INT INP/OBS CARE MIN Diagnoses Anemia, unspecified type D64.9 Anemia type: unspecified type (1) Anemia Anemia type: unspecified type Qualified Code(s): D64.9 - Anemia, unspecified
--- OUTSIDE RECORDS SUMMARY | 2024-07-14 10:00 | External Medical Summary ---
Author Name Unknown Address Unknown Organization [id number]:[facility] [place] [address] Laboratory Report Ordering Provider Test Date Status ABRAN ISIDRO 07/10/2024 06:07:47 Final Observation Date Value Abnormality Reference (Units ) Status BUN 07/10/2024 06:07:47 19 6-20 (mg/dL) Final Creatinine 07/10/2024 06:07:47 0.8 0.6-1.2 (mg/dL) Final Glomerular filtration rate/1.73 sq M.predicted [Volume Rate/Area] in Serum, Plasma or Blood by Creatinine-based formula (CKD-EPI) 07/10/2024 06:07:47 89 >=60 (mL/min) Final eGFR is calculated based on the CKD-EPI 2020 equation. Sodium 07/10/2024 06:07:47 139 135-146 (m mol/L) Final Potassium 07/10/2024 06:07:47 4.3 3.5-5.1 (m mol/L) Final Cl 07/10/2024 06:07:47 103 98-107 (mm ol/L) Final CO2 07/10/2024 06:07:47 28 22-32 (mmo l/L) Final Anion gap 07/10/2024 06:07:47 8 7-15 (mmol /L) Final Glucose 07/10/2024 06:07:47 100 70-120 (mg /dL) Final Calcium 07/10/2024 06:07:47 8.2 Below low normal 8.4 -10.2 (mg/dL) Final Performing Location [facility] [place] [address]
--- OUTSIDE RECORDS SUMMARY | 2024-07-14 10:00 | External Medical Summary ---
Author Name Unknown Address Unknown Organization [id number]:[facility] [place] - [address] [place] [address] Laboratory Report Ordering Provider Test Date Status BUZZLEXUSMAYELA 07/08/2024 06:15:04 Final If patient had blood drawn t his a.m. can use this specimen for his uric acid level. Observation Date Value Abnormality Reference (Units ) Status Uric Acid 07/08/2024 06:15:04 5.0 3.4-7.0 (m g/dL) Final Performing Location [facility] [place] - [address] [place] [address]
--- OUTSIDE RECORDS SUMMARY | 2024-07-14 10:00 | External Medical Summary ---
Author Name Unknown Address Unknown Organization K09:[facility] [place] [address] Laboratory Report Ordering Provider Test Date Status ABRAN ISIDRO 07/10/2024 06:07:47 Final Observation Date Value Abnormality Reference (Units ) Status WBC, Total 07/10/2024 06:07:47 2.50 Below low normal 4.00-10.80 (K/uL) Final RBC 07/10/2024 06:07:47 2.23 4.50-5.25 (M/uL) Final Hemoglobin 07/10/2024 06:07:47 7.0 Below low normal 14.0-16.8 (g/dL) Final HCT 07/10/2024 06:07:47 22.2 Below low normal 40.0-48.4 (%) Final MCV 07/10/2024 06:07:47 99.6 82.0-99.5 (fL) Final MCH 07/10/2024 06:07:47 31.4 27.0-34.0 (pg) Final MCHC 07/10/2024 06:07:47 31.5 32.0-36.0 (g/dL) Final RDW 07/10/2024 06:07:47 18.7 11.5-15.5 (%) Final Platelets 07/10/2024 06:07:47 18 Below lower panic limits 140-400 (K/uL) Final MPV 07/10/2024 06:07:47 10.5 6.6-11.1 (fL) Final Performing Location [facility] [place] [place] [address]
--- OUTSIDE RECORDS SUMMARY | 2024-07-14 10:00 | External Medical Summary ---
Author Name Unknown Address Unknown Organization [id number]:[facility] [place] [address] Laboratory Report Ordering Provider Test Date Status CATHY SULLIVAN 07/09/2024 06:59:05 Final Observation Date Value Abnormality Reference (Units ) Status WBC, Total 07/09/2024 06:59:05 2.46 Below low normal 4. 00-10.80 (K/uL) Final RBC 07/09/2024 06:59:05 2.26 4.50-5.25 (M/uL) Final Hemoglobin 07/09/2024 06:59:05 7.2 Below low normal 14 .0-16.8 (g/dL) Final HCT 07/09/2024 06:59:05 22.7 Below low normal 40. 0-48.4 (%) Final MCV 07/09/2024 06:59:05 100.4 82.0-99.5 (fL) Final MCH 07/09/2024 06:59:05 31.9 27.0-34.0 (pg) Final MCHC 07/09/2024 06:59:05 31.7 32.0-36.0 (g/dL) Final RDW 07/09/2024 06:59:05 19.1 11.5-15.5 (%) Final Platelets 07/09/2024 06:59:05 26 Below low normal 140 -400 (K/uL) Final MPV 07/09/2024 06:59:05 11.1 6.6-11.1 ( fL) Final Performing Location [facility] [place] [address]
--- OUTSIDE RECORDS SUMMARY | 2024-07-14 10:00 | External Medical Summary ---
Author Name Unknown Address Unknown Organization K09:[facility] [id number] Laboratory Report Ordering Provider Test Date Status HY,DEPAMPHILIS 07/13/2024 05:58:18 Final Observation Date Value Abnormality Reference (Units ) Status WBC, Total 07/13/2024 05:58:18 2.33 Below low normal 4.00-10.80 (K/uL) Final RBC 07/13/2024 05:58:18 2.46 4.50-5.25 (M/uL) Final Hemoglobin 07/13/2024 05:58:18 7.7 Below low normal 14.0-16.8 (g/dL) Final HCT 07/13/2024 05:58:18 24.4 Below low normal 40.0-48.4 (%) Final MCV 07/13/2024 05:58:18 99.2 82.0-99.5 (fL) Final MCH 07/13/2024 05:58:18 31.3 27.0-34.0 (pg) Final MCHC 07/13/2024 05:58:18 31.6 32.0-36.0 (g/dL) Final RDW 07/13/2024 05:58:18 17.8 11.5-15.5 (%) Final Platelets 07/13/2024 05:58:18 13 Below lower panic limits 140-400 (K/uL) Final MPV 07/13/2024 05:58:18 11.5 6.6-11.1 (fL) Final Performing Location [facility] [id number]
[2024-07-14] MEDS: FUROSEMIDE 20 MG TAB PO SCH (10:11)
[2024-07-14] MEDS: METOPROLOL SUCC 25MG EXT REL TAB PO SCH (10:11)
[2024-07-14] MEDS: CYANOCOBALAMIN (B-12) 500 MCG TABLET PO SCH (10:12)
[2024-07-14] MEDS: CHOLECALCIFEROL 25 MCG (1000 UNITS) TAB PO SCH (10:12)
[2024-07-14] MEDS: FOLIC ACID 1 MG TAB PO SCH (10:12)
[2024-07-14] MEDS: COLCHICINE 0.6 MG TAB PO SCH (10:12)
[2024-07-14] MEDS: MULTIVITAMIN TAB PO SCH (10:12)
[2024-07-14] MEDS: PANTOprazole 40 MG in DEXTROSE 5% MINI-B 100 ML IV SCH (10:12)
--- NOTE | 2024-07-14 10:22 | History & Physical Report ---
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 hemodynamically stable, hold off on IV fluids with history of CHF for now Acute on chronic diastolic CHF Hx HTN/recent NSTEMI -Continue metoprolol with hold parameters, hold Aldactone for now, continue Lasix There was consideration of starting aspirin last admission, likely not a candidate with MDS Plan for repeat echo the end of July 2024 Hx RA: On 5 mg prednisone chronically, currently on hold, may need to consider discontinuing indefinitely Hx COPD: Not in acute exacerbation, continue home inhalers A total of a total of 60 minutes was spent on chart review, reviewing diagnostic data, facilitation of plan of care, discussion with consultants DNR/DNI VTE prophylaxis: SCDs, avoid AC with rectal bleeding Admission and Anticipated Discharge Date Admission Date: July 14, 2024 History of Present Illness Chief Complaint: Rectal bleeding Primary Care Provider: Corbin Salcedo MD The patient is a 79-year-old male with a past medical history of RA, chronic steroid use, COPD, HTN, newly diagnosed MDS, NH, acute on chronic systolic CHF, alcohol use disorder who presents to the ED on 07/14/2024 from [facility] with concerns of bright red blood and clots in his stool x 2 days. The patient was recently hospitalized here last month, see below. Patient reports he has been having intermittent bleeding in his stool. He has been following up with heme-onc and there were plans to start him on outpatient transfusions for MDS next Saturday. He does report feeling weak but otherwise denies any shortness of breath/chest pain/fever/chills. Denies any nausea/vomiting/diarrhea. Does not have any abdominal pain on exam. The patient was recently hospitalized from 06/22/2024 to 07/02/2024 with worseni ng shortness of breath, found to be pancytopenic requiring 6 transfusions of PRBC and 2 platelets that admission. Had a bone marrow biopsy at this time that was suspicious for MDS. Heme/unk was consulted and following. GI was consulted at that time and recommended continuing Protonix twice daily. He was also diagnosed with a NSTEMI at that time in setting of severe anemia and started on Toprol as well as spironolactone and losartan for CHF. Patient will need a repeat echo around 08/01/2024. On arrival to the ED, labs are remarkable for WBC 2.4, RBC 2.4, hemoglobin 7.6, platelet 9, The patient was ordered 1 unit PRBC and 1 unit platelets in the ED, GI was consulted and the patient be admitted for further management. Allergies Allergy/AdvReac Type Severity Reaction Status Date / Time Iodinated Contrast Media Allergy Intermediate Hives Verified 07/10/24 11:34 iodine Allergy Intermediate HIVES Verified 07/10/24 11:34 Home Medications Medication Instructions Recorded Confirmed Type coenzyme Q10 10 mg capsule 10 mg PO DAILY 06/14/22 07/14/24 History diclofenac sodium 1 % topical gel 1 g topical QID PRN joint pain 06/14/22 07/14/24 History (Voltaren Arthritis Pain) tiotropium bromide 18 mcg capsule 1 cap inhalation BID 06/14/22 07/14/24 History with inhalation device (Spiriva with HandiHaler) triamcinolone acetonide 0.1 % 1 applic topical DAILY PRN Rash 06/18/22 07/14/24 History topical ointment albuterol sulfate 90 mcg/actuation 2 puff inhalation Q6H PRN 06/27/22 07/14/24 History aerosol inhaler Shortness Of Breath ascorbic acid (vitamin C) 1,000 mg 1 g PO DAILY 06/27/22 07/14/24 History capsule calcium carbonate 600 mg PO DAILY 06/27/22 07/14/24 History cholecalciferol (vitamin D3) 50 50 mcg PO DAILY 06/27/22 07/14/24 History mcg (2,000 unit) capsule cyanocobalamin (vitamin B-12) 1,000 mcg PO DAILY 06/27/22 07/14/24 History 1,000 mcg capsule fluticasone 250 mcg-salmeterol 50 1 inh inhalation Q12H 06/27/22 07/14/24 History mcg/dose blistr powdr for inhalation folic acid 1 mg tablet 1 mg PO QAM 06/27/22 07/14/24 History furosemide 40 mg tablet 40 mg PO QDL 06/27/22 07/14/24 History metoprolol succinate 25 mg 12.5 mg PO BID 06/27/22 07/14/24 History tablet,extended release 24 hr multivitamin 1 tab PO DAILY 06/27/22 07/14/24 History potassium chloride 10 mEq 10 meq PO BID 06/27/22 07/14/24 History capsule,extended release prednisone 5 mg tablet 5 mg PO QAM 06/27/22 07/14/24 History vitamin E mixed 400 unit capsule 400 unit PO DAILY 06/27/22 07/14/24 History turmeric 400 mg capsule 400 mg PO DAILY 05/21/24 07/14/24 History vit C 30 mg-s.segovia 250 mg-celery 1 cap PO DAILY 05/21/24 07/14/24 History seed 75 mg-grape seed extrt capsule (Tart Segovia) acetaminophen 500 mg tablet 500 mg PO Q6H PRN PAIN/FEVER 06/22/24 07/14/24 History atorvastatin 20 mg tablet 20 mg PO QAM #30 tabs 07/02/24 07/14/24 Rx furosemide 20 mg tablet 20 mg PO DAILY #0 tabs 07/02/24 07/14/24 Rx pantoprazole 40 mg tablet,delayed 40 mg PO DAILY #30 tabs 07/02/24 07/14/24 Rx release spironolactone 25 mg tablet 25 mg PO QAM #30 tabs 07/02/24 07/14/24 Rx colchicine 0.6 mg tablet 0.6 mg PO UD 07/14/24 07/14/24 History ondansetron HCl 8 mg tablet 8 mg PO DIRECTED PRN n/v 07/14/24 07/14/24 History Past Med/Surg History Problem List Lower GI bleed (Acute) Acute on chronic systolic (congestive) heart failure Myocardial infarction due to demand ischemia (Acute) Pancytopenia 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 Symptomatic anemia (Acute) Hypokalemia Elevated troponin (Acute) Thrombocytopenia (Acute) Hematochezia Anemia Prediabetes Heart failure, diastolic, due to HTN Chronic venous insufficiency Rheumatoid arthritis (Chronic) Osteoporosis (Chronic) Migraine variant (Chronic) HTN (hypertension) (Chronic) COPD (chronic obstructive pulmonary disease) (Chronic) Medical History 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 Venous ulcer Lymphedema Chronic venous insufficiency Ocular migraine half-way (current) use of systemic steroids for RA Hypertension History of COVID-2021--mild symptoms, no symptoms now Osteoporosis Torn rotator cuff Edema COPD, moderate uses daily inhalers as prescribed--pt states he rarely uses rescue inhaler Rheumatoid arthritis on prednisone Surgical History S/P left cataract extraction History of surgical fusion joint left wrist--hardware in place History of shoulder surgery left "calcium deposit removed" History of tooth extraction full upper/partial lower History of repair of right rotator cuff History of carpal tunnel release of both wrists History of bronchoscopy 07/2017 @ [facility] S/P tonsillectomy Family History Other Cancer Heart disease No family history of adverse response to anesthesia Social History Smoking Status: Former smoker Tobacco Type: Cigarettes Second Hand Exposure: Yes; Do You Dip or Chew Tobacco: No; Hx Alcohol Use: Yes Alcohol type: beer Hx Substance Use: No Preferred Language: Tongan Communication Ability: Effective Visual Impairment: No Limitations Hearing Ability: Normal Headliner Installer Required: No Beliefs That Will Affect Care: None marital status: Single Current Living Situation: Alone Feels Safe at Home: Yes Diet: ideal protein and low salt Diet Comment: educated to increase protein to assist with wound healing caffeine: No Assistive Devices: None Review of Systems Review of Systems: All systems reviewed & are unremarkable except as noted in HPI & below Physical Exam Constitutional: WD/WN, vitals as above Eyes: PERRL, conjunctivae normal, anicteric sclerae ENMT: external ear and nose normal, oropharynx normal Neck: trachea midline, no thyromegaly Respiratory: normal respiratory effort, lungs clear to auscultation Cardiovascular: RRR, no murmur, no edema (+2 pitting bilateral lower extremity edema) Gastrointestinal (Abdomen): normal bowel sounds, soft, nontender, no hep atosplenomegaly Musculoskeletal: no cyanosis or clubbing, extremities motor strength 5/5 Skin: no rashes, warm and dry Neurologic: PERRL, EOMI, accommodation nl, no face palsy, no dysarthria Psychiatric: A+Ox3, euthymic affect Genitourinary: no testicular masses, no penis abnormality Results & Data Results & Data Vital Signs (Past 12 Hours) Vital Signs Temp Pulse Pulse Resp BP BP Pulse Ox 07/14/24 09:32 36.2 C L 66 12 120/49 L 98 07/14/24 09:31 07/14/24 09:31 36.4 C L 68 12 120/49 L 96 07/14/24 09:22 36.4 C L 72 20 118/58 L 96 07/14/24 09:02 36.5 C 64 18 131/61 94 07/14/24 08:47 36.7 C 60 20 131/50 L 97 07/14/24 08:29 36.7 C 64 18 136/63 92 07/14/24 06:32 67 07/14/24 06:12 36.6 C 70 17 122/53 L 95 Pulse Ox O2 Del Method O2 Del Method 07/14/24 09:32 07/14/24 09:31 96 Room Air 07/14/24 09:31 Room Air 07/14/24 09:22 Room Air 07/14/24 09:02 07/14/24 08:47 07/14/24 08:29 07/14/24 06:32 07/14/24 06:12 Room Air Diagnostic Findings Laboratory Results WBC 2.46 K/ul (4.8-10.8) L 07/14/24 06:42 RBC 2.49 M/uL (4.70-6.10) L 07/14/24 06:42 Hgb 7.6 g/dl (14.0-18.0) L 07/14/24 06:42 Hct 23.8 % (42.0-52.0) L 07/14/24 06:42 MCV 95.6 fL (80.0-100.0) 07/14/24 06:42 MCH 30.5 pg (25.0-34.0) 07/14/24 06:42 MCHC 31.9 g/dL (32.0-36.0) L 07/14/24 06:42 RDW Std Deviation 58.3 fL (36.4-46.3) H 07/14/24 06:42 RDW Coeff of Kellie 17.4 % (11.5-14.5) H 07/14/24 06:42 Plt Count 9 K/uL (130-400) L* 07/14/24 06:42 MPV 11.8 fL (9.4-12.4) 07/14/24 06:42 Immature Gran % (Auto) 0.4 % 07/14/24 06:42 Neut % (Auto) 53.7 % 07/14/24 06:42 Lymph % (Auto) 35.8 % 07/14/24 06:42 Parker % (Auto) 7.3 % 07/14/24 06:42 Eos % (Auto) 2.8 % 07/14/24 06:42 Baso % (Auto) 0.0 % 07/14/24 06:42 Neut # (Auto) 1.32 K/uL (1.40-6.50) L 07/14/24 06:42 Lymph # (Auto) 0.88 K/uL (1.20-3.40) L 07/14/24 06:42 Parker # (Auto) 0.18 K/uL (0.11-0.59) 07/14/24 06:42 Eos # (Auto) 0.07 K/uL (0.00-0.50) 07/14/24 06:42 Baso # (Auto) 0.00 K/uL (0.00-0.20) 07/14/24 06:42 Immature Gran # (Auto) 0.01 K/uL (0.01-0.20) 07/14/24 06:42 RBC Morphology Unremarkable 07/14/24 06:42 Sodium 141 mmol/L (136-145) 07/14/24 06:42 Potassium 4.2 mmol/L (3.5-5.1) 07/14/24 06:42 Chloride 105 mmol/L (98-107) 07/14/24 06:42 Carbon Dioxide 30 mmol/L (21-32) 07/14/24 06:42 Anion Gap 6 (3-11) 07/14/24 06:42 BUN 21 mg/dl (6-23) 07/14/24 06:42 Creatinine 0.94 mg/dl (0.6-1.4) 07/14/24 06:42 Est Cr Clr Drug Dosing 81.5 ml/min 07/14/24 06:42 eGFR 82.98 07/14/24 06:42 BUN/Creatinine Ratio 22.3 (10-20) H 07/14/24 06:42 Glucose 106 mg/dl (70-99(Fasting)) H 07/14/24 06:42 Calcium 8.7 mg/dl (8.6-10.3) 07/14/24 06:42 Blood Type O Positive 07/14/24 06:48 Antibody Screen NEGATIVE 07/14/24 06:48 Crossmatch See Detail 07/14/24 06:48 Supervising Physician Co-Signing Physician Notes 79-year-old male with PMH of rheumatoid arthritis on low-dose prednisone chronically, COPD, HTN, newly diagnosed MDS, NH, systolic CHF, alcohol use disorder presented to the ED from [facility] with concern of BRBPR last few days. Patient reports having intermittent BRBPR for last several weeks, increasing last few days per patient. Of note, he has recently diagnosed MDS and scheduled for outpatient transfusion next Saturday. He denies fever or belly pain or sore throat or Increased cough. he reports quitting smoking in , drinks 3-5 beers a week. Labs reviewed. Pancytopenia noted with hemoglobin of 7.6 and platelet of 9K. Renal function fairly WNL. GI bleeding in setting of pancytopenia ISO newly diagnosed MDS: N.p.o., GI consult, PPI drip, HnH every 6 hours. Transfuse 1 unit PRBC and 3 unit platelets, repeat CBC after transfusion is done. hematology consult. Chronic prednisone on hold. Chronic diastolic CHF, patient appears euvolemic on exam, no lung crackles, will continue with Lasix as long as blood pressure permits, will hold Aldactone given soft blood pressure. will get bnp. On exam: GENERAL: Alert and oriented x3. NAD, on RA. HEENT: No pallor, no icterus. Pupils equal, round and reactive to light. Oral mucosa moist. NECK: No JVD, no neck masses. HEART: S1 and S2 heard. Regular rate and rhythm. No murmur, no gallop. RESPIRATORY SYSTEM: Normal AP diameter. No accessory muscle use. No wheezing, no crackles. ABDOMEN: Soft, bowel sounds present, nontender, no distention. CENTRAL NERVOUS SYSTEM: No facial droop. Speech is clear. Obeys simple commands. Moves extremities. EXTREMITIES: 1+ ble edema, ble chronic skin changes noted. Left ant painter dressing, underlying fresh scab noted, no s/s infection (warmth,tender,expanding erythema) I have seen and examined the patient and have discussed the case with the provider above. I agree with the assessment and plan as stated. Time spent: 30 min. (8) HTN (hypertension) Hypertension type: primary hypertension Qualified Code(s): I10 - Essential (primary) hypertension (9) COPD (chronic obstructive pulmonary disease) COPD type: unspecified COPD Qualified Code(s): J44.9 - Chronic obstructive pulmonary disease, unspecified
--- OUTSIDE RECORDS SUMMARY | 2024-07-14 16:39 | External Medical Summary ---
Author Name Unknown Address Unknown Organization K09:[facility] [place] [address] Laboratory Report Ordering Provider Test Date Status CATHY SULLIVAN 07/14/2024 05:45:40 Final Observation Date Value Abnormality Reference (Units ) Status WBC, Total 07/14/2024 05:45:40 2.52 Below low normal 4.00-10.80 (K/uL) Final RBC 07/14/2024 05:45:40 2.51 4.50-5.25 (M/uL) Final Hemoglobin 07/14/2024 05:45:40 7.8 Below low normal 14.0-16.8 (g/dL) Final HCT 07/14/2024 05:45:40 25.1 Below low normal 40.0-48.4 (%) Final MCV 07/14/2024 05:45:40 100.0 82.0-99.5 (fL) Final MCH 07/14/2024 05:45:40 31.1 27.0-34.0 (pg) Final MCHC 07/14/2024 05:45:40 31.1 32.0-36.0 (g/dL) Final RDW 07/14/2024 05:45:40 17.7 11.5-15.5 (%) Final Platelets 07/14/2024 05:45:40 10 Below lower panic limits 140-400 (K/uL) Final MPV 07/14/2024 05:45:40 Final No result - abnormal platele t distribution. Performing Location [facility] [place] [id number]
[2024-07-14 17:38] LABS: Hematocrit (blood only) 23.1 % (42.0-52.0); Hemoglobin 7.6 g/dl (14.0-18.0); Mean Corpuscular Hgb Conc 32.9 g/dL (32.0-36.0); Mean Corpuscular Volume 94.3 fL (80.0-100.0); Mean Platelet Volume 9.4 fL (9.4-12.4); Platelet Count 23 K/uL (130-400); RDW Coefficient of Variation 17.5 % (11.5-14.5); Red Blood Count 2.45 M/uL (4.70-6.10)
[2024-07-15 06:33] LABS: Eosinophils # (auto) 0.05 K/uL (0.00-0.50); Eosinophils % (auto) 2.4 %; Hematocrit (blood only) 23.3 % (42.0-52.0); Hemoglobin 7.6 g/dl (14.0-18.0); Immature Granulocytes # (auto) 0.01 K/uL (0.01-0.20); Immature Granulocytes % (auto) 0.5 %; Lymphocytes # (auto) 0.61 K/uL (1.20-3.40); Lymphocytes % (auto) 29.5 %; Mean Corpuscular Hemoglobin 30.9 pg (25.0-34.0); Mean Corpuscular Hgb Conc 32.6 g/dL (32.0-36.0); Mean Corpuscular Volume 94.7 fL (80.0-100.0); Monocytes % (auto) 9.7 %; Neutrophils % (auto) 57.9 %; Platelet Count 38 K/uL (130-400); RDW Coefficient of Variation 17.3 % (11.5-14.5); RDW Standard Deviation 58.3 fL (36.4-46.3); Red Blood Count 2.46 M/uL (4.70-6.10); White Blood Count 2.07 K/ul (4.8-10.8)
[2024-07-15 07:02] LABS: Albumin Level 2.9 gm/dl (3.4-5.0); BUN Creatinine Ratio 19.7 (10-20); Bilirubin,Total 0.7 mg/dl (0.2-1.0); Calcium 8.6 mg/dl (8.6-10.3); Creatinine Clr Calc Pharmacy 99.9 ml/min; Globulin 2.8 gm/dl (2.5-4.0); Potassium 3.8 mmol/L (3.5-5.1); Total Protein 5.7 gm/dl (6.0-8.3)
[2024-07-15 07:03] LABS: RBC Morphology Unremarkable
--- NOTE | 2024-07-15 07:28 | Oncology Consultation ---
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 At this point we were planning to start outpatient hypomethylating agent with Vidaza. However the patient was admitted to the hospital with rectal bleeding given his severe thrombocytopenia secondary to MDS (2) Thrombocytopenia: Recommend transfusion of platelets if he is actively bleeding or the platelet count is less than 10,000/mcL. Preferably would want to maintain platelets close to 20-25,000 (3) Anemia: . Transfuse packed red blood cells if the hemoglobin is less than 8 g/dL given that he has underlying cardiac comorbidities. Plan There are hematology will continue to follow the patient make appropriate recommendations. Thank you for this interesting hematological consult. History of Present Illness Reason for Consultation: myelodysplastic syndrome, transfusion dependent Attending Physician: Malik Calderon DO History of Present Illness Diagnosis: Myelodysplastic syndrome Date of diagnosis: 06/23/2024 Pathology: FINAL DIAGNOSIS Peripheral blood, bone marrow aspiration, core biopsy and clot section: - Myelodysplastic syndrome NOS - single lineage dysplasia (Myelodysplastic neoplasm with low blasts, WHO 5th edition) - Monoclonal plasma cell population (10%) - Variably cellular marrow (20-50%) with trilineage hematopoiesis Comment: The marrow shows the presence of dysplastic red cells (12% by manual count) along with a mutation in U2AF1 and del (1p). Also present are frequent monoclonal plasma cells (10%). A full plasma cell FISH panel was attempted but due to low cellularity only 1 Karyotype: 46,XY,del(1)(p36.1p34)[3]/46,XY[17] R IPSS score: 4, intermediate cytogenetics, less than 2% blasts, hemoglobin less than 7 g/dL, platelets less than 50, ANC greater than 0.8 Current treatment: Vidaza the patient is a very pleasant 79-year-old male who is well-known to me, from a recent diagnosis of myelodysplastic syndrome who was to be started on hypomethylating agents for high risk, R IPSS score for MDS, who is allogenic stem cell transplant ineligible, requiring multiple blood and platelet transfusions. He was admitted to the hospital at [facility] with rectal bleeding, thrombocytopenia. His platelet count on arrival was 9. Hematology has been consulted to assist in management of this patient with MDS, thrombocytopenia, anemia. Allergies Allergy/AdvReac Type Severity Reaction Status Date / Time Iodinated Contrast Media Allergy Intermediate Hives Verified 07/10/24 11:34 iodine Allergy Intermediate HIVES Verified 07/10/24 11:34 Home Medications Medication Instructions Recorded Confirmed Type coenzyme Q10 10 mg capsule 10 mg PO DAILY 06/14/22 07/14/24 History diclofenac sodium 1 % topical gel 1 g topical QID PRN joint pain 06/14/22 07/14/24 History (Voltaren Arthritis Pain) tiotropium bromide 18 mcg capsule 1 cap inhalation BID 06/14/22 07/14/24 History with inhalation device (Spiriva with HandiHaler) triamcinolone acetonide 0.1 % 1 applic topical DAILY PRN Rash 06/18/22 07/14/24 History topical ointment albuterol sulfate 90 mcg/actuation 2 puff inhalation Q6H PRN 06/27/22 07/14/24 History aerosol inhaler Shortness Of Breath ascorbic acid (vitamin C) 1,000 mg 1 g PO DAILY 06/27/22 07/14/24 History capsule calcium carbonate 600 mg PO DAILY 06/27/22 07/14/24 History cholecalciferol (vitamin D3) 50 50 mcg PO DAILY 06/27/22 07/14/24 History mcg (2,000 unit) capsule cyanocobalamin (vitamin B-12) 1,000 mcg PO DAILY 06/27/22 07/14/24 History 1,000 mcg capsule fluticasone 250 mcg-salmeterol 50 1 inh inhalation Q12H 06/27/22 07/14/24 History mcg/dose blistr powdr for inhalation folic acid 1 mg tablet 1 mg PO QAM 06/27/22 07/14/24 History furosemide 40 mg tablet 40 mg PO QDL 06/27/22 07/14/24 History metoprolol succinate 25 mg 12.5 mg PO BID 06/27/22 07/14/24 History tablet,extended release 24 hr multivitamin 1 tab PO DAILY 06/27/22 07/14/24 History potassium chloride 10 mEq 10 meq PO BID 06/27/22 07/14/24 History capsule,extended release prednisone 5 mg tablet 5 mg PO QAM 06/27/22 07/14/24 History vitamin E mixed 400 unit capsule 400 unit PO DAILY 06/27/22 07/14/24 History turmeric 400 mg capsule 400 mg PO DAILY 05/21/24 07/14/24 History vit C 30 mg-s.segovia 250 mg-celery 1 cap PO DAILY 05/21/24 07/14/24 History seed 75 mg-grape seed extrt capsule (Tart Segovia) acetaminophen 500 mg tablet 500 mg PO Q6H PRN PAIN/FEVER 06/22/24 07/14/24 History atorvastatin 20 mg tablet 20 mg PO QAM #30 tabs 07/02/24 07/14/24 Rx furosemide 20 mg tablet 20 mg PO DAILY #0 tabs 07/02/24 07/14/24 Rx pantoprazole 40 mg tablet,delayed 40 mg PO DAILY #30 tabs 07/02/24 07/14/24 Rx release spironolactone 25 mg tablet 25 mg PO QAM #30 tabs 07/02/24 07/14/24 Rx colchicine 0.6 mg tablet 0.6 mg PO UD 07/14/24 07/14/24 History ondansetron HCl 8 mg tablet 8 mg PO DIRECTED PRN n/v 07/14/24 07/14/24 History Patient History Medical History 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 Venous ulcer Lymphedema Chronic venous insufficiency Ocular migraine snf (current) use of systemic steroids for RA Hypertension History of COVID-2021--mild symptoms, no symptoms now Osteoporosis Torn rotator cuff Edema COPD, moderate uses daily inhalers as prescribed--pt states he rarely uses rescue inhaler Rheumatoid arthritis on prednisone Surgical History S/P left cataract extraction History of surgical fusion joint left wrist--hardware in place History of shoulder surgery left "calcium deposit removed" History of tooth extraction full upper/partial lower History of repair of right rotator cuff History of carpal tunnel release of both wrists History of bronchoscopy 07/2017 @ [facility] S/P tonsillectomy Family History Other Cancer Heart disease No family history of adverse response to anesthesia Social History Smoking Status: Former smoker Tobacco Type: Cigarettes Second Hand Exposure: Yes; Do You Dip or Chew Tobacco: No; Hx Alcohol Use: Yes (occasional) Alcohol type: beer Hx Substance Use: No Preferred Language: Thai Communication Ability: Effective Visual Impairment: No Limitations Hearing Ability: Normal Chemical Process Operator Required: No Beliefs That Will Affect Care: None marital status: Single Current Living Situation: Rehab Current Living Situation Comment: [facility] Feels Safe at Home: Yes Diet: ideal protein and low salt Diet Comment: educated to increase protein to assist with wound healing caffeine: No Assistive Devices: Cane, Denture - Upper and Denture - Lower Review of Systems Review of Systems: All systems reviewed & are unremarkable except as noted in HPI & below Lower GI bleeding Constitutional: as per Subjective / HPI Eyes: as per Subjective / HPI Ear, Nose, Mouth, Throat: as per Subjective / HPI Respiratory: as per Subjective / HPI Cardiovascular: as per Subjective / HPI Gastrointestinal: as per Subjective / HPI Genitourinary: + as per Subjective / HPI Musculoskeletal: as per Subjective / HPI Integumentary: as per Subjective / HPI Neurologic: as per Subjective / HPI Psychiatric: as per Subjective / HPI Endocrine: as per Subjective / HPI Physical Exam Constitutional: WD/WN, vitals as above Eyes: PERRL, conjunctivae normal, anicteric sclerae ENMT: external ear and nose normal, oropharynx normal Neck: trachea midline, no thyromegaly Respiratory: normal respiratory effort, lungs clear to auscultation Cardiovascular: RRR, no murmur, no edema Gastrointestinal (Abdomen): normal bowel sounds, soft, nontender, no hepatosplenomegaly Musculoskeletal: no cyanosis or clubbing, extremities motor strength 5/5 Skin: no rashes, warm and dry Neurologic: patellar DTR's 2+ bilat, sensation intact Results & Data Vital Signs (Past 12 Hours) Vital Signs Temp Pulse Pulse Resp BP BP Pulse Ox 07/15/24 03:29 36.8 C 68 16 105/53 L 92 07/15/24 00:00 59 L 07/14/24 23:27 36.5 C 55 L 22 111/50 L 95 07/14/24 22:59 36.5 C 55 L 22 122/60 96 07/14/24 22:50 36.4 C L 64 16 111/58 L 96 07/14/24 22:44 36.5 C 63 21 117/53 L 97 07/14/24 22:21 36.6 C 60 97/65 L 95 07/14/24 20:00 07/14/24 19:30 36.5 C 66 19 123/56 L 97 O2 Del Method 07/15/24 03:29 Room Air 07/15/24 00:00 07/14/24 23:27 07/14/24 22:59 07/14/24 22:50 Room Air 07/14/24 22:44 07/14/24 22:21 07/14/24 20:00 Room Air 07/14/24 19:30 Room Air
[2024-07-15] MEDS: ATORVASTATIN 20 MG TAB PO SCH (07:58)
[2024-07-15] MEDS: FLUTICASONE/VILANTEROL 100/25MCG 14 PUFFS/INHALER INH SCH (08:01)
--- NOTE | 2024-07-15 10:42 | Gastroenterology Progress Note ---
Date of Service July 15, 2024 Assessment & Plan (1) GIB (gastrointestinal bleeding): Plan: Patient has received blood products. Continue to follow H&H and platelets as we would like to proceed with endoscopic evaluation for further evaluation of maame blood per rectum when platelets allow. Would keep patient on a clear liquid diet today. NPO after midnight with exception of bowel prep. Discussed with hospitalist regarding giving patient platelets in the morning on 07/16 prior to moving forward with his colonoscopy. Dr. Zelaya will attempt a colonoscopy on 07/16/24. Admission and Anticipated Discharge Date Admission Date: July 14, 2024 Supervising Physician Co-Signing Physician Notes I saw and examined this patient with our nurse practitioner and agree with her assessment and plan. In light of rectal bleeding remote history of positive Cologuard test will proceed with colonoscopy. We may be limited and will begin to therapeutically in light of low platelet count. Recommend platelet transfusion prior to the procedure. Subjective Patient is a 79 yo male who presents for rectal bleeding. He denies bowel movements or rectal bleeding overnight. His platelet count is 38,000 this AM. H/H 7.6/23.3. No new complaints. Review of Systems Gastrointestinal: no abdominal pain, no constipation and no blood in stools Physical Exam Constitutional: well developed Respiratory: normal respiratory effort Gastrointestinal (Abdomen): normal bowel sounds, soft, nontender, no hepatosplenomegaly Psychiatric: Orientation: alert and oriented x 3 Results & Data Results & Data Vital Signs (Past 12 Hours) Vital Signs Temp Pulse Pulse Resp BP BP Pulse Ox 07/15/24 09:40 07/15/24 07:33 36.9 C 67 18 120/60 92 07/15/24 03:29 36.8 C 68 16 105/53 L 92 07/15/24 00:00 59 L 07/14/24 23:27 36.5 C 55 L 22 111/50 L 95 07/14/24 22:59 36.5 C 55 L 22 122/60 96 07/14/24 22:50 36.4 C L 64 16 111/58 L 96 07/14/24 22:44 36.5 C 63 21 117/53 L 97 O2 Del Method 07/15/24 09:40 Room Air 07/15/24 07:33 Room Air 07/15/24 03:29 Room Air 07/15/24 00:00 07/14/24 23:27 07/14/24 22:59 07/14/24 22:50 Room Air 07/14/24 22:44 Laboratory Results Laboratory Results - last 48 hr 07/14/24 07/14/24 07/14/24 06:42 06:48 17:16 WBC 2.46 L 2.10 L RBC 2.49 L 2.45 L Hgb 7.6 L 7.6 L Hct 23.8 L 23.1 L MCV 95.6 94.3 MCH 30.5 31.0 MCHC 31.9 L 32.9 RDW Std Deviation 58.3 H 56.0 H RDW Coeff of Kellie 17.4 H 17.5 H Plt Count 9 L* 23 L* D MPV 11.8 9.4 Immature Gran % (Auto) 0.4 Neut % (Auto) 53.7 Lymph % (Auto) 35.8 [place] % (Auto) 7.3 Eos % (Auto) 2.8 Baso % (Auto) 0.0 Neut # (Auto) 1.32 L Lymph # (Auto) 0.88 L [place] # (Auto) 0.18 Eos # (Auto) 0.07 Baso # (Auto) 0.00 Immature Gran # (Auto) 0.01 RBC Morphology Unremarkable Sodium 141 Potassium 4.2 Chloride 105 Carbon Dioxide 30 Anion Gap 6 BUN 21 Creatinine 0.94 Est Cr Clr Drug Dosing 81.5 eGFR 82.98 BUN/Creatinine Ratio 22.3 H Glucose 106 H Calcium 8.7 Total Bilirubin AST ALT Alkaline Phosphatase B-Natriuretic Peptide 506 H Total Protein Albumin Globulin Albumin/Globulin Ratio Blood Type O Positive Antibody Screen NEGATIVE Crossmatch See Detail 07/15/24 05:49 WBC 2.07 L RBC 2.46 L Hgb 7.6 L Hct 23.3 L MCV 94.7 MCH 30.9 MCHC 32.6 RDW Std Deviation 58.3 H RDW Coeff of Kellie 17.3 H Plt Count 38 L D MPV 10.0 Immature Gran % (Auto) 0.5 Neut % (Auto) 57.9 Lymph % (Auto) 29.5 [place] % (Auto) 9.7 Eos % (Auto) 2.4 Baso % (Auto) 0.0 Neut # (Auto) 1.20 L Lymph # (Auto) 0.61 L [place] # (Auto) 0.20 Eos # (Auto) 0.05 Baso # (Auto) 0.00 Immature Gran # (Auto) 0.01 RBC Morphology Unremarkable Sodium 141 Potassium 3.8 Chloride 104 Carbon Dioxide 31 Anion Gap 6 BUN 15 Creatinine 0.76 Est Cr Clr Drug Dosing 99.9 eGFR 92.00 BUN/Creatinine Ratio 19.7 Glucose 94 Calcium 8.6 Total Bilirubin 0.7 AST 10 L ALT 13 Alkaline Phosphatase 68 B-Natriuretic Peptide Total Protein 5.7 L Albumin 2.9 L Globulin 2.8 Albumin/Globulin Ratio 1.0 Blood Type Antibody Screen Crossmatch PG Care Time/CCT Total # of Minutes Spent Total Time Spent with Patient: Total time spent is greater than 50% in coordination of care (as documented) at patient's floor/unit and/or counseling patient: Coding Level of Care Code 68090 SUB INP/OBS CARE 3/50MIN Diagnoses GIB (gastrointestinal bleeding) K92.2
[2024-07-15] MEDS ORDERED: SODIUM CHLORIDE 0.9% 100 ML IV PRN (11:11)
[2024-07-15] MEDS ORDERED: SODIUM CHLORIDE 0.9% 50 ML IV PRN (11:11)
--- NOTE | 2024-07-15 12:56 | Hospitalist Progress Note ---
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 Transfuse an additional unit of packed red blood cells in the setting of heart disease, goal hemoglobin greater than 8 if possible Communication with GI team. Hoping to prep for colonoscopy tomorrow, will coordinate platelet transfusion with colonoscopy tomorrow [facility] to [facility] Plan for starting treatment for his MDS next week as coordinated by oncology outpatient Admission and Anticipated Discharge Date Admission Date: July 14, 2024 Subjective Patient reports no additional bleeding. No chest pain or shortness of breath Physical Exam Physical Exam: Constitutional: Alert, nontoxic, no acute distress HEENT: Mucous membranes moist. Lungs: Clear to auscultation, decreased, no wheezes rales or rhonchi CV: S1-S2, regular Abdomen: Soft, nontender, nondistended Extremities: Pretibial edema Neuro: No focal deficits Derm: Numerous ecchymosis Psych: Cooperative, normal mood Results & Data Results & Data Vital Signs (Past 12 Hours) Vital Signs Temp Pulse Pulse Resp BP BP Pulse Ox 07/15/24 12:45 36.7 C 68 18 91/74 L 96 07/15/24 10:59 36.4 C L 62 18 111/55 L 90 07/15/24 09:40 07/15/24 09:00 62 07/15/24 07:33 36.9 C 67 18 120/60 92 07/15/24 03:29 36.8 C 68 16 105/53 L 92 O2 Del Method 07/15/24 12:45 07/15/24 10:59 Room Air 07/15/24 09:40 Room Air 07/15/24 09:00 07/15/24 07:33 Room Air 07/15/24 03:29 Room Air Diagnostic Findings Reviewed imaging, laboratory and diagnostic studies. Pertinent findings as below. Hemoglobin 7.6, stable WBCs 2.0 Platelets 38 Electrolytes stable Creatinine 0.76 (7) HTN (hypertension) Hypertension type: primary hypertension Qualified Code(s): I10 - Essential (primary) hypertension (8) COPD (chronic obstructive pulmonary disease) COPD type: unspecified COPD Qualified Code(s): J44.9 - Chronic obstructive pulmonary disease, unspecified
[2024-07-15] MEDS: FUROSEMIDE INJ 20 MG/2 ML VIAL IV ONE (13:19)
[2024-07-15] MEDS: bisacodyL 5 MG TABEC PO ONE (15:41)
[2024-07-15] MEDS: POLYETHYLENE (MIRALAX) 17 GM PACK PO SCH (18:15)
[2024-07-16] MEDS: MAGNESIUM CITRATE 296 ML/BTL PO ONE (05:23)
[2024-07-16 07:23] LABS: Mean Corpuscular Hgb Conc 33.3 g/dL (32.0-36.0); Mean Corpuscular Volume 93.1 fL (80.0-100.0); Mean Platelet Volume 9.5 fL (9.4-12.4); Platelet Count 33 K/uL (130-400); RDW Coefficient of Variation 16.9 % (11.5-14.5); RDW Standard Deviation 53.9 fL (36.4-46.3); White Blood Count 2.81 K/ul (4.8-10.8)
[2024-07-16] MEDS ORDERED: SODIUM CHLORIDE 0.9% 50 ML IV PRN (07:32)
[2024-07-16] MEDS ORDERED: SODIUM CHLORIDE 0.9% 100 ML IV PRN (07:32)
[2024-07-16 07:34] LABS: BUN Creatinine Ratio 15.9 (10-20); Creatinine Clr Calc Pharmacy 67.2 ml/min; Potassium 3.5 mmol/L (3.5-5.1)
--- NOTE | 2024-07-16 08:59 | Electrocardiogram Report ---
Test Reason : Blood Pressure : */* mmHG Vent. Rate : 57 BPM Atrial Rate : 57 BPM P-R Int : 166 ms QRS Dur : 90 ms QT Int : 460 ms P-R-T Axes : 46 14 93 degrees QTcB Int : 447 ms Poor data quality, interpretation may be adversely affected Sinus bradycardia Normal ECG When compared with ECG of 27-Jun-2024 08:31, Premature atrial complexes are no longer Present Confirmed by Jace Ghosh ([id number]) on 07/16/2024 8:59:10 AM Referred By: [facility] Confirmed By: Jace Ghosh
--- NOTE | 2024-07-16 09:26 | History & Physical Bridge Note ---
Date of Service July 16, 2024 History & Physical Bridge Note I have discussed with the RN, reviewed the History & Physical, and in the interval since the performance of the History & Physical I have noted the following changes of clinical significance: no changes noted Patient continues to move his bowels at the time of my visit. He completed the entire bowel prep of Miralax 238 gm along with Dulcolax 20 mg. Nursing reports he also was given Mag Citrate as well. He is passing liquid stools. H/H 05/29.0. Platelets 33,000. Primary team has arranged for platelet administration to occur at 11 AM today. Keep NPO and proceed with colonoscopy today. Supervising Physician Co-Signing Physician Notes I saw and examined this patient with our nurse practitioner and agree with her assessment and plan. Will proceed with colonoscopy.
[2024-07-16] MEDS: predniSONE 5 MG TAB PO SCH (10:03)
[2024-07-16] MEDS: PANTOprazole 40 MG TAB PO SCH (10:03)
[2024-07-16] MEDS: SPIRONOLACTONE 25 MG TAB PO SCH (10:03)
--- NOTE | 2024-07-16 13:15 | Anesthesiology Consultation ---
Date of Service July 16, 2024 Assessment & Plan Chart Review Chart Review: Acceptable Risk for Surgery ASA ASA3 Proposed Anesthesia Anesthesia Type: MAC Risk / Benefits Reviewed With: PT / POA / Parent / Guardian, Accepts Plan and Informed Consent Obtained History Surgery Operation Date: 07/16/24 16:45 Proposed Procedures p Colonoscopy Dr. Garcia Zelaya MD Height/Weight Height: 5 ft 11 in Weight: 104.8 kg Allergies Allergy/AdvReac Type Severity Reaction Status Date / Time Iodinated Contrast Media Allergy Intermediate Hives Verified 07/10/24 11:34 iodine Allergy Intermediate HIVES Verified 07/10/24 11:34 Medications Home Medications Medication Instructions Recorded Confirmed Last Taken coenzyme Q10 10 mg capsule 10 mg PO DAILY 06/14/22 07/14/24 06/21/24 diclofenac sodium 1 % topical gel 1 g topical QID PRN joint pain 06/14/22 07/14/24 05/26/24 (Voltaren Arthritis Pain) tiotropium bromide 18 mcg capsule 1 cap inhalation BID 06/14/22 07/14/24 06/21/24 with inhalation device (Spiriva with HandiHaler) triamcinolone acetonide 0.1 % 1 applic topical DAILY PRN Rash 06/18/22 07/14/24 05/26/24 topical ointment albuterol sulfate 90 mcg/actuation 2 puff inhalation Q6H PRN 06/27/22 07/14/24 05/26/24 aerosol inhaler Shortness Of Breath ascorbic acid (vitamin C) 1,000 mg 1 g PO DAILY 06/27/22 07/14/24 06/21/24 capsule calcium carbonate 600 mg PO DAILY 06/27/22 07/14/24 06/21/24 cholecalciferol (vitamin D3) 50 50 mcg PO DAILY 06/27/22 07/14/24 06/21/24 mcg (2,000 unit) capsule cyanocobalamin (vitamin B-12) 1,000 mcg PO DAILY 06/27/22 07/14/24 06/21/24 1,000 mcg capsule fluticasone 250 mcg-salmeterol 50 1 inh inhalation Q12H 06/27/22 07/14/24 06/21/24 mcg/dose blistr powdr for inhalation folic acid 1 mg tablet 1 mg PO QAM 06/27/22 07/14/2406/21/24 furosemide 40 mg tablet 40 mg PO QDL 06/27/22 07/14/24 06/21/24 metoprolol succinate 25 mg 12.5 mg PO BID 06/27/22 07/14/24 06/21/24 tablet,extended release 24 hr multivitamin 1 tab PO DAILY 06/27/22 07/14/24 06/21/24 potassium chloride 10 mEq 10 meq PO BID 06/27/22 07/14/24 06/21/24 capsule,extended release prednisone 5 mg tablet 5 mg PO QAM 06/27/22 07/14/24 06/21/24 vitamin E mixed 400 unit capsule 400 unit PO DAILY 06/27/22 07/14/24 06/21/24 turmeric 400 mg capsule 400 mg PO DAILY 05/21/24 07/14/24 06/21/24 vit C 30 mg-s.segovia 250 mg-celery 1 cap PO DAILY 05/21/24 07/14/24 06/21/24 seed 75 mg-grape seed extrt capsule (Tart Seg[place]) acetaminophen 500 mg tablet 500 mg PO Q6H PRN PAIN/FEVER 06/22/24 07/14/24 Unknown atorvastatin 20 mg tablet 20 mg PO QAM #30 tabs 07/02/24 07/14/24 Unknown furosemide 20 mg tablet 20 mg PO DAILY #0 tabs 07/02/24 07/14/24 06/20/24 pantoprazole 40 mg tablet,delayed 40 mg PO DAILY #30 tabs 07/02/24 07/14/24 Unknown release spironolactone 25 mg tablet 25 mg PO QAM #30 tabs 07/02/24 07/14/24 Unknown colchicine 0.6 mg tablet 0.6 mg PO UD 07/14/24 07/14/24 Unknown ondansetron HCl 8 mg tablet 8 mg PO DIRECTED PRN n/v 07/14/24 07/14/24 Unknown Active Medications Generic Name Dose Route Start Last Admin Trade Name Freq PRN Reason Stop Dose Admin Atorvastatin Calcium 20 mg 07/15/24 09:00 07/16/24 10:02 Atorvastatin 20 Mg Tab PO 08/14/24 08:59 Not Given QAM [facility] Colchicine 0.6 mg 07/14/24 09:16 07/16/24 10:03 Colchicine 0.6 Mg Tab PO 08/13/24 09:15 Not Given DAILY [facility] Cyanocobalamin 1,000 mcg 07/14/24 09:00 07/16/24 10:03 Cyanocobalamin (B-12) 500 Mcg Tablet PO 08/13/24 08:59 Not Given DAILY [facility] Fluticasone/Vilanterol 1 puffs 07/15/24 09:00 07/16/24 10:03 Fluticasone/Vilanterol 100/25mcg 14 Puffs/Inhaler INH 08/14/24 08:59 Not Given DAILY [facility] Protocol Folic Acid 1 mg 07/14/24 09:16 07/16/24 10:03 Folic Acid 1 Mg Tab PO 08/13/24 09:15 Not Given QAM [facility] Furosemide 20 mg 07/14/24 09:16 07/16/24 10:03 Furosemide 20 Mg Tab PO 08/13/24 09:15 Not Given DAILY [facility] Metoprolol Succinate 12.5 mg 07/14/24 09:16 07/16/24 10:03 Metoprolol Succ 25mg Ext Rel Tab PO 08/13/24 09:15 Not Given BID [facility] Multivitamins 1 tab 07/14/24 09:00 07/16/24 10:03 Multivitamin Tab PO 08/13/24 08:59 Not Given DAILY [facility] Pantoprazole Sodium 40 mg 07/16/24 09:00 07/16/24 10:03 Pantoprazole 40 Mg Tab PO 08/15/24 08:59 Not Given QAM [facility] Prednisone 5 mg 07/16/24 09:00 07/16/24 10:03 Prednisone 5 Mg Tab PO 08/15/24 08:59 Not Given QAM [facility] Spironolactone 25 mg 07/16/24 09:00 07/16/24 10:03 Spironolactone 25 Mg Tab PO 08/15/24 08:59 Not Given QAM [facility] Vitamin D 50 mcg 07/14/24 09:00 07/16/24 10:03 Cholecalciferol 25 Mcg (1000 Units) Tab PO 08/13/24 08:59 Not Given DAILY [facility] NPO Date Last Intake of Fluids: 07/16/24 Time Last Intake of Fluids: 09:00 Last Intake of Fluids Comment: finished prep Date Last Intake of Solids: 07/13/24 Past Medical History Medical History 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 Venous ulcer Lymphedema Chronic venous insufficiency Ocular migraine [facility] (current) use of systemic steroids for RA Hypertension History of COVID-2021--mild symptoms, no symptoms now Osteoporosis Torn rotator cuff Edema COPD, moderate uses daily inhalers as prescribed--pt states he rarely uses rescue inhaler Rheumatoid arthritis on prednisone Exercise / Class Metabolic Activity II 4-5 Yardwork/Stairs/Walk up hill Past Family History Family History Other Cancer Heart disease No family history of adverse response to anesthesia Past Surgical History Surgical History S/P left cataract extraction History of surgical fusion joint left wrist--hardware in place History of shoulder surgery left "calcium deposit removed" History of tooth extraction full upper/partial lower History of repair of right rotator cuff History of carpal tunnel release of both wrists History of bronchoscopy 07/2017 @ [facility] S/P tonsillectomy Past Anesthesia History No Hx of Anesthesia Complications History of PONV No Hx of PONV Social History Smoking Status: Former smoker Do You Dip or Chew Tobacco: No Hx Alcohol Use: Yes (occasional) Alcohol type: beer alcohol intake frequency: holidays/special occasions only Hx Substance Use: No substance use type: does not use Physical Exam Vital Signs Last Vital Signs Temp 36.7 C 07/16/24 13:05 Pulse 79 07/16/24 13:05 Resp 16 07/16/24 13:05 BP 133/50 L 07/16/24 13:05 Pulse Ox 95 07/16/24 13:05 O2 Del Method Room Air 07/16/24 13:05 O2 Flow Rate 2 07/14/24 18:28 ENMT Thyromental Distance: > or= 3.5 Finger Breadths Respiratory normal respiratory effort Auscultation: lungs clear to auscultation bilaterally Cardiovascular Rate/Rhythm: regular rate and regular rhythm Neurologic moves all extremities Psychiatric Orientation: alert and oriented x 3 Testing Laboratory Results 07/16/24 06:42 07/16/24 06:42 Blood Type O Positive 07/14/24 06:48 Antibody Screen NEGATIVE 07/14/24 06:48
--- NOTE | 2024-07-16 13:27 | Hospitalist Progress Note ---
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 Transfusion platelets this morning with anticipated colonoscopy immediately after transfusion completed Continue to monitor laboratory studies Continue to encourage activity Patient was admitted from [facility], however that was his final day at [facility] and was anticipating being discharged. Will need to see outpatient response after colonoscopy with therapies possibly discharge home with home therapy. Follow-up with oncology as scheduled next week to initiate treatment for myelodysplasia syndrome Admission and Anticipated Discharge Date Admission Date: July 14, 2024 Subjective Patient states he still no bleeding with colonoscopy prep. No chest pain or shortness of breath. Physical Exam Physical Exam: Constitutional: Alert, no acute distress HEENT: Mucous membranes moist. Lungs: Clear to auscultation, decreased, no wheezes rales or rhonchi CV: S1-S2, regular Abdomen: Soft, nontender, nondistended Extremities: No significant edema Neuro: No focal deficits Psych: Cooperative, normal mood Results & Data Results & Data Vital Signs (Past 12 Hours) Vital Signs Temp Pulse Pulse Resp BP BP Pulse Ox 07/16/24 13:05 36.7 C 79 16 133/50 L 95 07/16/24 11:17 36.8 C 76 16 147/79 H 91 07/16/24 10:54 36.4 C L 68 18 156/83 H 95 07/16/24 10:39 36.4 C L 70 18 162/65 H 95 07/16/24 10:23 36.4 C L 69 18 140/68 96 07/16/24 07:41 36.7 C 67 16 109/57 L 93 O2 Del Method 07/16/24 13:05 Room Air 07/16/24 11:17 Room Air 07/16/24 10:54 07/16/24 10:39 07/16/24 10:23 07/16/24 07:41 Room Air Diagnostic Findings Reviewed imaging, laboratory and diagnostic studies. Pertinent findings as below. WBCs 2.8 Hemoglobin 9.0 Platelets 33 (7) HTN (hypertension) Hypertension type: primary hypertension Qualified Code(s): I10 - Essential (primary) hypertension (8) COPD (chronic obstructive pulmonary disease) COPD type: unspecified COPD Qualified Code(s): J44.9 - Chronic obstructive pulmonary disease, unspecified
--- NOTE | 2024-07-16 14:35 | GI REPORT ---
[facility] Patient: OTTO STEWART : 1945 Sex at : Male Age: 79 Years Procedure: Colonoscopy Date: 07/16/2024 Attending Physician: Roderick Zelaya MD Referring MD: Daria Baeza Indications: - Hematochezia Medications: - Monitored Anesthesia Care Complications: - No immediate complications. Procedure: - Prior to the procedure, a History and Physical was performed, and patient medications and allergies were reviewed. The patient's tolerance of previous anesthesia was also reviewed. The risks and benefits of the procedure and the sedation options and risks were discussed with the patient. All questions were answered, and informed consent was obtained. [Anticoagulant Agents] [Days Prior to Procedure]. [ASA Grade]. After reviewing the risks and benefits, the patient was deemed in satisfactory condition to undergo the procedure. - The adult colonoscope was introduced through the anus and advanced to the cecum, identified by appendiceal orifice and ileocecal valve. - The colonoscopy was performed without difficulty. - The patient tolerated the procedure well. - The quality of the bowel preparation was [Prep Quality]. - [Anatomical Structures] photographed. Findings: - The perianal and digital rectal examinations were normal. - Two sessile polyps were found in the descending colon and rectum. The polyps were small (4-6 mm) in size. These polyps were removed with a cold snare. Resection and retrieval were complete. To prevent bleeding after the polypectomy, two hemostatic clips were successfully placed. There was no bleeding at the end of the procedure. - No other significant abnormalities were identified in a careful examination of the remainder of the colon. Impression: - Two small (4-6 mm) polyps in the descending colon and in the rectum, removed with a cold snare. Resected and retrieved. Clips were placed. Recommendation: - Await pathology results. - Resume previous diet. - Repeat colonoscopy pending biopsies. - Patient has a contact number available for emergencies. The signs and symptoms of potential delayed complications were discussed with the patient. Return to normal activities tomorrow. Written discharge instructions were provided to the patient. Procedure Code(s): - 95884, Colonoscopy, flexible; with removal of tumor(s), polyp(s), or other lesion(s) by snare technique Diagnosis Code(s): - D12.4, Benign neoplasm of descending colon - D12.8, Benign neoplasm of rectum CPT(R) - 2023 copyright [employer]. All Rights Reserved. The CPT codes, CCI edits and ICD codes generated are intended as suggestions and were generated based on input data. These codes are preliminary and upon anesthesia resident review may be revised to meet current compliance and payer requirements. The provider is responsible for the final determination of appropriate codes, and modifiers. Roderick Zelaya MD This document has been electronically signed. Note Initiated:07/16/2024 Note Completed:07/16/2024 2:35 PM \\[email or web address]\[id number]
[2024-07-16] MEDS: PROPOFOL IV EMULSION 10 MG/ML 20 ML VIAL IV ONE (15:38)
[2024-07-16] MEDS: LIDOCAINE 2% 2 ML VIAL/AMP(20MG/ML) INFIL ONE (15:38)
[2024-07-17 07:49] LABS: BUN Creatinine Ratio 18.1 (10-20); Calcium 8.5 mg/dl (8.6-10.3); Creatinine Clr Calc Pharmacy 90.4 ml/min; Potassium 3.6 mmol/L (3.5-5.1)
[2024-07-17 08:19] LABS: Hematocrit (blood only) 24.3 % (42.0-52.0); Hemoglobin 7.9 g/dl (14.0-18.0); Mean Corpuscular Hemoglobin 30.5 pg (25.0-34.0); Mean Corpuscular Hgb Conc 32.5 g/dL (32.0-36.0); Mean Corpuscular Volume 93.8 fL (80.0-100.0); Mean Platelet Volume 10.6 fL (9.4-12.4); Platelet Count 24 K/uL (130-400); Platelet Estimate Decreased (Normal); RDW Coefficient of Variation 16.7 % (11.5-14.5); RDW Standard Deviation 54.4 fL (36.4-46.3); Red Blood Count 2.59 M/uL (4.70-6.10); White Blood Count 2.05 K/ul (4.8-10.8)
[2024-07-17] MEDS ORDERED: SODIUM CHLORIDE 0.9% 100 ML IV PRN (08:23)
[2024-07-17] MEDS ORDERED: SODIUM CHLORIDE 0.9% 50 ML IV PRN (08:23)
[2024-07-17 10:11] VITALS: RESP 18
--- NOTE | 2024-07-17 11:01 | Gastroenterology Progress Note ---
Date of Service July 17, 2024 Assessment & Plan (1) Lower GI bleed: Plan: No ongoing GI bleeding. Unremarkable colonoscopy with exception of polyps. No further GI interventions at present. Patient begins treatment for his MDS on 07/20/24. Admission and Anticipated Discharge Date Admission Date: July 14, 2024 Supervising Physician Co-Signing Physician Notes I saw and examined this patient with our nurse practitioner and agree with her assessment and plan. Denies any recent rectal bleeding. Tolerated colonoscopy well. Significant pathology on colonoscopy. Possible anorectal bleeding that is now resolved. No further workup at this time unless symptoms recur. Subjective Patient is a 79 yo male with rectal bleeding. He underwent a colonoscopy on 07/16/24 that indicated 2 hyperplastic polyps. He denies further bleeding. H/H 7.9/24.3. Review of Systems Constitutional: no fever and no chills Gastrointestinal: no blood in stools and no melena Physical Exam Constitutional: well developed Respiratory: normal respiratory effort Gastrointestinal (Abdomen): normal bowel sounds, soft, nontender, no hepatosplenomegaly Results & Data Results & Data Vital Signs (Past 12 Hours) Vital Signs Temp Pulse Resp BP Pulse Ox 07/17/24 10:54 36.6 C 69 18 100/52 L 95 07/17/24 10:11 36.6 C 69 18 114/61 94 PG Care Time/CCT Total # of Minutes Spent Total Time Spent with Patient: Total time spent is greater than 50% in coordination of care (as documented) at patient's floor/unit and/or counseling patient: Coding Level of Care Code 62992 SUB INP/OBS CARE 2/35MIN Diagnoses Lower GI bleed K92.2
[2024-07-17] MEDS: FUROSEMIDE 40 MG/4 ML VIAL IV ONE (11:24)
[2024-07-17 15:07] VITALS: BP 110/66; PULSE 72; TEMP 97.9; O2SAT 94
--- NOTE | 2024-07-17 15:31 | Discharge Summary ---
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 Patient has known myelodysplastic syndrome with severe pancytopenia with previous GI bleeds due to his thrombocytopenia. Patient does have significant cardiac disease. In the emergency room patient was a little bit more anemic but due to his pancytopenia was referred for further evaluation. Patient was admitted to the hospital. Due to his cardiac disease goal was to try and get his hemoglobin greater than 8. He was transfused a unit of packed red blood cells. He was also transfused platelets. GI consultation was obtained. Oncology consultation was obtained. Patient has plans to start interventions on his MDS with oncology next week. Patient reportedly had an abnormal Cologuard testing which was never followed up with colonoscopy. GI wanted to proceed with colonoscopy. Patient was given platelets just prior to his colonoscopy and underwent colonoscopy exam. Colonoscopy did reveal 2 small polyps that were removed. But no signs of active bleeding. Post colonoscopy course was uneventful. He was given additional unit of packed red blood cells to get his hemoglobin over 8. He was evaluated by therapies he was able to assist himself adequately that he could return home with home health care. He will follow-up with oncology as scheduled next week. To follow-up with GI for the results of his colon polyp pathology. Patient may need outpatient transfusions arranged until his MDS can be further treated. Notes For Next Care Provider Patient may need ongoing outpatient transfusions of platelets and PRBCs Medication Changes From Visit No changes Admission HPI Per Admitting Provider The patient is a 79-year-old male with a past medical history of RA, chronic steroid use, COPD, HTN, newly diagnosed MDS, CA, acute on chronic systolic CHF, alcohol use disorder who presents to the ED on 07/14/2024 from [facility] with concerns of bright red blood and clots in his stool x 2 days. The patient was recently hospitalized here last month, see below. Patient reports he has been having intermittent bleeding in his stool. He has been following up with jose [id number] and there were plans to start him on outpatient transfusions for MDS next Saturday. He does report feeling weak but otherwise denies any shortness of breath/chest pain/fever/chills. Denies any nausea/vomiting/diarrhea. Does not have any abdominal pain on exam. The patient was recently hospitalized from 06/22/2024 to 07/02/2024 with worsening shortness of breath, found to be pancytopenic requiring 6 transfusions of PRBC and 2 platelets that admission. Had a bone marrow biopsy at this time that was suspicious for MDS. Heme/unk was consulted and following. GI was consulted at that time and recommended continuing Protonix twice daily. He was also diagnosed with a NSTEMI at that time in setting of severe anemia and started on Toprol as well as spironolactone and losartan for CHF. Patient will need a repeat echo around 08/01/2024. On arrival to the ED, labs are remarkable for WBC 2.4, RBC 2.4, hemoglobin 7.6, platelet 9, The patient was ordered 1 unit PRBC and 1 unit platelets in the ED, GI was consulted and the patient be admitted for further management. Admission Exam Per Admitting Provider See H&P Discharge Exam Constitutional: Alert, no acute distress HEENT: Mucous membranes moist. Lungs: Prolonged expiratory phase, few crackles at bases CV: S1-S2, regular Abdomen: Soft, nontender, nondistended Extremities: No significant edema Neuro: No focal deficits Psych: Cooperative, normal mood Derm: Numerous purpura due to his thrombocytopenia. Updated Medication List Medication Instructions Recorded Confirmed Type coenzyme Q10 10 mg capsule 10 mg PO DAILY 06/14/22 07/14/24 History diclofenac sodium 1 % topical gel 1 g topical QID PRN joint pain 06/14/22 07/14/24 History (Voltaren Arthritis Pain) tiotropium bromide 18 mcg capsule 1 cap inhalation BID 06/14/22 07/14/24 History with inhalation device (Spiriva with HandiHaler) triamcinolone acetonide 0.1 % 1 applic topical DAILY PRN Rash 06/18/22 07/14/24 History topical ointment albuterol sulfate 90 mcg/actuation 2 puff inhalation Q6H PRN 06/27/22 07/14/24 History aerosol inhaler Shortness Of Breath ascorbic acid (vitamin C) 1,000 mg 1 g PO DAILY 06/27/22 07/14/24 History capsule calcium carbonate 600 mg PO DAILY 06/27/22 07/14/24 History cholecalciferol (vitamin D3) 50 50 mcg PO DAILY 06/27/22 07/14/24 History mcg (2,000 unit) capsule cyanocobalamin (vitamin B-12) 1,000 mcg PO DAILY 06/27/22 07/14/24 History 1,000 mcg capsule fluticasone 250 mcg-salmeterol 50 1 inh inhalation Q12H 06/27/22 07/14/24 History mcg/dose blistr powdr for inhalation folic acid 1 mg tablet 1 mg PO QAM 06/27/22 07/14/24 History furosemide 40 mg tablet 40 mg PO QDL 06/27/22 07/14/24 History metoprolol succinate 25 mg 12.5 mg PO BID 06/27/22 07/14/24 History tablet,extended release 24 hr multivitamin 1 tab PO DAILY 06/27/22 07/14/24 History potassium chloride 10 mEq 10 meq PO BID 06/27/22 07/14/24 History capsule,extended release prednisone 5 mg tablet 5 mg PO QAM 06/27/22 07/14/24 History vitamin E mixed 400 unit capsule 400 unit PO DAILY 06/27/22 07/14/24 History turmeric 400 mg capsule 400 mg PO DAILY 05/21/24 07/14/24 History vit C 30 mg-s.[place] 250 mg-celery 1 cap PO DAILY 05/21/24 07/14/24 History seed 75 mg-grape seed extrt capsule (Tart [place]) acetaminophen 500 mg tablet 500 mg PO Q6H PRN PAIN/FEVER 06/22/24 07/14/24 History pantoprazole 40 mg tablet,delayed 40 mg PO DAILY #30 tabs 07/02/24 07/14/24 Rx release colchicine 0.6 mg tablet 0.6 mg PO UD 07/14/24 07/14/24 History ondansetron HCl 8 mg tablet 8 mg PO DIRECTED PRN n/v 07/14/24 07/14/24 History atorvastatin 20 mg tablet 20 mg PO QAM #30 tabs 07/17/24 Rx furosemide 20 mg tablet 20 mg PO DAILY #30 tabs 07/17/24 Rx spironolactone 25 mg tablet 25 mg PO QAM #30 tabs 07/17/24 Rx Hospital Stay Data Consultations 07/14/24 08:49 Consult Gastroenterology Routine 07/14/24 09:04 ED Decision to Admit Stat 07/14/24 09:16 Consult Hematology Routine Procedures Performed Operation Date: 07/16/24 16:45 Actual Procedures p Colonoscopy Polypectomy - Roderick Zelaya MD Diagnostic Imagining Performed Reviewed imaging, laboratory and diagnostic studies. Pertinent findings as below. Colonoscopy showed 2 colon polyps, I refer you to the full report for details WBCs 2.0 Hemoglobin 7.9 prior to final PRBCs Platelets 24, essentially his baseline, no evidence of active bleeding Electrolytes within normal range Creatinine 0.83 Pending Results Patient Have Any Pending Studies at Discharge: Yes Discharge Instructions Given to Patient (Per Discharging Provider) Follow-up with your oncologist as planned for starting treatment for MDS Follow-up with GI as coordinated through their office Discussed with oncology monitoring her hemoglobin and coordinating outpatient transfusions as needed Home Health Attestation I certify that this patient is under my care and that I, or a physicians assistant track coach working with me, had a face to-face encounter that meets the home health [id number] encounter requirements with this patient. The encounter with the patient was in whole, or in part, for the following medical condition, which is the primary reason for home health care (list medical condition): I certify that, based on my findings, the following services are medically necessary home health services: My clinical findings support the need for the above services because: Further, I certify that my clinical findings support that this patient is homebound (i.e. absences from home require considerable and taxing effort and are for medical reasons or confucianism services or infrequently or of short duration when for other reasons) because: Certification for Home Health Services: Based on the above findings, I certify that this patient is confined to the home and needs intermittent halfway care, physical therapy and/or speech therapy or continues to need occupational therapy. The patient is under my care, and I have initiated the establishment of the plan of care. This patient will be followed by a physician who will periodically review the plan of care. Total Time Total Time Spent Total Time Spent (In Minutes): 39
[2024-07-17] MEDS: INFLUENZA VACC TS2024-25(65y+)/PF (IIV3) 0.5mL Syr IM ONE (15:47)
== END 2024-07-17 16:26 | disposition home health service (06) | DRG 377 ==
LOC: ED 06:21 → SUATTDRO 08:50 → EDINP 08:50 → 2E 18:49 → 3W 07-15 15:59

== ENCOUNTER 2024-08-28 11:10 | Inpatient (IN) ==
--- NOTE | 2024-08-28 11:39 | Emergency Department Note ---
Impression & Plan Multifocal pneumonia, Pancytopenia, Neutropenic fever ED Provider Note Name: OTTO STEWART III Age: 79 Sex: Male Arrives Via: Walk-In Informant: Patient, family ED Provider: Ross Calvo MD Chief Complaint: Illness Impression: As per impressions above Medical Decision Makin-year-old gentleman with a history of myelodysplastic syndrome and requires frequent transfusions of platelets and PRBCs arrives for evaluation worsening weakness and fatigue. Patient is ill-appearing and thus blood cultures obtained. He was given empiric IV Zosyn once a pneumonia was noted on that chest x-ray. Laboratory workup did reveal an elevated procalcitonin, significant neutropenia new from previous, and a within normal range lactate. While patient does have pneumonia and neutropenia I do not feel that he is truly septic at this time. He was given some IV fluids along with empiric IV Zosyn. Hospitalist consulted for further management. Patient was also ordered a transfusion of PRBCs as well as platelets. I did ask that PRBCs be irradiated given his acute neutropenia. Will defer further discussion with his primary team. Triage/Nursing Notes reviewed by Me Differential:Infection, dehydration, metabolic abnormality, hypo/hyperglycemia, electrolyte disturbance, anemia, hypoxia, cardiac sources, intracerebral event, toxicologic, neurologic, as well as other pathologies. Vital Signs: reviewed and remarkable for mild hypotension on arrival improved with IV fluids Interventions: IV fluids, Zosyn, PRBC IV, platelets ordered Labs:ED labs Reviewed by me and remarkable for pancytopenia, elevated procalcitonin, normal lactate amongst other abnormalities Imagin view chest x-ray reveals multiple areas of the left lower lobe with infiltrate as per my interpretation. EKG: As per my interpretation. Indication weakness. Sinus at 84 bpm QTc of 456. There is no ischemia. PACs are noted. When compared to EKG of July 22, 2024 there is no significant change. Cardiac/Tele Monitoring: Cardiac Monitoring: An Order was placed for continuous cardiac monitoring. The monitor shows a rate of 80 with a normal sinus rhythm. Consults:Discussed with hospitalist who will further evaluate and manage. Plan: Disposition:Hospitalization. Condition: Good History of Present Illness: 79-year-old gentleman arrives for evaluation of weakness. Patient with worsening weakness and fatigue over the last 24 to 48 hours. Associated with low-grade fevers, chills, body aches and lack of appetite. He notes a runny nose along with a nosebleed earlier today. Denies any significant difficulty with breathing. Feeling a bit weak with standing. Has not eaten as much the last 2 days either. No known sick contacts. Patient is currently being treated for a myelodysplastic syndrome and bone marrow cancer requiring frequent blood transfusions as well as platelet transfusions. Not having any current chest pain, shortness of breath, abdominal pain, urinary burning, sore throat, headache, syncope or other concerning signs or symptoms. Past Medical History:See Below Home Medications:See Below Allergies:See Below Vitals:Blood Pressure: 95/58, Pulse 85, RR 18, T 37.1C, O2 97% on RA Physical Exam: GENERAL: Patient is tired/chronically unwell appearing and in mild distress. RESPIRATORY: No dyspnea. Clear to auscultation and equal bilaterally. CARDIOVASCULAR: Regular rate and rhythm.No murmur appreciated. GASTROINTESTINAL: Abdomen soft, non-tender, no peritonitis. EXTREMITIES: Normal motion all extremities, no cyanosis, no edema. NEUROLOGIC: Alert and oriented. No focal neurologic deficits appreciated SKIN: No rash, no jaundice, no diaphoresis. PSYCH: Appropriate GCS: 15 ED Course: Times/Reassessments: Patient feeling much better after some IV fluids. Monitor closely throughout and will bring in for further management. Critical Care: I have personally spent 35 minutes of critical care time in the direct management of this patient. Acute neutropenic illness in setting of pneumonia with requirement for transfusion due to significant anemia and thrombocytopenia. . This was a life/limb threatening event. This 35 minutes is in excess of all separately billable procedures. Ross Calvo MD Past Med/Surg History Problem List (Updated 08/29/24 @ 14:52 by Ross Calvo MD) Neutropenic fever (Acute) Pancytopenia (Acute) Pulmonary hypertension Multifocal pneumonia (Acute) Abnormal chest CT Type 2 ND (myocardial infarction) Colon polyps Chronic systolic congestive heart failure Thrombocytopenia (Acute) Anemia (Acute) GIB (gastrointestinal bleeding) (Acute) Lower GI bleed (Acute) Acute on chronic systolic (congestive) heart failure Myocardial infarction due to demand ischemia (Acute) Pancytopenia 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 Symptomatic anemia (Acute) Hypokalemia Elevated troponin (Acute) Thrombocytopenia (Acute) Hematochezia Anemia Prediabetes Heart failure, diastolic, due to HTN Chronic venous insufficiency Rheumatoid arthritis (Chronic) Osteoporosis (Chronic) Migraine variant (Chronic) HTN (hypertension) (Chronic) COPD (chronic obstructive pulmonary disease) (Chronic) Medical History 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 Venous ulcer Lymphedema Chronic venous insufficiency 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 Hypertension History of COVID-2021--mild symptoms, no symptoms now Osteoporosis Torn rotator cuff Edema COPD, moderate uses daily inhalers as prescribed--pt states he rarely uses rescue inhaler Rheumatoid arthritis on prednisone Surgical History S/P left cataract extraction History of surgical fusion joint left wrist--hardware in place History of shoulder surgery left "calcium deposit removed" History of tooth extraction full upper/partial lower History of repair of right rotator cuff History of carpal tunnel release of both wrists History of bronchoscopy 07/2017 @ [facility] S/P tonsillectomy Family History Other Cancer Heart disease No family history of adverse response to anesthesia Social History Smoking Status: Former smoker Tobacco Type: Cigarettes Smoking End Date: ; Second Hand Exposure: No; Do You Dip or Chew Tobacco: No; Tobacco Cessation Education Requested by Patient: No Hx Alcohol Use: No Hx Substance Use: No Preferred Language: British Communication Ability: Effective Visual Impairment: No Limitations Hearing Ability: Normal [employer]visor [employer] Required: No Beliefs That Will Affect Care: None marital status: Single Current Living Situation: Alone Current Living Situation Comment: [facility] Other Information That Helps Us Care for You: No Feels Safe at Home: Yes Safety Concerns: Feels Safe At This Time Diet: ideal protein and low salt Diet Comment: educated to increase protein to assist with wound healing caffeine: No Assistive Devices: Stair Lift and Walker Allergies Allergies Allergy/AdvReac Type Severity Reaction Status Date / Time Iodinated Contrast Media Allergy Intermediate Hives Verified 08/25/24 07:49 iodine Allergy Intermediate HIVES Verified 08/25/24 07:49 Home Meds Home Medications Medication Instructions Recorded Confirmed coenzyme Q10 10 mg capsule 10 mg PO DAILY 06/14/22 08/28/24 diclofenac sodium 1 % topical gel 1 g topical QID PRN joint pain 06/14/22 08/28/24 (Voltaren Arthritis Pain) tiotropium bromide 18 mcg capsule 1 cap inhalation BID 06/14/22 08/28/24 with inhalation device (Spiriva with HandiHaler) triamcinolone acetonide 0.1 % 1 applic topical DAILY PRN Rash 06/18/22 08/28/24 topical ointment albuterol sulfate 90 mcg/actuation 2 puff inhalation Q6H PRN 06/27/22 08/25/24 aerosol inhaler Shortness Of Breath calcium carbonate 600 mg PO DAILY 06/27/22 08/28/24 cholecalciferol (vitamin D3) 50 50 mcg PO DAILY 06/27/22 08/28/24 mcg (2,000 unit) capsule cyanocobalamin (vitamin B-12) 1,000 mcg PO DAILY 06/27/22 08/28/24 1,000 mcg capsule fluticasone 250 mcg-salmeterol 50 1 inh inhalation Q12H 06/27/22 08/28/24 mcg/dose blistr powdr for inhalation folic acid 1 mg tablet 1 mg PO QAM 06/27/22 08/28/24 metoprolol succinate 25 mg 12.5 mg PO BID 06/27/22 08/28/24 tablet,extended release 24 hr multivitamin 1 tab PO DAILY 06/27/22 08/28/24 potassium chloride 10 mEq 20 meq PO BID 06/27/22 08/28/24 capsule,extended release prednisone 5 mg tablet 5 mg PO QAM 06/27/22 08/28/24 acetaminophen 500 mg tablet 500 mg PO Q6H PRN PAIN/FEVER 06/22/24 08/25/24 colchicine 0.6 mg tablet 0.6 mg PO UD 07/14/24 08/28/24 ondansetron HCl 8 mg tablet 8 mg PO DIRECTED PRN n/v 07/14/24 08/28/24 celecoxib 200 mg capsule 200 mg PO BID 08/28/24 08/28/24 chlorthalidone 25 mg tablet 25 mg PO DAILY 08/28/24 08/28/24 Previous Rx's Medication Instructions Recorded pantoprazole 40 mg tablet,delayed 40 mg PO DAILY #30 tabs 07/02/24 release atorvastatin 20 mg tablet 20 mg PO QAM #30 tabs 07/17/24 furosemide 20 mg tablet 20 mg PO DAILY #30 tabs 07/17/24 spironolactone 25 mg tablet 25 mg PO QAM #30 tabs 07/17/24 Results & Data (ED) Vital Signs Vital Signs - 24 hr 08/28/24 11:15 08/28/24 11:27 Temperature 37.1 C Temperature Source Oral Pulse Rate 89 85 Respiratory Rate 18 Respiratory Effort / Characteristics Non-Labored Spontaneous Respiratory Depth Normal Respiratory Pattern Regular Blood Pressure 115/57 L Blood Pressure Mean 76 Pulse Oximetry 97 Oxygen Delivery Method Room Air Sepsis Recent Fever Within 48 Hours No Sepsis New/Unexplained Change in Mental Status No Sepsis Action Taken by Nursing No Action Required Laboratory Data 08/29/24 14:18 08/29/24 09:28 Lab Results 08/28/24 08/28/24 08/28/24 Range/Units 11:33 11:33 11:33 WBC (4.8-10.8) K/ul RBC (4.70-6.10) M/uL Hgb (14.0-18.0) g/dl Hct (42.0-52.0) % MCV (80.0-100.0) fL MCH (25.0-34.0) pg MCHC (32.0-36.0) g/dL RDW Std Deviation (36.4-46.3) fL RDW Coeff of Kellie (11.5-14.5) % Plt Count (130-400) K/uL MPV (9.4-12.4) fL Immature Gran % (Auto) Neut % (Auto) Lymph % (Auto) [place] % (Auto) Eos % (Auto) Baso % (Auto) Neut # (Auto) Lymph # (Auto) [place] # (Auto) Eos # (Auto) Baso # (Auto) Immature Gran # (Auto) Neutrophils % (Manual) Band Neutrophils % Lymphocytes % (Manual) Prolymphocyte % Reactive Lymphs % (Man) Monocytes % (Manual) Eosinophils % (Manual) Basophils % (Manual) Metamyelocytes % (Man) Myelocytes % (Man) Promyelocytes % (Man) Blast Cells % (Manual) Plasma Cell % (Manual) Other Cells % Nucleated RBC % Neutrophils # (Manual) Band Neutrophils # Total Absolute Neuts Lymphocytes # (Manual) Prolymphocyte # Reactive Lymphs # Total Abs Lymphocytes Monocytes # (Manual) Eosinophils # (Manual) Basophils # (Manual) Metamyelocytes # (Man) Myelocytes # (Manual) Promyelocytes # (Man) Blast Cells # (Man) Plasma Cell # (Manual) Other Cells # Nucleated RBCs # (Man) Hypersegmented Neuts Hyposegmented Neuts Hypogranular Neuts Large Granular Lymphs # Lrg Granular Lymphs Hairy Cells Smudge Cells Toxic Granulation Toxic Vacuolation Dohle Bodies Minal Rods Hypogranular Platelets Giant Platelets Platelet Satelliting RBC Morphology Polychromasia Hypochromasia Poikilocytosis Basophilic Stippling Anisocytosis Microcytosis Macrocytosis Spherocytes Pappenheimer Bodies Sickle Cells Target Cells Tear Drop Cells Ovalocytes Stomatocytes Yoo-Venturia Bodies Echinocytes Acanthocytes (Spur) Rouleaux RBC Agglutinates Schistocytes Sezary Cell Sodium (136-145) mmol/L Potassium (3.5-5.1) mmol/L Chloride (98-107) mmol/L Carbon Dioxide (21-32) mmol/L Anion Gap (3-11) BUN (6-23) mg/dl Creatinine (0.6-1.4) mg/dl Est Cr Clr Drug Dosing eGFR BUN/Creatinine Ratio (10-20) Glucose (70-99(Fasting)) mg/dl Lactate (0.4-2.0) mmol/L Calcium (8.6-10.3) mg/dl Magnesium (1.7-2.4) mg/dl Iron (35-175) mcg/dl TIBC (250-450) mcg/dl Transferrin (200-360) mg/dl Transferrin % Sat (20-50) % Total Bilirubin (0.2-1.0) mg/dl Direct Bilirubin (0-0.2) mg/dl AST (13-39) U/L ALT (7-52) U/L Alkaline Phosphatase (34-104) U/L Troponin I High Sens (0-20) pg/ml Total Protein (6.0-8.3) gm/dl Albumin (3.4-5.0) gm/dl Procalcitonin (0-0.5) ng/ml Adenovirus (PCR) Not Detected (NotDetected) B. pertussis DNA (PCR) Not Detected (NotDetected) B.parapertussis DNA PCR Not Detected (NotDetected) C. pneumoniae DNA (PCR) Not Detected (NotDetected) Coronavirus OC43 (PCR) Not Detected (NotDetected) Coronavirus HKU1 (PCR) Not Detected (NotDetected) Coronavirus 229E (PCR) Not Detected (NotDetected) SARS-CoV-2 (PCR) NEGATIVE Not Detected (Negative) Coronavirus NL63 (PCR) Not Detected (NotDetected) Enterobacterales (PCR) (NotDetected) E. coli (PCR) (NotDetected) Human Metapneumovir PCR Not Detected (NotDetected) Influenza Type A (PCR) Negative Not Detected (Neg) Influenza Type B (PCR) Negative (Neg) M. pneumoniae (PCR) (NotDetected) Parainfluenza 1 (PCR) (NotDetected) Parainfluenza 2 (PCR) (NotDetected) Parainfluenza 3 (PCR) (NotDetected) Parainfluenza 4 (PCR) (NotDetected) RSV (RT-PCR) (Neg) RSV (PCR) (NotDetected) Entero/Rhino (PCR) (NotDetected) mcr-1 Colistin Res Gene PCR (NotDetected) Streptococcus sp PCR (NotDetected) blaIMP Car res Gene PCR (NotDetected) KPC-Carbap Res Gene PCR (NotDetected) blaNDM Car Res Gene PCR (NotDetected) OXA-48 Carbapenem Resis Gene (PCR) (NotDetected) blaVIM Car Res Gene PCR (NotDetected) CTX-M Gene Resistance (PCR) (NotDetected) Bld Cult ID Panel PCR (NotDetected) Blood Parasites ID Blood Type Antibody Screen Crossmatch 08/28/24 08/28/24 08/28/24 Range/Units 11:33 11:46 11:52 WBC 0.34 L* (4.8-10.8) K/ul RBC 2.11 L (4.70-6.10) M/uL Hgb 6.3 L* (14.0-18.0) g/dl Hct 18.6 L* (42.0-52.0) % MCV 88.2 (80.0-100.0) fL MCH 29.9 (25.0-34.0) pg MCHC 33.9 (32.0-36.0) g/dL RDW Std Deviation 40.4 (36.4-46.3) fL RDW Coeff of Kellie 12.7 (11.5-14.5) % Plt Count 6 L* (130-400) K/uL MPV 11.2 (9.4-12.4) fL Immature Gran % (Auto) Cancelled Neut % (Auto) Cancelled Lymph % (Auto) Cancelled [place] % (Auto) Cancelled Eos % (Auto) Cancelled Baso % (Auto) Cancelled Neut # (Auto) Cancelled Lymph # (Auto) Cancelled [place] # (Auto) Cancelled Eos # (Auto) Cancelled Baso # (Auto) Cancelled Immature Gran # (Auto) Cancelled Neutrophils % (Manual) Cancelled Band Neutrophils % Cancelled Lymphocytes % (Manual) Cancelled Prolymphocyte % Cancelled Reactive Lymphs % (Man) Cancelled Monocytes % (Manual) Cancelled Eosinophils % (Manual) Cancelled Basophils % (Manual) Cancelled Metamyelocytes % (Man) Cancelled Myelocytes % (Man) Cancelled Promyelocytes % (Man) Cancelled Blast Cells % (Manual) Cancelled Plasma Cell % (Manual) Cancelled Other Cells % Cancelled Nucleated RBC % Cancelled Neutrophils # (Manual) Cancelled Band Neutrophils # Cancelled Total Absolute Neuts Cancelled Lymphocytes # (Manual) Cancelled Prolymphocyte # Cancelled Reactive Lymphs # Cancelled Total Abs Lymphocytes Cancelled Monocytes # (Manual) Cancelled Eosinophils # (Manual) Cancelled Basophils # (Manual) Cancelled Metamyelocytes # (Man) Cancelled Myelocytes # (Manual) Cancelled Promyelocytes # (Man) Cancelled Blast Cells # (Man) Cancelled Plasma Cell # (Manual) Cancelled Other Cells # Cancelled Nucleated RBCs # (Man) Cancelled Hypersegmented Neuts Cancelled Hyposegmented Neuts Cancelled Hypogranular Neuts Cancelled Large Granular Lymphs Cancelled # Lrg Granular Lymphs Cancelled Hairy Cells Cancelled Smudge Cells Cancelled Toxic Granulation Cancelled Toxic Vacuolation Cancelled Dohle Bodies Cancelled Minal Rods Cancelled Hypogranular Platelets Cancelled Giant Platelets Cancelled Platelet Satelliting Cancelled RBC Morphology Cancelled Polychromasia Cancelled Hypochromasia Cancelled Poikilocytosis Cancelled Basophilic Stippling Cancelled Anisocytosis Cancelled Microcytosis Cancelled Macrocytosis Cancelled Spherocytes Cancelled Pappenheimer Bodies Cancelled Sickle Cells Cancelled Target Cells Cancelled Tear Drop Cells Cancelled Ovalocytes Cancelled Stomatocytes Cancelled Yoo-Venturia Bodies Cancelled Echinocytes Cancelled Acanthocytes (Spur) Cancelled Rouleaux Cancelled RBC Agglutinates Cancelled Schistocytes Cancelled Sezary Cell Cancelled Sodium 139 (136-145) mmol/L Potassium 3.8 (3.5-5.1) mmol/L Chloride 98 (98-107) mmol/L Carbon Dioxide 33 H (21-32) mmol/L Anion Gap 8 (3-11) BUN 27 H (6-23) mg/dl Creatinine 1.15 (0.6-1.4) mg/dl Est Cr Clr Drug Dosing Not Reportable eGFR 65.14 BUN/Creatinine Ratio 23.5 H (10-20) Glucose 141 H (70-99(Fasting)) mg/dl Lactate 1.9 (0.4-2.0) mmol/L Calcium 8.8 (8.6-10.3) mg/dl Magnesium 2.1 (1.7-2.4) mg/dl Iron 153 (35-175) mcg/dl TIBC 200 L (250-450) mcg/dl Transferrin 143 L (200-360) mg/dl Transferrin % Sat 77 H (20-50) % Total Bilirubin 0.9 (0.2-1.0) mg/dl Direct Bilirubin 0.2 (0-0.2) mg/dl AST 7 L (13-39) U/L ALT 7 (7-52) U/L Alkaline Phosphatase 69 (34-104) U/L Troponin I High Sens 8.5 (0-20) pg/ml Total Protein 7.3 (6.0-8.3) gm/dl Albumin 3.1 L (3.4-5.0) gm/dl Procalcitonin 0.76 H (0-0.5) ng/ml Adenovirus (PCR) (NotDetected) B. pertussis DNA (PCR) (NotDetected) B.parapertussis DNA PCR (NotDetected) C. pneumoniae DNA (PCR) (NotDetected) Coronavirus OC43 (PCR) (NotDetected) Coronavirus HKU1 (PCR) (NotDetected) Coronavirus 229E (PCR) (NotDetected) SARS-CoV-2 (PCR) (Negative) Coronavirus NL63 (PCR) (NotDetected) Enterobacterales (PCR) DETECTED A (NotDetected) E. coli (PCR) DETECTED A (NotDetected) Human Metapneumovir PCR (NotDetected) Influenza Type A (PCR) (Neg) Influenza Type B (PCR) Not Detected (Neg) M. pneumoniae (PCR) Not Detected (NotDetected) Parainfluenza 1 (PCR) Not Detected (NotDetected) Parainfluenza 2 (PCR) Not Detected (NotDetected) Parainfluenza 3 (PCR) Not Detected (NotDetected) Parainfluenza 4 (PCR) Not Detected (NotDetected) RSV (RT-PCR) Negative (Neg) RSV (PCR) Not Detected (NotDetected) Entero/Rhino (PCR) Not Detected (NotDetected) mcr-1 Colistin Res Gene PCR Not Detected (NotDetected) Streptococcus sp PCR DETECTED A (NotDetected) blaIMP Car res Gene PCR Not Detected (NotDetected) KPC-Carbap Res Gene PCR Not Detected (NotDetected) blaNDM Car Res Gene PCR Not Detected (NotDetected) OXA-48 Carbapenem Resis Gene (PCR) Not Detected (NotDetected) blaVIM Car Res Gene PCR Not Detected (NotDetected) CTX-M Gene Resistance (PCR) Not Detected (NotDetected) Bld Cult ID Panel PCR See PCR Comment (NotDetected) Blood Parasites ID Cancelled Blood Type O Positive Antibody Screen NEGATIVE Crossmatch See Detail Administered Medications Acetaminophen (Acetaminophen 325 Mg Tab) 650 mg PO Q4H PRN PRN Reason: Moderate Pain (Scale 4, 5, 6) Stop: 09/27/24 15:55 Last Admin: 08/28/24 16:08 Dose: 650 mg Documented By: SHANEL Atorvastatin Calcium (Atorvastatin 20 Mg Tab) 20 mg PO [facility]IM [facility] Stop: 09/28/24 08:59 Last Admin: 08/29/24 08:29 Dose: 20 mg Documented By: SHANEL Azithromycin (Azithromycin 250 Mg Tab) 250 mg PO QAM [facility] Stop: 09/03/24 08:59 Last Admin: 08/29/24 08:29 Dose: 250 mg Documented By: SHANEL Benzonatate (Benzonatate 100 Mg Capsule) 100 mg PO TID [facility] Stop: 09/27/24 15:55 Last Admin: 08/29/24 08:29 Dose: 100 mg Documented By: Admin: 08/28/24 20:20 Dose: 100 mg Documented By: Admin: 08/28/24 17:10 Dose: 100 mg Documented By: SHANEL Filgrastim (Filgrastim 480 Mcg/1.6 Ml Vial) 480 mcg SC DAILY [facility] Stop: 08/31/24 08:59 Last Admin: 08/29/24 09:10 Dose: 480 mcg Documented By: SHANEL Fluticasone/Vilanterol (Fluticasone/Vilanterol 200/25mcg 14 Puffs/Inhaler) 1 puffs INH DAILY [facility] Stop: 09/28/24 08:59 Last Admin: 08/29/24 08:27 Dose: 1 puffs Documented By: SHANEL Guaifenesin (Guaifenesin 600 Mg Tabcr) 1,200 mg PO Q12 [facility] Stop: 09/27/24 20:59 Last Admin: 08/29/24 08:28 Dose: 1,200 mg Documented By: Admin: 08/28/24 20:20 Dose: 1,200 mg Documented By: KRYSTYNA Piperacillin Sod/Tazobactam Sod (Zosyn) 4.5 gm in 100 mls @ 25 mls/hr IV Q8H [facility]; Protocol Stop: 09/02/24 20:44 Last Admin: 08/29/24 12:45 Dose: 25 mls/hr Documented By: Infusion: 08/29/24 12:45 Dose: Infused Documented By: Infusion: 08/29/24 08:42 Dose: 0 mls/hr Documented By: Admin: 08/29/24 05:54 Dose: 25 mls/hr Documented By: Infusion: 08/29/24 03:58 Dose: Infused Documented By: Admin: 08/28/24 23:58 Dose: 25 mls/hr Documented By: KRYSTYNA Sodium Chloride (Nss) 50 mls @ 15 mls/hr IV .Q3H20M PRN PRN Reason: For Transfusion Duration Stop: 08/29/24 18:24 Last Infusion: 08/29/24 14:45 Dose: Infused Documented By: Admin: 08/29/24 10:52 Dose: 15 mls/hr Documented By: SHANEL Ipratropium Gustine (Ipratropium Gustine Neb Soln 0.02% 0.5mg/2.5ml Vial) 0.5 mg NEB Q6RWA [facility] Stop: 09/27/24 18:59 Last Admin: 08/29/24 12:31 Dose: 0.5 mg Documented By: Admin: 08/29/24 07:27 Dose: 0.5 mg Documented By: Admin: 08/28/24 19:16 Dose: 0.5 mg Documented By: LOLA Levalbuterol HCl (Levalbuterol 1.25 Mg/3 Ml Neb) 1.25 mg NEB Q6RWA [facility] Stop: 09/27/24 18:59 Last Admin: 08/29/24 12:31 Dose: 1.25 mg Documented By: Admin: 08/29/24 07:27 Dose: 1.25 mg Documented By: Admin: 08/28/24 19:16 Dose: 1.25 mg Documented By: LOLA Metoprolol Succinate (Metoprolol Succ 25mg Ext Rel Tab) 12.5 mg PO DAILY [facility] Stop: 09/28/24 08:59 Last Admin: 08/29/24 08:27 Dose: 12.5 mg Documented By: SHANEL Pantoprazole Sodium (Pantoprazole 40 Mg Tab) 40 mg PO DAILY [facility] Stop: 09/28/24 08:59 Last Admin: 08/29/24 08:29 Dose: 40 mg Documented By: SHANEL Prednisone (Prednisone 5 Mg Tab) 5 mg PO QAM [facility] Stop: 09/28/24 08:59 Last Admin: 08/29/24 08:29 Dose: 5 mg Documented By: SHANEL Umeclidinium Gustine (Umeclidinium Gustine 62.5mcg/Blister 7 Puffs/Inhaler) 1 puffs INH DAILY [facility] Stop: 09/28/24 08:59 Last Admin: 08/29/24 08:30 Dose: 1 puffs Documented By: SHANEL Discontinued Medications Acetaminophen (Acetaminophen 325 Mg Tab) Confirm Administered Dose 650 mg .ROUTE .STK-MED ONE Stop: 08/28/24 16:08 Last Admin: 08/28/24 18:39 Dose: Not Given Documented By: SHANEL Acetaminophen (Acetaminophen 325 Mg Tab) 650 mg PO PRE-TREAT ONE Stop: 08/29/24 02:22 Last Admin: 08/28/24 20:19 Dose: 650 mg Documented By: KRYSTYNA Acetaminophen (Acetaminophen 325 Mg Tab) 650 mg PO PRE-TREAT@0230 [facility] Stop: 08/29/24 06:00 Last Admin: 08/29/24 03:40 Dose: 650 mg Documented By: KRYSTYNA Azithromycin (Azithromycin 250 Mg Tab) 500 mg PO NOW STA; Protocol Stop: 08/28/24 16:12 Last Admin: 08/28/24 17:10 Dose: 500 mg Documented By: SHANEL Diphenhydramine HCl (Diphenhydramine Capsule 25 Mg Cap) 25 mg PO PRE-TREAT@0230 [facility] Stop: 08/29/24 06:00 Last Admin: 08/29/24 03:40 Dose: 25 mg Documented By: KRYSTYNA Furosemide (Furosemide Inj 20 Mg/2 Ml Vial) 20 mg IV ONE ONE Stop: 08/28/24 15:57 Last Admin: 08/28/24 17:18 Dose: 20 mg Documented By: SHANEL Furosemide (Furosemide Inj 20 Mg/2 Ml Vial) 20 mg IV ONE ONE Stop: 08/29/24 06:01 Last Admin: 08/29/24 05:57 Dose: 20 mg Documented By: KRYSTYNA Sodium Chloride (Nss) 1,000 mls @ 999 mls/hr IV .Q1H1M ONE Stop: 08/28/24 12:36 Last Infusion: 08/28/24 14:08 Dose: Infused Documented By: Admin: 08/28/24 11:57 Dose: 999 mls/hr Documented By: JESSICA Piperacillin Sod/Tazobactam Sod (Zosyn) 4.5 gm in 100 mls @ 200 mls/hr IV NOW ONE; Protocol Stop: 08/28/24 13:07 Last Infusion: 08/28/24 14:08 Dose: Infused Documented By: Admin: 08/28/24 12:47 Dose: 200 mls/hr Documented By: JESSICA Vancomycin HCl 2,000 mg/ (Sodium Chloride) 540 mls @ 200 mls/hr IV NOW ONE Stop: 08/28/24 23:41 Last Infusion: 08/29/24 00:10 Dose: Infused Documented By: Admin: 08/28/24 21:28 Dose: 200 mls/hr Documented By: KRYSTYNA Vancomycin HCl (Vancomycin Hcl) 1,000 mg in 270 mls @ 200 mls/hr IV Q12H [facility] Stop: 09/05/24 06:59 Last Infusion: 08/29/24 07:45 Dose: Infused Documented By: Admin: 08/29/24 05:56 Dose: 200 mls/hr Documented By: KRYSTYNA Imaging Data Radiologist's Impression: Chest X-Ray 08/28/24 11:36 XR chest 1V portable HISTORY: 79 years-old Male weakness acute weakness COMPARISON: 06/22/[address] 05/20/2017. TECHNIQUE: AP view of the chest FINDINGS: Cardiac silhouette is enlarged. Pulmonary vascular congestion. Edema. Ill- defined patchy left basilar and midlung airspace opacities. No pneumothorax. Small left pleural effusion. There are a few lateral left rib fractures which are likely chronic. Atherosclerosis of the aorta. Severe degeneration of the glenohumeral joints. IMPRESSION: 1. Cardiomegaly with pulmonary vascular congestion. 2. Ill-defined left midlung and left basilar opacities may represent a superimposed pneumonia. 3. Emphysema. 4. Lateral left rib fractures are likely chronic. ACT 112: Negative or not required by law. The above report was generated using voice recognition software. It may contain grammatical, syntax or spelling errors. Electronically signed by: Jc Garcia M.D. 08/28/2024 12:35 PM Discharge Plan Visit Data Chief Complaint: Flu Like Symptoms Stated Complaint: COUGH, FEVER, CANCER PATIENT ED Provider: Ross Calvo Discharge Problem: Multifocal pneumonia, Pancytopenia, Neutropenic fever Patient Disposition: Admitted As Inpatient Discharge Instructions Interventions: ED Discharge Assessment Last Done: 08/28/24 14:52
[2024-08-28] MEDS: SODIUM CHLORIDE 0.9% 1,000 ML IV ONE (11:57)
[2024-08-28 12:28] LABS: Alanine Aminotransferase 7 U/L (7-52); Albumin Level 3.1 gm/dl (3.4-5.0); Alkaline Phosphatase 69 U/L (34-104); Anion Gap 8 (3-11); Aspartate Aminotransferase 7 U/L (13-39); BUN Creatinine Ratio 23.5 (10-20); Bilirubin Direct 0.2 mg/dl (0-0.2); Bilirubin,Total 0.9 mg/dl (0.2-1.0); Blood Urea Nitrogen 27 mg/dl (6-23); Calcium 8.8 mg/dl (8.6-10.3); Carbon Dioxide 33 mmol/L (21-32); Chloride 98 mmol/L (98-107); Glucose 141 mg/dl (70-99(Fasting)); Magnesium 2.1 mg/dl (1.7-2.4); Potassium 3.8 mmol/L (3.5-5.1); Sodium 139 mmol/L (136-145); Total Protein 7.3 gm/dl (6.0-8.3)
[2024-08-28 12:34] LABS: Troponin I High Sensitivity 8.5 pg/ml (0-20)
--- NOTE | 2024-08-28 12:36 | XRay Report ---
XR chest 1V portable HISTORY: 79 years-old Male weakness acute weakness COMPARISON: 06/22/[address] 05/20/2017. TECHNIQUE: AP view of the chest FINDINGS: Cardiac silhouette is enlarged. Pulmonary vascular congestion. Edema. Ill-defined patchy left basilar and midlung airspace opacities. No pneumothorax. Small left pleural effusion. There are a few latera l left rib fractures which are likely chronic. Atherosclerosis of the aorta. Severe degeneration of t he glenohumeral joints. IMPRESSION: 1. Cardiomegaly with pulmonary vascular congestion. 2. Ill-defined left midlung and left basilar opacities may represent a superimposed pneumonia. 3. Emphysema. 4. Lateral left rib fractures are likely chronic. ACT 112: Negative or not required by law. The above report was generated using voice recognition software. It may contain grammatical, syntax o r spelling errors. Electronically signed by: Jc Garcia M.D. 08/28/2024 12:35 PM
[2024-08-28] MEDS: PIPERACILLIN/TAZOBACTAM 4.5 GM/100 ML BAG IV ONE (12:47)
[2024-08-28 12:48] LABS: Hematocrit (blood only) 18.6 % (42.0-52.0); Hemoglobin 6.3 g/dl (14.0-18.0); Mean Corpuscular Hemoglobin 29.9 pg (25.0-34.0); Mean Corpuscular Hgb Conc 33.9 g/dL (32.0-36.0); Mean Corpuscular Volume 88.2 fL (80.0-100.0); Mean Platelet Volume 11.2 fL (9.4-12.4); Platelet Count 6 K/uL (130-400); RDW Coefficient of Variation 12.7 % (11.5-14.5); RDW Standard Deviation 40.4 fL (36.4-46.3); Red Blood Count 2.11 M/uL (4.70-6.10); White Blood Count 0.34 K/ul (4.8-10.8)
[2024-08-28 12:52] LABS: Influenza A virus by PCR Negative (Neg); Influenza B virus by PCR Negative (Neg); RSV by PCR Negative (Neg); SARS CoV2 RNA(COVID-19) Ceph NEGATIVE (Negative)
[2024-08-28] MEDS ORDERED: SODIUM CHLORIDE 0.9% 50 ML IV PRN ×5 (12:55→18:21)
[2024-08-28] MEDS ORDERED: SODIUM CHLORIDE 0.9% 100 ML IV PRN ×5 (12:55→18:21)
--- NOTE | 2024-08-28 13:09 | History & Physical Report ---
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 Left lower lobe pneumonia possible HCAP Hx of MDS and immunosuppression therapy Neutropenic fever History of COPD - Admit to tele - Sputum culture, mucinex, duonebs QID and Q2H prn, tessalon pearls - Wean O2 prn - Influenza/covid/rsv swab neg, MRSA swab ordered, will check biofire for completeness due to immunosuppression - CXR reviewed as above showing left midlung and left basilar opacities, emphysema, lateral left rib fractures which appear chronic - Continue antibiotic therapy with Zosyn IV and will add azithromycin, Consider addition of antifunal therapy - will consult ID - Check CT chest without contrast to further eval and r/o any abscess in the setting of MDS. - WBC at time of admission = 0.34, Lactic acid = 1.9, Procalcitonin elevated at 0.76 - BCx x 2, follow. - Started on zosyn IV, add azithromycin - febrile at home - Advair disc daily at home Pancytopenia Thrombocytopenia History of MDS -Transfusing 1 unit irradiated PRBCs, platelet 1 U today - goal previously per cards was to keep hgb >8 due to CAD. Will likely require additional transfusions. -Diagnosed via bone marrow biopsy on 06/23/2024 confirmed MDS with monoclonal plasma cell population 10%, variably cellular marrow 20 to 50% with trilineage hematopoiesis. Treatment with infusion of azacitidine started on 08/17/24 x 5 days -Consult heme-onc Rheumatoid Arthritis - On chronic prednisone 5 mg daily History of GI bleed -Consider GI consultation -Continue Protonix 20 mg BID CAD without angina -Metoprolol succinate 12.5 mg daily, atorvastatin 20 mg daily Chronic systolic CHF Lower extremity edema HLD -Chronic 1-2+ pitting BLE, - Home meds: metoprolol succinate 12.5 mg daily furosemide 20 mg daily, chlorthalidone 25 mg daily, spironolactone 25 mg daily with potassium supplement, atorvastatin 20 mg daily - Give dose of lasix 20 mg IV once with transfusion and antibiotic IV as above to prevent worsening of CHF or edema. -Cardiology recommended repeat echo in September to reassess LV wall motion, EF and right-sided filling pressure DVT ppx: teds, scds Lines: 2 PIV FEN/GI: Allow HH diet, neutropenic precautions CODE: Dispo: From home, likely to remain in the hospital x 1-2 days A total of 85 minutes were spent with greater than 50% of that time face to face with the patient, personally reviewing all current laboratories, imaging studies, past medication reconciliation, outpatient chart review, and discussion with specialists to collaborate care for the patient with attending. Please see attending documentation for corrections and/or additions. History of Present Illness Chief Complaint: Flu like symptoms Primary Care Provider: Corbin Salcedo MD This is a 79-year-old male with a past medical history of RA, chronic steroid use, COPD, HTN, newly diagnosed MDS, [place], acute on chronic systolic CHF, alcohol use disorder. He was recently admitted here last month in July for concerns for a GI bleed, symptomatic anemia due to his myelodysplastic syndrome with severe pancytopenia and thrombocytopenia. He did receive transfusion at that time and goal was to try and get his hemoglobin above 8 due to cardiac disease. He underwent a colonoscopy at that time revealing 2 small polyps which were removed, and no active bleeding. Multiple hospitalizations recently: 06/22 to 07/02 for shortness of breath, pancytopenic requiring multiple transfusions, 6 PRBCs, 5 U platelets. At that time had bone marrow biopsy at that time suspicious for MDS and treated for NSTEMI at that time in the setting of severe anemia. [facility]charged to [facility] 07/14/2024 to 07/17/2024 for GI bleeding, transfused 1 unit PRBCs, 1 unit platelet, underwent colonoscopy with 2 small polyps in descending colon and rectum that were removed, no active bleeding. Discharged to home with home health. Today the patient presents for flu like symptoms with his neighbor, Kay. She reports illness x 3-4 days with sore throat, decreased appetite, cough with mucous production, congestion, and had a nose bleed earlier today. He admits to having bright red blood with wiping after bowel movements with hemorrhoids, denies dark tarry bowel movements. No significant amount of bright red blood after bowel movements. Denies hematuria. He admits to having a fever at home with temp of at least 100. Allergies Allergy/AdvReac Type Severity Reaction Status Date / Time Iodinated Contrast Media Allergy Intermediate Hives Verified 08/25/24 07:49 iodine Allergy Intermediate HIVES Verified 08/25/24 07:49 Home Medications Medication Instructions Recorded Confirmed Type coenzyme Q10 10 mg capsule 10 mg PO DAILY 06/14/22 08/28/24 History diclofenac sodium 1 % topical gel 1 g topical QID PRN joint pain 06/14/22 08/28/24 History (Voltaren Arthritis Pain) tiotropium bromide 18 mcg capsule 1 cap inhalation BID 06/14/22 08/28/24 History with inhalation device (Spiriva with HandiHaler) triamcinolone acetonide 0.1 % 1 applic topical DAILY PRN Rash 06/18/22 08/28/24 History topical ointment albuterol sulfate 90 mcg/actuation 2 puff inhalation Q6H PRN 06/27/22 08/25/24 History aerosol inhaler Shortness Of Breath calcium carbonate 600 mg PO DAILY 06/27/22 08/28/24 History cholecalciferol (vitamin D3) 50 50 mcg PO DAILY 06/27/22 08/28/24 History mcg (2,000 unit) capsule cyanocobalamin (vitamin B-12) 1,000 mcg PO DAILY 06/27/22 08/28/24 History 1,000 mcg capsule fluticasone 250 mcg-salmeterol 50 1 inh inhalation Q12H 06/27/22 08/28/24 History mcg/dose blistr powdr for inhalation folic acid 1 mg tablet 1 mg PO QAM 06/27/22 08/28/24 History metoprolol succinate 25 mg 12.5 mg PO BID 06/27/22 08/28/24 History tablet,extended release 24 hr multivitamin 1 tab PO DAILY 06/27/22 08/28/24 History potassium chloride 10 mEq 20 meq PO BID 06/27/22 08/28/24 History capsule,extended release prednisone 5 mg tablet 5 mg PO QAM 06/27/22 08/28/24 History acetaminophen 500 mg tablet 500 mg PO Q6H PRN PAIN/FEVER 06/22/24 08/25/24 History pantoprazole 40 mg tablet,delayed 40 mg PO DAILY #30 tabs 07/02/24 08/28/24 Rx release colchicine 0.6 mg tablet 0.6 mg PO UD 07/14/24 08/28/24 History ondansetron HCl 8 mg tablet 8 mg PO DIRECTED PRN n/v 07/14/24 08/28/24 History atorvastatin 20 mg tablet 20 mg PO QAM #30 tabs 07/17/24 08/28/24 Rx furosemide 20 mg tablet 20 mg PO DAILY #30 tabs 07/17/24 08/28/24 Rx spironolactone 25 mg tablet 25 mg PO QAM #30 tabs 07/17/24 08/28/24 Rx celecoxib 200 mg capsule 200 mg PO BID 08/28/24 08/28/24 History chlorthalidone 25 mg tablet 25 mg PO DAILY 08/28/24 08/28/24 History Past Med/Surg History Problem List (Updated 08/28/24 @ 15:17 by Leticia Petersen MD, [facility]) Multifocal pneumonia Abnormal chest CT Type 2 WA (myocardial infarction) Colon polyps Chronic systolic congestive heart failure Thrombocytopenia (Acute) Anemia (Acute) GIB (gastrointestinal bleeding) (Acute) Lower GI bleed (Acute) Acute on chronic systolic (congestive) heart failure Myocardial infarction due to demand ischemia (Acute) Pancytopenia 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 Symptomatic anemia (Acute) Hypokalemia Elevated troponin (Acute) Thrombocytopenia (Acute) Hematochezia Anemia Prediabetes Heart failure, diastolic, due to HTN Chronic venous insufficiency Rheumatoid arthritis (Chronic) Osteoporosis (Chronic) Migraine variant (Chronic) HTN (hypertension) (Chronic) COPD (chronic obstructive pulmonary disease) (Chronic) Medical History 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 Venous ulcer Lymphedema Chronic venous insufficiency Ocular migraine detention (current) use of systemic steroids for RA Hypertension History of COVID-2021--mild symptoms, no symptoms now Osteoporosis Torn rotator cuff Edema COPD, moderate uses daily inhalers as prescribed--pt states he rarely uses rescue inhaler Rheumatoid arthritis on prednisone Surgical History S/P left cataract extraction History of surgical fusion joint left wrist--hardware in place History of shoulder surgery left "calcium deposit removed" History of tooth extraction full upper/partial lower History of repair of right rotator cuff History of carpal tunnel release of both wrists History of bronchoscopy 07/2017 @ [facility] S/P tonsillectomy Family History Other Cancer Heart disease No family history of adverse response to anesthesia Social History Smoking Status: Former smoker Tobacco Type: Cigarettes Smoking End Date: ; Second Hand Exposure: No; Do You Dip or Chew Tobacco: No; Tobacco Cessation Education Requested by Patient: No Hx Alcohol Use: No Hx Substance Use: No Preferred Language: Armenian Communication Ability: Effective Visual Impairment: No Limitations Hearing Ability: Normal Wheel Inspector Required: No Beliefs That Will Affect Care: None marital status: Single Current Living Situation: Alone Current Living Situation Comment: [facility] Other Information That Helps Us Care for You: No Feels Safe at Home: Yes Safety Concerns: Feels Safe At This Time Diet: ideal protein and low salt Diet Comment: educated to increase protein to assist with wound healing caffeine: No Assistive Devices: Cane, Denture - Upper, Denture - Lower, Glasses and Walker Review of Systems Review of Systems: Constitutional: + fever, sweats and chills Eyes: No diplopia, no worsening or blurred vision ENT: normal hearing, no trouble swallowing Respiratory: + cough, +sputum, no dyspnea at rest or on exertion and does not require supplemental O2 Cardiovascular: No chest pain, tightness or palpitations Abdomen: + as per HPI with hemorrhoids. No pain, nausea, vomiting, diarrhea or constipation Musculoskeletal: No joint pain, calf pain, swelling Neurologic: No weakness, numbness/tingling, or balance problems Psychiatric: No anxiety or depression Skin: No rash or itch Physical Exam Physical Exam: General: awake, alert, no apparent distress, elderly white male Head: Normocephalic, atraumatic ENT: PERRL, EOMI, no pharyngeal exudate, mucous membranes moist Extremities: + chronic venous stasis changes, multiple wounds, no bright red erythema, 1+ peripheral edema or erythema, calfs nontender to palpation Psych: Normal mood and affect Please See attending addendum for complete physical exam. Results & Data Results & Data Vital Signs (Past 12 Hours) Vital Signs Temp Pulse Resp BP Pulse Ox O2 Del Method 08/28/24 11:27 85 08/28/24 11:15 37.1 C 89 18 115/57 L 97 Room Air Laboratory Results 08/28/24 11:52 Aerobic Blood Culture - Pending Blood Anaerobic Blood Culture - Pending 08/28/24 11:46 Aerobic Blood Culture - Pending Blood Anaerobic Blood Culture - Pending 08/28/24 08/28/24 11:46 11:33 WBC 0.34 L* RBC 2.11 L Hgb 6.3 L* Hct 18.6 L* MCV 88.2 MCH 29.9 MCHC 33.9 RDW Std Deviation 40.4 RDW Coeff of Kellie 12.7 Plt Count 6 L* MPV 11.2 Immature Gran % (Auto) Cancelled Neut % (Auto) Cancelled Lymph % (Auto) Cancelled Canyon % (Auto) Cancelled Eos % (Auto) Cancelled Baso % (Auto) Cancelled Neut # (Auto) Cancelled Lymph # (Auto) Cancelled [place] # (Auto) Cancelled Eos # (Auto) Cancelled Baso # (Auto) Cancelled Immature Gran # (Auto) Cancelled Neutrophils % (Manual) Cancelled Band Neutrophils % Cancelled Lymphocytes % (Manual) Cancelled Prolymphocyte % Cancelled Reactive Lymphs % (Man) Cancelled Monocytes % (Manual) Cancelled Eosinophils % (Manual) Cancelled Basophils % (Manual) Cancelled Metamyelocytes % (Man) Cancelled Myelocytes % (Man) Cancelled Promyelocytes % (Man) Cancelled Blast Cells % (Manual) Cancelled Plasma Cell % (Manual) Cancelled Other Cells % Cancelled Nucleated RBC % Cancelled Neutrophils # (Manual) Cancelled Band Neutrophils # Cancelled Total Absolute Neuts Cancelled Lymphocytes # (Manual) Cancelled Prolymphocyte # Cancelled Reactive Lymphs # Cancelled Total Abs Lymphocytes Cancelled Monocytes # (Manual) Cancelled Eosinophils # (Manual) Cancelled Basophils # (Manual) Cancelled Metamyelocytes # (Man) Cancelled Myelocytes # (Manual) Cancelled Promyelocytes # (Man) Cancelled Blast Cells # (Man) Cancelled Plasma Cell # (Manual) Cancelled Other Cells # Cancelled Nucleated RBCs # (Man) Cancelled Hypersegmented Neuts Cancelled Hyposegmented Neuts Cancelled Hypogranular Neuts Cancelled Large Granular Lymphs Cancelled # Lrg Granular Lymphs Cancelled Hairy Cells Cancelled Smudge Cells Cancelled Toxic Granulation Cancelled Toxic Vacuolation Cancelled Dohle Bodies Cancelled Minal Rods Cancelled Hypogranular Platelets Cancelled Giant Platelets Cancelled Platelet Satelliting Cancelled RBC Morphology Cancelled Polychromasia Cancelled Hypochromasia Cancelled Poikilocytosis Cancelled Basophilic Stippling Cancelled Anisocytosis Cancelled Microcytosis Cancelled Macrocytosis Cancelled Spherocytes Cancelled Pappenheimer Bodies Cancelled Sickle Cells Cancelled Target Cells Cancelled Tear Drop Cells Cancelled Ovalocytes Cancelled Stomatocytes Cancelled Yoo-Louise Bodies Cancelled Echinocytes Cancelled Acanthocytes (Spur) Cancelled Rouleaux Cancelled RBC Agglutinates Cancelled Schistocytes Cancelled Sezary Cell Cancelled Sodium 139 Potassium 3.8 Chloride 98 Carbon Dioxide 33 H Anion Gap 8 BUN 27 H Creatinine 1.15 Est Cr Clr Drug Dosing Not Reportable eGFR 65.14 BUN/Creatinine Ratio 23.5 H Glucose 141 H Lactate 1.9 Calcium 8.8 Magnesium 2.1 Total Bilirubin 0.9 Direct Bilirubin 0.2 AST 7 L ALT 7 Alkaline Phosphatase 69 Troponin I High Sens 8.5 Total Protein 7.3 Albumin 3.1 L Procalcitonin 0.76 H SARS-CoV-2 (PCR) NEGATIVE Influenza Type A (PCR) Negative Influenza Type B (PCR) Negative RSV (RT-PCR) Negative Blood Parasites ID Cancelled Blood Type O Positive Antibody Screen NEGATIVE Diagnostic Findings Chest X-Ray 08/28/24 11:36 XR chest 1V portable HISTORY: 79 years-old Male weakness acute weakness COMPARISON: 06/22/[address] 05/20/2017. TECHNIQUE: AP view of the chest FINDINGS: Cardiac silhouette is enlarged. Pulmonary vascular congestion. Edema. Ill- defined patchy left basilar and midlung airspace opacities. No pneumothorax. Small left pleural effusion. There are a few lateral left rib fractures which are likely chronic. Atherosclerosis of the aorta. Severe degeneration of the glenohumeral joints. IMPRESSION: 1. Cardiomegaly with pulmonary vascular congestion. 2. Ill-defined left midlung and left basilar opacities may represent a superimposed pneumonia. 3. Emphysema. 4. Lateral left rib fractures are likely chronic. ACT 112: Negative or not required by law. The above report was generated using voice recognition software. It may contain grammatical, syntax or spelling errors. Electronically signed by: Jc Garcia M.D. 08/28/2024 12:35 PM Code Status & VTE Plan Code Status Full code - discussed with pt at bedside, and neighbor Kay. Supervising Physician Co-Signing Physician Notes Attending Addendum: Case reviewed with the advanced practitioner. I have personally performed a history and physical examination on the patient. I have reviewed the advanced practitioner's documentation on the date of service referenced in note, and I agree with, and take responsibility for the plan of care. please refer to her notes for full details patient seen and examined, records reviewed by myself as well ASSESSMENT AND PLAN Left lower lobe pneumonia in the setting of immunosuppression, with chemotherapy chronic prednisone use Follow-up nasal MRSA swab, sputum, blood cultures Empiric IV vancomycin, Zosyn with azithromycin ID and pulmonary service consulted Pancytopenia, MDS No signs of active bleeding Repeat hemoglobin after 1 unit of packed RBCs, 6.6 Second unit packed RBCs ordered Anemia panel 1 unit platelet pheresis ordered Hematology oncology service consulted other diagnoses and plan of care as per advanced practitioner's notes Tomás Lowe MD (7) HTN (hypertension) Hypertension type: primary hypertension Qualified Code(s): I10 - Essential (primary) hypertension (8) COPD (chronic obstructive pulmonary disease) COPD type: unspecified COPD Qualified Code(s): J44.9 - Chronic obstructive pulmonary disease, unspecified
--- NOTE | 2024-08-28 13:56 | Pulmonary Consultation ---
Date of Consultation August 28, 2024 Assessment & Plan (1) Abnormal chest CT: (2) Rheumatoid arthritis: Rheumatoid arthritis location: unspecified site Rheumatoid factor presence: unspecified presence Qualified Code(s): M06.9 - Rheumatoid arthritis, unspecified (3) COPD (chronic obstructive pulmonary disease): COPD type: unspecified COPD Qualified Code(s): J44.9 - Chronic obstructive pulmonary disease, unspecified (4) Multifocal pneumonia: (5) Pancytopenia: Plan CT chest 08/28/2024 personally reviewed: Patchy opacities appreciated in the lingula as well as left lower lobe There seems to be cavitary lesion in the left lower lobe, previously used to be a big bulla at the same site on CT chest 2016 Centrilobular and and bullous emphysema appreciated bilaterally Minimal mediastinal lymphadenopathy 2D echo 06/23/2024: EF 45-50%, LA mildly dilated, RVSP> 60 mmHg, mild concentric LVH --Multilobar pneumonia In an immunosuppressed patient Possible cavitary lesion in the left lower lobe, although patient used to have bullae at the same spot back in 2017 Procalcitonin 0.76 Negative for influenza A/B, RSV as well as COVID on 08/28/2024 --COPD with bullous emphysema On Spiriva and Wixela 250 at home -- Pancytopenia 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 Patient did get Zosyn in the ED. Continue with broad-spectrum antibiotics with antipseudomonal coverage. Follow-up sputum culture QTc 456 on 08/28/2024. Can consider antifungal treatment given the severe neutropenia Recommend infectious disease consult Please note the above document was generated using voice recognition software. It may contain grammatical, syntax or spelling errors.Any formal questions or concerns about the content, text or information contained within the body of this dictation should be directly addressed to the provider for clarification. History of Present Illness History of Present Illness 79-year-old male present to the hospital for fever Past medical history: MDS, rheumatoid arthritis chronic steroid use, systolic CHF, alcohol use disorder, MDS Pulmonary consulted for pneumonia At the time of examination patient was not in any respiratory distress He was saturating 92% on 2 L nasal cannula Denied any chest pain. No abdominal pain No dysuria or diarrhea No headache or blurry vision Has been complaining of cough, does complain of some chest congestion. No hemoptysis No blood in the stools or urine. 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 No pets at home No personal or family history of asthma No history of lung cancer in the family Allergies Allergy/AdvReac Type Severity Reaction Status Date / Time Iodinated Contrast Media Allergy Intermediate Hives Verified 08/25/24 07:49 iodine Allergy Intermediate HIVES Verified 08/25/24 07:49 Home Medications Medication Instructions Recorded Confirmed Type coenzyme Q10 10 mg capsule 10 mg PO DAILY 06/14/22 08/28/24 History diclofenac sodium 1 % topical gel 1 g topical QID PRN joint pain 06/14/22 08/28/24 History (Voltaren Arthritis Pain) tiotropium bromide 18 mcg capsule 1 cap inhalation BID 06/14/22 08/28/24 History with inhalation device (Spiriva with HandiHaler) triamcinolone acetonide 0.1 % 1 applic topical DAILY PRN Rash 06/18/22 08/28/24 History topical ointment albuterol sulfate 90 mcg/actuation 2 puff inhalation Q6H PRN 06/27/22 08/25/24 History aerosol inhaler Shortness Of Breath calcium carbonate 600 mg PO DAILY 06/27/22 08/28/24 History cholecalciferol (vitamin D3) 50 50 mcg PO DAILY 06/27/22 08/28/24 History mcg (2,000 unit) capsule cyanocobalamin (vitamin B-12) 1,000 mcg PO DAILY 06/27/22 08/28/24 History 1,000 mcg capsule fluticasone 250 mcg-salmeterol 50 1 inh inhalation Q12H 06/27/22 08/28/24 History mcg/dose blistr powdr for inhalation folic acid 1 mg tablet 1 mg PO QAM 06/27/22 08/28/24 History metoprolol succinate 25 mg 12.5 mg PO BID 06/27/22 08/28/24 History tablet,extended release 24 hr multivitamin 1 tab PO DAILY 06/27/22 08/28/24 History potassium chloride 10 mEq 20 meq PO BID 06/27/22 08/28/24 History capsule,extended release prednisone 5 mg tablet 5 mg PO QAM 06/27/22 08/28/24 History acetaminophen 500 mg tablet 500 mg PO Q6H PRN PAIN/FEVER 06/22/24 08/25/24 History pantoprazole 40 mg tablet,delayed 40 mg PO DAILY #30 tabs 07/02/24 08/28/24 Rx release colchicine 0.6 mg tablet 0.6 mg PO UD 07/14/24 08/28/24 History ondansetron HCl 8 mg tablet 8 mg PO DIRECTED PRN n/v 07/14/24 08/28/24 History atorvastatin 20 mg tablet 20 mg PO QAM #30 tabs 07/17/24 08/28/24 Rx furosemide 20 mg tablet 20 mg PO DAILY #30 tabs 07/17/24 08/28/24 Rx spironolactone 25 mg tablet 25 mg PO QAM #30 tabs 07/17/24 08/28/24 Rx celecoxib 200 mg capsule 200 mg PO BID 08/28/24 08/28/24 History chlorthalidone 25 mg tablet 25 mg PO DAILY 08/28/24 08/28/24 History Patient History Medical History 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 Venous ulcer Lymphedema Chronic venous insufficiency Ocular migraine USP (current) use of systemic steroids for RA Hypertension History of COVID-2021--mild symptoms, no symptoms now Osteoporosis Torn rotator cuff Edema COPD, moderate uses daily inhalers as prescribed--pt states he rarely uses rescue inhaler Rheumatoid arthritis on prednisone Surgical History S/P left cataract extraction History of surgical fusion joint left wrist--hardware in place History of shoulder surgery left "calcium deposit removed" History of tooth extraction full upper/partial lower History of repair of right rotator cuff History of carpal tunnel release of both wrists History of bronchoscopy 07/2017 @ [facility] S/P tonsillectomy Family History Other Cancer Heart disease No family history of adverse response to anesthesia Social History Smoking Status: Former smoker Tobacco Type: Cigarettes Smoking End Date: ; Second Hand Exposure: No; Do You Dip or Chew Tobacco: No; Tobacco Cessation Education Requested by Patient: No Hx Alcohol Use: No Hx Substance Use: No Preferred Language: Citizen Of [place] Communication Ability: Effective Visual Impairment: No Limitations Hearing Ability: Normal [employer] Banking Representative Required: No Beliefs That Will Affect Care: None marital status: Single Current Living Situation: Alone Current Living Situation Comment: [facility] Other Information That Helps Us Care for You: No Feels Safe at Home: Yes Safety Concerns: Feels Safe At This Time Diet: ideal protein and low salt Diet Comment: educated to increase protein to assist with wound healing caffeine: No Assistive Devices: Cane, Denture - Upper, Denture - Lower, Glasses and Walker Review of Systems 2 Review of Systems: All systems reviewed & are unremarkable except as noted in HPI & below Physical Exam 2 Physical Exam: Constitutional: No acute distress HEENT: EOMI, PERRLA Respiratory system: Decreased air entry bilaterally, no wheeze, rhonchi, mild crackles bilateral lower lobes CVS: S1-S2 positive, positive 2 out of 6 systolic murmur appreciated best at aorta Abdomen: Soft, nontender, nondistended, positive bowel sounds x4 Extremities: +2 pulses bilaterally radialis/ dorsalis pedis, no cyanosis, +1 pitting edema bilateral lower extremity Neuro: Awake alert oriented x3 Psych: Normal mood and affect G/U: No Mclean Skin: no rashes, warm and dry Lymphatic: no cervical or axillary lymphadenopathy Results & Data Results & Data Vital Signs (Past 12 Hours) Vital Signs Temp Pulse Resp BP Pulse Ox O2 Del Method 08/28/24 11:27 85 08/28/24 11:15 37.1 C 89 18 115/57 L 97 Room Air Laboratory Results 08/28/24 11:46 08/28/24 11:46 PG Care Time/CCT Total # of Minutes Spent Total Time Spent with Patient: Total time spent is greater than 50% in coordination of care (as documented) at patient's floor/unit and/or counseling patient: Coding Level of Care Code 44054 INT INP/OBS CARE 3/75MIN Diagnoses Abnormal chest CT R93.89 Rheumatoid arthritis, involving unspecified site, unspecified whether rheumatoid factor present M06.9 Rheumatoid arthritis location: unspecified site Rheumatoid factor presence: unspecified presence Chronic obstructive pulmonary disease, unspecified COPD type J44.9 COPD type: unspecified COPD Multifocal pneumonia J18.9 Pancytopenia D61.818
[2024-08-28 14:10] LABS: Iron 153 mcg/dl (35-175); Total Iron Binding Cap Calc 200 mcg/dl (250-450); Transferrin 143 mg/dl (200-360); Transferrin (FE) Percent Satur 77 % (20-50)
--- NOTE | 2024-08-28 14:10 | CT Scan Report ---
CT chest diagnostic wo con CLINICAL HISTORY: Eval pna, r/o abscess TECHNIQUE: Multidetector row helical CT of the chest was performed. Coronal and sagittal reformations were obtained. Automated dose lowering techniques and/or adjustment according to patient size were u tilized for this exam. CT DOSE: 822.31 mGy.cm Comparison: Comparison is made to CT chest 05/20/2017 FINDINGS: Lungs and pleura: Diffuse centrilobular emphysema is seen most prominent in the upper lobes. Airspace opacities are seen in the left lower lobe. Heart and pericardium: Aortic valvular calcifications are seen. There is cardiomegaly with biatrial e nlargement. The blood pool is somewhat hypodense which can be seen in anemia. Vessels: Unremarkable. Mediastinum and eulalia: Mediastinal lymph nodes measure up to 11 mm. Chest wall and lower neck: Unremarkable. Abdomen: Unremarkable. Bones: Degenerative changes in the thoracic spine. IMPRESSION: 1. Airspace opacities at left lower lobe compatible with pneumonia. 2. Emphysema. ACT 112: Negative or not required by law. Electronically signed by: Tobias Gutierrez M.D. 08/28/2024 2:09 PM
[2024-08-28 15:02] LABS: Adenovirus PCR Not Detected (NotDetected); Bordetella parapertussis PCR Not Detected (NotDetected); Bordetella pertussis PCR Not Detected (NotDetected); Chlamydia pneumoniae PCR Not Detected (NotDetected); Coronavirus 229E PCR Not Detected (NotDetected); Coronavirus CoV-2 (COVID19)PCR Not Detected (NotDetected); Coronavirus HKU1 PCR Not Detected (NotDetected); Coronavirus NL63 PCR Not Detected (NotDetected); Coronavirus OC43PCR Not Detected (NotDetected); Human Metapneumovirus PCR Not Detected (NotDetected); Influenza A PCR Not Detected (NotDetected); Influenza B PCR Not Detected (NotDetected); Mycoplasma pneumoniae PCR Not Detected (NotDetected); Parainfluenza Virus 1 PCR Not Detected (NotDetected); Parainfluenza Virus 2 PCR Not Detected (NotDetected); Parainfluenza Virus 3 PCR Not Detected (NotDetected); Parainfluenza Virus 4 PCR Not Detected (NotDetected); Respiratory Syncytial VirusPCR Not Detected (NotDetected); Rhinovirus/Enterovirus PCR Not Detected (NotDetected)
--- OUTSIDE RECORDS SUMMARY | 2024-08-28 15:54 | External Medical Summary | Summary of Care ---
Author Name Unknown Organization [facility] Address [address] [place] [address] Phone [phone] Care Team Providers Care Cartographic Engineer Name Role Phone Corbin Salcedo MD Primary Care Provider [phone] Encounter Details Date Type Department Care Team (Late st Contact Info) Description 08/28/2024 Orders Only [facility] [address] [place] [address] Corbin Salcedo MD [address] [place] [address] Allergies Active Allergy Reactions Criticality Noted Date Comments Iodinated Contrast Media Low 06/29/2022 Other reaction(s): Hives Iodine 06/29/2022 Other reaction(s): HIVES Ivp Dye Hives 02/28/1999 documented as of this encounter (statuses as of 08/28/2024) Medications CALCIUM 600 600 MG PO TABS one tablet by mouth daily Active VITAMIN D3 2000 UNIT PO CAPS one tablet by mouth daily Active PROAIR HFA 108 (90 Base) MCG/ACT inhalerIndicatio ns:COPD, moderate (HCC) USE 2 PUFFS BY MOUTH EVERY 4 HOURS NEEDED WHEEZING 8.5 g 5 7 Active Garlic 100 MG Tablet Take 1 Tablet by mouth in the morning. Active Turmeric Curcumin 500 MG CAPS Take by mouth . Acti ve Coenzyme Q10 (CO Q 10) 10 MG CAPS Take by mouth. Active Betamethasone Dipropionate 0.05 % External OintmentIndicati ons:Rash and nonspecific skin eruption Apply 2x daily (or more if itchy instead of scratching) to isolated very itchy areas of rash on arms/legs/trunk. 50 g 1 Active Triamcinolone Acetonide 0.1 % External Cream (Aristocort) Apply topically to affected area 2 times a day. To affected area. 80 g 5 3 Active NATURAL SUPPLEMENT Take by mouth at bedtime. CBD gummies for slee[p Active Diclofenac Sodium 1 % External Gel (Voltaren) APPLY TO AFFECTED AREA 3 TIMES A DAY 100 g 3 3 Active Clotrimazole 1 % External Cream (Lotrimin) APPLY TO THE AFFTECTED AREA OF BOTH BOTTOM FEET AT TWICE DAILY 3 Active Spiriva Respimat 2.5 MCG/ACT Inhalation Aerosol Solution (Tiotropium [place] Monohydrate) INHALE 2 PUFFS ONCE DAILY 12 g 3 4 Active Glucosamine-Esau droitin 500-400 MG Oral Capsule Acti ve Furosemide 20 MG Oral Tablet (Lasix)Indicatio ns:Edema TAKE TWO TABLETS BY MOUTH EVERY MORNING AND 1 EVERY EVENING 270 Tablet 1 4 Active Additional Information Patient taking differently: 20 mg Oral Daily(AM), (No instructions reported), Reported on 08/03/2024 Celecoxib 200 MG Oral Capsule (CeleBREX) Take 1 Capsule by mouth 2 times a day. 180 Capsule 1 4 Active Metoprolol Tartrate 25 MG Oral Tablet (Lopressor) TAKE 1/2 TABLET TWICE A DAY BY MOUTH 90 Tablet 1 4 Active Additional Information Patient not taking.Reported on 08/03/2024 Fluticasone-Salm eterol 250-50 MCG/ACT Inhalation Aerosol Powder Breath Activated (Advair Diskus) USE 1 INHALATION BY MOUTH EVERY 12 HOURS--SAME ADVAIR 180 Each 1 4 Active Chlorthalidone 25 MG Oral Tablet (Hygroton) TAKE 1 TABLET BY MOUTH EVERY DAY 90 Tablet 1 4 Active Potassium Chloride ER 20 MEQ Oral Tablet Extended Release TAKE ONE TABLET BY MOUTH EVERY MORNING AND 1 TABLET BEFORE BEDTIME 180 Tablet 1 4 Active Ondansetron HCl 8 MG Oral Tablet (Zofran) Take by mouth every 8 hours as needed for Nausea. Active Folic Acid 1 MG Oral TabletIndication s:Arthritis, rheumatoid (HCC) Take 1 Tablet by mouth in the morning. 90 Tablet 1 4 Active predniSONE 5 MG Oral Tablet (Deltasone) TAKE 1 TABLET BY MOUTH EVERY DAY IN THE MORNING 90 Tablet 1 4 Active Metoprolol Succinate 25 MG Oral Capsule ER 24 Hour Sprinkle Take 12.5 mg by mouth. Active Colchicine 0.6 MG Oral Capsule Take by mouth. Active Spironolactone 25 MG Oral Tablet (Aldactone) Take 1 Tablet by mouth in the morning. 90 Tablet 3 4 Active Atorvastatin Calcium 20 MG Oral Tablet (Lipitor) Take 1 Tablet by mouth in the morning. 90 Tablet 3 4 Active Pantoprazole Sodium 40 MG Oral Tablet Delayed Release (Protonix) Take 1 Tablet by mouth in the morning. 90 Tablet 4 Active documented as of this encounter (statuses as of 08/28/2024) Active Problems Problem Noted Date Diagnosed Date Primary osteoarthritis of both knees 12/05/2023 Prediabetes 01/07/2023 Overview: Per Prediabetes protocol 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 05/21/2022 COPD, group B, by GOLD 2017 classification 07/11 Overview: Per COPD GOLD Classification nursing home (current) use of systemic steroids Other rheumatoid arthritis w ith rheumatoid factor of left ankle and foot 02/18/2019 Other atherosclerosis of eugene roxanne arteries of extremities, bilateral legs 02/18/2019 Heart failure, diastolic, due to HTN 02/13/2018 History of migraine 02/13/2018 HTN, goal below 140/90 09/05/2011 BMI 35-39 ISOLATED (SEE ACTUAL BMI) 02/13/2010 Overview (02/13/2010): Per Obesity Protocol, #19 documented as of this encounter (statuses as of 08/28/2024) Resolved Problems Problem Noted Date Diagnosed Date [...] be determined 02/17/2001 10/04/2011 Arthritis, rheumatoid 2018 Overview (08/20/2019): duplicate Edema 02/13/2018 documented as of this encounter (statuses as of 08/28/2024) Immunizations Name Administration Dates Next Due COVID-19 mRNA, LNP-s, No Pre serve, 2-Dose Series (Pfizer) 03/27/2022,08/16/2021,12/06/2020,10/31 COVID-19, MRNA-LNP, PF, 30 M CG/0.3 mL, 12 YRS AND ABOVE, IM (PFIZER-Comirnaty) 07/29/2024 COVID-19, MRNA-LNP, PF, 50 M CG/0.5 mL, 12 YRS AND ABOVE, IM (MODERNA-Spikevax) 05/22/2023 Pneumococcal Conjugate Vacc, 13 Valent (Prevnar) 09/28/2016 Pneumococcal Polysaccharide PPV23 (Pneumovax) 12/23/2017,10/10/2010 RSV Vac., Recomb, Adjuvant, PF,0.5 Ml (Arexvy) 08/14/2023 Seasonal Influenza Vac., MDV , IM, 0.5 mL (Fluzone) 06/28/2014,07/13/2013,06/10/2012,07/04,07/10/2010,06/13/2009,06/16/20,06/30/2007,2006 Seasonal Influenza Virus Vac cine, Unspecified Formulation [...] Tobacco: Never Alcohol Use Standard Drinks/Week Comments Not Currently 2 (1 standard drink = 0.6 oz pur e alcohol) per week PHQ-2 Answer Date Recorded PHQ Adult Total Score 0 07/20/2024 Hunger Vital Sign Answer Date Recorded Within the past 12 months, y ou worried that your food would run out before you got the money to buy more. Never true 07/20/20 24 Within the past 12 months, t he food you bought just didn't last and you didn't have money to get more. Never true 07/20/2024 Childcare Answer Date Recorded Do you feel overwhelmed with taking care of a child, family member or friend? No 07/20/2024 Does your family need help f inding childcare? (Household - for ages 0-17 years) Not on file 07/20/2024 Clothing Answer Date Recorded Have you been unable to get clothing when it was really needed? No 07/20/2024 Is your family able to get c lothes or diapers when needed? (Household - for ages 0-17 years) Not on file 07/20/2024 Personal Safety Answer Date Recorded Do you feel unsafe or have concerns for your saf ety? No 07/20/2024 Do you have concerns for you r family's safety? (Household - for ages 0-17 years) Not on file 07/20/2024 Utilities Answer Date Recorded Do you have trouble paying y our heating, water, or electric bill? No 07/20/2024 Is your family able to pay t he heat, water, or electric bill? (Household - for ages 0-17 years) Not on file 07/20/2024 Does your family have access to good internet? (Household - for ages 0-17 years) Not on file 07/20/2024 Employment Status Answer Date Recorded Are you unemployed or without regular income? No 07/20/2024 Does the household have a re lar source of income? (Household - for ages 0-17 years) Not on file 07/20/2024 Social Connections Answer Date Recorded How often do you feel lonely or isolated from th ose around you? Never 07/20/2024 Financial Resource Strain Answer Date R ecorded Do you have any trouble payi ng for your medications, or do you think you might in the future? No 07/20/2024 Does your family have troubl e paying for medicine? (Household - for ages 0-17 years) Not on file 07/20/2024 Transportation Needs Answer Date Record ed Do you have trouble getting a ride to medical visits or work? (Adult - for ages 18 years and over) Not on file 07/20/2024 Does your family have a hard time getting a ride to doctors visits? (Household - for ages 0-17 years) Not on file 07/20/2024 Has lack of transportation k ept you from medical appointments, meetings, work, or from getting things needed for daily living? Check all that apply. No 07/20/2024 Do you (or your family) have trouble finding or paying for a ride (transportation)? (Household - for ages 0-17 years) Not on file 07/20/2024 Housing Stability Answer Date Recorded Do you currently live in a s helter or have no steady place to sleep at night? No 07/20/2024 Do you think you are at risk of becoming homeless? (Adult - for ages 18 years and over) Not on file 07/20/2024 Does your family worry about paying for your home or becoming homeless? (Household - for ages 0-17 years) Not on file 1 09/19/2023 Are you homeless or worried that you might be in the future? No 07/20/2024 Are you (or your family) kobi eless or worried that you might be in the future? (Household - for ages 0-17 years) Not on file Food Insecurity Answer Date Recorded Do you need food for this week? No 07/20/2024 Are you able to get enough f ood for your family? (Household - for ages 0-17 years) Not on file 07/20/2024 Does your family need food t his week? (Household - for ages 0-17 years) Not on file 07/20/2024 Do you always have enough fo od for your family? (Household - for ages 0-17 years) Not on file 07/20/2024 Sex and Gender Information Value Date Recorded Sex Assigned at Male 06/23/2019 9:44 AM EDT Legal Sex Male 5:58 AM EST Gender Identity Male 06/23/2019 9:44 AM EDT Sexual Orientation Straight 02/18/2019 7: 19 AM EDT Occupation Industry Job Start Date Job End Date [employer] Not on file Not on file Not on file documented as of this encounter Plan of Treatment Upcoming Encounters Date Type Department Care Team (Late st Contact Info) Description 09/15/2024 8:15 AM EST Cardiac Studies Cardiac Studies, [facility] [address] [address] 10/06/2024 7:40 AM EST [facility] [address] [phone] Corbin Salcedo MD [address] [id number] 11/04/2024 8:00 AM EST Office Visit Cardiology, [facility] [address] [place] [address] Janett Berger CRNP [address] [place] [id number] Health Maintenance Due Date Last Done Comments Adult Wellness Visit 08/18/2022 08/18/2021 Influenza Vaccine (FLU shot) (#1) 2024 05/22/2023, 05/21/2022, 05/20/2021, Additional history exists Albumin/Creatinine Ratio 01/11/2025 01/11/2022, 12/02 HbA1c 03/12/2025 03/12/2024, 05/2024, 03/27/2023, Additional history exists Depression Screening 07/20/2025 07/20/2024 O2 ASSESSMENT COMPLETED IN PAST YEAR FOR COPD 07/29/2025 07/29/2024 GFR 08/03/2025 08/03/2024, 04/2024, 07/07/2024, Additional history exists DXA Scan 01/19/2027 01/20/2024, 01/01, 09/01/2019, Additional history exists DTap/Tdap Vaccines (4 - Td or Tdap) 08/14/2033 08/14/2023, 08/25/2019, 08/17/2009, Additional history exists Pneumococcal Vaccine: 50+ Years Completed 12/23/2017, 09/28/2016, 10/10/2010 Zoster Vaccines Completed 03/21/2022, 01/16/2022 Alpha-1 Antitrypsin Completed 09/10/2023 COVID-19 Vaccine Completed 07/29/2024, 06/2024, 05/22/2023, Additional history exists HPV (Gardasil) Vaccine Aged Out No lo nger eligible based on patient's age to complete this topic Hepatitis B Vaccine Aged Out No longe r eligible based on patient's age to complete this topic MENINGOCOCCAL (MENACTRA/MENVEO) Aged Out No longer eligible based on patient's age to complete this topic documented as of this encounter Medical Devices Not on filedocumented as of this encounter Procedures Procedure Name Priority Date/Time Associated Diagnosis Comments CHEMISTRY-OUTSIDE Routine 08/27/2024 documented in this encounter Results * (ABNORMAL) CHEMISTRY-OUTSIDE (08/27/2024) Not all results display below - see scan for full detail OUTSIDE LAB (SEE SCANNED REPORT) Comment:SEE SCAN - [facility] CREATININE OUTSIDE L AB (SEE SCANNED REPORT) EGFR OUTSIDE LA B (SEE SCANNED REPORT) POTASSIUM OUTSIDE LA B (SEE SCANNED REPORT) GLUCOSE OUTSIDE LA B (SEE SCANNED REPORT) HOURS FASTING OUTSID E LAB (SEE SCANNED REPORT) TRIGLYCERIDES-OUT SIDE LAB OUTSIDE LAB (SEE SCANNED REPORT) CHOLESTEROL-OUTSI DE LAB OUTSIDE LAB (SEE SCANNED REPORT) HDL-OUTSIDE LAB OUTS [facility] (SEE SCANNED REPORT) CHOL/HDL RATIO-OUTSIDE LAB OUTSIDE LA B (SEE SCANNED REPORT) LDL (CALCULATED)-OUTS [facility] LAB OUTSIDE LAB (SEE SCANNED REPORT) LDL (DIRECT MEASURE)-OUTSIDE LAB OUTSIDE LAB (SEE SCANNED REPORT) HEMOGLOBIN, [id number] LAB OUTSIDE LAB (SEE SCANNED REPORT) PHOSPHORUS-OUTSID E LAB OUTSIDE LAB (SEE SCANNED REPORT) PTH-OUTSIDE LAB OUTS [facility] (SEE SCANNED REPORT) MICROALBUMIN RATIO-OUTSIDE LAB OUTSIDE LA B (SEE SCANNED REPORT) PROTEIN, UA-OUTSIDE LAB OUTSIDE LAB (SEE SCANNED REPORT) HGB 7.5(A) 14.0 - 18.0 G/DL OUTSIDE LAB (SEE SCANNED REPORT) 08/27/2024 [facility] Final Resu lt OUTSIDE LAB (SEE SCANNED REPORT) documented in this encounter Care Teams Cartographic Engineer Relationship Specialty Start Date End Date Corbin Salcedo MD PCP - General 11/27/02 documented as of this encounter
[2024-08-28] MEDS ORDERED: ONDANSETRON INJ 2 MG/ML 2 ML VIAL IV PRN (15:56)
--- NOTE | 2024-08-28 15:56 | Electrocardiogram Report ---
Test Reason : Blood Pressure : */* mmHG Vent. Rate : 84 BPM Atrial Rate : 84 BPM P-R Int : 140 ms QRS Dur : 82 ms QT Int : 386 ms P-R-T Axes : 66 4 46 degrees QTcB Int : 456 ms Sinus rhythm with Premature atrial complexes Otherwise normal ECG When compared with ECG of 15-Jul-2024 05:19, Premature atrial complexes are now Present Confirmed by Wiley Love ([id number]) on 08/28/2024 3:56:08 PM Referred By: Confirmed By: Wiley Love
[2024-08-28] MEDS: ACETAMINOPHEN 325 MG TAB PO PRN (16:08)
[2024-08-28] MEDS: BENZONATATE 100 MG CAPSULE PO SCH (17:10)
[2024-08-28] MEDS: AZITHROMYCIN 250 MG TAB PO STA (17:10)
[2024-08-28] MEDS: FUROSEMIDE INJ 20 MG/2 ML VIAL IV ONE (17:18)
[2024-08-28] MEDS ORDERED: IPRATROPIUM BROMIDE NEB SOLN 0.02% 0.5MG/2.5ML VIAL NEB SCH (18:00)
[2024-08-28] MEDS ORDERED: LEVALBUTEROL 1.25 MG/3 ML NEB NEB SCH (18:00)
[2024-08-28 18:09] LABS: Hematocrit (blood only) 19.3 % (42.0-52.0); Hemoglobin 6.6 g/dl (14.0-18.0)
[2024-08-28 18:24] LABS: Appearance Urine Clear (Clear); Bacteria Urine Automated None Seen (None Seen); Bilirubin Urine Negative (Negative); Blood Urine Negative (Negative); Cast Urine Automated 0-2 /lpf (0-2); Color Urine Yellow; Epithelial Cell Urine Auto 0-2 /hpf (0-2); Glucose Urine UA Negative (Negative); Ketones Urine Negative (Negative); Leukocyte Esterase Urine Negative (Negative); Nitrite Urine Negative (Negative); Protein Urine Trace (Negative); RBC Urine Automated 0-2 /hpf (0-2); Specific Gravity Urine 1.016 (1.000-1.030); Urobilinogen Urine Positive (Negative); WBC Urine Automated 0-5 /hpf (0-5); pH Urine 7.5 (4.5-7.5)
[2024-08-28] MEDS: ACETAMINOPHEN 325 MG TAB ONE (18:39)
[2024-08-28] MEDS: LEVALBUTEROL 1.25 MG/3 ML NEB NEB SCH (19:16)
[2024-08-28] MEDS: IPRATROPIUM BROMIDE NEB SOLN 0.02% 0.5MG/2.5ML VIAL NEB SCH (19:16)
[2024-08-28] MEDS: ACETAMINOPHEN 325 MG TAB PO ONE (20:19)
[2024-08-28] MEDS: guaiFENesin 600 MG TABCR PO SCH (20:20)
[2024-08-28] MEDS ORDERED: VANCOMYCIN CONSULT ACTIVE PRN (20:51)
[2024-08-28] MEDS: VANCOMYCIN HCL 2,000 MG in SODIUM CHLORIDE 0.9% 500 ML IV ONE (21:28)
[2024-08-28 23:04] LABS: A calco-baum cmplx NotReported Not Detected (NotDetected); Bact fragilis Not Reported Not Detected (NotDetected); Blood Culture Id Panel See PCR Comment (NotDetected); C auris Not Reported Not Detected (NotDetected); CTX-M Resistant Gene Not Detected (NotDetected); Calbicans Not Reported Not Detected (NotDetected); Candida glabrata Not Reported Not Detected (NotDetected); Candida krusei Not Reported Not Detected (NotDetected); Cneoformans/gatti Not Reported Not Detected (NotDetected); Cparapsilosis Not Reported Not Detected (NotDetected); E cloacae compx Not Reported Not Detected (NotDetected); Efaecalis Not Reported Not Detected (NotDetected); Efaecium Not Reported Not Detected (NotDetected); Enterobacterales Not Reported DETECTED (NotDetected); Escherichia coli Not Reported DETECTED (NotDetected); H influenzae Not Reported Not Detected (NotDetected); IMP Resistant Gene Not Detected (NotDetected); K aerogenes Not Reported Not Detected (NotDetected); KPC Resistant Gene Not Detected (NotDetected); Koxytoca Not Reported Not Detected (NotDetected); Kpneumoniae grp Not Reported Not Detected (NotDetected); Lmonocyt Not Reported Not Detected (NotDetected); N meningitidis Not Reported Not Detected (NotDetected); NDM Resistant Gene Not Detected (NotDetected); OXA 48 Like Resistant Gene Not Detected (NotDetected); P aeruginosa Not Reported Not Detected (NotDetected); Proteus spp Not Reported Not Detected (NotDetected); Salmonella spp Not Reported Not Detected (NotDetected); Staph lugdunensis Not Reported Not Detected (NotDetected); Staph spp. Not Reported Not Detected (NotDetected); Staphaureus Not Reported Not Detected (NotDetected); Staphepi Not Reported Not Detected (NotDetected); Stenmaltophilia Not Reported Not Detected (NotDetected); Strep agal(GrpB) Not Reported Not Detected (NotDetected); Strep pneum Not Reported Not Detected (NotDetected); Strep pyog (GrpA) Not Reported Not Detected (NotDetected); Strep spp Not Reported DETECTED (NotDetected); VIM Resistant Gene Not Detected (NotDetected); mcr-1 Colistin Resistant Gene Not Detected (NotDetected)
[2024-08-28 23:09] LABS: Enterobacterales DETECTED (NotDetected); Streptococcus spp DETECTED (NotDetected)
[2024-08-28] MEDS: PIPERACILLIN/TAZOBACTAM 4.5 GM/100 ML BAG IV SCH (23:58)
[2024-08-29 02:09] LABS: Hematocrit (blood only) 19.1 % (42.0-52.0); Hemoglobin 6.6 g/dl (14.0-18.0)
[2024-08-29] MEDS ORDERED: SODIUM CHLORIDE 0.9% 50 ML IV PRN (02:15)
[2024-08-29] MEDS ORDERED: SODIUM CHLORIDE 0.9% 100 ML IV PRN ×2 (02:15→10:24)
[2024-08-29] MEDS: ACETAMINOPHEN 325 MG TAB PO SCH (03:40)
[2024-08-29] MEDS: diphenhydrAMINE Capsule 25 MG CAP PO SCH (03:40)
[2024-08-29] MEDS: VANCOMYCIN HCL 1,000 MG/270 ML BAG IV SCH (05:56)
[2024-08-29] MEDS: FUROSEMIDE INJ 20 MG/2 ML VIAL IV ONE (05:57)
--- NOTE | 2024-08-29 06:27 | Oncology Consultation ---
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 Therefore, recommend G-CSF with filgrastim 480 mcg daily x 2 to 3 days to potentially shorten course of neutropenia. -Agree with broad-spectrum antibiotics and ID consult -Transfuse for hemoglobin below 7.5 and platelet count below of 10,000 -Follow-up with Dr. Amaya at [facility] upon discharge from hospital Thank you for this consult. Will follow peripherally [facility]. 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 28-day cycle on 07/20/2024. He received cycle 2-day 1-5 of treatment from 08/17/2024 to 08/21/2024. He presented to the ER with fever and cough. Labs revealed WBC of 0.66 with ANC of 0.02, hemoglobin of 7.5, hematocrit 22.5 and platelet count of 11,000. Chest x-ray on 08/28/2024 revealed cardiomegaly with pulmonary vascular congestion, ill-defined left midlung and left basilar opacities may represent superimposed pneumonia. CT chest revealed airspace opacities at left lower lobe compatible with pneumonia. Preliminary blood cultures revealed gram negative bacilli and gram-positive cocci. He is currently on broad-spectrum antibiotics Allergies Allergy/AdvReac Type Severity Reaction Status Date / Time Iodinated Contrast Media Allergy Intermediate Hives Verified 08/25/24 07:49 iodine Allergy Intermediate HIVES Verified 08/25/24 07:49 Home Medications Medication Instructions Recorded Confirmed Type coenzyme Q10 10 mg capsule 10 mg PO DAILY 06/14/22 08/28/24 History diclofenac sodium 1 % topical gel 1 g topical QID PRN joint pain 06/14/22 08/28/24 History (Voltaren Arthritis Pain) tiotropium bromide 18 mcg capsule 1 cap inhalation BID 06/14/22 08/28/24 History with inhalation device (Spiriva with HandiHaler) triamcinolone acetonide 0.1 % 1 applic topical DAILY PRN Rash 06/18/22 08/28/24 History topical ointment albuterol sulfate 90 mcg/actuation 2 puff inhalation Q6H PRN 06/27/22 08/25/24 History aerosol inhaler Shortness Of Breath calcium carbonate 600 mg PO DAILY 06/27/22 08/28/24 History cholecalciferol (vitamin D3) 50 50 mcg PO DAILY 06/27/22 08/28/24 History mcg (2,000 unit) capsule cyanocobalamin (vitamin B-12) 1,000 mcg PO DAILY 06/27/22 08/28/24 History 1,000 mcg capsule fluticasone 250 mcg-salmeterol 50 1 inh inhalation Q12H 06/27/22 08/28/24 History mcg/dose blistr powdr for inhalation folic acid 1 mg tablet 1 mg PO QAM 06/27/22 08/28/24 History metoprolol succinate 25 mg 12.5 mg PO BID 06/27/22 08/28/24 History tablet,extended release 24 hr multivitamin 1 tab PO DAILY 06/27/22 08/28/24 History potassium chloride 10 mEq 20 meq PO BID 06/27/22 08/28/24 History capsule,extended release prednisone 5 mg tablet 5 mg PO QAM 06/27/22 08/28/24 History acetaminophen 500 mg tablet 500 mg PO Q6H PRN PAIN/FEVER 06/22/24 08/25/24 History pantoprazole 40 mg tablet,delayed 40 mg PO DAILY #30 tabs 07/02/24 08/28/24 Rx release colchicine 0.6 mg tablet 0.6 mg PO UD 07/14/24 08/28/24 History ondansetron HCl 8 mg tablet 8 mg PO DIRECTED PRN n/v 07/14/24 08/28/24 History atorvastatin 20 mg tablet 20 mg PO QAM #30 tabs 07/17/24 08/28/24 Rx furosemide 20 mg tablet 20 mg PO DAILY #30 tabs 07/17/24 08/28/24 Rx spironolactone 25 mg tablet 25 mg PO QAM #30 tabs 07/17/24 08/28/24 Rx celecoxib 200 mg capsule 200 mg PO BID 08/28/24 08/28/24 History chlorthalidone 25 mg tablet 25 mg PO DAILY 08/28/24 08/28/24 History Patient History Medical History 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 Venous ulcer Lymphedema Chronic venous insufficiency Ocular migraine longterm (current) use of systemic steroids for RA Hypertension History of COVID-2021--mild symptoms, no symptoms now Osteoporosis Torn rotator cuff Edema COPD, moderate uses daily inhalers as prescribed--pt states he rarely uses rescue inhaler Rheumatoid arthritis on prednisone Surgical History S/P left cataract extraction History of surgical fusion joint left wrist--hardware in place History of shoulder surgery left "calcium deposit removed" History of tooth extraction full upper/partial lower History of repair of right rotator cuff History of carpal tunnel release of both wrists History of bronchoscopy 07/2017 @ [facility] S/P tonsillectomy Family History Other Cancer Heart disease No family history of adverse response to anesthesia Social History Smoking Status: Former smoker Tobacco Type: Cigarettes Smoking End Date: ; Second Hand Exposure: No; Do You Dip or Chew Tobacco: No; Tobacco Cessation Education Requested by Patient: No Hx Alcohol Use: No Hx Substance Use: No Preferred Language: Qatari Communication Ability: Effective Visual Impairment: No Limitations Hearing Ability: Normal Data Consultant Required: No Beliefs That Will Affect Care: None marital status: Single Current Living Situation: Alone Current Living Situation Comment: [facility] Other Information That Helps Us Care for You: No Feels Safe at Home: Yes Safety Concerns: Feels Safe At This Time Diet: ideal protein and low salt Diet Comment: educated to increase protein to assist with wound healing caffeine: No Assistive Devices: Cane, Denture - Upper, Denture - Lower, Glasses and Walker Results & Data Vital Signs (Past 12 Hours) Vital Signs Temp Pulse Pulse Resp BP Pulse Ox O2 Del Method 08/29/24 06:03 36.7 C 72 29 H 146/52 H 96 08/29/24 05:47 36.8 C 73 29 H 111/48 L 95 08/29/24 05:42 36.8 C 71 26 H 119/43 L 95 08/29/24 04:44 37.0 C 66 32 H 119/43 L 94 08/29/24 04:14 37.0 C 70 26 H 91/54 L 94 08/29/24 03:59 37.1 C 72 24 113/45 L 96 08/29/24 03:41 36.9 C 74 26 H 107/52 L 95 08/29/24 00:05 37.5 C 65 30 H 115/52 L 96 08/28/24 23:50 36.8 C 65 32 H 112/61 95 08/28/24 22:50 37.2 C 71 24 114/51 L 96 08/28/24 22:16 67 08/28/24 21:50 37.3 C 93 H 26 H 115/53 L 97 08/28/24 21:20 37.3 C 75 22 111/47 L 97 08/28/24 21:05 37.2 C 76 27 H 116/44 L 95 08/28/24 21:01 Nasal Cannula 08/28/24 20:49 37.1 C 85 24 112/60 95 08/28/24 20:45 37.1 C 83 18 112/60 95 08/28/24 19:21 37.2 C 74 20 101/49 L 99 08/28/24 19:16 78 18 95 Nasal Cannula 08/28/24 18:51 37.4 C 79 18 101/53 L 92 08/28/24 18:36 37.4 C 79 18 101/53 L 92 08/28/24 18:35 37.4 C 75 18 116/59 L 92 O2 Flow Rate 08/29/24 06:03 2 08/29/24 05:47 08/29/24 05:42 2 08/29/24 04:44 2 08/29/24 04:14 2 08/29/24 03:59 08/29/24 03:41 2 08/29/24 00:05 2 08/28/24 23:50 2 08/28/24 22:50 2 08/28/24 22:16 08/28/24 21:50 2 08/28/24 21:20 08/28/24 21:05 08/28/24 21:01 2 08/28/24 20:49 08/28/24 20:45 08/28/24 19:21 2 08/28/24 19:16 1 08/28/24 18:51 08/28/24 18:36 0 08/28/24 18:35 0
[2024-08-29] MEDS: METOPROLOL SUCC 25MG EXT REL TAB PO SCH (08:27)
[2024-08-29] MEDS: FLUTICASONE/VILANTEROL 200/25MCG 14 PUFFS/INHALER INH SCH (08:27)
[2024-08-29] MEDS: AZITHROMYCIN 250 MG TAB PO SCH (08:29)
[2024-08-29] MEDS: PANTOprazole 40 MG TAB PO SCH (08:29)
[2024-08-29] MEDS: ATORVASTATIN 20 MG TAB PO SCH (08:29)
[2024-08-29] MEDS: predniSONE 5 MG TAB PO SCH (08:29)
[2024-08-29] MEDS: UMECLIDINIUM BROMIDE 62.5MCG/BLISTER 7 PUFFS/INHALER INH SCH (08:30)
--- NOTE | 2024-08-29 08:45 | Pulmonology Progress Note ---
Date of Service August 29, 2024 Assessment & Plan (1) Abnormal chest CT: (2) Rheumatoid arthritis: Rheumatoid arthritis location: unspecified site Rheumatoid factor presence: unspecified presence Qualified Code(s): M06.9 - Rheumatoid arthritis, unspecified (3) COPD (chronic obstructive pulmonary disease): COPD type: unspecified COPD Qualified Code(s): J44.9 - Chronic obstructive pulmonary disease, unspecified (4) Multifocal pneumonia: (5) Pancytopenia: (6) Pulmonary hypertension: Plan CT chest 08/28/2024 personally reviewed: Patchy opacities appreciated in the lingula as well as left lower lobe There seems to be cavitary lesion in the left lower lobe, previously used to be a big bulla at the same site on CT chest 2017 Centrilobular and and bullous emphysema appreciated bilaterally Minimal mediastinal lymphadenopathy 2D echo 06/23/2024: EF 45-50%, LA mildly dilated, RVSP> 60 mmHg, mild concentric LVH --Multilobar pneumonia with bacteremia In an immunosuppressed patient Possible cavitary lesion in the left lower lobe, although patient used to have bullae at the same spot back in 2017 Procalcitonin 0.76 Negative for influenza A/B, RSV as well as COVID on 08/28/2024 Nasal MRSA negative Blood culture positive for gram-negative bacilli as well as gram-positive cocci --COPD with bullous emphysema 66-fesd-sutp smoking history 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 I will get alpha-1 level and phenotype On Spiriva and Wixela 250 at home --Pulmonary hypertension Likely combination of type II and type III -- Pancytopenia Likely secondary to MDS Absolute neutrophil count 20 --Rheumatoid arthritis On 5 mg prednisone on a daily basis Plan: Follow-up galactomannan and beta D glucan, patient already got Zosyn in ED on 08/28/2024 Continue with broad-spectrum antibiotics with antipseudomonal coverage. Follow-up sputum culture O2 supplementation to keep oxygen saturation between 90-92% QTc 456 on 08/28/2024. I think it is reasonable to hold back on antifungal treatment, given that we already have blood cultures positive for bacteria. If the patient's blood pressure starts to trend down then hydrocortisone should be used Recommend infectious disease consult Case was discussed with RN at bedside Please note the above document was generated using voice recognition software. It may contain grammatical, syntax or spelling errors.Any formal questions or concerns about the content, text or information contained within the body of this dictation should be directly addressed to the provider for clarification. Admission and Anticipated Discharge Date Admission Date: August 28, 2024 Subjective Patient seen and examined at bedside. No acute distress, no adverse events overnight He was saturating 95% on 1 L nasal cannula As per the nurse when he is dozing off and sleeping his saturations do go down. No headache or blurry vision Coughing and bringing up clear phlegm. No nausea or vomiting Appetite is fair Review of Systems 2 Review of Systems: All systems reviewed & are unremarkable except as noted in Subjective Physical Exam 2 Physical Exam: Constitutional: No acute distress HEENT: EOMI, PERRLA Respiratory system: Decreased air entry bilaterally, no wheeze, rhonchi, mild crackles bilateral lower lobes CVS: S1-S2 positive, positive 2 out of 6 systolic murmur appreciated best at aorta Abdomen: Soft, nontender, nondistended, positive bowel sounds x4 Extremities: +2 pulses bilaterally radialis/ dorsalis pedis, no cyanosis, +1 pitting edema bilateral lower extremity Neuro: Awake alert oriented x3 Psych: Normal mood and affect G/U: No [facility] Skin: no rashes, warm and dry Lymphatic: no cervical or axillary lymphadenopathy Results & Data Results & Data Vital Signs (Past 12 Hours) Vital Signs Temp Pulse Pulse Resp BP BP Pulse Ox 08/29/24 08:38 107/55 L 08/29/24 08:35 37.1 C 91 H 22 124/53 L 88 L 08/29/24 08:00 08/29/24 07:39 37.7 C H 83 20 124/53 L 92 08/29/24 07:27 74 17 97 08/29/24 06:48 37.1 C 68 23 127/50 L 95 08/29/24 06:30 37.1 C 71 24 115/51 L 96 08/29/24 06:18 37.0 C 67 26 H 115/51 L 95 08/29/24 06:03 36.7 C 72 29 H 146/52 H 96 08/29/24 05:47 36.8 C 73 29 H 111/48 L 95 08/29/24 05:42 36.8 C 71 26 H 119/43 L 95 08/29/24 04:44 37.0 C 66 32 H 119/43 L 94 08/29/24 04:14 37.0 C 70 26 H 91/54 L 94 08/29/24 03:59 37.1 C 72 24 113/45 L 96 08/29/24 03:41 36.9 C 74 26 H 107/52 L 95 08/29/24 00:05 37.5 C 65 30 H 115/52 L 96 08/28/24 23:50 36.8 C 65 32 H 112/61 95 08/28/24 22:50 37.2 C 71 24 114/51 L 96 08/28/24 22:16 67 08/28/24 21:50 37.3 C 93 H 26 H 115/53 L 97 08/28/24 21:20 37.3 C 75 22 111/47 L 97 08/28/24 21:05 37.2 C 76 27 H 116/44 L 95 08/28/24 21:01 08/28/24 20:49 37.1 C 85 24 112/60 95 08/28/24 20:45 37.1 C 83 18 112/60 95 O2 Del Method O2 Flow Rate 08/29/24 08:38 08/29/24 08:35 1 08/29/24 08:00 Nasal Cannula 1 08/29/24 07:39 1 08/29/24 07:27 Nasal Cannula 1 08/29/24 06:48 1 08/29/24 06:30 1 08/29/24 06:18 08/29/24 06:03 2 08/29/24 05:47 08/29/24 05:42 2 08/29/24 04:44 2 08/29/24 04:14 2 08/29/24 03:59 08/29/24 03:41 2 08/29/24 00:05 2 08/28/24 23:50 2 08/28/24 22:50 2 08/28/24 22:16 08/28/24 21:50 2 08/28/24 21:20 08/28/24 21:05 08/28/24 21:01 Nasal Cannula 2 08/28/24 20:49 08/28/24 20:45 Laboratory Results 08/29/24 01:47 08/28/24 11:46 PG Care Time/CCT Total # of Minutes Spent Total Time Spent with Patient: Total time spent is greater than 50% in coordination of care (as documented) at patient's floor/unit and/or counseling patient: Coding Level of Care Code 69348 SUB INP/OBS CARE 3/50MIN Diagnoses Abnormal chest CT R93.89 Rheumatoid arthritis, involving unspecified site, unspecified whether rheumatoid factor present M06.9 Rheumatoid arthritis location: unspecified site Rheumatoid factor presence: unspecified presence Chronic obstructive pulmonary disease, unspecified COPD type J44.9 COPD type: unspecified COPD Multifocal pneumonia J18.9 Pancytopenia D61.818 Pulmonary hypertension I27.20
[2024-08-29] MEDS: FILGRASTIM 480 MCG/1.6 ML VIAL SC SCH (09:10)
[2024-08-29 10:19] LABS: Hematocrit (blood only) 22.8 % (42.0-52.0); Hemoglobin 7.9 g/dl (14.0-18.0); Mean Corpuscular Hemoglobin 29.5 pg (25.0-34.0); Mean Corpuscular Hgb Conc 34.6 g/dL (32.0-36.0); Mean Corpuscular Volume 85.1 fL (80.0-100.0); Mean Platelet Volume 10.3 fL (9.4-12.4); Neutrophils # (auto) < 0.50 K/uL (1.40-6.50); Platelet Count 9 K/uL (130-400); RDW Coefficient of Variation 13.2 % (11.5-14.5); RDW Standard Deviation 40.1 fL (36.4-46.3); Red Blood Count 2.68 M/uL (4.70-6.10); White Blood Count 0.23 K/ul (4.8-10.8)
[2024-08-29 10:25] LABS: BUN Creatinine Ratio 21.5 (10-20); Calcium 8.2 mg/dl (8.6-10.3); Creatinine Clr Calc Pharmacy 68.8 ml/min; Magnesium 1.8 mg/dl (1.7-2.4); Potassium 2.7 mmol/L (3.5-5.1)
[2024-08-29] MEDS: SODIUM CHLORIDE 0.9% 50 ML IV PRN (10:52)
--- NOTE | 2024-08-29 13:34 | Hospitalist Progress Note ---
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 Left lower lobe pneumonia Hx of COPD Pt presenting with cough and fevers Respiratory viral panel negative Chest xray concerning for pneumonia, noted emphysema CT chest confirming pneumonia and emphysema Procalcitonin elevated at 0.76 Sputum culture repeat pending Blood Cx currently growing E coli and strep lutetiensis Continue IV Zosyn and azithromycin, was also previously on Vancomycin Pulmonology consulted, appreciate recs. Recommended/stated the following: "Follow-up galactomannan and beta D glucan, patient already got Zosyn in ED on 08/28/2024 Continue with broad-spectrum antibiotics with antipseudomonal coverage. Follow-up sputum culture O2 supplementation to keep oxygen saturation between 90-92% QTc 456 on 08/28/2024. I think it is reasonable to hold back on antifungal treatment, given that we already have blood cultures positive for bacteria. If the patient's blood pressure starts to trend down then hydrocortisone should be used Recommend infectious disease consult" Infectious Disease consulted, appreciate further recs Continue to monitor Bacteremia Pt with blood Cx on admission growing E coli and strep lutetiensis UA unremarkable for infection/E coli CT abd/pelvis from 06/25 reviewed as a source for the strep lutetiensis. Consider repeat Repeat Blood Cx on 08/30 Echo ordered and pending, as strep lutetiensis can cause endocarditis On IV Zosyn and azithromycin as above for pneumonia Infectious Disease consulted, appreciate further recs Hx of MDS and immunosuppression therapy Neutropenic fever Pancytopenia(leukopenia with neutropenia, Anemia, Thrombocytopenia) Pt with persistent anemia requiring transfusion Transfused 4U pRBCs since admission at this time for hgb <7.5 s/p transfusion of 3U platelets since admission for platelets <10K MDS diagnosed via bone marrow biopsy on 06/23/2024 with noted monoclonal plasma cell population 10%, variably cellular marrow 20 to 50% with trilineage hematopoiesis. Treatment with infusion of azacitidine started on 08/17/24 x 5 days Hematology/Oncology was consulted, appreciate recs. recommended/stated the following on 08/29/24: " Although there is no evidence that G-CSF improves Overall survival in the setting of MDS, he has pneumonia and positive blood cultures with severe neutropenia. Therefore, recommend G-CSF with filgrastim 480 mcg daily x 2 to 3 days to potentially shorten course of neutropenia. -Agree with broad-spectrum antibiotics and ID consult -Transfuse for hemoglobin below 7.5 and platelet count below of 10,000 -Follow-up with Dr. Amaya at [facility] upon discharge from hospital" Continue with filgastrim as ordered by hematology Continue to follow CBC and transfuse as noted above Hypokalemia replete as needed Chronic Rib Fractures Noted on imaging Pain control prn Rheumatoid Arthritis On chronic prednisone 5 mg daily History of GI bleed Continue Protonix 20 mg BID CAD without angina Chronic systolic CHF Lower extremity edema HLD Chronic 1-2+ pitting BLE EKG with noted sinus rhythm with PACs Home meds: metoprolol succinate 12.5 mg daily furosemide 20 mg daily, chlorthalidone 25 mg daily, spironolactone 25 mg daily with potassium supplement, atorvastatin 20 mg daily Give dose of lasix 20 mg IV once with transfusion to prevent worsening of CHF or edema. Cardiology recommended repeat echo in September to reassess LV wall motion, EF and right-sided filling pressure, echo ordered as above in setting of concern for endocarditis Continue to monitor for signs of volume overload Continue other home meds as ordered DVT ppx: teds, scds in setting of anemia requiring transfusion Diet: Dispo: PT/OT for further recs once medically stable Admission and Anticipated Discharge Date Admission Date: August 28, 2024 Subjective patient was seen sitting up in bed Very pleasant and noted that his "body was giving out" Denies shortness of breath, noting that his cough was more bothersome than anything else Review of Systems Review of Systems: All systems reviewed & are unremarkable except as noted in Subjective Physical Exam Physical Exam: General: Alert, oriented. No acute distress Skin: lower extremity skin changes noted Psych: Appropriate mood and affect HEENT: NC/AT CV: RRR Resp: Breath sounds decreased bilaterally, no increased effort of breathing Abdomen:Soft, nontender Extremities: trace edema in lower extremities bilaterally, lower extremity skin changes noted. Results & Data Results & Data Vital Signs (Past 12 Hours) Vital Signs Temp Pulse Pulse Resp BP BP Pulse Ox 08/29/24 13:03 37.1 C 87 20 105/62 93 08/29/24 12:31 77 18 96 08/29/24 11:18 37.1 C 77 22 125/59 L 96 08/29/24 11:03 37.3 C 77 22 112/57 L 91 08/29/24 11:00 37.1 C 79 24 136/62 95 08/29/24 10:38 37.1 C 78 20 107/61 94 08/29/24 08:38 107/55 L 08/29/24 08:35 37.1 C 91 H 22 124/53 L 88 L 08/29/24 08:00 08/29/24 07:39 37.7 C H 83 20 124/53 L 92 08/29/24 07:27 74 17 97 08/29/24 06:48 37.1 C 68 23 127/50 L 95 08/29/24 06:30 37.1 C 71 24 115/51 L 96 08/29/24 06:18 37.0 C 67 26 H 115/51 L 95 08/29/24 06:03 36.7 C 72 29 H 146/52 H 96 08/29/24 06:00 70 08/29/24 05:47 36.8 C 73 29 H 111/48 L 95 08/29/24 05:42 36.8 C 71 26 H 119/43 L 95 08/29/24 04:44 37.0 C 66 32 H 119/43 L 94 08/29/24 04:14 37.0 C 70 26 H 91/54 L 94 08/29/24 03:59 37.1 C 72 24 113/45 L 96 08/29/24 03:41 36.9 C 74 26 H 107/52 L 95 O2 Del Method O2 Flow Rate 08/29/24 13:03 1 08/29/24 12:31 Nasal Cannula 1 08/29/24 11:18 1 08/29/24 11:03 1 08/29/24 11:00 1 08/29/24 10:38 1 08/29/24 08:38 08/29/24 08:35 1 08/29/24 08:00 Nasal Cannula 1 08/29/24 07:39 1 08/29/24 07:27 Nasal Cannula 1 08/29/24 06:48 1 08/29/24 06:30 1 08/29/24 06:18 08/29/24 06:03 2 08/29/24 06:00 08/29/24 05:47 08/29/24 05:42 2 08/29/24 04:44 2 08/29/24 04:14 2 08/29/24 03:59 08/29/24 03:41 2 Diagnostic Findings Chest X-Ray 08/28/24 11:36 XR chest 1V portable HISTORY: 79 years-old Male weakness acute weakness COMPARISON: 06/22/[address] 05/20/2017. TECHNIQUE: AP view of the chest FINDINGS: Cardiac silhouette is enlarged. Pulmonary vascular congestion. Edema. Ill- defined patchy left basilar and midlung airspace opacities. No pneumothorax. Small left pleural effusion. There are a few lateral left rib fractures which are likely chronic. Atherosclerosis of the aorta. Severe degeneration of the glenohumeral joints. IMPRESSION: 1. Cardiomegaly with pulmonary vascular congestion. 2. Ill-defined left midlung and left basilar opacities may represent a superimposed pneumonia. 3. Emphysema. 4. Lateral left rib fractures are likely chronic. ACT 112: Negative or not required by law. The above report was generated using voice recognition software. It may contain grammatical, syntax or spelling errors. Electronically signed by: Jc Garcia M.D. 08/28/2024 12:[address] 08/28/24 13:40 CT chest diagnostic wo con CLINICAL HISTORY: Eval pna, r/o abscess TECHNIQUE: Multidetector row helical CT of the chest was performed. Coronal and sagittal reformations were obtained. Automated dose lowering techniques and/or adjustment according to patient size were utilized for this exam. CT DOSE: 822.31 mGy.cm Comparison: Comparison is made to CT chest 05/20/2017 FINDINGS: Lungs and pleura: Diffuse centrilobular emphysema is seen most prominent in the upper lobes. Airspace opacities are seen in the left lower lobe. Heart and pericardium: Aortic valvular calcifications are seen. There is cardiomegaly with biatrial enlargement. The blood pool is somewhat hypodense which can be seen in anemia. Vessels: Unremarkable. Mediastinum and eulalia: Mediastinal lymph nodes measure up to 11 mm. Chest wall and lower neck: Unremarkable. Abdomen: Unremarkable. Bones: Degenerative changes in the thoracic spine. IMPRESSION: 1. Airspace opacities at left lower lobe compatible with pneumonia. 2. Emphysema. ACT 112: Negative or not required by law. Electronically signed by: Tobias Gutierrez M.D. 08/28/2024 2:09 PM (7) HTN (hypertension) Hypertension type: primary hypertension Qualified Code(s): I10 - Essential (primary) hypertension (8) COPD (chronic obstructive pulmonary disease) COPD type: unspecified COPD Qualified Code(s): J44.9 - Chronic obstructive pulmonary disease, unspecified
[2024-08-29 14:43] LABS: Hematocrit (blood only) 23.6 % (42.0-52.0); Hemoglobin 8.3 g/dl (14.0-18.0); Mean Corpuscular Hemoglobin 29.6 pg (25.0-34.0); Mean Corpuscular Hgb Conc 35.2 g/dL (32.0-36.0); Mean Corpuscular Volume 84.3 fL (80.0-100.0); Mean Platelet Volume 10.5 fL (9.4-12.4); Neutrophils # (auto) < 0.50 K/uL (1.40-6.50); Platelet Count 11 K/uL (130-400); RDW Coefficient of Variation 13.2 % (11.5-14.5); RDW Standard Deviation 40.1 fL (36.4-46.3)
[2024-08-29 14:59] LABS: White Blood Count 0.24 K/ul (4.8-10.8)
[2024-08-29] MEDS: POTASSIUM CHLORIDE CRTAB 20 MEQ TABCR PO STA (18:13)
[2024-08-29] MEDS: POTASSIUM CHLORIDE CRTAB 20 MEQ TABCR PO SCH (20:38)
[2024-08-30 08:57] LABS: Hematocrit (blood only) 26.3 % (42.0-52.0); Hemoglobin 9.1 g/dl (14.0-18.0); Mean Corpuscular Hemoglobin 29.6 pg (25.0-34.0); Mean Corpuscular Hgb Conc 34.6 g/dL (32.0-36.0); Mean Corpuscular Volume 85.7 fL (80.0-100.0); Neutrophils # (auto) < 0.50 K/uL (1.40-6.50); Platelet Count 20 K/uL (130-400); RDW Coefficient of Variation 13.4 % (11.5-14.5); RDW Standard Deviation 41.8 fL (36.4-46.3); Red Blood Count 3.07 M/uL (4.70-6.10)
[2024-08-30 09:16] LABS: Albumin Globulin Ratio 0.7 (0.9-2); Albumin Level 2.9 gm/dl (3.4-5.0); BUN Creatinine Ratio 20.2 (10-20); Calcium 8.5 mg/dl (8.6-10.3); Creatinine Clr Calc Pharmacy 78.1 ml/min; Globulin 4.2 gm/dl (2.5-4.0); Phosphorus 2.6 mg/dl (2.5-4.9); Potassium 3.5 mmol/L (3.5-5.1); Total Protein 7.1 gm/dl (6.0-8.3)
[2024-08-30 09:20] LABS: White Blood Count 0.45 K/ul (4.8-10.8)
--- NOTE | 2024-08-30 09:45 | Pulmonology Progress Note ---
Date of Service August 30, 2024 Assessment & Plan (1) Abnormal chest CT: (2) Rheumatoid arthritis: Rheumatoid arthritis location: unspecified site Rheumatoid factor presence: unspecified presence Qualified Code(s): M06.9 - Rheumatoid arthritis, unspecified (3) COPD (chronic obstructive pulmonary disease): COPD type: unspecified COPD Qualified Code(s): J44.9 - Chronic obstructive pulmonary disease, unspecified (4) Multifocal pneumonia: (5) Pancytopenia: (6) Pulmonary hypertension: Plan CT chest 08/28/2024 personally reviewed: Patchy opacities appreciated in the lingula as well as left lower lobe There seems to be cavitary lesion in the left lower lobe, previously used to be a big bulla at the same site on CT chest 2017 Centrilobular and and bullous emphysema appreciated bilaterally Minimal mediastinal lymphadenopathy 2D echo 06/23/2024: EF 45-50%, LA mildly dilated, RVSP> 60 mmHg, mild concentric LVH --Multilobar pneumonia with E. coli bacteremia In an immunosuppressed patient Possible cavitary lesion in the left lower lobe, although patient used to have bullae at the same spot back in 2017 Procalcitonin 0.76 Negative for influenza A/B, RSV as well as COVID on 08/28/2024 Nasal MRSA negative Blood culture positive for pansensitive E. 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 coli Follow-up sputum culture O2 supplementation to keep oxygen saturation between 90-92% QTc 456 on 08/28/2024. I think it is reasonable to hold back on antifungal treatment, given that we already have blood cultures positive for bacteria. If the patient's blood pressure starts to trend down then hydrocortisone should be used Recommend infectious disease consult Case was discussed with RN at bedside Please note the above document was generated using voice recognition software. It may contain grammatical, syntax or spelling errors.Any formal questions or concerns about the content, text or information contained within the body of this dictation should be directly addressed to the provider for clarification. Admission and Anticipated Discharge Date Admission Date: August 28, 2024 Subjective Patient seen and examined at bedside. No acute distress, no adverse events overnight He was saturating 96% on half liters nasal cannula. Overall he says feeling better Coughing up clear phlegm. No hemoptysis Complaining of constipation, does have flatulence Fair appetite, no nausea or vomiting Review of Systems 2 Review of Systems: All systems reviewed & are unremarkable except as noted in Subjective Physical Exam 2 Physical Exam: Constitutional: No acute distress HEENT: EOMI, PERRLA Respiratory system: Decreased air entry bilaterally, no wheeze, rhonchi, mild crackles bilateral lower lobes CVS: S1-S2 positive, positive 2 out of 6 systolic murmur appreciated best at aorta Abdomen: Soft, nontender, nondistended, positive bowel sounds x4 Extremities: +2 pulses bilaterally radialis/ dorsalis pedis, no cyanosis, +1 pitting edema bilateral lower extremity Neuro: Awake alert oriented x3 Psych: Normal mood and affect G/U: No Mclean Skin: no rashes, warm and dry Lymphatic: no cervical or axillary lymphadenopathy Results & Data Results & Data Vital Signs (Past 12 Hours) Vital Signs Temp Pulse Pulse Resp BP Pulse Ox O2 Del Method 08/30/24 08:41 37.1 C 92 H 17 96/56 L 91 Nasal Cannula 08/30/24 07:31 73 18 92 Room Air 08/30/24 05:50 75 08/30/24 02:47 36.9 C 73 18 118/66 90 Room Air 08/29/24 22:48 37.0 C 90 18 111/60 93 Room Air 08/29/24 22:15 87 O2 Flow Rate 08/30/24 08:41 1 08/30/24 07:31 08/30/24 05:50 08/30/24 02:47 08/29/24 22:48 08/29/24 22:15 Laboratory Results 08/30/24 08:06 08/30/24 08:06 PG Care Time/CCT Total # of Minutes Spent Total Time Spent with Patient: Total time spent is greater than 50% in coordination of care (as documented) at patient's floor/unit and/or counseling patient: Coding Level of Care Code 68782 SUB INP/OBS CARE MIN Diagnoses Abnormal chest CT R93.89 Rheumatoid arthritis, involving unspecified site, unspecified whether rheumatoid factor present M06.9 Rheumatoid arthritis location: unspecified site Rheumatoid factor presence: unspecified presence Chronic obstructive pulmonary disease, unspecified COPD type J44.9 COPD type: unspecified COPD Multifocal pneumonia J18.9 Pancytopenia D61.818 Pulmonary hypertension I27.20
[2024-08-30] MEDS: DOCUSATE SODIUM 100 MG CAP PO SCH (09:50)
--- NOTE | 2024-08-30 14:24 | Hospitalist Progress Note ---
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 Left lower lobe pneumonia Hx of COPD Pt presenting with cough and fevers Respiratory viral panel negative Chest xray concerning for pneumonia, noted emphysema CT chest confirming pneumonia and emphysema Procalcitonin elevated at 0.76 Sputum culture repeat pending Blood Cx currently growing E coli and strep lutetiensis Continue IV Zosyn and azithromycin, was also previously on Vancomycin Pulmonology consulted, appreciate recs. Recommended/stated the following: "Follow-up galactomannan and beta D glucan, patient already got Zosyn in ED on 08/28/2024 Continue with broad-spectrum antibiotics with antipseudomonal coverage. Follow-up sputum culture O2 supplementation to keep oxygen saturation between 90-92% QTc 456 on 08/28/2024. I think it is reasonable to hold back on antifungal treatment, given that we already have blood cultures positive for bacteria. If the patient's blood pressure starts to trend down then hydrocortisone should be used Recommend infectious disease consult" Infectious Disease consulted, appreciate further recs Continue to monitor Bacteremia Pt with blood Cx on admission growing E coli and strep lutetiensis UA unremarkable for infection/E coli CT abd/pelvis from 06/25 reviewed as a source for the strep lutetiensis. Consider repeat Repeat Blood Cx on 08/30 pending Echo ordered and no mention of vegetations. Did note EF of 50 to 55%, moderate valve aortic stenosis On IV Zosyn and azithromycin as above for pneumonia Infectious Disease consulted, appreciate further recs Hx of MDS and immunosuppression therapy Neutropenic fever Pancytopenia(leukopenia with neutropenia, Anemia, Thrombocytopenia) Pt with persistent anemia requiring transfusion Transfused 4U pRBCs since admission at this time for hgb <7.5 s/p transfusion of 3U platelets since admission for platelets <10K MDS diagnosed via bone marrow biopsy on 06/23/2024 with noted monoclonal plasma cell population 10%, variably cellular marrow 20 to 50% with trilineage hematopoiesis. Treatment with infusion of azacitidine started on 08/17/24 x 5 days Hematology/Oncology was consulted, appreciate recs. recommended/stated the following on 08/29/24: " Although there is no evidence that G-CSF improves Overall survival in the setting of MDS, he has pneumonia and positive blood cultures with severe neutropenia. Therefore, recommend G-CSF with filgrastim 480 mcg daily x 2 to 3 days to potentially shorten course of neutropenia. -Agree with broad-spectrum antibiotics and ID consult -Transfuse for hemoglobin below 7.5 and platelet count below of 10,000 -Follow-up with Dr. Amaya at [facility] upon discharge from hospital" Continue with filgastrim as ordered by hematology Continue to follow CBC and transfuse as noted above Improving Hypokalemia replete as needed Chronic Rib Fractures Noted on imaging Pain control prn Rheumatoid Arthritis On chronic prednisone 5 mg daily History of GI bleed Continue Protonix 20 mg BID CAD without angina Chronic systolic CHF Lower extremity edema HLD Chronic 1-2+ pitting BLE EKG with noted sinus rhythm with PACs Home meds: metoprolol succinate 12.5 mg daily furosemide 20 mg daily, chlorthalidone 25 mg daily, spironolactone 25 mg daily with potassium supplement, atorvastatin 20 mg daily Give dose of lasix 20 mg IV once with transfusion to prevent worsening of CHF or edema. Cardiology recommended repeat echo in September to reassess LV wall motion, EF and right-sided filling pressure, echo ordered as above in setting of concern for endocarditis Continue to monitor for signs of volume overload Continue other home meds as ordered DVT ppx: teds, scds in setting of anemia requiring transfusion Diet: Dispo: PT/OT for further recs once medically stable Admission and Anticipated Discharge Date Admission Date: August 28, 2024 Subjective patient was seen with Occupational Therapy in the room Noted that his cough had improved and he was feeling much better Alert and oriented x 3 Review of Systems Review of Systems: All systems reviewed & are unremarkable except as noted in Subjective Physical Exam Physical Exam: General: Alert, oriented. No acute distress Skin: lower extremity skin changes noted Psych: Appropriate mood and affect HEENT: NC/AT CV: RRR Resp: Breath sounds decreased bilaterally, no increased effort of breathing Abdomen:Soft, nontender Extremities: trace edema in lower extremities bilaterally, lower extremity skin changes noted. Results & Data Results & Data Vital Signs (Past 12 Hours) Vital Signs Temp Pulse Pulse Resp BP Pulse Ox Pulse Ox 08/30/24 12:43 80 18 92 08/30/24 12:30 90 08/30/24 11:40 08/30/24 10:33 36.9 C 84 18 137/57 L 93 08/30/24 08:41 37.1 C 92 H 17 96/56 L 91 08/30/24 07:31 73 18 92 08/30/24 05:50 75 08/30/24 02:47 36.9 C 73 18 118/66 90 Pulse Ox Pulse Ox O2 Del Method O2 Flow Rate O2 Flow Rate O2 Flow Rate O2 Flow Rate 08/30/24 12:43 Room Air 08/30/24 12:30 93 90 0 0 0 08/30/24 11:40 Nasal Cannula 1 08/30/24 10:33 Nasal Cannula 1 08/30/24 08:41 Nasal Cannula 1 08/30/24 07:31 Room Air 08/30/24 05:50 08/30/24 02:47 Room Air (7) HTN (hypertension) Hypertension type: primary hypertension Qualified Code(s): I10 - Essential (primary) hypertension (8) COPD (chronic obstructive pulmonary disease) COPD type: unspecified COPD Qualified Code(s): J44.9 - Chronic obstructive pulmonary disease, unspecified
[2024-08-30] MEDS ORDERED: IPRATROPIUM BROMIDE NEB SOLN 0.02% 0.5MG/2.5ML VIAL NEB PRN (14:42)
[2024-08-30] MEDS ORDERED: LEVALBUTEROL 1.25 MG/3 ML NEB NEB PRN (14:43)
[2024-08-31 06:28] LABS: Hematocrit (blood only) 21.2 % (42.0-52.0); Hemoglobin 7.3 g/dl (14.0-18.0); Mean Corpuscular Hemoglobin 29.7 pg (25.0-34.0); Mean Corpuscular Hgb Conc 34.4 g/dL (32.0-36.0); Mean Corpuscular Volume 86.2 fL (80.0-100.0); Mean Platelet Volume 11.3 fL (9.4-12.4); Platelet Count 12 K/uL (130-400); RDW Coefficient of Variation 13.2 % (11.5-14.5); RDW Standard Deviation 41.1 fL (36.4-46.3); Red Blood Count 2.46 M/uL (4.70-6.10); White Blood Count 0.42 K/ul (4.8-10.8)
[2024-08-31 06:45] LABS: Neutrophils # (auto) < 0.50 K/uL (1.40-6.50); Polychromasia 1+
[2024-08-31 06:52] LABS: Albumin Globulin Ratio 0.7 (0.9-2); Albumin Level 2.5 gm/dl (3.4-5.0); BUN Creatinine Ratio 21.8 (10-20); Bilirubin,Total 0.8 mg/dl (0.2-1.0); Calcium 8.3 mg/dl (8.6-10.3); Creatinine Clr Calc Pharmacy 84.1 ml/min; Globulin 3.6 gm/dl (2.5-4.0); Phosphorus 3.1 mg/dl (2.5-4.9); Potassium 3.8 mmol/L (3.5-5.1); Total Protein 6.1 gm/dl (6.0-8.3)
--- NOTE | 2024-08-31 08:19 | Pulmonology Progress Note ---
Date of Service August 31, 2024 Assessment & Plan (1) Abnormal chest CT: (2) Rheumatoid arthritis: Rheumatoid arthritis location: unspecified site Rheumatoid factor presence: unspecified presence Qualified Code(s): M06.9 - Rheumatoid arthritis, unspecified (3) COPD (chronic obstructive pulmonary disease): COPD type: unspecified COPD Qualified Code(s): J44.9 - Chronic obstructive pulmonary disease, unspecified (4) Multifocal pneumonia: (5) Pancytopenia: (6) Pulmonary hypertension: Plan CT chest 08/28/2024 personally reviewed: Patchy opacities appreciated in the lingula as well as left lower lobe There seems to be cavitary lesion in the left lower lobe, previously used to be a big bulla at the same site on CT chest 2016 Centrilobular and and bullous emphysema appreciated bilaterally Minimal mediastinal lymphadenopathy 2D echo 06/23/2024: EF 45-50%, LA mildly dilated, RVSP> 60 mmHg, mild concentric LVH --Multilobar pneumonia with E. coli bacteremia In an immunosuppressed patient Possible cavitary lesion in the left lower lobe, although patient used to have bullae at the same spot back in 2017 Procalcitonin 0.76 Negative for influenza A/B, RSV as well as COVID on 08/28/2024 Nasal MRSA negative Blood culture positive for pansensitive E. 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 Patient seen and examined at bedside. No acute distress, no adverse events overnight He was saturating 90% on room air with heart rate of 78 He stated that overall he is feeling better Has been coughing and bringing up clear phlegm. No hemoptysis Denied any headache or blurry vision No diarrhea Fair appetite, no nausea or vomiting Constitutional: No acute distress HEENT: EOMI, PERRLA Respiratory system: Decreased air entry bilaterally, no wheeze, rhonchi, mild crackles bilateral lower lobes CVS: S1-S2 positive, positive 2 out of 6 systolic murmur appreciated best at aorta Abdomen: Soft, nontender, nondistended, positive bowel sounds x4 Extremities: +2 pulses bilaterally radialis/ dorsalis pedis, no cyanosis, +1 pitting edema bilateral lower extremity Neuro: Awake alert oriented x3 Psych: Normal mood and affect G/U: No Mclean Plan: Follow-up galactomannan and beta D glucan, patient already got Zosyn in ED on 08/28/2024 Repeat blood cultures are - 08/30/2024 Would de-escalate antibiotics to Rocephin given cultures with pansensitive E. coli noted. Duration of antibiotics will recommend 10 days since negative blood culture Sputum cultures have been unremarkable. O2 supplementation to keep oxygen saturation between 90-92% Patient seems to be clinically improving at this time. Recommend out of bed to chair with increasing PT/OT as tolerated. Case discussed with RN at bedside as well as primary team No further recommendation from pulmonary perspective, will sign off Please call directly with any questions Please note the above document was generated using voice recognition software. It may contain grammatical, syntax or spelling errors.Any formal questions or concerns about the content, text or information contained within the body of this dictation should be directly addressed to the provider for clarification. Subjective Patient was seen and evaluated at bedside. No adverse events noted overnight. He continues to saturate well on room air. He has been out of bed, but only with assistance. He is looking forward to meeting with physical therapy today. Overall, he reports feeling better. Review of Systems 2 Review of Systems: As per HPI Physical Exam 2 Physical Exam: VITAL SIGNS Vital signs and nursing notes were reviewed. GENERAL 79-year-old male appearing his stated age who is in no acute distress. Communicates well with provider and answers questions appropriately. SKIN Without rashes or lesions. NOSE Midline and without cyanosis. MOUTH/OROPHARYNX Without perioral cyanosis. NECK Neck with FROM. LUNGS Chest wall evaluation demonstrates normal chest wall A:P diameter. Auscultation reveals diminished breath sounds at the lung bases. No wheezes or rales appreciated. CARDIAC RRR with S1/S2. No murmur, rubs, or gallops appreciated. EXTREMITIES Nail clubbing not present. No peripheral cyanosis. No pretibial edema present. +3/5 radial palpated throughout. PSYCH A&Ox3 and cooperates fully with examiner. Pt is very pleasant and interacts well with examiner. Skin: no rashes, warm and dry Lymphatic: no cervical or axillary lymphadenopathy Results & Data Results & Data Vital Signs (Past 12 Hours) Vital Signs Temp Pulse Pulse Resp BP Pulse Ox O2 Del Method 08/31/24 07:35 36.6 C 71 18 115/58 L 93 Room Air 08/31/24 04:16 36.8 C 73 18 119/60 90 Room Air 08/30/24 23:33 68 08/30/24 23:06 37.0 C 75 16 114/60 90 Room Air Laboratory Results 08/31/24 05:44 08/31/24 05:44 PG Care Time/CCT Total # of Minutes Spent Total Time Spent with Patient: Total time spent is greater than 50% in coordination of care (as documented) at patient's floor/unit and/or counseling patient: Coding Level of Care Code 52238 SUB INP/OBS CARE 2/35MIN Diagnoses Abnormal chest CT R93.89 Rheumatoid arthritis, involving unspecified site, unspecified whether rheumatoid factor present M06.9 Rheumatoid arthritis location: unspecified site Rheumatoid factor presence: unspecified presence Chronic obstructive pulmonary disease, unspecified COPD type J44.9 COPD type: unspecified COPD Multifocal pneumonia J18.9 Pancytopenia D61.818 Pulmonary hypertension I27.20
--- NOTE | 2024-08-31 14:20 | Infectious Disease Consult ---
Date of Service August 31, 2024 Telehealth Information I performed this visit using a real-time telehealth connection between my location and the patients location ([facility]). After connecting through interactive tele-video, patient was identified by name and date of and/or wristband check.Patient (or authorized healthcare claim service representative) was informed that this was a telemedicine visit and it was being conducted confidentially over secure lines. My office door was closed and no one else was present in the room with me.Patient (or authorized healthcare claim service representative) provided consent to proceed with the visit, expressed an understanding of privacy and security of the telemedicine visit, and gave permission to have a hospital claim service representative in the room in order to assist with the visit and to conduct portions of the visit, as needed. I informed the patient (or authorized healthcare claim service representative) that I reviewed their record and presented the opportunity for them to ask any questions regarding the visit today. The patient agreed to participate. 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 Therefore, I would recommend stopping azithromycin and continuing piperacillin tazobactam for 1 more day. Then, step-down to oral Levaquin and oral Augmentin. 1. Oral Levaquin 750 mg daily for E coli bacteremia with anticipated end date of September 04, 2024 (which should also treat pneumonia). 2. Oral Augmentin 875/125 three times daily for Streptococcus bacteremia, with anticipated end date of September 13, 2024. 3. Since he is expected to be neutropenic for a long time, I would recommend (after consulting with Hematology) to continue on Levaquin 500 mg once daily for prophylaxis starting on September 05, 2024. It is to be continued until the patient is no more neutropenic. History of Present Illness History of Present Illness Mr. Maloney is a 79-year-old man with medical history of myelodysplastic syndrome (with pancytopenia), rheumatoid arthritis on chronic steroid use, COPD, HTN, coronary artery disease with [place], congestive heart failure and alcohol use disorder who was admitted to [facility] on 08/28 because of flu-like symptoms including sore throat, cough with mucus production and congestion for the last 3 days prior to presentation. He has had 2 recent admission in late June and mid July 22, 2024 for severe anemia secondary to MDS as well as GI bleed. On presentation, he was febrile at 40 but not hypoxic. Initial blood workup showed pancytopenia with neutropenia, negative MRSA screen, negative RVP, and shortly after admission, 2 sets of blood culture came back positive for Streptococcus and E coli. CT of the chest was performed which showed airspace opacifications left lower lobe compatible with pneumonia as well as emphysema. ID team was consulted for further recommendations and to help guide antibiotic treatment. Allergies Allergy/AdvReac Type Severity Reaction Status Date / Time Iodinated Contrast Media Allergy Intermediate Hives Verified 08/25/24 07:49 iodine Allergy Intermediate HIVES Verified 08/25/24 07:49 Home Medications Medication Instructions Recorded Confirmed Type coenzyme Q10 10 mg capsule 10 mg PO DAILY 06/14/22 08/28/24 History diclofenac sodium 1 % topical gel 1 g topical QID PRN joint pain 06/14/22 08/28/24 History (Voltaren Arthritis Pain) tiotropium bromide 18 mcg capsule 1 cap inhalation BID 06/14/22 08/28/24 History with inhalation device (Spiriva with HandiHaler) triamcinolone acetonide 0.1 % 1 applic topical DAILY PRN Rash 06/18/22 08/28/24 History topical ointment albuterol sulfate 90 mcg/actuation 2 puff inhalation Q6H PRN 06/27/22 08/25/24 History aerosol inhaler Shortness Of Breath calcium carbonate 600 mg PO DAILY 06/27/22 08/28/24 History cholecalciferol (vitamin D3) 50 50 mcg PO DAILY 06/27/22 08/28/24 History mcg (2,000 unit) capsule cyanocobalamin (vitamin B-12) 1,000 mcg PO DAILY 06/27/22 08/28/24 History 1,000 mcg capsule fluticasone 250 mcg-salmeterol 50 1 inh inhalation Q12H 06/27/22 08/28/24 History mcg/dose blistr powdr for inhalation folic acid 1 mg tablet 1 mg PO QAM 06/27/22 08/28/24 History metoprolol succinate 25 mg 12.5 mg PO BID 06/27/22 08/28/24 History tablet,extended release 24 hr multivitamin 1 tab PO DAILY 06/27/22 08/28/24 History potassium chloride 10 mEq 20 meq PO BID 06/27/22 08/28/24 History capsule,extended release prednisone 5 mg tablet 5 mg PO QAM 06/27/22 08/28/24 History acetaminophen 500 mg tablet 500 mg PO Q6H PRN PAIN/FEVER 06/22/24 08/25/24 History pantoprazole 40 mg tablet,delayed 40 mg PO DAILY #30 tabs 07/02/24 08/28/24 Rx release colchicine 0.6 mg tablet 0.6 mg PO UD 07/14/24 08/28/24 History ondansetron HCl 8 mg tablet 8 mg PO DIRECTED PRN n/v 07/14/24 08/28/24 History atorvastatin 20 mg tablet 20 mg PO QAM #30 tabs 07/17/24 08/28/24 Rx furosemide 20 mg tablet 20 mg PO DAILY #30 tabs 07/17/24 08/28/24 Rx spironolactone 25 mg tablet 25 mg PO QAM #30 tabs 07/17/24 08/28/24 Rx celecoxib 200 mg capsule 200 mg PO BID 08/28/24 08/28/24 History chlorthalidone 25 mg tablet 25 mg PO DAILY 08/28/24 08/28/24 History Patient History Medical History 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 Venous ulcer Lymphedema Chronic venous insufficiency Ocular migraine custodial (current) use of systemic steroids for RA Hypertension History of COVID-2021--mild symptoms, no symptoms now Osteoporosis Torn rotator cuff Edema COPD, moderate uses daily inhalers as prescribed--pt states he rarely uses rescue inhaler Rheumatoid arthritis on prednisone Surgical History S/P left cataract extraction History of surgical fusion joint left wrist--hardware in place History of shoulder surgery left "calcium deposit removed" History of tooth extraction full upper/partial lower History of repair of right rotator cuff History of carpal tunnel release of both wrists History of bronchoscopy 07/2017 @ [facility] S/P tonsillectomy Family History Other Cancer Heart disease No family history of adverse response to anesthesia Social History Smoking Status: Former smoker Tobacco Type: Cigarettes Smoking End Date: ; Second Hand Exposure: No; Do You Dip or Chew Tobacco: No; Tobacco Cessation Education Requested by Patient: No Hx Alcohol Use: No Hx Substance Use: No Preferred Language: Burmese Communication Ability: Effective Visual Impairment: No Limitations Hearing Ability: Normal Gear Shaper Required: No Beliefs That Will Affect Care: None marital status: Single Current Living Situation: Alone Current Living Situation Comment: [facility] Other Information That Helps Us Care for You: No Feels Safe at Home: Yes Safety Concerns: Feels Safe At This Time Diet: ideal protein and low salt Diet Comment: educated to increase protein to assist with wound healing caffeine: No Assistive Devices: Stair Lift and Walker Review of Systems Neg except for what was mentioned in H&P. Physical Exam Couldnt be obtained as the visit was conducted via telemed. Results & Data Vital Signs (Past 12 Hours) Vital Signs Temp Pulse Resp BP Pulse Ox O2 Del Method O2 Flow Rate 08/31/24 11:25 36.9 C 84 18 121/55 L 91 Room Air 08/31/24 08:00 Nasal Cannula 1 08/31/24 07:35 36.6 C 71 18 115/58 L 93 Room Air 08/31/24 04:16 36.8 C 73 18 119/60 90 Room Air Laboratory Results Microbiology: 08/28: 4/4 bottles of blood culture positive for E coli 08/28: 2/4 bottles growing Streptococcus lutetiensis 08/28: RVP panel negative 08/28: MRSA screen negative 08/30: 2 sets of blood culture negative to date Diagnostic Findings Imaging: CT chest performed on 08/28: 1. Airspace opacities at left lower lobe compatible with pneumonia. 2. Emphysema.
--- NOTE | 2024-08-31 16:35 | Hospitalist Progress Note ---
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 Left lower lobe pneumonia Hx of COPD Pt presenting with cough and fevers Respiratory viral panel negative Chest xray concerning for pneumonia, noted emphysema CT chest confirming pneumonia and emphysema Procalcitonin elevated at 0.76 Sputum culture repeat pending Blood Cx currently growing E coli and strep lutetiensis Continue IV Zosyn and azithromycin, was also previously on Vancomycin Pulmonology consulted, appreciate recs. Recommended/stated the following: "Follow-up galactomannan and beta D glucan, patient already got Zosyn in ED on 08/28/2024 Continue with broad-spectrum antibiotics with antipseudomonal coverage. Follow-up sputum culture O2 supplementation to keep oxygen saturation between 90-92% QTc 456 on 08/28/2024. I think it is reasonable to hold back on antifungal treatment, given that we already have blood cultures positive for bacteria. If the patient's blood pressure starts to trend down then hydrocortisone should be used Recommend infectious disease consult" Infectious Disease consulted, appreciate further recs. Recommended/stated the following: "Despite the changes on the CT scan of the chest, I have low concern for pneumonia especially that the bacteremia with E coli and Streptococcus lutetiensis is more suggestive of intra-abdominal source and likely translocation from the gut. Therefore, I would recommend stopping azithromycin and continuing piperacillin tazobactam for 1 more day. Then, step-down to oral Levaquin and oral Augmentin. 1. Oral Levaquin 750 mg daily for E coli bacteremia with anticipated end date of September 04, 2024 (which should also treat pneumonia). 2. Oral Augmentin 875/125 three times daily for Streptococcus bacteremia, with anticipated end date of September 13, 2024. 3. Since he is expected to be neutropenic for a long time, I would recommend (after consulting with Hematology) to continue on Levaquin 500 mg once daily for prophylaxis starting on September 05, 2024. It is to be continued until the patient is no more neutropenic." Continue to monitor Bacteremia Pt with blood Cx on admission growing E coli and strep lutetiensis UA unremarkable for infection/E coli CT abd/pelvis from 06/25 reviewed as a source for the strep lutetiensis. Consider repeat Repeat Blood Cx on 08/30 pending Echo ordered and no mention of vegetations. Did note EF of 50 to 55%, moderate valve aortic stenosis On IV Zosyn Infectious Disease consulted, recommendations as noted above -continue with oral levaquin and Augmentin after completion of IV Zosyn as noted above Hx of MDS and immunosuppression therapy Neutropenic fever Pancytopenia(leukopenia with neutropenia, Anemia, Thrombocytopenia) Pt with persistent anemia requiring transfusion Transfused 4U pRBCs since admission at this time for hgb <7.5 s/p transfusion of 3U platelets since admission for platelets <10K MDS diagnosed via bone marrow biopsy on 06/23/2024 with noted monoclonal plasma cell population 10%, variably cellular marrow 20 to 50% with trilineage hematopoiesis. Treatment with infusion of azacitidine started on 08/17/24 x 5 days Hematology/Oncology was consulted, appreciate recs. recommended/stated the following on 08/29/24: " Although there is no evidence that G-CSF improves Overall survival in the setting of MDS, he has pneumonia and positive blood cultures with severe neutropenia. Therefore, recommend G-CSF with filgrastim 480 mcg daily x 2 to 3 days to potentially shorten course of neutropenia. -Agree with broad-spectrum antibiotics and ID consult -Transfuse for hemoglobin below 7.5 and platelet count below of 10,000 -Follow-up with Dr. Amaya at [facility] upon discharge from hospital" Continue with filgastrim as ordered by hematology for 3 days Continue to follow CBC and transfuse as noted above Will reach out to Hematology per ID recs about intermediate Levaquin treatment Hypokalemia replete as needed Chronic Rib Fractures Noted on imaging Pain control prn Rheumatoid Arthritis On chronic prednisone 5 mg daily History of GI bleed Continue Protonix 20 mg BID CAD without angina Chronic systolic CHF Lower extremity edema HLD Chronic 1-2+ pitting BLE EKG with noted sinus rhythm with PACs Home meds: metoprolol succinate 12.5 mg daily furosemide 20 mg daily, chlorthalidone 25 mg daily, spironolactone 25 mg daily with potassium supplement, atorvastatin 20 mg daily Give dose of lasix 20 mg IV once with transfusion to prevent worsening of CHF or edema. Cardiology recommended repeat echo in September to reassess LV wall motion, EF and right-sided filling pressure, echo ordered as above in setting of concern for endocarditis Continue to monitor for signs of volume overload Continue other home meds as ordered DVT ppx: teds, scds in setting of anemia requiring transfusion Diet: Dispo: PT/OT for further recs once medically stable Admission and Anticipated Discharge Date Admission Date: August 28, 2024 Physical Exam Physical Exam: General: Alert, oriented. No acute distress Skin: lower extremity skin changes noted Psych: Appropriate mood and affect HEENT: NC/AT CV: RRR Resp: Breath sounds decreased bilaterally, no increased effort of breathing Abdomen:Soft, nontender Extremities: trace edema in lower extremities bilaterally, lower extremity skin changes noted. Results & Data Results & Data Vital Signs (Past 12 Hours) Vital Signs Temp Pulse Resp BP Pulse Ox O2 Del Method O2 Flow Rate 08/31/24 15:53 37.0 C 76 18 113/59 L 92 Room Air 08/31/24 11:25 36.9 C 84 18 121/55 L 91 Room Air 08/31/24 08:00 Nasal Cannula 1 08/31/24 07:35 36.6 C 71 18 115/58 L 93 Room Air (7) HTN (hypertension) Hypertension type: primary hypertension Qualified Code(s): I10 - Essential (primary) hypertension (8) COPD (chronic obstructive pulmonary disease) COPD type: unspecified COPD Qualified Code(s): J44.9 - Chronic obstructive pulmonary disease, unspecified
[2024-09-01 07:26] LABS: Hematocrit (blood only) 25.2 % (42.0-52.0); Hemoglobin 8.5 g/dl (14.0-18.0); Mean Corpuscular Hemoglobin 29.5 pg (25.0-34.0); Mean Corpuscular Hgb Conc 33.7 g/dL (32.0-36.0); Mean Corpuscular Volume 87.5 fL (80.0-100.0); Mean Platelet Volume 12.3 fL (9.4-12.4); Neutrophils # (auto) < 0.50 K/uL (1.40-6.50); Platelet Count 9 K/uL (130-400); RDW Coefficient of Variation 13.2 % (11.5-14.5); RDW Standard Deviation 41.9 fL (36.4-46.3); Red Blood Count 2.88 M/uL (4.70-6.10); White Blood Count 0.46 K/ul (4.8-10.8)
[2024-09-01] MEDS ORDERED: SODIUM CHLORIDE 0.9% 50 ML IV PRN (07:48)
[2024-09-01] MEDS ORDERED: SODIUM CHLORIDE 0.9% 100 ML IV PRN (07:48)
[2024-09-01 07:51] LABS: Albumin Globulin Ratio 0.7 (0.9-2); Albumin Level 2.7 gm/dl (3.4-5.0); BUN Creatinine Ratio 23.3 (10-20); Bilirubin,Total 0.7 mg/dl (0.2-1.0); Calcium 8.5 mg/dl (8.6-10.3); Creatinine Clr Calc Pharmacy 81.3 ml/min; Phosphorus 3.9 mg/dl (2.5-4.9); Potassium 4.2 mmol/L (3.5-5.1); Total Protein 6.7 gm/dl (6.0-8.3)
--- NOTE | 2024-09-01 15:21 | Hospitalist Progress Note ---
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 Left lower lobe pneumonia Hx of COPD Pt presenting with cough and fevers Respiratory viral panel negative Chest xray concerning for pneumonia, noted emphysema CT chest confirming pneumonia and emphysema Procalcitonin elevated at 0.76 Sputum culture repeat pending Blood Cx currently growing E coli and strep lutetiensis Continue IV Zosyn and azithromycin, was also previously on Vancomycin Pulmonology consulted, appreciate recs. Infectious Disease consulted, appreciate further recs. Recommended/stated the following: "Despite the changes on the CT scan of the chest, I have low concern for pneumonia especially that the bacteremia with E coli and Streptococcus lutetiensis is more suggestive of intra-abdominal source and likely translocation from the gut. Therefore, I would recommend stopping azithromycin and continuing piperacillin tazobactam for 1 more day. Then, step-down to oral Levaquin and oral Augmentin. 1. Oral Levaquin 750 mg daily for E coli bacteremia with anticipated end date of September 04, 2024 (which should also treat pneumonia). 2. Oral Augmentin 875/125 three times daily for Streptococcus bacteremia, with anticipated end date of September 13, 2024. 3. Since he is expected to be neutropenic for a long time, I would recommend (after consulting with Hematology) to continue on Levaquin 500 mg once daily for prophylaxis starting on September 05, 2024. It is to be continued until the patient is no more neutropenic." Pt to transition to oral Levaquin and Augmentin on 09/02/24 Continue to monitor Bacteremia Pt with blood Cx on admission growing E coli and strep lutetiensis UA unremarkable for infection/E coli CT abd/pelvis from 06/25 reviewed as a source for the strep lutetiensis. Consider repeat Repeat Blood Cx on 08/30 pending Echo ordered and no mention of vegetations. Did note EF of 50 to 55%, moderate valve aortic stenosis On IV Zosyn Infectious Disease consulted, recommendations as noted above -continue with oral levaquin and Augmentin after completion of IV Zosyn as noted above Hx of MDS and immunosuppression therapy Neutropenic fever Pancytopenia(leukopenia with neutropenia, Anemia, Thrombocytopenia) Pt with persistent anemia requiring transfusion Transfused 4U pRBCs since admission at this time for hgb <7.5 s/p transfusion of 3U platelets since admission for platelets <10K MDS diagnosed via bone marrow biopsy on 06/23/2024 with noted monoclonal plasma cell population 10%, variably cellular marrow 20 to 50% with trilineage hematopoiesis. Treatment with infusion of azacitidine started on 08/17/24 x 5 days Hematology/Oncology was consulted, appreciate recs. recommended/stated the following on 08/29/24: " Although there is no evidence that G-CSF improves Overall survival in the setting of MDS, he has pneumonia and positive blood cultures with severe neutropenia. Therefore, recommend G-CSF with filgrastim 480 mcg daily x 2 to 3 days to potentially shorten course of neutropenia. -Agree with broad-spectrum antibiotics and ID consult -Transfuse for hemoglobin below 7.5 and platelet count below of 10,000 -Follow-up with Dr. 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 Cardiology recommended repeat echo in September to reassess LV wall motion, EF and right-sided filling pressure, echo ordered as above in setting of concern for endocarditis Continue to monitor for signs of volume overload Continue other home meds as ordered DVT ppx: teds, scds in setting of anemia requiring transfusion Diet: HH Dispo: PT/OT recommending home with HH vs acute rehab. pt wants [facility] auth Admission and Anticipated Discharge Date Admission Date: August 28, 2024 Subjective patient was seen sitting in the chair at bedside Denied acute concerns Anxious for discharge, currently considering acute rehab Review of Systems Review of Systems: All systems reviewed & are unremarkable except as noted in Subjective Physical Exam Physical Exam: General: Alert, oriented. No acute distress Skin: lower extremity skin changes noted Psych: Appropriate mood and affect HEENT: NC/AT CV: RRR Resp: Breath sounds decreased bilaterally, no increased effort of breathing Abdomen:Soft, nontender Extremities: trace edema in lower extremities bilaterally, lower extremity skin changes noted. Results & Data Results & Data Vital Signs (Past 12 Hours) Vital Signs Temp Pulse Pulse Resp BP BP Pulse Ox 09/01/24 11:50 36.9 C 71 18 112/70 93 09/01/24 11:00 36.9 C 78 18 118/68 95 09/01/24 10:30 36.8 C 70 20 115/79 96 09/01/24 10:15 36.7 C 78 113/78 09/01/24 09:39 37.6 C H 75 20 122/74 09/01/24 07:40 36.8 C 79 18 109/56 L 92 O2 Del Method 09/01/24 11:50 Room Air 09/01/24 11:00 09/01/24 10:30 09/01/24 10:15 09/01/24 09:39 09/01/24 07:40 Room Air (7) HTN (hypertension) Hypertension type: primary hypertension Qualified Code(s): I10 - Essential (primary) hypertension (8) COPD (chronic obstructive pulmonary disease) COPD type: unspecified COPD Qualified Code(s): J44.9 - Chronic obstructive pulmonary disease, unspecified
[2024-09-01 16:52] LABS: Fungitell (1-3)-B-D-Glucan >500 pg/mL
[2024-09-02 06:20] LABS: Hematocrit (blood only) 23.2 % (42.0-52.0); Hemoglobin 7.8 g/dl (14.0-18.0); Mean Corpuscular Hemoglobin 29.8 pg (25.0-34.0); Mean Corpuscular Hgb Conc 33.6 g/dL (32.0-36.0); Mean Corpuscular Volume 88.5 fL (80.0-100.0); Mean Platelet Volume 9.9 fL (9.4-12.4); Platelet Count 11 K/uL (130-400); RDW Coefficient of Variation 13.1 % (11.5-14.5); RDW Standard Deviation 41.8 fL (36.4-46.3); Red Blood Count 2.62 M/uL (4.70-6.10); White Blood Count 0.43 K/ul (4.8-10.8)
[2024-09-02 06:21] LABS: Neutrophils # (auto) < 0.50 K/uL (1.40-6.50)
[2024-09-02 06:36] LABS: Albumin Globulin Ratio 0.7 (0.9-2); Albumin Level 2.6 gm/dl (3.4-5.0); BUN Creatinine Ratio 24.5 (10-20); Bilirubin,Total 0.6 mg/dl (0.2-1.0); Calcium 8.2 mg/dl (8.6-10.3); Creatinine Clr Calc Pharmacy 75.1 ml/min; Globulin 3.7 gm/dl (2.5-4.0); Phosphorus 4.2 mg/dl (2.5-4.9); Potassium 4.2 mmol/L (3.5-5.1); Total Protein 6.3 gm/dl (6.0-8.3)
[2024-09-02] MEDS: AMOXICILLIN/CLAVULANATE 875 MG TAB PO SCH (08:02)
[2024-09-02] MEDS: levoFLOXacin 750 MG TAB PO SCH (12:05)
--- NOTE | 2024-09-02 15:14 | Hospitalist Progress Note ---
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 Left lower lobe pneumonia E. coli bacteremia Streptococcus Lutetiensis bacteremia Pt presenting with cough and fevers Respiratory viral panel negative Chest xray concerning for pneumonia, noted emphysema CT chest showing air space opacities in left lower lobe compatible with pneumonia Procalcitonin elevated at 0.76 Sputum culture repeat negative Blood Cx currently growing E coli and strep lutetiensis Repeat Blood cx negative CT abd/pelvis- no acute findings. Infectious Disease consulted, appreciate further recs. Recommended/stated the following: "Despite the changes on the CT scan of the chest, I have low concern for pneumonia especially that the bacteremia with E coli and Streptococcus lutetiensis is more suggestive of intra-abdominal source and likely translocation from the gut. Therefore, I would recommend stopping azithromycin and continuing piperacillin tazobactam for 1 more day. Then, step-down to oral Levaquin and oral Augmentin. 1. Oral Levaquin 750 mg daily for E coli bacteremia with anticipated end date of September 04, 2024 (which should also treat pneumonia). 2. Oral Augmentin 875/125 three times daily for Streptococcus bacteremia, with anticipated end date of September 13, 2024. 3. Since he is expected to be neutropenic for a long time, I would recommend (after consulting with Hematology) to continue on Levaquin 500 mg once daily for prophylaxis starting on September 05, 2024. It is to be continued until the patient is no more neutropenic." Patient to transition to oral Levaquin and Augmentin on 09/02/24 Continue to monitor Hx of MDS and immunosuppression therapy Neutropenic fever Pancytopenia(leukopenia with neutropenia, Anemia, Thrombocytopenia) Pt with persistent anemia requiring transfusion Transfused 4U pRBCs since admission at this time for hgb <7.5 s/p transfusion of 3U platelets since admission for platelets <10K MDS diagnosed via bone marrow biopsy on 06/23/2024 with noted monoclonal plasma cell population 10%, variably cellular marrow 20 to 50% with trilineage hematopoiesis. Treatment with infusion of azacitidine started on 08/17/24 x 5 days Hematology/Oncology was consulted, appreciate recs. recommended/stated the steve barba on 08/29/24: " Although there is no evidence that G-CSF improves Overall survival in the setting of MDS, he has pneumonia and positive blood cultures with severe neutropenia. Therefore, recommend G-CSF with filgrastim 480 mcg daily x 2 to 3 days to potentially shorten course of neutropenia. -Agree with broad-spectrum antibiotics and ID consult -Transfuse for hemoglobin below 7.5 and platelet count below of 10,000 -Follow-up with Dr. Amaya at [facility] upon discharge from hospital" Continue to follow CBC and transfuse as noted above Will reach out to Hematology per ID recs about nursing home Levaquin treatment Hypokalemia replete as needed Chronic Rib Fractures Noted on imaging Pain control prn Rheumatoid Arthritis On chronic prednisone 5 mg daily History of GI bleed Continue Protonix 20 mg BID CAD without angina Chronic systolic CHF Lower extremity edema HLD Chronic 1-2+ pitting BLE EKG with noted sinus rhythm with PACs Home meds: metoprolol succinate 12.5 mg daily furosemide 20 mg daily, chlorthalidone 25 mg daily, spironolactone 25 mg daily with potassium supplement, atorvastatin 20 mg daily Give dose of lasix 20 mg IV once with transfusion to prevent worsening of CHF or edema. Cardiology recommended repeat echo in September to reassess LV wall motion, EF and right-sided filling pressure. Echo- 50-55%, moderate valvular aortic stenosis. Continue to monitor for signs of volume overload Continue other home meds as ordered DVT ppx: teds, scds in setting of anemia requiring transfusion Diet: HH Dispo: PT/OT recommending home with HH vs acute rehab. Time spent evaluating patient, direct bedside care, chart review, placing orders, interpretation of diagnostic studies, discussion with consultants, patient, and family members, as well as other required patient management activities is 50 minutes Please note the above document was generated using voice recognition software. It may contain grammatical, syntax or spelling errors. Any formal questions or concerns about the content, text or information contained within the body of this dictation should be directly addressed to the provider for clarification Admission and Anticipated Discharge Date Admission Date: August 28, 2024 Subjective Patient seen and examined at bedside He is sitting up on a chair eating lunch; not in distress He has been afebrile and vital signs remained stable No significant events overnight Review of Systems Review of Systems: All systems reviewed & are unremarkable except as noted in Subjective Physical Exam Physical Exam: Constitutional: WD/WN, vitals as above, NAD, sitting up in bed, pleasant, conversing easily Respiratory: normal respiratory effort, lungs clear to auscultation, no wheeze, rales, rhonchi. Normal insp/exp effort, no accessory muscle use Cardiovascular: RRR, no murmur, no edema Vessels: no JVD or carotid bruit Chest: normal inspection of chest Abdomen: normal bowel sounds, soft, nontender, no hepatosplenomegaly Musculoskeletal: no cyanosis or clubbing, extremities motor strength 5/5 Skin: no rashes, warm and dry normal turgor Neurologic: PERRL, EOMI, accommodation nl, no face palsy, no dysarthria CN's II- XI intact bilaterally and moves all extremities Psychiatric: A+Ox3, euthymic affect Results & Data Results & Data Vital Signs (Past 12 Hours) Vital Signs Temp Pulse Resp BP Pulse Ox O2 Del Method 09/02/24 10:50 36.4 C L 79 19 121/63 92 Room Air 09/02/24 07:43 36.8 C 87 20 130/78 97 Room Air (7) HTN (hypertension) Hypertension type: primary hypertension Qualified Code(s): I10 - Essential (primary) hypertension (8) COPD (chronic obstructive pulmonary disease) COPD type: unspecified COPD Qualified Code(s): J44.9 - Chronic obstructive pulmonary disease, unspecified
[2024-09-03 06:40] LABS: Hematocrit (blood only) 22.6 % (42.0-52.0); Hemoglobin 7.7 g/dl (14.0-18.0); Mean Corpuscular Hemoglobin 30.1 pg (25.0-34.0); Mean Corpuscular Hgb Conc 34.1 g/dL (32.0-36.0); Mean Corpuscular Volume 88.3 fL (80.0-100.0); Mean Platelet Volume 11.3 fL (9.4-12.4); Neutrophils # (auto) < 0.50 K/uL (1.40-6.50); Platelet Count 8 K/uL (130-400); RDW Coefficient of Variation 12.9 % (11.5-14.5); RDW Standard Deviation 41.4 fL (36.4-46.3); Red Blood Count 2.56 M/uL (4.70-6.10)
[2024-09-03 06:56] LABS: BUN Creatinine Ratio 28.9 (10-20); Calcium 8.2 mg/dl (8.6-10.3); Creatinine Clr Calc Pharmacy 88.6 ml/min; Potassium 4.2 mmol/L (3.5-5.1)
[2024-09-03] MEDS ORDERED: SODIUM CHLORIDE 0.9% 50 ML IV PRN ×2 (07:36→10:21)
[2024-09-03] MEDS ORDERED: SODIUM CHLORIDE 0.9% 100 ML IV PRN ×2 (07:36→10:21)
--- NOTE | 2024-09-03 10:02 | Hospitalist Progress Note ---
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 Left lower lobe pneumonia E. coli bacteremia Streptococcus Lutetiensis bacteremia Pt presenting with cough and fevers Respiratory viral panel negative Chest xray concerning for pneumonia, noted emphysema CT chest showing air space opacities in left lower lobe compatible with pneumonia Procalcitonin elevated at 0.76 Sputum culture repeat negative Blood Cx currently growing E coli and strep lutetiensis Repeat Blood cx negative CT abd/pelvis- no acute findings. Infectious Disease consulted, appreciate further recs. Recommended/stated the following: "Despite the changes on the CT scan of the chest, I have low concern for pneumonia especially that the bacteremia with E coli and Streptococcus lutetiensis is more suggestive of intra-abdominal source and likely translocation from the gut. Therefore, I would recommend stopping azithromycin and continuing piperacillin tazobactam for 1 more day. Then, step-down to oral Levaquin and oral Augmentin. 1. Oral Levaquin 750 mg daily for E coli bacteremia with anticipated end date of September 04, 2024 (which should also treat pneumonia). 2. Oral Augmentin 875/125 three times daily for Streptococcus bacteremia, with anticipated end date of September 13, 2024. 3. Since he is expected to be neutropenic for a long time, I would recommend (after consulting with Hematology) to continue on Levaquin 500 mg once daily for prophylaxis starting on September 05, 2024. It is to be continued until the patient is no more neutropenic." Patient to transition to oral Levaquin and Augmentin on 09/02/24 Continue to monitor Hx of MDS and immunosuppression therapy Neutropenic fever Pancytopenia(leukopenia with neutropenia, Anemia, Thrombocytopenia) Pt with persistent anemia requiring transfusion Transfused 4U pRBCs since admission at this time for hgb <7.5 s/p transfusion of 3U platelets since admission for platelets <10K MDS diagnosed via bone marrow biopsy on 06/23/2024 with noted monoclonal plasma cell population 10%, variably cellular marrow 20 to 50% with trilineage hematopoiesis. Treatment with infusion of azacitidine started on 08/17/24 x 5 days Hematology/Oncology was consulted, appreciate recs. recommended/stated the efren chiang on 08/29/24: " Although there is no evidence that G-CSF improves Overall survival in the setting of MDS, he has pneumonia and positive blood cultures with severe neutropenia. Therefore, recommend G-CSF with filgrastim 480 mcg daily x 2 to 3 days to potentially shorten course of neutropenia. -Agree with broad-spectrum antibiotics and ID consult -Transfuse for hemoglobin below 7.5 and platelet count below of 10,000 -Follow-up with Dr. Amaya at [facility] upon discharge from hospital" Continue to follow CBC and transfuse as noted above. Another platelet unit orde red on 09/03/2021 Lower GI bleed; patient had episode of hematochezia on 09/03/2024; 1 packed RBC transfused along with platelets. Started on Protonix drip and GI consulted Hypokalemia replete as needed Chronic Rib Fractures Noted on imaging Pain control prn Rheumatoid Arthritis On chronic prednisone 5 mg daily History of GI bleed Continue Protonix 20 mg BID CAD without angina Chronic systolic CHF Lower extremity edema HLD Chronic 1-2+ pitting BLE EKG with noted sinus rhythm with PACs Home meds: metoprolol succinate 12.5 mg daily furosemide 20 mg daily, chlorthalidone 25 mg daily, spironolactone 25 mg daily with potassium supplement, atorvastatin 20 mg daily Cardiology recommended repeat echo in September to reassess LV wall motion, EF and right-sided filling pressure. Echo- 50-55%, moderate valvular aortic stenosis. Continue to monitor for signs of volume overload Continue other home meds as ordered Goals of careI discussed goals of care with patient at bedside on 09/03/2024. Patient has prolonged pancytopenia which has put him at risk for severe infecti on, multiorgan failure, bleeding episodes that could lead to sudden cardiac arrest. He acknowledges that his health has significantly declined over the course of last month. We discussed regarding chest compression and ventilator support in case of cardiac arrest; patient reported that he does not want those aggressive intervention in case of cardiac arrest. CODE STATUS was changed to DNR/DNI DVT ppx: teds, scds in setting of anemia requiring transfusion Diet: HH Dispo: PT/OT recommending home with HH vs acute rehab. Patient is currently neutropenic and requiring multiple transfusions requiring close monitoring inpatient. Time spent evaluating patient, direct bedside care, chart review, placing or ders, interpretation of diagnostic studies, discussion with consultants, patient, and family members, as well as other required patient management activities is 50 minutes Please note the above document was generated using voice recognition software. It may contain grammatical, syntax or spelling errors. Any formal questions or concerns about the content, text or information contained within the body of this dictation should be directly addressed to the provider for clarification Admission and Anticipated Discharge Date Admission Date: August 28, 2024 Subjective Patient seen and examined at bedside. Comfortable; not in distress. Denies fever, chills, chest pain, shortness of breath, abdominal pain or urinary symptoms. No significant overnight events Patient had an episode of hematochezia today. Denied abdominal pain or discomfort. He reports that he occasionally has hematochezia. 1 unit of packed RBC ordered and transfused along with 1 unit of platelets. Review of Systems Review of Systems: All systems reviewed & are unremarkable except as noted in Subjective Physical Exam Physical Exam: Constitutional: WD/WN, vitals as above, NAD, sitting up in bed, pleasant, conversing easily Respiratory: normal respiratory effort, lungs clear to auscultation, no wheeze, rales, rhonchi. Normal insp/exp effort, no accessory muscle use Cardiovascular: RRR, no murmur, no edema Vessels: no JVD or carotid bruit Chest: normal inspection of chest Abdomen: normal bowel sounds, soft, nontender, no hepatosplenomegaly Musculoskeletal: no cyanosis or clubbing, extremities motor strength 5/5 Skin: no rashes, warm and dry normal turgor Neurologic: PERRL, EOMI, accommodation nl, no face palsy, no dysarthria CN's II- XI intact bilaterally and moves all extremities Psychiatric: A+Ox3, euthymic affect Results & Data Results & Data Vital Signs (Past 12 Hours) Vital Signs Temp Pulse Pulse Resp BP BP Pulse Ox 09/03/24 09:33 36.6 C 74 15 132/69 93 09/03/24 09:22 37.0 C 75 15 132/70 94 09/03/24 08:52 37.0 C 80 16 115/66 93 09/03/24 08:37 36.6 C 77 16 137/68 92 09/03/24 08:17 36.7 C 76 16 131/73 91 09/03/24 07:44 36.5 C 69 16 117/63 92 09/03/24 02:56 36.5 C 73 16 115/59 L 92 09/02/24 22:34 36.7 C 76 18 120/64 95 O2 Del Method 09/03/24 09:33 09/03/24 09:22 09/03/24 08:52 09/03/24 08:37 09/03/24 08:17 09/03/24 07:44 Room Air 09/03/24 02:56 Room Air 09/02/24 22:34 Room Air (7) HTN (hypertension) Hypertension type: primary hypertension Qualified Code(s): I10 - Essential (primary) hypertension (8) COPD (chronic obstructive pulmonary disease) COPD type: unspecified COPD Qualified Code(s): J44.9 - Chronic obstructive pulmonary disease, unspecified
[2024-09-03] MEDS ORDERED: PANTOPRAZOLE BOLUS/DRIP IV STA (10:21)
[2024-09-03] MEDS: PANTOprazole 80 MG in DEXTROSE 5% 100 ML IV ONE (10:55)
[2024-09-03] MEDS: PANTOprazole 40 MG in DEXTROSE 5% MINI-B 100 ML IV SCH (10:56)
[2024-09-03 11:20] LABS: Hematocrit (blood only) 25.5 % (42.0-52.0); Hemoglobin 8.4 g/dl (14.0-18.0); Mean Corpuscular Hemoglobin 29.4 pg (25.0-34.0); Mean Corpuscular Hgb Conc 32.9 g/dL (32.0-36.0); Mean Corpuscular Volume 89.2 fL (80.0-100.0); Neutrophils # (auto) < 0.50 K/uL (1.40-6.50); Platelet Count 19 K/uL (130-400); RDW Standard Deviation 42.7 fL (36.4-46.3); Red Blood Count 2.86 M/uL (4.70-6.10)
--- NOTE | 2024-09-03 15:06 | Gastrointestinal Consultation ---
Date of Consultation September 03, 2024 Assessment & Plan (1) BRBPR (bright red blood per rectum): Patient is a 79 yo man hospitalized with pancytopenia from MDS with platelets of 11,000 this AM, along with multi species bacteremia, left lower lobe pneumonia, & acute CHF exacerbation. He has had a work-up for BRBPR on 07/16/24 while admitted with the same issue. A colonoscopy did not reveal any alarming findings and his bleeding was attributed to his hematologic issues. With his profoundly low platelets, he will likely continue to have episodes like this. Continue to monitor H/H. GI will sign off at this time. Supervising Physician Co-Signing Physician Notes Severe thrombocytopenia spontaneous bleeding can occur at value below 20,000. His previous GI workup for similar problems without correctable cause. Any endo scopic intervention more of a risk this gentleman did not likely be of benefit management as of the underlying hematological coagulopathy History of Present Illness Reason for Consultation: hematochezia Attending Physician: Jasmeet Lewis MD History of Present Illness Patient is a 79 yo male with PMH of RA, chronic steroid use, COPD, HTN, MDS, [place], acute on chronic systolic CHF, and alcohol abuse history. GI has been consulted for "hematochezia." Patient notes that he had blood on the toilet tissue with a bowel movement. No blood mixed in stool. This morning, his Hgb is 7.7 and platelets at 11,000. He had a colonoscopy for this same reason while admitted on 07/16/24. There were no concerning/acute GI findings and his issues were felt to be related to his thrombocytopenia. Currently he is hospitalized with not just pancytopenia, but also multiple species bacteremia, left lower lobe pneumonia, and acute CHF exacerbation. He had bee febrile prior to coming to the hospital. Allergies Allergy/AdvReac Type Severity Reaction Status Date / Time Iodinated Contrast Media Allergy Intermediate Hives Verified 08/25/24 07:49 iodine Allergy Intermediate HIVES Verified 08/25/24 07:49 Home Medications Medication Instructions Recorded Confirmed Type coenzyme Q10 10 mg capsule 10 mg PO DAILY 06/14/22 08/28/24 History diclofenac sodium 1 % topical gel 1 g topical QID PRN joint pain 06/14/22 08/28/24 History (Voltaren Arthritis Pain) tiotropium bromide 18 mcg capsule 1 cap inhalation BID 06/14/22 08/28/24 History with inhalation device (Spiriva with HandiHaler) triamcinolone acetonide 0.1 % 1 applic topical DAILY PRN Rash 06/18/22 08/28/24 History topical ointment albuterol sulfate 90 mcg/actuation 2 puff inhalation Q6H PRN 06/27/22 08/25/24 History aerosol inhaler Shortness Of Breath calcium carbonate 600 mg PO DAILY 06/27/22 08/28/24 History cholecalciferol (vitamin D3) 50 50 mcg PO DAILY 06/27/22 08/28/24 History mcg (2,000 unit) capsule cyanocobalamin (vitamin B-12) 1,000 mcg PO DAILY 06/27/22 08/28/24 History 1,000 mcg capsule fluticasone 250 mcg-salmeterol 50 1 inh inhalation Q12H 06/27/22 08/28/24 History mcg/dose blistr powdr for inhalation folic acid 1 mg tablet 1 mg PO QAM 06/27/22 08/28/24 History metoprolol succinate 25 mg 12.5 mg PO BID 06/27/22 08/28/24 History tablet,extended release 24 hr multivitamin 1 tab PO DAILY 06/27/22 08/28/24 History potassium chloride 10 mEq 20 meq PO BID 06/27/22 08/28/24 History capsule,extended release prednisone 5 mg tablet 5 mg PO QAM 06/27/22 08/28/24 History acetaminophen 500 mg tablet 500 mg PO Q6H PRN PAIN/FEVER 06/22/24 08/25/24 History pantoprazole 40 mg tablet,delayed 40 mg PO DAILY #30 tabs 07/02/24 08/28/24 Rx release colchicine 0.6 mg tablet 0.6 mg PO UD 07/14/24 08/28/24 History ondansetron HCl 8 mg tablet 8 mg PO DIRECTED PRN n/v 07/14/24 08/28/24 History atorvastatin 20 mg tablet 20 mg PO QAM #30 tabs 07/17/24 08/28/24 Rx furosemide 20 mg tablet 20 mg PO DAILY #30 tabs 07/17/24 08/28/24 Rx spironolactone 25 mg tablet 25 mg PO QAM #30 tabs 11/15/24 12/27/24 Rx celecoxib 200 mg capsule 200 mg PO BID 08/28/24 08/28/24 History chlorthalidone 25 mg tablet 25 mg PO DAILY 08/28/24 08/28/24 History Patient History Medical History 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 Venous ulcer Lymphedema Chronic venous insufficiency 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 Hypertension History of COVID-2021--mild symptoms, no symptoms now Osteoporosis Torn rotator cuff Edema COPD, moderate uses daily inhalers as prescribed--pt states he rarely uses rescue inhaler Rheumatoid arthritis on prednisone Surgical History S/P left cataract extraction History of surgical fusion joint left wrist--hardware in place History of shoulder surgery left "calcium deposit removed" History of tooth extraction full upper/partial lower History of repair of right rotator cuff History of carpal tunnel release of both wrists History of bronchoscopy 07/2017 @ [facility] S/P tonsillectomy Family History Other Cancer Heart disease No family history of adverse response to anesthesia Social History Smoking Status: Former smoker Tobacco Type: Cigarettes Smoking End Date: ; Second Hand Exposure: No; Do You Dip or Chew Tobacco: No; Tobacco Cessation Education Requested by Patient: No Hx Alcohol Use: No Hx Substance Use: No Preferred Language: Mongolian Communication Ability: Effective Visual Impairment: No Limitations Hearing Ability: Normal Drapery Worker Required: No Beliefs That Will Affect Care: None marital status: Single Current Living Situation: Alone Current Living Situation Comment: [facility] Other Information That Helps Us Care for You: No Feels Safe at Home: Yes Safety Concerns: Feels Safe At This Time Diet: ideal protein and low salt Diet Comment: educated to increase protein to assist with wound healing caffeine: No Assistive Devices: Stair Lift and Walker Review of Systems Constitutional: no fever and no chills Gastrointestinal: + problem reported (BRBPR); no abdominal pain and no change in bowel habits Physical Exam Constitutional: no acute distress Respiratory: no respiratory distress Gastrointestinal (Abdomen): normal bowel sounds, soft, nontender, no hepatosplenomegaly Results & Data Vital Signs (Past 12 Hours) Vital Signs Temp Pulse Pulse Resp BP BP Pulse Ox 09/03/24 14:42 36.7 C 73 16 125/70 95 09/03/24 14:34 75 09/03/24 13:42 36.4 C L 77 16 129/68 94 09/03/24 13:12 36.4 C L 75 16 124/68 95 09/03/24 12:57 36.7 C 75 16 126/63 95 09/03/24 12:42 37.0 C 76 15 114/62 95 09/03/24 11:17 09/03/24 11:02 36.5 C 76 19 121/61 95 09/03/24 09:33 36.6 C 74 15 132/69 93 09/03/24 09:22 37.0 C 75 15 132/70 94 09/03/24 08:52 37.0 C 80 16 115/66 93 09/03/24 08:37 36.6 C 77 16 137/68 92 09/03/24 08:17 36.7 C 76 16 131/73 91 09/03/24 08:00 72 09/03/24 07:44 36.5 C 69 16 117/63 92 O2 Del Method 09/03/24 14:42 09/03/24 14:34 09/03/24 13:42 09/03/24 13:12 09/03/24 12:57 09/03/24 12:42 09/03/24 11:17 Room Air 09/03/24 11:02 Room Air 09/03/24 09:33 09/03/24 09:22 09/03/24 08:52 09/03/24 08:37 09/03/24 08:17 09/03/24 08:00 09/03/24 07:44 Room Air PG Care Time/CCT Total # of Minutes Spent Total Time Spent with Patient: Total time spent is greater than 50% in coordination of care (as documented) at patient's floor/unit and/or counseling patient: Coding Level of Care Code 60974 INT INP/OBS CARE 3/75MIN Diagnoses BRBPR (bright red blood per rectum) K62.5
[2024-09-04 07:04] LABS: Hematocrit (blood only) 23.5 % (42.0-52.0); Mean Corpuscular Hemoglobin 30.2 pg (25.0-34.0); Mean Corpuscular Volume 88.7 fL (80.0-100.0); Mean Platelet Volume 10.9 fL (9.4-12.4); Neutrophils # (auto) < 0.50 K/uL (1.40-6.50); Platelet Count 16 K/uL (130-400); RDW Coefficient of Variation 13.1 % (11.5-14.5); Red Blood Count 2.65 M/uL (4.70-6.10); White Blood Count 0.38 K/ul (4.8-10.8)
[2024-09-04 07:26] LABS: BUN Creatinine Ratio 28.4 (10-20); Calcium 7.9 mg/dl (8.6-10.3); Potassium 4.1 mmol/L (3.5-5.1)
[2024-09-04] MEDS: PANTOprazole 40 MG TAB PO SCH (08:14)
--- NOTE | 2024-09-04 09:53 | Hospitalist Progress Note ---
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 Left lower lobe pneumonia E. coli bacteremia Streptococcus Lutetiensis bacteremia Pt presenting with cough and fevers Respiratory viral panel negative Chest xray concerning for pneumonia, noted emphysema CT chest showing air space opacities in left lower lobe compatible with pneumonia Procalcitonin elevated at 0.76 Sputum culture repeat negative Blood Cx currently growing E coli and strep lutetiensis Repeat Blood cx negative CT abd/pelvis- no acute findings. Infectious Disease consulted, appreciate further recs. Recommended/stated the following: "Despite the changes on the CT scan of the chest, I have low concern for pneumonia especially that the bacteremia with E coli and Streptococcus lutetiensis is more suggestive of intra-abdominal source and likely translocation from the gut. Therefore, I would recommend stopping azithromycin and continuing piperacillin tazobactam for 1 more day. Then, step-down to oral Levaquin and oral Augmentin. 1. Oral Levaquin 750 mg daily for E coli bacteremia with anticipated end date of September 04, 2024 (which should also treat pneumonia). 2. Oral Augmentin 875/125 three times daily for Streptococcus bacteremia, with anticipated end date of September 13, 2024. 3. Since he is expected to be neutropenic for a long time, I would recommend (after consulting with Hematology) to continue on Levaquin 500 mg once daily for prophylaxis starting on September 05, 2024. It is to be continued until the patient is no more neutropenic." Patient to transition to oral Levaquin and Augmentin on 09/02/24 Continue to monitor For recurrence of fever. Hx of MDS and immunosuppression therapy Neutropenic fever Pancytopenia(leukopenia with neutropenia, Anemia, Thrombocytopenia) Pt with persistent anemia requiring transfusion Transfused 4U pRBCs since admission at this time for hgb <7.5 s/p transfusion of 3U platelets since admission for platelets <10K MDS diagnosed via bone marrow biopsy on 06/23/2024 with noted monoclonal plasma cell population 10%, variably cellular marrow 20 to 50% with trilineage hematopoiesis. Treatment with infusion of azacitidine started on 08/17/24 x 5 days Hematology/Oncology was consulted, appreciate recs. recommended/stated the following on 08/29/24: " Although there is no evidence that G-CSF improves Overall survival in the setting of MDS, he has pneumonia and positive blood cultures with severe neutropenia. Therefore, recommend G-CSF with filgrastim 480 mcg daily x 2 to 3 days to potentially shorten course of neutropenia. -Agree with broad-spectrum antibiotics and ID consult -Transfuse for hemoglobin below 7.5 and platelet count below of 10,000 -Follow-up with Dr. Amaya at [facility] upon discharge from hospital" Continue to follow CBC and transfuse as noted above. Another platelet unit ordered on 09/03/2021 Lower GI bleed; patient had episode of hematochezia on 09/03/2024; 1 packed RBC transfused along with platelets. Patient had colonoscopy on 07/16/2024 for similar issue; found to have polyp which was removed which was found to be hyperplastic. Discussed with oncology on 09/04/2023; patient's counts are not expected to be improving in next few days. The likely cause for pancytopenia is MDS. Needs to follow-up with oncology at discharge. Hypokalemia replete as needed Chronic Rib Fractures Noted on imaging Pain control prn Rheumatoid Arthritis On chronic prednisone 5 mg daily History of GI bleed Continue Protonix 40 mg BID CAD without angina Chronic systolic CHF Lower extremity edema HLD Chronic 1-2+ pitting BLE EKG with noted sinus rhythm with PACs Home meds: metoprolol succinate 12.5 mg daily furosemide 20 mg daily, chlorthalidone 25 mg daily, spironolactone 25 mg daily with potassium supplement, atorvastatin 20 mg daily Cardiology recommended repeat echo in September to reassess LV wall motion, EF and right-sided filling pressure. Echo- 50-55%, moderate valvular aortic stenosis. Continue to monitor for signs of volume overload Continue other home meds as ordered Goals of careI discussed goals of care with patient at bedside on 09/03/2024. Patient has prolonged pancytopenia which has put him at risk for severe infection, multiorgan failure, bleeding episodes that could lead to sudden cardiac arrest. He acknowledges that his health has significantly declined over the course of last month. We discussed regarding chest compression and ventilator support in case of cardiac arrest; patient reported that he does not want those aggressive intervention in case of cardiac arrest. CODE STATUS was changed to DNR/DNI DVT ppx: teds, scds in setting of anemia requiring transfusion Diet: HH Dispo: PT/OT recommending home with HH vs acute rehab. Patient is currently neutropenic and requiring multiple transfusions requiring close monitoring inpatient. Possible discharge in a.m. to home with home health. Time spent evaluating patient, direct bedside care, chart review, placing orders, interpretation of diagnostic studies, discussion with consultants, patient, and family members, as well as other required patient management activities is 50 minutes Please note the above document was generated using voice recognition software. It may contain grammatical, syntax or spelling errors. Any formal questions or concerns about the content, text or information contained within the body of this dictation should be directly addressed to the provider for clarification Admission and Anticipated Discharge Date Admission Date: August 28, 2024 Subjective Patient seen and examined at bedside. Comfortable; not in distress. Denies fever, chills, chest pain, shortness of breath, abdominal pain or urinary symptoms. No significant overnight events Review of Systems Review of Systems: All systems reviewed & are unremarkable except as noted in Subjective Physical Exam Physical Exam: Constitutional: WD/WN, vitals as above, NAD, sitting up in bed, pleasant, conversing easily Respiratory: normal respiratory effort, lungs clear to auscultation, no wheeze, rales, rhonchi. Normal insp/exp effort, no accessory muscle use Cardiovascular: RRR, no murmur, no edema Vessels: no JVD or carotid bruit Chest: normal inspection of chest Abdomen: normal bowel sounds, soft, nontender, no hepatosplenomegaly Musculoskeletal: no cyanosis or clubbing, extremities motor strength 5/5 Skin: no rashes, warm and dry normal turgor Neurologic: PERRL, EOMI, accommodation nl, no face palsy, no dysarthria CN's II- XI intact bilaterally and moves all extremities Psychiatric: A+Ox3, euthymic affect Results & Data Results & Data Vital Signs (Past 12 Hours) Vital Signs Temp Pulse Pulse Resp BP Pulse Ox O2 Del Method 09/04/24 08:07 36.7 C 91 H 20 128/62 92 Room Air 09/04/24 03:02 36.8 C 78 14 118/65 91 Room Air 09/03/24 23:21 74 09/03/24 23:05 36.8 C 78 14 112/57 L 95 Room Air (7) HTN (hypertension) Hypertension type: primary hypertension Qualified Code(s): I10 - Essential (primary) hypertension (8) COPD (chronic obstructive pulmonary disease) COPD type: unspecified COPD Qualified Code(s): J44.9 - Chronic obstructive pulmonary disease, unspecified
[2024-09-05 08:03] LABS: Hematocrit (blood only) 25.5 % (42.0-52.0); Hemoglobin 8.6 g/dl (14.0-18.0); Mean Corpuscular Hgb Conc 33.7 g/dL (32.0-36.0); Mean Corpuscular Volume 88.9 fL (80.0-100.0); Mean Platelet Volume 11.4 fL (9.4-12.4); Platelet Count 9 K/uL (130-400); RDW Standard Deviation 42.2 fL (36.4-46.3); Red Blood Count 2.87 M/uL (4.70-6.10); White Blood Count 0.35 K/ul (4.8-10.8)
[2024-09-05 08:04] LABS: Neutrophils # (auto) < 0.50 K/uL (1.40-6.50)
[2024-09-05 08:27] LABS: BUN Creatinine Ratio 29.5 (10-20); Calcium 8.5 mg/dl (8.6-10.3); Creatinine Clr Calc Pharmacy 77.5 ml/min; Potassium 4.4 mmol/L (3.5-5.1)
[2024-09-05] MEDS ORDERED: SODIUM CHLORIDE 0.9% 50 ML IV PRN (08:47)
--- NOTE | 2024-09-05 08:52 | Hospitalist Progress Note ---
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 Left lower lobe pneumonia E. coli bacteremia Streptococcus Lutetiensis bacteremia Pt presenting with cough and fevers Respiratory viral panel negative Chest xray concerning for pneumonia, noted emphysema CT chest showing air space opacities in left lower lobe compatible with pneumonia Procalcitonin elevated at 0.76 Sputum culture repeat negative Blood Cx currently growing E coli and strep lutetiensis Repeat Blood cx negative CT abd/pelvis- no acute findings. Infectious Disease consulted, appreciate further recs. Recommended/stated the following: "Despite the changes on the CT scan of the chest, I have low concern for pneumonia especially that the bacteremia with E coli and Streptococcus lutetiensis is more suggestive of intra-abdominal source and likely translocation from the gut. Therefore, I would recommend stopping azithromycin and continuing piperacillin tazobactam for 1 more day. Then, step-down to oral Levaquin and oral Augmentin. 1. Oral Levaquin 750 mg daily for E coli bacteremia with anticipated end date of September 04, 2024 (which should also treat pneumonia). 2. Oral Augmentin 875/125 three times daily for Streptococcus bacteremia, with anticipated end date of September 13, 2024. 3. Since he is expected to be neutropenic for a long time, I would recommend (after consulting with Hematology) to continue on Levaquin 500 mg once daily for prophylaxis starting on September 05, 2024. It is to be continued until the patient is no more neutropenic." Patient completed oral Levaquin as recommended by infectious disease on September 04, 2024. He is now currently on Levaquin 500mg once a day. Discussion was done with hematology; agrees with the plan. Monitor for recurrence of fever. Hx of MDS and immunosuppression therapy Neutropenic fever Pancytopenia(leukopenia with neutropenia, Anemia, Thrombocytopenia) Pt with persistent anemia requiring transfusion Transfused 4U pRBCs since admission at this time for hgb <7.5 s/p transfusion of 3U platelets since admission for platelets <10K MDS diagnosed via bone marrow biopsy on 06/23/2024 with noted monoclonal plasma cell population 10%, variably cellular marrow 20 to 50% with trilineage hematopoiesis. Treatment with infusion of azacitidine started on 08/17/24 x 5 days Hematology/Oncology was consulted, appreciate recs. recommended/stated the following on 08/29/24: " Although there is no evidence that G-CSF improves Overall survival in the setting of MDS, he has pneumonia and positive blood cultures with severe neutropenia. Therefore, recommend G-CSF with filgrastim 480 mcg daily x 2 to 3 days to potentially shorten course of neutropenia. -Agree with broad-spectrum antibiotics and ID consult -Transfuse for hemoglobin below 7.5 and platelet count below of 10,000 -Follow-up with Dr. Amaya at [facility] upon discharge from hospital" Continue to follow CBC and transfuse as noted above. Another platelet unit ordered on 09/03/2021 Lower GI bleed; patient had episode of hematochezia on 09/03/2024; 1 packed RBC transfused along with platelets. Patient had colonoscopy on 07/16/2024 for similar issue; found to have polyp which was removed which was found to be hyperplastic. Discussed with oncology on 09/04/2023; patient's counts are not expected to be improving in next few days. The likely cause for pancytopenia is MDS. Needs to follow-up with oncology at discharge. Patient to be transfused another unit of platelets on 09/05/2024 Hypokalemia replete as needed Chronic Rib Fractures Noted on imaging Pain control prn Rheumatoid Arthritis On chronic prednisone 5 mg daily History of GI bleed Continue Protonix 40 mg BID CAD without angina Chronic systolic CHF Lower extremity edema HLD Chronic 1-2+ pitting BLE EKG with noted sinus rhythm with PACs Home meds: metoprolol succinate 12.5 mg daily furosemide 20 mg daily, chlorthalidone 25 mg daily, spironolactone 25 mg daily with potassium supplement, atorvastatin 20 mg daily Cardiology recommended repeat echo in September to reassess LV wall motion, EF and right-sided filling pressure. Echo- 50-55%, moderate valvular aortic stenosis. Continue to monitor for signs of volume overload Continue other home meds as ordered Goals of careI discussed goals of care with patient at bedside on 09/03/2024. Patient has prolonged pancytopenia which has put him at risk for severe infection, multiorgan failure, bleeding episodes that could lead to sudden cardiac arrest. He acknowledges that his health has significantly declined over the course of last month. We discussed regarding chest compression and ventilator support in case of cardiac arrest; patient reported that he does not want those aggressive intervention in case of cardiac arrest. CODE STATUS was changed to DNR/DNI. I discussed withhis AISHWARYA Mcdonald at bedside on 09/04/2024 who is in agreement. DVT ppx: teds, scds in setting of anemia requiring transfusion Diet: HH Dispo: PT/OT recommending home with HH vs acute rehab. Patient is currently ne utropenic and requiring multiple transfusions requiring close monitoring inpatient Time spent evaluating patient, direct bedside care, chart review, placing orders, interpretation of diagnostic studies, discussion with consultants, patient, and family members, as well as other required patient management activities is 50 minutes Please note the above document was generated using voice recognition software. It may contain grammatical, syntax or spelling errors. Any formal questions or concerns about the content, text or information contained within the body of this dictation should be directly addressed to the provider for clarification Admission and Anticipated Discharge Date Admission Date: August 28, 2024 Subjective Patient seen and examined at bedside. Comfortable; not in distress. Denies fever, chills, chest pain, shortness of breath, abdominal pain or urinary symptoms. No significant overnight events Review of Systems Review of Systems: All systems reviewed & are unremarkable except as noted in Subjective Physical Exam Physical Exam: Constitutional: WD/WN, vitals as above, NAD, sitting up in bed, pleasant, conversing easily Respiratory: normal respiratory effort, lungs clear to auscultation, no wheeze, rales, rhonchi. Normal insp/exp effort, no accessory muscle use Cardiovascular: RRR, no murmur, no edema Vessels: no JVD or carotid bruit Chest: normal inspection of chest Abdomen: normal bowel sounds, soft, nontender, no hepatosplenomegaly Musculoskeletal: no cyanosis or clubbing, extremities motor strength 5/5 Skin: no rashes, warm and dry normal turgor Neurologic: PERRL, EOMI, accommodation nl, no face palsy, no dysarthria CN's II- XI intact bilaterally and moves all extremities Psychiatric: A+Ox3, euthymic affect Results & Data Results & Data Vital Signs (Past 12 Hours) Vital Signs Temp Pulse Pulse Resp BP Pulse Ox O2 Del Method 09/05/24 07:00 36.6 C 80 16 115/64 96 Room Air 09/05/24 02:52 36.9 C 79 20 120/64 90 Room Air 09/04/24 23:08 36.9 C 80 18 108/66 93 Room Air 09/04/24 23:00 80 (7) HTN (hypertension) Hypertension type: primary hypertension Qualified Code(s): I10 - Essential (primary) hypertension (8) COPD (chronic obstructive pulmonary disease) COPD type: unspecified COPD Qualified Code(s): J44.9 - Chronic obstructive pulmonary disease, unspecified
[2024-09-05] MEDS: SODIUM CHLORIDE 0.9% 100 ML IV PRN (09:32)
[2024-09-05] MEDS: levoFLOXacin 500 MG TAB PO SCH (10:23)
[2024-09-05 15:10] LABS: Alpha 1 Antitrypsin 316 mg/dL (83-199)
[2024-09-06 07:05] LABS: Hematocrit (blood only) 22.4 % (42.0-52.0); Hemoglobin 7.6 g/dl (14.0-18.0); Mean Corpuscular Hemoglobin 30.4 pg (25.0-34.0); Mean Corpuscular Hgb Conc 33.9 g/dL (32.0-36.0); Mean Corpuscular Volume 89.6 fL (80.0-100.0); Mean Platelet Volume 10.3 fL (9.4-12.4); Neutrophils # (auto) < 0.50 K/uL (1.40-6.50); Platelet Count 18 K/uL (130-400); RDW Coefficient of Variation 13.1 % (11.5-14.5); RDW Standard Deviation 42.5 fL (36.4-46.3); White Blood Count 0.29 K/ul (4.8-10.8)
[2024-09-06 07:23] LABS: BUN Creatinine Ratio 30.4 (10-20); Calcium 8.1 mg/dl (8.6-10.3); Creatinine Clr Calc Pharmacy 93.2 ml/min; Potassium 4.2 mmol/L (3.5-5.1)
--- NOTE | 2024-09-06 09:22 | Hospitalist Progress Note ---
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 Left lower lobe pneumonia E. coli bacteremia Streptococcus Lutetiensis bacteremia Pt presenting with cough and fevers Respiratory viral panel negative Chest xray concerning for pneumonia, noted emphysema CT chest showing air space opacities in left lower lobe compatible with pneumonia Procalcitonin elevated at 0.76 Sputum culture repeat negative Blood Cx currently growing E coli and strep lutetiensis Repeat Blood cx negative CT abd/pelvis- no acute findings. Infectious Disease consulted, appreciate further recs. Recommended/stated the following: "Despite the changes on the CT scan of the chest, I have low concern for pneumonia especially that the bacteremia with E coli and Streptococcus lutetiensis is more suggestive of intra-abdominal source and likely translocation from the gut. Therefore, I would recommend stopping azithromycin and continuing piperacillin tazobactam for 1 more day. Then, step-down to oral Levaquin and oral Augmentin. 1. Oral Levaquin 750 mg daily for E coli bacteremia with anticipated end date of September 04, 2024 (which should also treat pneumonia). 2. Oral Augmentin 875/125 three times daily for Streptococcus bacteremia, with anticipated end date of September 13, 2024. 3. Since he is expected to be neutropenic for a long time, I would recommend (after consulting with Hematology) to continue on Levaquin 500 mg once daily for prophylaxis starting on September 05, 2024. It is to be continued until the patient is no more neutropenic." Patient completed oral Levaquin as recommended by infectious disease on September 04, 2024. He is now currently on Levaquin 500mg once a day. Discussion was done with hematology; agrees with the plan.Continuing Augmentin until September 13, 2024 as per recommendation by infectious disease Monitor for recurrence of fever. Hx of MDS and immunosuppression therapy Neutropenic fever Pancytopenia(leukopenia with neutropenia, Anemia, Thrombocytopenia) Pt with persistent anemia requiring transfusion Transfused 4U pRBCs since admission at this time for hgb <7.5 s/p transfusion of 4U platelets since admission for platelets <10K MDS diagnosed via bone marrow biopsy on 06/23/2024 with noted monoclonal plasma cell population 10%, variably cellular marrow 20 to 50% with trilineage hematopoiesis. Treatment with infusion of azacitidine started on 08/17/24 x 5 days Hematology/Oncology was consulted, appreciate recs. recommended/stated the following on 08/29/24: " Although there is no evidence that G-CSF improves Overall survival in the setting of MDS, he has pneumonia and positive blood cultures with severe neutropenia. Therefore, recommend G-CSF with filgrastim 480 mcg daily x 2 to 3 days to potentially shorten course of neutropenia. -Agree with broad-spectrum antibiotics and ID consult -Transfuse for hemoglobin below 7.5 and platelet count below of 10,000 -Follow-up with Dr. Amaya at [facility] upon discharge from hospital" Lower GI bleed; patient had episode of hematochezia on 09/03/2024; 1 packed RBC transfused along with platelets. Patient had colonoscopy on 07/16/2024 for similar issue; found to have polyp which was removed which was found to be hyperplastic. Discussed with oncology on 09/04/2023; patient's counts are not expected to be improving in next few days. The likely cause for pancytopenia is MDS. Needs to follow-up with oncology at discharge. Patient was transfused another unit of platelets on 09/05/2024 Hypokalemia replete as needed Chronic Rib Fractures Noted on imaging Pain control prn Rheumatoid Arthritis On chronic prednisone 5 mg daily History of GI bleed Continue Protonix 40 mg BID CAD without angina Chronic systolic CHF Lower extremity edema HLD Chronic 1-2+ pitting BLE EKG with noted sinus rhythm with PACs Home meds: metoprolol succinate 12.5 mg daily furosemide 20 mg daily, chlorthalidone 25 mg daily, spironolactone 25 mg daily with potassium supplement, atorvastatin 20 mg daily Cardiology recommended repeat echo in September to reassess LV wall motion, EF and right-sided filling pressure. Echo- 50-55%, moderate valvular aortic stenosis. Continue to monitor for signs of volume overload Continue other home meds as ordered Goals of careI discussed goals of care with patient at bedside on 09/03/2024. Patient has prolonged pancytopenia which has put him at risk for severe infection, multiorgan failure, bleeding episodes that could lead to sudden cardiac arrest. He acknowledges that his health has significantly declined over the course of last month. We discussed regarding chest compression and ventilator support in case of cardiac arrest; patient reported that he does not want those aggressive intervention in case of cardiac arrest. CODE STATUS was changed to DNR/DNI. I discussed withhis AISHWARYA Mcdonald at bedside on 09/04/2024 who is in agreement. DVT ppx: teds, scds in setting of anemia requiring transfusion Diet: HH Dispo: PT/OT recommending home with HH vs acute rehab. Patient is currently neutropenic and requiring multiple transfusions requiring close monitoring inpatient. Possible discharge in next few days. Please note the above document was generated using voice recognition software. It may contain grammatical, syntax or spelling errors. Any formal questions or concerns about the content, text or information contained within the body of this dictation should be directly addressed to the provider for clarification Admission and Anticipated Discharge Date Admission Date: August 28, 2024 Subjective Patient seen and examined at bedside. Comfortable; not in distress. Denies fever, chills, chest pain, shortness of breath, abdominal pain or urinary symptoms. No significant overnight events Review of Systems Review of Systems: All systems reviewed & are unremarkable except as noted in Subjective Physical Exam Physical Exam: Constitutional: WD/WN, vitals as above, NAD, sitting up in bed, pleasant, conversing easily Respiratory: normal respiratory effort, lungs clear to auscultation, no wheeze, rales, rhonchi. Normal insp/exp effort, no accessory muscle use Cardiovascular: RRR, no murmur, no edema Vessels: no JVD or carotid bruit Chest: normal inspection of chest Abdomen: normal bowel sounds, soft, nontender, no hepatosplenomegaly Musculoskeletal: no cyanosis or clubbing, extremities motor strength 5/5 Skin: no rashes, warm and dry normal turgor Neurologic: PERRL, EOMI, accommodation nl, no face palsy, no dysarthria CN's II- XI intact bilaterally and moves all extremities Psychiatric: A+Ox3, euthymic affect Results & Data Results & Data Vital Signs (Past 12 Hours) Vital Signs Temp Pulse Pulse Resp BP Pulse Ox O2 Del Method 09/06/24 08:00 37.2 C 69 18 119/77 95 Room Air 09/06/24 04:56 37.4 C 83 20 110/61 92 Room Air 09/05/24 23:59 36.9 C 82 30 H 144/60 H 96 Room Air 09/05/24 23:19 78 09/05/24 22:13 Room Air (7) HTN (hypertension) Hypertension type: primary hypertension Qualified Code(s): I10 - Essential (primary) hypertension (8) COPD (chronic obstructive pulmonary disease) COPD type: unspecified COPD Qualified Code(s): J44.9 - Chronic obstructive pulmonary disease, unspecified
[2024-09-06] MEDS: predniSONE 2.5 MG TAB PO SCH (10:33)
[2024-09-07 08:18] LABS: Hematocrit (blood only) 24.3 % (42.0-52.0); Mean Corpuscular Hemoglobin 29.5 pg (25.0-34.0); Mean Corpuscular Hgb Conc 32.9 g/dL (32.0-36.0); Mean Corpuscular Volume 89.7 fL (80.0-100.0); Mean Platelet Volume 11.2 fL (9.4-12.4); Neutrophils # (auto) < 0.50 K/uL (1.40-6.50); Platelet Count 15 K/uL (130-400); RDW Standard Deviation 42.4 fL (36.4-46.3); Red Blood Count 2.71 M/uL (4.70-6.10)
[2024-09-07 08:31] LABS: BUN Creatinine Ratio 23.4 (10-20); Calcium 8.2 mg/dl (8.6-10.3); Creatinine Clr Calc Pharmacy 78.3 ml/min; Potassium 4.5 mmol/L (3.5-5.1)
--- NOTE | 2024-09-07 12:32 | Hospitalist Progress Note ---
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 Left lower lobe pneumonia E. coli bacteremia Streptococcus Lutetiensis bacteremia Pt presenting with cough and fevers Respiratory viral panel negative Chest xray concerning for pneumonia, noted emphysema CT chest showing air space opacities in left lower lobe compatible with pneumonia Procalcitonin elevated at 0.76 Sputum culture repeat negative Blood Cx currently growing E coli and strep lutetiensis Repeat Blood cx negative CT abd/pelvis- no acute findings. Infectious Disease consulted, appreciate further recs. Recommended/stated the following: "Despite the changes on the CT scan of the chest, I have low concern for pneumonia especially that the bacteremia with E coli and Streptococcus lutetiensis is more suggestive of intra-abdominal source and likely translocation from the gut. Therefore, I would recommend stopping azithromycin and continuing piperacillin tazobactam for 1 more day. Then, step-down to oral Levaquin and oral Augmentin. 1. Oral Levaquin 750 mg daily for E coli bacteremia with anticipated end date of September 04, 2024 (which should also treat pneumonia). 2. Oral Augmentin 875/125 three times daily for Streptococcus bacteremia, with anticipated end date of September 13, 2024. 3. Since he is expected to be neutropenic for a long time, I would recommend (after consulting with Hematology) to continue on Levaquin 500 mg once daily for prophylaxis starting on September 05, 2024. It is to be continued until the patient is no more neutropenic." Patient completed oral Levaquin as recommended by infectious disease on September 04, 2024. He is now currently on Levaquin 500mg once a day. Discussion was done with hematology; agrees with the plan.Continuing Augmentin until September 13, 2024 as per recommendation by infectious disease Monitor for recurrence of fever. Hx of MDS and immunosuppression therapy Neutropenic fever Pancytopenia(leukopenia with neutropenia, Anemia, Thrombocytopenia) Pt with persistent anemia requiring transfusion Transfused 4U pRBCs since admission at this time for hgb <7.5 s/p transfusion of 4U platelets since admission for platelets <10K MDS diagnosed via bone marrow biopsy on 06/23/2024 with noted monoclonal plasma cell population 10%, variably cellular marrow 20 to 50% with trilineage hematopoiesis. Treatment with infusion of azacitidine started on 08/17/24 x 5 days Hematology/Oncology was consulted, appreciate recs. recommended/stated the following on 08/29/24: " Although there is no evidence that G-CSF improves Overall survival in the setting of MDS, he has pneumonia and positive blood cultures with severe neutropenia. Therefore, recommend G-CSF with filgrastim 480 mcg daily x 2 to 3 days to potentially shorten course of neutropenia. -Agree with broad-spectrum antibiotics and ID consult -Transfuse for hemoglobin below 7.5 and platelet count below of 10,000 -Follow-up with Dr. Amaya at [facility] upon discharge from hospital" Lower GI bleed; patient had episode of hematochezia on 09/03/2024; 1 packed RBC transfused along with platelets. Patient had colonoscopy on 07/16/2024 for similar issue; found to have polyp which was removed which was found to be hyperplastic. Discussed with oncology on 09/04/2023; patient's counts are not expected to be improved as it is due to MDS than Chemotherapy. Needs to follow-up with oncology at discharge. Patient was transfused another unit of platelets on 09/05/2024 Hypokalemia replete as needed Chronic Rib Fractures Noted on imaging Pain control prn Rheumatoid Arthritis On chronic prednisone 5 mg daily History of GI bleed Continue Protonix 40 mg BID CAD without angina Chronic systolic CHF Lower extremity edema HLD Chronic 1-2+ pitting BLE EKG with noted sinus rhythm with PACs Home meds: metoprolol succinate 12.5 mg daily furosemide 20 mg daily, chlorthalidone 25 mg daily, spironolactone 25 mg daily with potassium supplement, atorvastatin 20 mg daily Cardiology recommended repeat echo in September to reassess LV wall motion, EF and right-sided filling pressure. Echo- 50-55%, moderate valvular aortic stenosis. Continue to monitor for signs of volume overload Continue other home meds as ordered Goals of careI discussed goals of care with patient at bedside on 09/03/2024. Patient has prolonged pancytopenia which has put him at risk for severe infection, multiorgan failure, bleeding episodes that could lead to sudden cardiac arrest. He acknowledges that his health has significantly declined over the course of last month. We discussed regarding chest compression and ventilator support in case of cardiac arrest; patient reported that he does not want those aggressive intervention in case of cardiac arrest. CODE STATUS was changed to DNR/DNI. I discussed with his POA Harry at bedside on 09/04/2024 who is in agreement. DVT ppx: teds, scds in setting of anemia requiring transfusion Diet: HH Dispo: Patient wants to go to rehab prior to going home. CM on board. Please note the above document was generated using voice recognition software. It may contain grammatical, syntax or spelling errors. Any formal questions or concerns about the content, text or information contained within the body of this dictation should be directly addressed to the provider for clarification Admission and Anticipated Discharge Date Admission Date: August 28, 2024 Subjective Patient seen and examined at bedside. Comfortable; not in distress. Denies fever, chills, chest pain, shortness of breath, abdominal pain or urinary symptoms. No significant overnight events Review of Systems Review of Systems: All systems reviewed & are unremarkable except as noted in Subjective Physical Exam Physical Exam: Constitutional: WD/WN, vitals as above, NAD, sitting up in bed, pleasant, conversing easily Respiratory: normal respiratory effort, lungs clear to auscultation, no wheeze, rales, rhonchi. Normal insp/exp effort, no accessory muscle use Cardiovascular: RRR, no murmur, no edema Vessels: no JVD or carotid bruit Chest: normal inspection of chest Abdomen: normal bowel sounds, soft, nontender, no hepatosplenomegaly Musculoskeletal: no cyanosis or clubbing, extremities motor strength 5/5 Skin: no rashes, warm and dry normal turgor Neurologic: PERRL, EOMI, accommodation nl, no face palsy, no dysarthria CN's II- XI intact bilaterally and moves all extremities Psychiatric: A+Ox3, euthymic affect Results & Data Results & Data Vital Signs (Past 12 Hours) Vital Signs Temp Pulse Pulse Resp BP Pulse Ox O2 Del Method 09/07/24 11:38 36.7 C 82 20 113/62 93 Room Air 09/07/24 08:04 37.0 C 86 20 119/68 93 Room Air 09/07/24 08:00 Room Air 09/07/24 07:00 79 09/07/24 03:06 36.6 C 89 18 130/77 91 Room Air (7) HTN (hypertension) Hypertension type: primary hypertension Qualified Code(s): I10 - Essential (primary) hypertension (8) COPD (chronic obstructive pulmonary disease) COPD type: unspecified COPD Qualified Code(s): J44.9 - Chronic obstructive pulmonary disease, unspecified
[2024-09-07] MEDS: MULTIVITAMIN TAB PO SCH (13:00)
[2024-09-07] MEDS: CHLORTHALIDONE 25 MG TAB PO SCH (13:00)
[2024-09-07] MEDS: FUROSEMIDE 20 MG TAB PO SCH (13:00)
[2024-09-07] MEDS: FOLIC ACID 1 MG TAB PO SCH (13:00)
[2024-09-07] MEDS: SPIRONOLACTONE 25 MG TAB PO SCH (13:01)
[2024-09-08 07:28] LABS: BUN Creatinine Ratio 25.5 (10-20); Calcium 7.9 mg/dl (8.6-10.3); Creatinine Clr Calc Pharmacy 75.8 ml/min; Potassium 4.1 mmol/L (3.5-5.1)
[2024-09-08 07:41] LABS: Hematocrit (blood only) 21.4 % (42.0-52.0); Hemoglobin 7.2 g/dl (14.0-18.0); Mean Corpuscular Hemoglobin 29.8 pg (25.0-34.0); Mean Corpuscular Hgb Conc 33.6 g/dL (32.0-36.0); Mean Corpuscular Volume 88.4 fL (80.0-100.0); Mean Platelet Volume 11.6 fL (9.4-12.4); Platelet Count 9 K/uL (130-400); RDW Standard Deviation 41.4 fL (36.4-46.3); Red Blood Count 2.42 M/uL (4.70-6.10); White Blood Count 0.27 K/ul (4.8-10.8)
[2024-09-08 07:42] LABS: Platelet Estimate Signific. Decreased (Normal)
[2024-09-08] MEDS ORDERED: SODIUM CHLORIDE 0.9% 50 ML IV PRN (07:51)
[2024-09-08] MEDS ORDERED: SODIUM CHLORIDE 0.9% 100 ML IV PRN (07:51)
--- NOTE | 2024-09-08 09:20 | Hospitalist Progress Note ---
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 Left lower lobe pneumonia E. coli bacteremia Streptococcus Lutetiensis bacteremia patient presendted with with cough and fevers Respiratory viral panel negative Chest xray concerning for pneumonia, noted emphysema CT chest showing air space opacities in left lower lobe compatible with pneumonia Procalcitonin elevated at 0.76 Sputum culture repeat negative Blood Cx currently growing E coli and strep lutetiensis Repeat Blood cx negative CT abd/pelvis- no acute findings. Infectious Disease consulted, appreciate further recs. Recommended/stated the following: "Despite the changes on the CT scan of the chest, I have low concern for pneumonia especially that the bacteremia with E coli and Streptococcus lutetiensis is more suggestive of intra-abdominal source and likely translocation from the gut. Therefore, I would recommend stopping azithromycin and continuing piperacillin tazobactam for 1 more day. Then, step-down to oral Levaquin and oral Augmentin. 1. Oral Levaquin 750 mg daily for E coli bacteremia with anticipated end date of September 04, 2024 (which should also treat pneumonia). 2. Oral Augmentin 875/125 three times daily for Streptococcus bacteremia, with anticipated end date of September 13, 2024. 3. Since he is expected to be neutropenic for a long time, I would recommend (after consulting with Hematology) to continue on Levaquin 500 mg once daily for prophylaxis starting on September 05, 2024. It is to be continued until the patient is no more neutropenic." Patient completed oral Levaquin as recommended by infectious disease on September 04, 2024. He is now currently on Levaquin 500mg once a day. Discussion was done with hematology; agrees with the plan.Continuing Augmentin until September 13, 2024 as per recommendation by infectious disease Monitor for recurrence of fever. Hx of MDS and immunosuppression therapy Neutropenic fever Pancytopenia(leukopenia with neutropenia, Anemia, Thrombocytopenia) Pt with persistent anemia requiring transfusion Transfused 4U pRBCs since admission at this time for hgb <7.5 s/p transfusion of 4U platelets since admission for platelets <10K MDS diagnosed via bone marrow biopsy on 06/23/2024 with noted monoclonal plasma cell population 10%, variably cellular marrow 20 to 50% with trilineage hematopoiesis. Treatment with infusion of azacitidine started on 08/17/24 x 5 days Hematology/Oncology was consulted, appreciate recs. recommended/stated the following on 08/29/24: " Although there is no evidence that G-CSF improves Overall survival in the setting of MDS, he has pneumonia and positive blood cultures with severe neutropenia. Therefore, recommend G-CSF with filgrastim 480 mcg daily x 2 to 3 days to potentially shorten course of neutropenia. -Agree with broad-spectrum antibiotics and ID consult -Transfuse for hemoglobin below 7.5 and platelet count below of 10,000 -Follow-up with Dr. Amaya at [facility] upon discharge from hospital" Lower GI bleed; patient had episode of hematochezia on 09/03/2024; 1 packed RBC transfused along with platelets. Patient had colonoscopy on 07/16/2024 for similar issue; found to have polyp which was removed which was found to be hyperplastic. Discussed with oncology on 09/04/2023; patient's counts are not expected to be improved as it is due to MDS than Chemotherapy. Needs to follow-up with oncology at discharge. Patient was transfused another unit of platelets on 09/05/2024 and on 09/08/2024. Hypokalemia replete as needed Chronic Rib Fractures Noted on imaging Pain control prn Rheumatoid Arthritis On chronic prednisone 5 mg daily History of GI bleed Continue Protonix 40 mg BID CAD without angina Chronic systolic CHF Lower extremity edema HLD Chronic 1-2+ pitting BLE EKG with noted sinus rhythm with PACs Home meds: metoprolol succinate 12.5 mg daily furosemide 20 mg daily, chlorthalidone 25 mg daily, spironolactone 25 mg daily with potassium supplement, atorvastatin 20 mg daily Cardiology recommended repeat echo in September to reassess LV wall motion, EF and right-sided filling pressure. Echo- 50-55%, moderate valvular aortic stenosis. Continue to monitor for signs of volume overload Continue other home meds as ordered Goals of careI discussed goals of care with patient at bedside on 09/03/2024. Patient has prolonged pancytopenia which has put him at risk for severe infection, multiorgan failure, bleeding episodes that could lead to sudden cardiac arrest. He acknowledges that his health has significantly declined over the course of last month. We discussed regarding chest compression and ventilator support in case of cardiac arrest; patient reported that he does not want those aggressive intervention in case of cardiac arrest. CODE STATUS was changed to DNR/DNI. I discussed with his POA Harry at bedside on 09/04/2024 who is in agreement. DVT ppx: teds, scds in setting of anemia requiring transfusion Diet: HH Dispo: Patient is requiring transfusions with platelets every 2 to 3 days; cont inue to monitor closely inpatient. Plan to discharge home with home health if platelets, hemoglobin are stable. Please note the above document was generated using voice recognition software. It may contain grammatical, syntax or spelling errors. Any formal questions or concerns about the content, text or information contained within the body of this dictation should be directly addressed to the provider for clarification Admission and Anticipated Discharge Date Admission Date: August 28, 2024 Subjective Patient seen and examined at bedside. He is comfortably sitting up on a chair; not in distress Denies shortness of breath, chest pain or abdominal pain No significant overnight Review of Systems Review of Systems: All systems reviewed & are unremarkable except as noted in Subjective Physical Exam Physical Exam: Constitutional: WD/WN, vitals as above, NAD, sitting up in bed, pleasant, conversing easily Respiratory: normal respiratory effort, lungs clear to auscultation, no wheeze, rales, rhonchi. Normal insp/exp effort, no accessory muscle use Cardiovascular: RRR, no murmur, no edema Vessels: no JVD or carotid bruit Chest: normal inspection of chest Abdomen: normal bowel sounds, soft, nontender, no hepatosplenomegaly Musculoskeletal: no cyanosis or clubbing, extremities motor strength 5/5 Skin: no rashes, warm and dry normal turgor Neurologic: PERRL, EOMI, accommodation nl, no face palsy, no dysarthria CN's II- XI intact bilaterally and moves all extremities Psychiatric: A+Ox3, euthymic affect Results & Data Results & Data Vital Signs (Past 12 Hours) Vital Signs Temp Pulse Pulse Resp BP Pulse Ox O2 Del Method 09/08/24 07:55 37.1 C 93 H 18 125/64 90 Room Air 09/08/24 07:29 84 09/08/24 03:12 37.4 C 89 18 118/62 90 Room Air 09/08/24 00:10 37.5 C 85 18 138/62 90 Room Air 09/07/24 22:15 93 H (7) HTN (hypertension) Hypertension type: primary hypertension Qualified Code(s): I10 - Essential (primary) hypertension (8) COPD (chronic obstructive pulmonary disease) COPD type: unspecified COPD Qualified Code(s): J44.9 - Chronic obstructive pulmonary disease, unspecified
[2024-09-09 07:57] LABS: Hematocrit (blood only) 21.1 % (42.0-52.0); Mean Corpuscular Hemoglobin 29.7 pg (25.0-34.0); Mean Corpuscular Hgb Conc 33.2 g/dL (32.0-36.0); Mean Corpuscular Volume 89.4 fL (80.0-100.0); Mean Platelet Volume 10.5 fL (9.4-12.4); Neutrophils # (auto) < 0.50 K/uL (1.40-6.50); Platelet Count 15 K/uL (130-400); RDW Coefficient of Variation 12.9 % (11.5-14.5); Red Blood Count 2.36 M/uL (4.70-6.10); White Blood Count 0.27 K/ul (4.8-10.8)
[2024-09-09 08:11] LABS: BUN Creatinine Ratio 24.2 (10-20); Calcium 7.9 mg/dl (8.6-10.3); Creatinine Clr Calc Pharmacy 78.2 ml/min; Potassium 3.8 mmol/L (3.5-5.1)
[2024-09-09 13:33] LABS: White Blood Count 0.16 K/ul (4.8-10.8)
[2024-09-09 13:34] LABS: Mean Platelet Volume 11.4 fL (9.4-12.4); Platelet Count 11 K/uL (130-400)
[2024-09-09 13:35] LABS: Hematocrit (blood only) 20.1 % (42.0-52.0); Hemoglobin 6.7 g/dl (14.0-18.0); Mean Corpuscular Hemoglobin 29.5 pg (25.0-34.0); Mean Corpuscular Hgb Conc 33.3 g/dL (32.0-36.0); Mean Corpuscular Volume 88.5 fL (80.0-100.0); RDW Coefficient of Variation 12.9 % (11.5-14.5); RDW Standard Deviation 41.3 fL (36.4-46.3); Red Blood Count 2.27 M/uL (4.70-6.10)
[2024-09-09] MEDS ORDERED: SODIUM CHLORIDE 0.9% 50 ML IV PRN (13:44)
[2024-09-09] MEDS ORDERED: SODIUM CHLORIDE 0.9% 100 ML IV PRN (13:44)
[2024-09-09] MEDS: ACETAMINOPHEN 325 MG TAB PO ONE (15:49)
--- NOTE | 2024-09-09 16:00 | Hospitalist Progress Note ---
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 Left lower lobe pneumonia E. coli bacteremia Streptococcus Lutetiensis bacteremia patient presented with with cough and fevers. Resp biofire neg. Chest xray concerning for pneumonia, noted emphysema CT chest showing air space opacities in left lower lobe compatible with pneumonia. Procal elevated. 08/28 and 08/30 Sputum cultures: negative 08/28 Blood Cx currently growing E coli and strep lutetiensis 08/[address] abd/pelvis- no acute findings. Infectious Disease consulted, appreciate further recs. Recommended/stated the following: "Despite the changes on the CT scan of the chest, I have low concern for pneumonia especially that the bacteremia with E coli and Streptococcus lutetiensis is more suggestive of intra-abdominal source and likely translocation from the gut. Therefore, I would recommend stopping azithromycin and continuing piperacillin tazobactam for 1 more day. Then, step-down to oral Levaquin and oral Augmentin. 1. Oral Levaquin 750 mg daily for E coli bacteremia with anticipated end date of September 04, 2024 (which should also treat pneumonia). 2. Oral Augmentin 875/125 three times daily for Streptococcus bacteremia, with anticipated end date of September 13, 2024. 3. Since he is expected to be neutropenic for a long time, I would recommend (after consulting with Hematology) to continue on Levaquin 500 mg once daily for prophylaxis starting on September 05, 2024. It is to be continued until the patient is no more neutropenic." Patient completed oral Levaquin as recommended by infectious disease on September 04, 2024. He is now currently on Levaquin 500mg once a day. Prior attending d/w hematology who agreed with the plan.Continuing Augmentin until September 13, 2024 as per recommendation by infectious disease Monitor for recurrence of fever. Hx of MDS and immunosuppression therapy Neutropenic fever Pancytopenia(leukopenia with neutropenia, Anemia, Thrombocytopenia) MDS diagnosed via bone marrow biopsy on 06/23/2024 with noted monoclonal plasma cell population 10%, variably cellular marrow 20 to 50% with trilineage hematopoiesis. Treatment with infusion of azacitidine started on 08/17/24 x 5 days Pt with persistent anemia and thrombocytopenia requiring transfusion, has required multiple PRBC and platelet transfusions so far. Hemoglobin of 6.7 today, transfusing 1 unit PRBC today. Repeat CBC at 8 pm and CBC with differential in the morning. Hematology/Oncology was consulted, appreciate recs. recommended/stated the following on 08/29/24: " Although there is no evidence that G-CSF improves Overall survival in the setting of MDS, he has pneumonia and positive blood cultures with severe neutropenia. Therefore, recommend G-CSF with filgrastim 480 mcg daily x 2 to 3 days to potentially shorten course of neutropenia. -Agree with broad-spectrum antibiotics and ID consult -Transfuse for hemoglobin below 7.5 and platelet count below of 10,000 -Follow-up with Dr. Amaya at [facility] upon discharge from hospital" Lower GI bleed; patient had episode of hematochezia on 09/03/2024; 1 packed RBC transfused along with platelets. Patient had colonoscopy on 07/16/2024 for similar issue; found to have polyp which was removed which was found to be hyperplastic. Prior attending discussed with oncology patient's pancytopenia is not going to recover due to bone marrow failure secondary to MDS; cancer [facility] will coordinate with patient for further infusion after patient is discharged from the hospital. f/u oncology closely upon discharge. Hypokalemia: replete as needed Chronic Rib Fractures: Noted on imaging. Pain control prn Rheumatoid Arthritis: On chronic prednisone 5 mg daily History of GI bleed: Continue Protonix 40 mg BID CAD without angina Chronic systolic CHF Lower extremity edema HLD Chronic 1-2+ pitting BLE EKG with noted sinus rhythm with PACs Home meds: metoprolol succinate 12.5 mg daily furosemide 20 mg daily, chlorthalidone 25 mg daily, spironolactone 25 mg daily with potassium supplement, atorvastatin 20 mg daily Cardiology recommended repeat echo in September to reassess LV wall motion, EF and right-sided filling pressure. Echo- 50-55%, moderate valvular aortic stenosis. Continue to monitor for signs of volume overload Continue other home meds as ordered Goals of care Prior attending discussed goals of care with patient at bedside on 09/03/2024. Patient has prolonged pancytopenia which has put him at risk for severe infection, multiorgan failure, bleeding episodes that could lead to sudden cardiac arrest. He acknowledges that his health has significantly d eclined over the course of last month. We discussed regarding chest compression and ventilator support in case of cardiac arrest; patient reported that he does not want those aggressive intervention in case of cardiac arrest. CODE STATUS was changed to DNR/DNI. I discussed with his POA Harry at bedside on 09/04/2024 who is in agreement. DVT ppx: teds, scds in setting of anemia requiring transfusion Diet: HH Dispo: Patient is requiring transfusions with platelets every 2 to 3 days; continue to monitor closely inpatient. Plan to discharge home with home health if platelets, hemoglobin are stable. Please note the above document was generated using voice recognition software. It may contain grammatical, syntax or spelling errors. Any formal questions or concerns about the content, text or information contained within the body of this dictation should be directly addressed to the provider for clarification Admission and Anticipated Discharge Date Admission Date: August 28, 2024 Subjective Patient seen and examined at bedside. He is comfortably lying in bed; not in distress Denies shortness of breath, chest pain or abdominal pain No significant overnight, ON high temp recorded, pt reports not feeling hot or feverish and mar doesn't show any tylenol being used for temp of 38c recorded. Further temp seems to be wnl. Physical Exam Physical Exam: Constitutional: WD/WN, vitals as above, NAD, sitting up in bed, pleasant, conversing easily Respiratory: normal respiratory effort, lungs clear to auscultation, no wheeze, rales, rhonchi. Normal insp/exp effort, no accessory muscle use Cardiovascular: RRR, no murmur, no edema Vessels: no JVD or carotid bruit Chest: normal inspection of chest Abdomen: normal bowel sounds, soft, nontender, no hepatosplenomegaly Musculoskeletal: no cyanosis or clubbing, extremities motor strength 5/5 Skin: no rashes, warm and dry normal turgor Neurologic: PERRL, EOMI, accommodation nl, no face palsy, no dysarthria CN's II- XI intact bilaterally and moves all extremities Psychiatric: A+Ox3, euthymic affect Results & Data Results & Data Vital Signs (Past 12 Hours) Vital Signs Temp Pulse Pulse Resp BP Pulse Ox O2 Del Method 09/09/24 14:21 87 09/09/24 10:53 37.1 C 84 17 104/63 91 Room Air 09/09/24 07:47 Room Air 09/09/24 07:43 36.8 C 90 19 103/58 L 90 Room Air 09/09/24 07:00 83 (7) HTN (hypertension) Hypertension type: primary hypertension Qualified Code(s): I10 - Essential (primary) hypertension (8) COPD (chronic obstructive pulmonary disease) COPD type: unspecified COPD Qualified Code(s): J44.9 - Chronic obstructive pulmonary disease, unspecified
[2024-09-09 21:22] LABS: Hematocrit (blood only) 25.1 % (42.0-52.0); Hemoglobin 8.6 g/dl (14.0-18.0); Mean Corpuscular Hemoglobin 29.9 pg (25.0-34.0); Mean Corpuscular Hgb Conc 34.3 g/dL (32.0-36.0); Mean Corpuscular Volume 87.2 fL (80.0-100.0); Mean Platelet Volume 10.7 fL (9.4-12.4); Platelet Count 13 K/uL (130-400); RDW Standard Deviation 41.3 fL (36.4-46.3); Red Blood Count 2.88 M/uL (4.70-6.10); White Blood Count 0.36 K/ul (4.8-10.8)
[2024-09-10 08:10] LABS: Hemoglobin 7.1 g/dl (14.0-18.0); Mean Corpuscular Hemoglobin 29.5 pg (25.0-34.0); Mean Corpuscular Hgb Conc 33.8 g/dL (32.0-36.0); Mean Corpuscular Volume 87.1 fL (80.0-100.0); Mean Platelet Volume 10.4 fL (9.4-12.4); Neutrophils # (auto) < 0.50 K/uL (1.40-6.50); Platelet Count 10 K/uL (130-400); RDW Standard Deviation 41.1 fL (36.4-46.3); Red Blood Count 2.41 M/uL (4.70-6.10)
[2024-09-10 08:33] LABS: White Blood Count 0.21 K/ul (4.8-10.8)
[2024-09-10 08:34] LABS: BUN Creatinine Ratio 26.8 (10-20); Calcium 7.7 mg/dl (8.6-10.3); Creatinine Clr Calc Pharmacy 76.6 ml/min; Magnesium 2.3 mg/dl (1.7-2.4); Potassium 3.8 mmol/L (3.5-5.1)
--- NOTE | 2024-09-10 11:09 | Palliative Care Consultation ---
Date of Consultation September 10, 2024 Assessment & Plan (1) Palliative care by specialist: (2) Quality of life palliative care encounter: (3) Counseling regarding goals of care: Plan Met with patient and his chosen proxy for medical decisions, Harry Genie ([phone]) at bedside. Introduced them to palliative care services that can be helpful in symptom management and navigation of care when faced with life limiting disease. Patient does exhibit current decisional capacity based on the ability to convey understanding of personal PMHx, current medical condition, treatment options and the risks / benefits of those options, and ability to make decisions based on such knowledge. Hospital does not have written documentation of patient wishes concerning his chosen proxy for medical decisions. However patient states that he does have a completed LW/AD at home. He shared that his chosen proxy for medical decisions as follows: 1. Jad Alvarez ([phone]) 2. Kay Marin ([phone]) 3. Harry Prescott ([phone] He does not currently require a proxy for medical decisions. Pt shared that he has cancer that makes him prone to bleeding requiring platelet and blood transfusions frequently. He shared that he has a very enjoyable life and enjoys going to the [place] to drink beer with his friends. He shred that he really does not have any bothersome symptoms and that the treatments are tolerable. He shared goals of returning home to living independently. He reinforced his desire for DNR/DNI status and shared that he would not ever want to be dependent on machines or tube feeding if he had no chance of recovery. He does wish to continue with any cancer directed therapy offered and shared that if it comes to a point where he has no further treatment options or he decompensates to the point of not being able to enjoy things he enjoys, he would want to be at home to spend what time he would have left and peacefully. Patient follows with oncology team at [facility] and has been primarily seeing Dr. Amaya. Discussed outpt follow up with palliative care team in clinic for ongoing navigation of care through the progression of his disease, he is agreeable. We will sign off on this patient as he mdoes not have any active palliative care needs, goals of care are clearly established for DNR/DNI but continue all other life prolonging therapies. Thank you for including Palliative Care in the management of this patient. Please call with any questions or concerns regarding this consultation. History of Present Illness Reason for Consultation: goals of care Requesting Physician: Marielena Bautista MD Attending Physician: Marielena Bautista MD History of Present Illness Preston Maloney is a 79-year-old male with a past medical history of RA, chronic steroid use, COPD, HTN, newly diagnosed MDS, HI, acute on chronic systolic CHF, hemorrhoids, and alcohol use disorder who presents to ED 08/28/24 for flu like symptoms x 3-4 days with sore throat, decreased appetite, cough with mucous production, congestion, epistaxis and bright red blood with wiping after bowel movements, denies dark tarry bowel movements. Multiple hospitalizations recently: 06/22 to 07/02 for shortness of breath, pancytopenic requiring multiple transfusions, 6 PRBCs, 5 U platelets. At that time had bone marrow biopsy at that time suspicious for MDS and treated for NSTEMI at that time in the setting of severe anemia. [facility]14[facility]2024 to 07/17/2024 for GI bleeding, transfused 1 unit PRBCs, 1 unit platelet, underwent colonoscopy with 2 small polyps in descending colon and rectum that were removed, no active bleeding. Discharged to home with home health. Allergies Allergy/AdvReac Type Severity Reaction Status Date / Time Iodinated Contrast Media Allergy Intermediate Hives Verified 08/25/24 07:49 iodine Allergy Intermediate HIVES Verified 08/25/24 07:49 Home Medications Medication Instructions Recorded Confirmed Type coenzyme Q10 10 mg capsule 10 mg PO DAILY 06/14/22 08/28/24 History diclofenac sodium 1 % topical gel 1 g topical QID PRN joint pain 06/14/22 08/28/24 History (Voltaren Arthritis Pain) tiotropium bromide 18 mcg capsule 1 cap inhalation BID 06/14/22 08/28/24 History with inhalation device (Spiriva with HandiHaler) triamcinolone acetonide 0.1 % 1 applic topical DAILY PRN Rash 06/18/22 08/28/24 History topical ointment albuterol sulfate 90 mcg/actuation 2 puff inhalation Q6H PRN 06/27/22 08/25/24 History aerosol inhaler Shortness Of Breath calcium carbonate 600 mg PO DAILY 06/27/22 08/28/24 History cholecalciferol (vitamin D3) 50 50 mcg PO DAILY 06/27/22 08/28/24 History mcg (2,000 unit) capsule cyanocobalamin (vitamin B-12) 1,000 mcg PO DAILY 06/27/22 08/28/24 History 1,000 mcg capsule fluticasone 250 mcg-salmeterol 50 1 inh inhalation Q12H 06/27/22 08/28/24 History mcg/dose blistr powdr for inhalation folic acid 1 mg tablet 1 mg PO QAM 06/27/22 08/28/24 History metoprolol succinate 25 mg 12.5 mg PO BID 06/27/22 08/28/24 History tablet,extended release 24 hr multivitamin 1 tab PO DAILY 06/27/22 08/28/24 History potassium chloride 10 mEq 20 meq PO BID 06/27/22 08/28/24 History capsule,extended release prednisone 5 mg tablet 5 mg PO QAM 06/27/22 08/28/24 History acetaminophen 500 mg tablet 500 mg PO Q6H PRN PAIN/FEVER 06/22/24 08/25/24 History pantoprazole 40 mg tablet,delayed 40 mg PO DAILY #30 tabs 07/02/24 08/28/24 Rx release colchicine 0.6 mg tablet 0.6 mg PO UD 07/14/24 08/28/24 History ondansetron HCl 8 mg tablet 8 mg PO DIRECTED PRN n/v 07/14/24 08/28/24 History atorvastatin 20 mg tablet 20 mg PO QAM #30 tabs 07/17/24 08/28/24 Rx furosemide 20 mg tablet 20 mg PO DAILY #30 tabs 07/17/24 08/28/24 Rx spironolactone 25 mg tablet 25 mg PO QAM #30 tabs 07/17/24 08/28/24 Rx celecoxib 200 mg capsule 200 mg PO BID 08/28/24 08/28/24 History chlorthalidone 25 mg tablet 25 mg PO DAILY 08/28/24 08/28/24 History Patient History Medical History 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 Venous ulcer Lymphedema Chronic venous insufficiency 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 RA Hypertension History of COVID-19 2022--mild symptoms, no symptoms now Osteoporosis Torn rotator cuff Edema COPD, moderate uses daily inhalers as prescribed--pt states he rarely uses rescue inhaler Rheumatoid arthritis on prednisone Surgical History S/P left cataract extraction History of surgical fusion joint left wrist--hardware in place History of shoulder surgery left "calcium deposit removed" History of tooth extraction full upper/partial lower History of repair of right rotator cuff History of carpal tunnel release of both wrists History of bronchoscopy 07/2017 @ [facility] S/P tonsillectomy Family History Other Cancer Heart disease No family history of adverse response to anesthesia Social History Smoking Status: Former smoker Tobacco Type: Cigarettes Smoking End Date: ; Second Hand Exposure: No; Do You Dip or Chew Tobacco: No; Tobacco Cessation Education Requested by Patient: No Hx Alcohol Use: No Hx Substance Use: No Preferred Language: Bhutanese Communication Ability: Effective Visual Impairment: No Limitations Hearing Ability: 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 Beliefs That Will Affect Care: None marital status: Single Current Living Situation: Alone Current Living Situation Comment: [facility] Other Information That Helps Us Care for You: No Feels Safe at Home: Yes Safety Concerns: Feels Safe At This Time Diet: ideal protein and low salt Diet Comment: educated to increase protein to assist with wound healing caffeine: No Assistive Devices: Stair Lift and Walker Review of Systems Review of Systems: All systems reviewed & are unremarkable except as noted in HPI & below Physical Exam Physical Exam: Constitutional: WD/WN, vitals as above, NAD, sitting up in bed, pleasant, conversing easily Respiratory: normal respiratory effort, lungs clear to auscultation, no wheeze, rales, rhonchi. Normal insp/exp effort, no accessory muscle use Cardiovascular: RRR, no murmur, no edema Vessels: no JVD or carotid bruit Chest: normal inspection of chest Abdomen: normal bowel sounds, soft, nontender, no hepatosplenomegaly Musculoskeletal: no cyanosis or clubbing, extremities motor strength 5/5 Skin: no rashes, warm and dry normal turgor Neurologic: PERRL, EOMI, accommodation nl, no face palsy, no dysarthria CN's II- XI intact bilaterally and moves all extremities Psychiatric: A+Ox3, euthymic affect Results & Data Vital Signs (Past 12 Hours) Vital Signs Temp Pulse Pulse Resp BP BP Pulse Ox 09/10/24 07:50 36.9 C 88 16 119/66 92 09/10/24 03:30 37.0 C 87 16 107/64 90 09/10/24 00:43 92 H O2 Del Method 09/10/24 07:50 Room Air 09/10/24 03:30 Room Air 09/10/24 00:43 Laboratory Results Abnormal lab results 09/09/24 09/09/24 09/09/24 Range/Units 12:58 14:29 20:04 WBC 0.16 L* 0.36 L* (4.8-10.8) K/ul RBC 2.27 L 2.88 L (4.70-6.10) M/uL Hgb 6.7 L* 8.6 L (14.0-18.0) g/dl Hct 20.1 L* 25.1 L (42.0-52.0) % Plt Count 11 L* 13 L* (130-400) K/uL Neut # (Auto) (1.40-6.50) K/uL Sodium (136-145) mmol/L Chloride (98-107) mmol/L BUN (6-23) mg/dl BUN/Creatinine Ratio (10-20) Glucose (70-99(Fasting)) mg/dl Calcium (8.6-10.3) mg/dl Crossmatch See Detail 09/10/24 Range/Units 06:58 WBC 0.21 L* (4.8-10.8) K/ul RBC 2.41 L (4.70-6.10) M/uL Hgb 7.1 L (14.0-18.0) g/dl Hct 21.0 L (42.0-52.0) % Plt Count 10 L* (130-400) K/uL Neut # (Auto) < 0.50 L* (1.40-6.50) K/uL Sodium 133 L (136-145) mmol/L Chloride 96 L (98-107) mmol/L BUN 26 H (6-23) mg/dl BUN/Creatinine Ratio 26.8 H (10-20) Glucose 111 H (70-99(Fasting)) mg/dl Calcium 7.7 L (8.6-10.3) mg/dl Crossmatch Diagnostic Findings Chest X-Ray 08/28/24 11:36 XR chest 1V portable HISTORY: 79 years-old Male weakness acute weakness COMPARISON: 06/22/[address] 05/20/2017. TECHNIQUE: AP view of the chest FINDINGS: Cardiac silhouette is enlarged. Pulmonary vascular congestion. Edema. Ill- defined patchy left basilar and midlung airspace opacities. No pneumothorax. Small left pleural effusion. There are a few lateral left rib fractures which are likely chronic. Atherosclerosis of the aorta. Severe degeneration of the glenohumeral joints. IMPRESSION: 1. Cardiomegaly with pulmonary vascular congestion. 2. Ill-defined left midlung and left basilar opacities may represent a superimposed pneumonia. 3. Emphysema. 4. Lateral left rib fractures are likely chronic. ACT 112: Negative or not required by law. The above report was generated using voice recognition software. It may contain grammatical, syntax or spelling errors. Electronically signed by: Jc Garcia M.D. 08/28/2024 12:[address] 08/28/24 13:40 CT chest diagnostic wo con CLINICAL HISTORY: Eval pna, r/o abscess TECHNIQUE: Multidetector row helical CT of the chest was performed. Coronal and sagittal reformations were obtained. Automated dose lowering techniques and/or adjustment according to patient size were utilized for this exam. CT DOSE: 822.31 mGy.cm Comparison: Comparison is made to CT chest 05/20/2017 FINDINGS: Lungs and pleura: Diffuse centrilobular emphysema is seen most prominent in the upper lobes. Airspace opacities are seen in the left lower lobe. Heart and pericardium: Aortic valvular calcifications are seen. There is cardiomegaly with biatrial enlargement. The blood pool is somewhat hypodense which can be seen in anemia. Vessels: Unremarkable. Mediastinum and eulalia: Mediastinal lymph nodes measure up to 11 mm. Chest wall and lower neck: Unremarkable. Abdomen: Unremarkable. Bones: Degenerative changes in the thoracic spine. IMPRESSION: 1. Airspace opacities at left lower lobe compatible with pneumonia. 2. Emphysema. ACT 112: Negative or not required by law. Electronically signed by: Tobias uGtierrez M.D. 08/28/2024 2:09 PM Medications Administered Current Inpatient Medications Acetaminophen (Acetaminophen 325 Mg Tab) 650 mg PO Q4H PRN PRN Reason: Moderate Pain (Scale 4, 5, 6) Stop: 09/27/24 15:55 Last Admin: 08/28/24 16:08 Dose: 650 mg Amoxicillin/Clavulanate Potassium (Amoxicillin/Clavulanate 875 Mg Tab) 1 tab PO TID [facility]; Protocol Stop: 09/13/24 08:59 Last Admin: 09/10/24 13:06 Dose: 1 tab Atorvastatin Calcium (Atorvastatin 20 Mg Tab) 20 mg PO QAM [facility] Stop: 09/28/24 08:59 Last Admin: 09/10/24 08:52 Dose: 20 mg Benzonatate (Benzonatate 100 Mg Capsule) 100 mg PO TID [facility] Stop: 09/27/24 15:55 Last Admin: 09/10/24 13:06 Dose: 100 mg Chlorthalidone (Chlorthalidone 25 Mg Tab) 25 mg PO DAILY [facility] Stop: 10/07/24 12:29 Last Admin: 09/10/24 08:53 Dose: 25 mg Docusate Sodium (Docusate Sodium 100 Mg Cap) 100 mg PO BID [facility] Stop: 09/29/24 08:59 Last Admin: 09/10/24 09:02 Dose: 100 mg Fluticasone/Vilanterol (Fluticasone/Vilanterol 200/25mcg 14 Puffs/Inhaler) 1 puffs INH DAILY [facility] Stop: 09/28/24 08:59 Last Admin: 09/10/24 08:53 Dose: 1 puffs Folic Acid (Folic Acid 1 Mg Tab) 1 mg PO QAM [facility] Stop: 10/07/24 12:29 Last Admin: 09/10/24 08:51 Dose: 1 mg Furosemide (Furosemide 20 Mg Tab) 20 mg PO DAILY [facility] Stop: 10/07/24 12:29 Last Admin: 09/10/24 08:51 Dose: 20 mg Guaifenesin (Guaifenesin 600 Mg Tabcr) 1,200 mg PO Q12 [facility] Stop: 09/27/24 20:59 Last Admin: 09/10/24 08:51 Dose: 1,200 mg Sodium Chloride (Nss) 100 mls @ 15 mls/hr IV .Q6H40M PRN PRN Reason: For Transfusion Duration Stop: 09/10/24 22:17 Sodium Chloride (Nss) 50 mls @ 15 mls/hr IV .Q3H20M PRN PRN Reason: For Transfusion Duration Stop: 09/10/24 22:17 Ipratropium [place] (Ipratropium [place] Neb Soln 0.02% 0.5mg/2.5ml Vial) 0.5 mg NEB Q6RWA PRN PRN Reason: Shortness Of Breath Or Wheezing Stop: 09/27/24 18:59 Levalbuterol HCl (Levalbuterol 1.25 Mg/3 Ml Neb) 1.25 mg NEB Q6RWA PRN PRN Reason: Shortness Of Breath Or Wheezing Stop: 09/27/24 18:59 Levofloxacin (Levofloxacin 500 Mg Tab) 500 mg PO DAILY@1100 [facility]; Protocol Stop: 10/05/24 10:59 Last Admin: 09/10/24 11:25 Dose: 500 mg Metoprolol Succinate (Metoprolol Succ 25mg Ext Rel Tab) 12.5 mg PO DAILY [facility] Stop: 09/28/24 08:59 Last Admin: 09/10/24 08:52 Dose: 12.5 mg Multivitamins (Multivitamin Tab) 1 tab PO DAILY [facility] Stop: 10/07/24 12:44 Last Admin: 09/10/24 08:52 Dose: 1 tab Ondansetron HCl (Ondansetron Inj 2 Mg/Ml 2 Ml Vial) 4 mg IV Q4H PRN PRN Reason: Nausea And Vomiting Stop: 09/27/24 15:55 Pantoprazole Sodium (Pantoprazole 40 Mg Tab) 40 mg PO BID [facility] Stop: 10/04/24 08:59 Last Admin: 09/10/24 08:52 Dose: 40 mg Polyethylene Glycol (Polyethylene (Miralax) 17 Gm Pack) 17 gm PO DAILY PRN PRN Reason: Constipation Stop: 09/29/24 08:41 Potassium Chloride (Potassium Chloride Crtab 20 Meq Tabcr) 20 meq PO BID [facility] Stop: 09/28/24 20:59 Last Admin: 09/10/24 09:02 Dose: 20 meq Prednisone (Prednisone 5 Mg Tab) 5 mg PO QAM [facility] Stop: 09/28/24 08:59 Last Admin: 09/05/24 10:00 Dose: 5 mg Prednisone (Prednisone 2.5 Mg Tab) 5 mg PO QAM [facility] Stop: 09/28/24 08:59 Last Admin: 09/10/24 08:51 Dose: 5 mg Spironolactone (Spironolactone 25 Mg Tab) 25 mg PO QAM [facility] Stop: 10/07/24 12:29 Last Admin: 09/10/24 08:53 Dose: 25 mg Umeclidinium [place] (Umeclidinium [place] 62.5mcg/Blister 7 Puffs/Inhaler) 1 puffs INH DAILY [facility] Stop: 09/28/24 08:59 Last Admin: 09/10/24 08:53 Dose: 1 puffs PG Care Time/CCT Total # of Minutes Spent Total Time Spent with Patient: Total time spent is greater than 50% in coordination of care (as documented) at patient's floor/unit and/or counseling patient: Advanced Care Planning 72598 Advanced Care Planning 30 Min [place] [address] IN/OBS CONSULT LVL 3,45M Patient Type New History Problem Focused Exam Problem Focused Medical Decision Making Low Complexity Diagnoses Palliative care by specialist Z51.5 Quality of life palliative care encounter Z51.5 Counseling regarding goals of care Z71.89 Additional Codes Advanced Care Planning - 13384 Advanced Care Planning 30 Min: 75251 Advanced Care Planning 30 Min ([id number])
[2024-09-10 12:38] LABS: Hematocrit (blood only) 22.4 % (42.0-52.0); Hemoglobin 7.7 g/dl (14.0-18.0); Mean Corpuscular Hgb Conc 34.4 g/dL (32.0-36.0); Mean Corpuscular Volume 87.2 fL (80.0-100.0); Mean Platelet Volume 8.8 fL (9.4-12.4); Platelet Count 7 K/uL (130-400); RDW Coefficient of Variation 13.2 % (11.5-14.5); RDW Standard Deviation 41.7 fL (36.4-46.3); Red Blood Count 2.57 M/uL (4.70-6.10); White Blood Count 0.17 K/ul (4.8-10.8)
[2024-09-10] MEDS ORDERED: SODIUM CHLORIDE 0.9% 50 ML IV PRN (14:17)
[2024-09-10] MEDS ORDERED: SODIUM CHLORIDE 0.9% 100 ML IV PRN (14:17)
--- NOTE | 2024-09-10 16:09 | Hospitalist Progress Note ---
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 Left lower lobe pneumonia E. coli bacteremia Streptococcus Lutetiensis bacteremia patient presented with with cough and fevers. Resp biofire neg. Chest xray concerning for pneumonia, noted emphysema CT chest showing air space opacities in left lower lobe compatible with pneumonia. Procal elevated. 08/28 and 08/30 Sputum cultures: negative 08/28 Blood Cx currently growing E coli and strep lutetiensis 08/[address] abd/pelvis- no acute findings. Infectious Disease consulted, appreciate further recs. Recommended/stated the following: "Despite the changes on the CT scan of the chest, I have low concern for pneumonia especially that the bacteremia with E coli and Streptococcus lutetiensis is more suggestive of intra-abdominal source and likely translocation from the gut. Therefore, I would recommend stopping azithromycin and continuing piperacillin tazobactam for 1 more day. Then, step-down to oral Levaquin and oral Augmentin. 1. Oral Levaquin 750 mg daily for E coli bacteremia with anticipated end date of September 04, 2024 (which should also treat pneumonia). 2. Oral Augmentin 875/125 three times daily for Streptococcus bacteremia, with anticipated end date of September 13, 2024. 3. Since he is expected to be neutropenic for a long time, I would recommend (after consulting with Hematology) to continue on Levaquin 500 mg once daily for prophylaxis starting on September 05, 2024. It is to be continued until the patient is no more neutropenic." Patient completed oral Levaquin as recommended by infectious disease on September 04, 2024. He is now currently on Levaquin 500mg once a day. Prior attending d/w hematology who agreed with the plan.Continuing Augmentin until September 13, 2024 as per recommendation by infectious disease Monitor for recurrence of fever. Hx of MDS and immunosuppression therapy Neutropenic fever Pancytopenia(leukopenia with neutropenia, Anemia, Thrombocytopenia) MDS diagnosed via bone marrow biopsy on 06/23/2024 with noted monoclonal plasma cell population 10%, variably cellular marrow 20 to 50% with trilineage hematopoiesis. Treatment with infusion of azacitidine started on 08/17/24 x 5 days Pt with persistent anemia and thrombocytopenia requiring transfusion, has required multiple PRBC and platelet transfusions so far. Hemoglobin of 7.7 today, And platelets 7K today. Transfusing 1 unit platelets. Repeat labs in AM. Hematology/Oncology was consulted, appreciate recs. recommended/stated the following on 08/29/24: " Although there is no evidence that G-CSF improves Overall survival in the setting of MDS, he has pneumonia and positive blood cultures with severe neutropenia. Therefore, recommend G-CSF with filgrastim 480 mcg daily x 2 to 3 days to potentially shorten course of neutropenia. -Agree with broad-spectrum antibiotics and ID consult -Transfuse for hemoglobin below 7.5 and platelet count below of 10,000 -Follow-up with Dr. Amaya at [facility] upon discharge from hospital" Lower GI bleed; patient had episode of hematochezia on 09/03/2024; 1 packed RBC transfused along with platelets. Patient had colonoscopy on 07/16/2024 for similar issue; found to have polyp which was removed which was found to be hyperplastic. Prior attending discussed with oncology patient's pancytopenia is not going to recover due to bone marrow failure secondary to MDS; cancer [facility] will coordinate with patient for further infusion after patient is discharged from the hospital. f/u oncology closely upon discharge. Palliative care evaluating the patient, likely DC in next 1 to 2 days with palliative care recommendation. Hypokalemia: replete as needed Chronic Rib Fractures: Noted on imaging. Pain control prn Rheumatoid Arthritis: On chronic prednisone 5 mg daily History of GI bleed: Continue Protonix 40 mg BID CAD without angina Chronic systolic CHF Lower extremity edema HLD Chronic 1-2+ pitting BLE EKG with noted sinus rhythm with PACs Home meds: metoprolol succinate 12.5 mg daily furosemide 20 mg daily, chlorthalidone 25 mg daily, spironolactone 25 mg daily with potassium supplement, atorvastatin 20 mg daily Cardiology recommended repeat echo in September to reassess LV wall motion, EF and right-sided filling pressure. Echo- 50-55%, moderate valvular aortic stenosis. Continue to monitor for signs of volume overload Continue other home meds as ordered Goals of care Prior attending discussed goals of care with patient at bedside on 09/03/2024. Patient has prolonged pancytopenia which has put him at risk for severe infection, multiorgan failure, bleeding episodes that could lead to sudden cardiac arrest. He acknowledges that his health has significantly declined over the course of last month. We discussed regarding chest compression and ventilator support in case of cardiac arrest; patient reported that he does not want those aggressive intervention in case of cardiac arrest. CODE STATUS was changed to DNR/DNI. I discussed with his POA Harry at bedside on 09/04/2024 who is in agreement. DVT ppx: teds, scds in setting of anemia requiring transfusion Diet: Dispo: Patient is requiring transfusions with platelets every 2 to 3 days; continue to monitor closely inpatient. Plan to discharge home with home health if platelets, hemoglobin are stable. Please note the above document was generated using voice recognition software. It may contain grammatical, syntax or spelling errors. Any formal questions or concerns about the content, text or information contained within the body of this dictation should be directly addressed to the provider for clarification Admission and Anticipated Discharge Date Admission Date: August 28, 2024 Subjective Patient seen and examined at bedside. He is comfortably lying in bed; not in distress Denies shortness of breath, chest pain or abdominal pain. Patient reports feeling weak and tired. No significant event overnight, patient has been needing blood transfusion almost every day, palliative care consult/goals of care was discussed with the patient, patient interested in palliative care evaluation. Will transfuse platelets and monitor of CBC. Physical Exam Physical Exam: Constitutional: WD/WN, vitals as above, NAD, sitting up in bed, pleasant, conversing easily Respiratory: normal respiratory effort, lungs clear to auscultation, no wheeze, rales, rhonchi. Normal insp/exp effort, no accessory muscle use Cardiovascular: RRR, no murmur, no edema Vessels: no JVD or carotid bruit Chest: normal inspection of chest Abdomen: normal bowel sounds, soft, nontender, no hepatosplenomegaly Musculoskeletal: no cyanosis or clubbing, extremities motor strength 5/5 Skin: no rashes, warm and dry normal turgor Neurologic: PERRL, EOMI, accommodation nl, no face palsy, no dysarthria CN's II- XI intact bilaterally and moves all extremities Psychiatric: A+Ox3, euthymic affect Results & Data Results & Data Vital Signs (Past 12 Hours) Vital Signs Temp Pulse Pulse Resp BP BP Pulse Ox 09/10/24 15:45 36.7 C 92 H 16 106/57 L 94 09/10/24 15:26 36.8 C 93 H 18 108/56 L 93 09/10/24 12:00 36.7 C 92 H 18 108/70 95 09/10/24 07:50 36.9 C 88 16 119/66 92 O2 Del Method 09/10/24 15:45 09/10/24 15:26 09/10/24 12:00 Room Air 09/10/24 07:50 Room Air (7) HTN (hypertension) Hypertension type: primary hypertension Qualified Code(s): I10 - Essential (primary) hypertension (8) COPD (chronic obstructive pulmonary disease) COPD type: unspecified COPD Qualified Code(s): J44.9 - Chronic obstructive pulmonary disease, unspecified
[2024-09-10 21:14] LABS: Hematocrit (blood only) 23.2 % (42.0-52.0); Hemoglobin 7.9 g/dl (14.0-18.0); Mean Corpuscular Hemoglobin 30.4 pg (25.0-34.0); Mean Corpuscular Hgb Conc 34.1 g/dL (32.0-36.0); Mean Corpuscular Volume 89.2 fL (80.0-100.0); Platelet Count 26 K/uL (130-400); RDW Standard Deviation 42.5 fL (36.4-46.3); White Blood Count 0.29 K/ul (4.8-10.8)
[2024-09-11 07:26] LABS: Hematocrit (blood only) 20.6 % (42.0-52.0); Mean Corpuscular Hemoglobin 29.9 pg (25.0-34.0); Mean Platelet Volume 10.1 fL (9.4-12.4); Platelet Count 20 K/uL (130-400); RDW Standard Deviation 41.3 fL (36.4-46.3); Red Blood Count 2.34 M/uL (4.70-6.10); White Blood Count 0.23 K/ul (4.8-10.8)
[2024-09-11] MEDS ORDERED: SODIUM CHLORIDE 0.9% 50 ML IV PRN (07:30)
[2024-09-11] MEDS ORDERED: SODIUM CHLORIDE 0.9% 100 ML IV PRN (07:30)
[2024-09-11 07:38] LABS: BUN Creatinine Ratio 25.5 (10-20); Calcium 7.7 mg/dl (8.6-10.3); Creatinine Clr Calc Pharmacy 72.6 ml/min; Potassium 3.8 mmol/L (3.5-5.1)
[2024-09-11] MEDS: ACETAMINOPHEN 325 MG TAB PO ONE (08:54)
--- NOTE | 2024-09-11 11:49 | Hospitalist Progress Note ---
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 Left lower lobe pneumonia E. coli bacteremia Streptococcus Lutetiensis bacteremia patient presented with with cough and fevers. Resp biofire neg. Chest xray concerning for pneumonia, noted emphysema CT chest showing air space opacities in left lower lobe compatible with pneumonia. Procal elevated. 08/28 and 08/30 Sputum cultures: negative 08/28 Blood Cx currently growing E coli and strep lutetiensis 08/[address] abd/pelvis- no acute findings. Infectious Disease consulted, appreciate further recs. Recommended/stated the following: "Despite the changes on the CT scan of the chest, I have low concern for pneumonia especially that the bacteremia with E coli and Streptococcus lutetiensis is more suggestive of intra-abdominal source and likely translocation from the gut. Therefore, I would recommend stopping azithromycin and continuing piperacillin tazobactam for 1 more day. Then, step-down to oral Levaquin and oral Augmentin. 1. Oral Levaquin 750 mg daily for E coli bacteremia with anticipated end date of September 04, 2024 (which should also treat pneumonia). 2. Oral Augmentin 875/125 three times daily for Streptococcus bacteremia, with anticipated end date of September 13, 2024. 3. Since he is expected to be neutropenic for a long time, I would recommend (after consulting with Hematology) to continue on Levaquin 500 mg once daily for prophylaxis starting on September 05, 2024. It is to be continued until the patient is no more neutropenic." Patient completed oral Levaquin as recommended by infectious disease on September 04, 2024. He is now currently on Levaquin 500mg once a day. Prior attending d/w hematology who agreed with the plan.Continuing Augmentin until September 13, 2024 as per recommendation by infectious disease Monitor for recurrence of fever. Hx of MDS and immunosuppression therapy Neutropenic fever Pancytopenia(leukopenia with neutropenia, Anemia, Thrombocytopenia) MDS diagnosed via bone marrow biopsy on 06/23/2024 with noted monoclonal plasma cell population 10%, variably cellular marrow 20 to 50% with trilineage hematopoiesis. Treatment with infusion of azacitidine started on 08/17/24 x 5 days Pt with persistent anemia and thrombocytopenia requiring transfusion, has required multiple PRBC and platelet transfusions so far. Hemoglobin of 7.0 today, And platelets 20K today. Transfusing 1 unit prbc. Repeat labs in AM. Hematology/Oncology was consulted, appreciate recs. recommended/stated the following on 08/29/24: " Although there is no evidence that G-CSF improves Overall survival in the setting of MDS, he has pneumonia and positive blood cultures with severe neutropenia. Therefore, recommend G-CSF with filgrastim 480 mcg daily x 2 to 3 days to potentially shorten course of neutropenia. -Agree with broad-spectrum antibiotics and ID consult -Transfuse for hemoglobin below 7.5 and platelet count below of 10,000 -Follow-up with Dr. Amaya at [facility] [place] upon discharge from hospital" Lower GI bleed; patient had episode of hematochezia on 09/03/2024; has resolved since per pt. Patient had colonoscopy on 07/16/2024 for similar issue; found to have polyp which was removed which was found to be hyperplastic. Prior attending discussed with oncology patient's pancytopenia is not going to recover due to bone marrow failure secondary to MDS; cancer [facility] will coordinate with patient for further infusion after patient is discharged from the hospital. D/w oncology 09/11, ok to discharge patient as he will be needing frequent transfusion, oncology will coordinate care as OP. Plan to dc on Saturday w/ close f/u on Saturday w/ oncology. f/u oncology closely upon discharge. Palliative care evaluating the patient pt will benefit from establishing OP palliative care. Hypokalemia: replete as needed Chronic Rib Fractures: Noted on imaging. Pain control prn Rheumatoid Arthritis: On chronic prednisone 5 mg daily History of GI bleed: Continue Protonix 40 mg BID CAD without angina Chronic systolic CHF Lower extremity edema HLD Chronic 1-2+ pitting BLE EKG with noted sinus rhythm with PACs Home meds: metoprolol succinate 12.5 mg daily furosemide 20 mg daily, chlorthalidone 25 mg daily, spironolactone 25 mg daily with potassium supplement, atorvastatin 20 mg daily Cardiology recommended repeat echo in September to reassess LV wall motion, EF and right-sided filling pressure. Echo- 50-55%, moderate valvular aortic stenosis. Continue to monitor for signs of volume overload Continue other home meds as ordered Goals of care Prior attending discussed goals of care with patient at bedside on 09/03/2024. Patient has prolonged pancytopenia which has put him at risk for severe infection, multiorgan failure, bleeding episodes that could lead to sudden cardiac arrest. He acknowledges that his health has significantly declined over the course of last month. We discussed regarding chest compression and ventilator support in case of cardiac arrest; patient reported that he does not want those aggressive intervention in case of cardiac arrest. CODE STATUS was changed to DNR/DNI. I discussed with his POA Harry at bedside on 09/04/2024 who is in agreement. DVT ppx: teds, scds in setting of anemia requiring transfusion Diet: Dispo: Patient is requiring transfusions with platelets every 2 to 3 days; continue to monitor closely inpatient. Plan to discharge home with home health on Saturday. Please note the above document was generated using voice recognition software. It may contain grammatical, syntax or spelling errors. Any formal questions or concerns about the content, text or information contained within the body of this dictation should be directly addressed to the provider for clarification Admission and Anticipated Discharge Date Admission Date: August 28, 2024 Subjective Patient seen and examined at bedside. He is comfortably lying in bed; not in distress Denies shortness of breath, chest pain or abdominal pain. No significant event overnight, Hb of 7.0, will transfuse 1 unit prbc today. Physical Exam Physical Exam: Constitutional: WD/WN, vitals as above, NAD, sitting up in bed, pleasant, conversing easily Respiratory: normal respiratory effort, lungs clear to auscultation, no wheeze, rales, rhonchi. Normal insp/exp effort, no accessory muscle use Cardiovascular: RRR, no murmur, no edema Vessels: no JVD or carotid bruit Chest: normal inspection of chest Abdomen: normal bowel sounds, soft, nontender, no hepatosplenomegaly Musculoskeletal: no cyanosis or clubbing, extremities motor strength 5/5 Skin: no rashes, warm and dry normal turgor Neurologic: PERRL, EOMI, accommodation nl, no face palsy, no dysarthria CN's II- XI intact bilaterally and moves all extremities Psychiatric: A+Ox3, euthymic affect Results & Data Results & Data Vital Signs (Past 12 Hours) Vital Signs Temp Pulse Pulse Resp BP BP BP 09/11/24 11:15 36.8 C 78 16 96/52 L 09/11/24 10:46 36.9 C 82 18 104/55 L 09/11/24 10:27 36.9 C 09/11/24 09:50 37.1 C 87 16 93/52 L 09/11/24 09:31 37.2 C 09/11/24 09:20 37.9 C H 82 18 90/45 L 09/11/24 09:05 36.8 C 87 16 116/61 09/11/24 08:47 36.9 C 88 16 104/52 L 09/11/24 07:33 37.3 C 101 H 16 104/53 L 09/11/24 07:30 09/11/24 07:30 87 09/11/24 02:34 37.2 C 91 H 18 117/51 L Pulse Ox O2 Del Method 09/11/24 11:15 92 09/11/24 10:46 94 09/11/24 10:27 09/11/24 09:50 94 09/11/24 09:31 09/11/24 09:20 90 09/11/24 09:05 91 09/11/24 08:47 90 09/11/24 07:33 91 Room Air 09/11/24 07:30 Room Air 09/11/24 07:30 09/11/24 02:34 91 Room Air (7) HTN (hypertension) Hypertension type: primary hypertension Qualified Code(s): I10 - Essential (primary) hypertension (8) COPD (chronic obstructive pulmonary disease) COPD type: unspecified COPD Qualified Code(s): J44.9 - Chronic obstructive pulmonary disease, unspecified
[2024-09-12 07:19] LABS: Hematocrit (blood only) 22.3 % (42.0-52.0); Hemoglobin 7.7 g/dl (14.0-18.0); Mean Corpuscular Hemoglobin 30.1 pg (25.0-34.0); Mean Corpuscular Hgb Conc 34.5 g/dL (32.0-36.0); Mean Corpuscular Volume 87.1 fL (80.0-100.0); Platelet Count 14 K/uL (130-400); RDW Coefficient of Variation 13.5 % (11.5-14.5); RDW Standard Deviation 42.7 fL (36.4-46.3); Red Blood Count 2.56 M/uL (4.70-6.10); White Blood Count 0.28 K/ul (4.8-10.8)
[2024-09-12 07:57] LABS: BUN Creatinine Ratio 28.7 (10-20); Calcium 7.6 mg/dl (8.6-10.3); Creatinine Clr Calc Pharmacy 73.3 ml/min; Potassium 3.7 mmol/L (3.5-5.1)
--- NOTE | 2024-09-12 14:15 | Hospitalist Progress Note ---
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 Left lower lobe pneumonia E. coli bacteremia Streptococcus Lutetiensis bacteremia patient presented with with cough and fevers. Resp biofire neg. Chest xray concerning for pneumonia, noted emphysema CT chest showing air space opacities in left lower lobe compatible with pneumonia. Procal elevated. 08/28 and 08/30 Sputum cultures: negative 08/28 Blood Cx currently growing E coli and strep lutetiensis 08/[address] abd/pelvis- no acute findings. Infectious Disease consulted, appreciate further recs. Recommended/stated the following: "Despite the changes on the CT scan of the chest, I have low concern for pneumonia especially that the bacteremia with E coli and Streptococcus lutetiensis is more suggestive of intra-abdominal source and likely translocation from the gut. Therefore, I would recommend stopping azithromycin and continuing piperacillin tazobactam for 1 more day. Then, step-down to oral Levaquin and oral Augmentin. 1. Oral Levaquin 750 mg daily for E coli bacteremia with anticipated end date of September 04, 2024 (which should also treat pneumonia). 2. Oral Augmentin 875/125 three times daily for Streptococcus bacteremia, with anticipated end date of September 13, 2024. 3. Since he is expected to be neutropenic for a long time, I would recommend (after consulting with Hematology) to continue on Levaquin 500 mg once daily for prophylaxis starting on September 05, 2024. It is to be continued until the patient is no more neutropenic." Patient completed oral Levaquin as recommended by infectious disease on September 04, 2024. He is now currently on Levaquin 500mg once a day. Prior attending d/w hematology who agreed with the plan. Continuing Augmentin until September 13, 2024 as per recommendation by infectious disease Monitor for recurrence of fever. Hx of MDS and immunosuppression therapy Neutropenic fever Pancytopenia(leukopenia with neutropenia, Anemia, Thrombocytopenia) MDS diagnosed via bone marrow biopsy on 06/23/2024 with noted monoclonal plasma cell population 10%, variably cellular marrow 20 to 50% with trilineage hematopoiesis. Treatment with infusion of azacitidine started on 08/17/24 x 5 days Pt with persistent anemia and thrombocytopenia requiring transfusion, has required multiple PRBC and platelet transfusions so far. Hemoglobin of 7.7 today, And platelets 14K today. repeat cbc at 8pm. Repeat labs in AM. Hematology/Oncology was consulted, appreciate recs. recommended/stated the following on 08/29/24: " Although there is no evidence that G-CSF improves Overall survival in the setting of MDS, he has pneumonia and positive blood cultures with severe neutropenia. Therefore, recommend G-CSF with filgrastim 480 mcg daily x 2 to 3 days to potentially shorten course of neutropenia. -Agree with broad-spectrum antibiotics and ID consult -Transfuse for hemoglobin below 7.5 and platelet count below of 10,000 -Follow-up with Dr. Amaya at [facility] upon discharge from hospital" Lower GI bleed; patient had episode of hematochezia on 09/03/2024; has resolved since per pt. Patient had colonoscopy on 07/16/2024 for similar issue; found to have polyp which was removed which was found to be hyperplastic. Prior attending discussed with oncology patient's pancytopenia is not going to recover due to bone marrow failure secondary to MDS; [facility] will coordinate with patient for further infusion after patient is discharged from the hospital. D/w oncology 09/11, ok to discharge patient as he will be needing frequent transfusion, oncology will coordinate care as OP. Plan to dc on Saturday w/ close f/u on Saturday w/ oncology. f/u oncology closely upon discharge. Palliative care evaluating the patient pt will benefit from establishing OP palliative care. Hypokalemia: replete as needed Chronic Rib Fractures: Noted on imaging. Pain control prn Rheumatoid Arthritis: On chronic prednisone 5 mg daily History of GI bleed: Continue Protonix 40 mg BID CAD without angina Chronic systolic CHF Lower extremity edema HLD Chronic 1-2+ pitting BLE EKG with noted sinus rhythm with PACs Home meds: metoprolol succinate 12.5 mg daily furosemide 20 mg daily, chlorthalidone 25 mg daily, spironolactone 25 mg daily with potassium supplement, atorvastatin 20 mg daily Cardiology recommended repeat echo in September to reassess LV wall motion, EF and right-sided filling pressure. Echo- 50-55%, moderate valvular aortic stenosis. Continue to monitor for signs of volume overload Continue other home meds as ordered Goals of care Prior attending discussed goals of care with patient at bedside on 09/03/2024. Patient has prolonged pancytopenia which has put him at risk for severe infection, multiorgan failure, bleeding episodes that could lead to sudden cardiac arrest. He acknowledges that his health has significantly declined over the course of last month. We discussed regarding chest compression and ventilator support in case of cardiac arrest; patient reported that he does not want those aggressive intervention in case of cardiac arrest. CODE STATUS was changed to DNR/DNI. I discussed with his POA Harry at bedside on 09/04/2024 who is in agreement. DVT ppx: teds, scds in setting of anemia requiring transfusion Diet: Dispo: Patient is requiring transfusions with platelets every 2 to 3 days; continue to monitor closely inpatient. Plan to discharge home with home health on Saturday. Please note the above document was generated using voice recognition software. It may contain grammatical, syntax or spelling errors. Any formal questions or concerns about the content, text or information contained within the body of this dictation should be directly addressed to the provider for clarification Admission and Anticipated Discharge Date Admission Date: August 28, 2024 Subjective Patient seen and examined at bedside. He is comfortably sitting up in bed; not in distress Denies shortness of breath, chest pain or abdominal pain. No significant event overnight, reports eating ok and moving bowels ok. reports chronic cough. Physical Exam Physical Exam: Constitutional: WD/WN, vitals as above, NAD, sitting up in bed, pleasant, conversing easily Respiratory: normal respiratory effort, lungs clear to auscultation, no wheeze, rales, rhonchi. Normal insp/exp effort, no accessory muscle use Cardiovascular: RRR, no murmur, no edema Vessels: no JVD or carotid bruit Chest: normal inspection of chest Abdomen: normal bowel sounds, soft, nontender, no hepatosplenomegaly Musculoskeletal: no cyanosis or clubbing, extremities motor strength 5/5 Skin: no rashes, warm and dry normal turgor Neurologic: PERRL, EOMI, accommodation nl, no face palsy, no dysarthria CN's II- XI intact bilaterally and moves all extremities Psychiatric: A+Ox3, euthymic affect Results & Data Results & Data Vital Signs (Past 12 Hours) Vital Signs Temp Pulse Pulse Resp BP BP Pulse Ox 09/12/24 11:17 37.0 C 88 18 111/63 93 09/12/24 07:15 09/12/24 07:15 83 09/12/24 07:08 36.9 C 85 18 107/59 L 90 09/12/24 03:00 37.3 C 83 18 108/57 L 91 O2 Del Method O2 Flow Rate 09/12/24 11:17 Room Air 09/12/24 07:15 Nasal Cannula 1 09/12/24 07:15 09/12/24 07:08 Nasal Cannula 1 09/12/24 03:00 Room Air (7) HTN (hypertension) Hypertension type: primary hypertension Qualified Code(s): I10 - Essential (primary) hypertension (8) COPD (chronic obstructive pulmonary disease) COPD type: unspecified COPD Qualified Code(s): J44.9 - Chronic obstructive pulmonary disease, unspecified
[2024-09-12 20:14] LABS: Hemoglobin 7.8 g/dl (14.0-18.0); Mean Corpuscular Hemoglobin 29.9 pg (25.0-34.0); Mean Corpuscular Hgb Conc 33.9 g/dL (32.0-36.0); Mean Corpuscular Volume 88.1 fL (80.0-100.0); Platelet Count 10 K/uL (130-400); RDW Coefficient of Variation 13.4 % (11.5-14.5); RDW Standard Deviation 42.8 fL (36.4-46.3); Red Blood Count 2.61 M/uL (4.70-6.10); White Blood Count 0.35 K/ul (4.8-10.8)
[2024-09-13 06:24] LABS: Hematocrit (blood only) 22.9 % (42.0-52.0); Hemoglobin 7.6 g/dl (14.0-18.0); Mean Corpuscular Hemoglobin 29.2 pg (25.0-34.0); Mean Corpuscular Hgb Conc 33.2 g/dL (32.0-36.0); Mean Corpuscular Volume 88.1 fL (80.0-100.0); Mean Platelet Volume 10.9 fL (9.4-12.4); Platelet Count 11 K/uL (130-400); RDW Coefficient of Variation 13.4 % (11.5-14.5); RDW Standard Deviation 42.9 fL (36.4-46.3); White Blood Count 0.29 K/ul (4.8-10.8)
--- NOTE | 2024-09-13 14:35 | Hospitalist Progress Note ---
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 Left lower lobe pneumonia E. coli bacteremia Streptococcus Lutetiensis bacteremia patient presented with with cough and fevers. Resp biofire neg. Chest xray concerning for pneumonia, noted emphysema CT chest showing air space opacities in left lower lobe compatible with pneumonia. Procal elevated. 08/28 and 08/30 Sputum cultures: negative 08/28 Blood Cx currently growing E coli and strep lutetiensis 08/[address] abd/pelvis- no acute findings. Infectious Disease consulted, appreciate further recs. Recommended/stated the following: "Despite the changes on the CT scan of the chest, I have low concern for pneumonia especially that the bacteremia with E coli and Streptococcus lutetiensis is more suggestive of intra-abdominal source and likely translocation from the gut. Therefore, I would recommend stopping azithromycin and continuing piperacillin tazobactam for 1 more day. Then, step-down to oral Levaquin and oral Augmentin. 1. Oral Levaquin 750 mg daily for E coli bacteremia with anticipated end date of September 04, 2024 (which should also treat pneumonia). 2. Oral Augmentin 875/125 three times daily for Streptococcus bacteremia, with anticipated end date of September 13, 2024. 3. Since he is expected to be neutropenic for a long time, I would recommend (after consulting with Hematology) to continue on Levaquin 500 mg once daily for prophylaxis starting on September 05, 2024. It is to be continued until the patient is no more neutropenic." Patient completed oral Levaquin as recommended by infectious disease on September 04, 2024. He is now currently on Levaquin 500mg once a day. Completed Augmentin on September 13, 2024 as per recommendation by infectious disease Monitor for recurrence of fever. Hx of MDS and immunosuppression therapy Neutropenic fever Pancytopenia(leukopenia with neutropenia, Anemia, Thrombocytopenia) MDS diagnosed via bone marrow biopsy on 06/23/2024 with noted monoclonal plasma cell population 10%, variably cellular marrow 20 to 50% with trilineage hematopoiesis. Treatment with infusion of azacitidine started on 08/17/24 x 5 days Pt with persistent anemia and thrombocytopenia requiring transfusion, has re quired multiple PRBC and platelet transfusions so far. Hemoglobin of 7.6 today, And platelets 11K today. Repeat labs in AM. Pt awaiting placement, has transfusion starting lena at [facility]/will need coordination for transfusion Rx at [facility]. Hematology/Oncology was consulted, appreciate recs. recommended/stated the following on 08/29/24: " Although there is no evidence that G-CSF improves Overall survival in the setting of MDS, he has pneumonia and positive blood cultures with severe neutropenia. Therefore, recommend G-CSF with filgrastim 480 mcg daily x 2 to 3 days to potentially shorten course of neutropenia. -Agree with broad-spectrum antibiotics and ID consult -Transfuse for hemoglobin below 7.5 and platelet count below of 10,000 -Follow-up with Dr. Amaya at [facility] upon discharge from hospital" Lower GI bleed; patient had episode of hematochezia on 09/03/2024; has resolved since per pt. Patient had colonoscopy on 07/16/2024 for similar issue; found to have polyp which was removed which was found to be hyperplastic. Prior attending discussed with oncology patient's pancytopenia is not going to recover due to bone marrow failure secondary to MDS; [facility] center will coordinate with patient for further infusion after patient is discharged from the hospital. D/w oncology 09/11, to discharge patient as he will be needing frequent transfusion, oncology will coordinate care as OP. Plan to dc on Saturday w/ close f/u on Saturday w/ oncology. f/u oncology closely upon discharge. Palliative care evaluated the patient 09/10, pt will benefit from establishing OP palliative care. Hypokalemia: replete as needed Chronic Rib Fractures: Noted on imaging. Pain control prn Rheumatoid Arthritis: On chronic prednisone 5 mg daily History of GI bleed: Continue Protonix 40 mg BID CAD without angina Chronic systolic CHF Lower extremity edema HLD Chronic 1-2+ pitting BLE EKG with noted sinus rhythm with PACs Home meds: metoprolol succinate 12.5 mg daily furosemide 20 mg daily, chlorthalidone 25 mg daily, spironolactone 25 mg daily with potassium supplement, atorvastatin 20 mg daily Cardiology recommended repeat echo in September to reassess LV wall motion, EF and right-sided filling pressure. Echo- 50-55%, moderate valvular aortic stenosis. Continue to monitor for signs of volume overload Continue other home meds as ordered Goals of care Prior attending discussed goals of care with patient at bedside on 09/03/2024. Patient has prolonged pancytopenia which has put him at risk for severe infection, multiorgan failure, bleeding episodes that could lead to sudden cardiac arrest. He acknowledges that his health has significantly declined over the course of last month. We discussed regarding chest compression and ventilator support in case of cardiac arrest; patient reported that he does not want those aggressive intervention in case of cardiac arrest. CODE STATUS was changed to DNR/DNI. I discussed with his POA Harry at bedside on 09/04/2024 who is in agreement. DVT ppx: teds, scds in setting of anemia requiring transfusion Diet: Dispo: pt would like to go to snf/rehab. CM assisting w/ dc plan. Please note the above document was generated using voice recognition software. It may contain grammatical, syntax or spelling errors. Any formal questions or concerns about the content, text or information contained within the body of this dictation should be directly addressed to the provider for clarification Admission and Anticipated Discharge Date Admission Date: August 28, 2024 Subjective Patient seen and examined at bedside. He is comfortably sitting up in bed; not in distress Denies shortness of breath, chest pain or abdominal pain. No significant event overnight, reports eating ok and moving bowels ok. reports chronic cough. Patient states that he cannot manage himself at home, he does not have much help, now would like to go to SNF/rehab. Communicated with rn case manager hospice of patient's intention who will be evaluating the patient. Physical Exam Physical Exam: Constitutional: WD/WN, vitals as above, NAD, sitting up in bed, pleasant, conversing easily Respiratory: normal respiratory effort, lungs clear to auscultation, no wheeze, rales, rhonchi. Normal insp/exp effort, no accessory muscle use Cardiovascular: RRR, no murmur, no edema Vessels: no JVD or carotid bruit Chest: normal inspection of chest Abdomen: normal bowel sounds, soft, nontender, no hepatosplenomegaly Musculoskeletal: no cyanosis or clubbing, extremities motor strength 5/5 Skin: no rashes, warm and dry normal turgor Neurologic: PERRL, EOMI, accommodation nl, no face palsy, no dysarthria CN's II- XI intact bilaterally and moves all extremities Psychiatric: A+Ox3, euthymic affect Results & Data Results & Data Vital Signs (Past 12 Hours) Vital Signs Temp Pulse Pulse Resp BP Pulse Ox O2 Del Method 09/13/24 11:28 36.5 C 76 16 116/57 L 91 Room Air 09/13/24 07:41 Room Air 09/13/24 07:41 78 09/13/24 07:11 37.1 C 82 16 100/50 L 91 Room Air 09/13/24 02:35 37.3 C 83 18 118/66 96 Nasal Cannula O2 Flow Rate 09/13/24 11:28 09/13/24 07:41 09/13/24 07:41 09/13/24 07:11 09/13/24 02:35 2 (7) HTN (hypertension) Hypertension type: primary hypertension Qualified Code(s): I10 - Essential (primary) hypertension (8) COPD (chronic obstructive pulmonary disease) COPD type: unspecified COPD Qualified Code(s): J44.9 - Chronic obstructive pulmonary disease, unspecified
[2024-09-14 10:54] LABS: BUN Creatinine Ratio 31.9 (10-20); Calcium 7.8 mg/dl (8.6-10.3); Creatinine Clr Calc Pharmacy 61.5 ml/min; Potassium 3.6 mmol/L (3.5-5.1)
[2024-09-14 11:02] LABS: Hematocrit (blood only) 23.2 % (42.0-52.0); Hemoglobin 7.8 g/dl (14.0-18.0); Mean Corpuscular Hemoglobin 29.2 pg (25.0-34.0); Mean Corpuscular Hgb Conc 33.6 g/dL (32.0-36.0); Mean Corpuscular Volume 86.9 fL (80.0-100.0); Mean Platelet Volume 10.5 fL (9.4-12.4); Platelet Count 5 K/uL (130-400); RDW Coefficient of Variation 13.2 % (11.5-14.5); RDW Standard Deviation 41.8 fL (36.4-46.3); Red Blood Count 2.67 M/uL (4.70-6.10); White Blood Count 0.33 K/ul (4.8-10.8)
[2024-09-14 11:03] LABS: Platelet Estimate Signific. Decreased (Normal)
--- NOTE | 2024-09-14 11:21 | XRay Report ---
XR chest 1V portable CLINICAL HISTORY: increased O2 need. COMPARISON STUDY: Chest radiograph and chest CT August 28, 2024. FINDINGS: There is no pneumothorax. Trace left pleural effusion is present. Multiple old left-sided r ib fractures are present. There is no evidence for pulmonary edema. Cardiomegaly is unchanged. An 11 x 7.4 cm left midlung density has developed since prior exam. IMPRESSION: Large left midlung opacity which has developed since prior exam. This favors significant progression of left lung pneumonia. Posttreatment radiographs to ensure resolution are recommended. ACT 112: Negative or not required by law. Electronically signed by: Watson Chaudhari M.D. 09/14/2024 11:19 AM
[2024-09-14] MEDS ORDERED: SODIUM CHLORIDE 0.9% 100 ML IV PRN ×2 (12:02→15:47)
[2024-09-14] MEDS ORDERED: SODIUM CHLORIDE 0.9% 50 ML IV PRN ×2 (12:02→15:47)
--- NOTE | 2024-09-14 14:45 | Communication Note ---
Date of Service: September 14, 2024 Patient was offered the option of transfer to tertiary care center for blood product transfusion or stay here until we have blood products available by e vening today (per blood bank). Patient opted to stay here and he understands that he runs the high risks of bleeding and . Patient's POA and friend Harry present at bedside during discussion.
--- NOTE | 2024-09-14 15:53 | Hospitalist Progress Note ---
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 Left lower lobe pneumonia E. coli bacteremia Streptococcus Lutetiensis bacteremia Patient presented with with cough and fevers. Resp biofire neg. CXR concerning for LLL pneumonia. Admitting sputum culture [08/28] negative. Admitting blood culture [08/28] positive for E. coli and Streptococcus lutetiensis Repeat blood culture and sputum culture from 08/30 negative. Infectious disease evaluated, patient was treated with Levaquin 750 Mg daily for E. coli bacteremia [completed treatment September 04, 2024] and Augmentin 3 times daily for Streptococcus bacteremia [completed treatment September 13, 2024]. Since she was neutropenic, patient was kept on Levaquin 500 mg daily for prophylaxis starting September 05, 2024. It is to be continued until the patient is no more neutropenic. Patient needing some oxygen today, repeat chest x-ray 09/14 with progression of L LL pneumonia. Discussed with pulmonology given recurrent/progression of pna w/ oxygen needs/immunocompromise status/recent antibiotic treatment, recommendation are CT chest without contrast, IV Zosyn, MRSA screen, blood and sputum cultures. Reevaluation to follow. Discussed with ID for reevaluation and possible antifungal coverage, possible ID reevaluation tomorrow. Add Zosyn, continue with probiotic, send blood and sputum culture, send CT scan of chest without contrast, MRSA screen. Follow on results. Hx of MDS and immunosuppression therapy Neutropenic fever Pancytopenia(leukopenia with neutropenia, Anemia, Thrombocytopenia) MDS diagnosed via bone marrow biopsy on 06/23/2024 with noted monoclonal plasma cell population 10%, variably cellular marrow 20 to 50% with trilineage hematopoiesis. Treatment with infusion of azacitidine started on 08/17/24 x 5 days Pt with persistent anemia and thrombocytopenia requiring transfusion, has required multiple PRBC and platelet transfusions so far. Hemoglobin of 7.8 today, And platelets 5K today. Needs plt transfusion, ordered, will be available by 1930 hrs per blood bank, pt understands the risk and will stay in hospital and await transfusion. He was offered transfer to tertiary care center which he declined. Repeat labs in AM. Pt has transfusion starting 09/14, d/w onco 09/14, not likely to happen. Hematology/Oncology was consulted, appreciate recs. recommended/stated the following on 08/29/24: " Although there is no evidence that G-CSF improves Overall survival in the setting of MDS, he has pneumonia and positive blood cultures with severe neutropenia. Therefore, recommend G-CSF with filgrastim 480 mcg daily x 2 to 3 days to potentially shorten course of neutropenia. -Agree with broad-spectrum antibiotics and ID consult -Transfuse for hemoglobin below 7.5 and platelet count below of 10,000 -Follow-up with Dr. Amaya at [facility] upon discharge from hospital" Lower GI bleed; patient had episode of hematochezia on 09/03/2024; has resolved since per pt. Patient had colonoscopy on 07/16/2024 for similar issue; found to have polyp which was removed which was found to be hyperplastic. Prior attending discussed with oncology patient's pancytopenia is not going to recover due to bone marrow failure secondary to MDS; cancer care center will coordinate with patient for further infusion after patient is discharged from the hospital. D/w oncology 09/11, ok to discharge patient as he will be needing frequent transfusion, oncology will coordinate care as OP. Plan to dc on Saturday w/ close f/u on Saturday w/ oncology. f/u oncology closely upon discharge. Palliative care evaluated the patient 09/10, pt will benefit from establishing OP palliative care. Hypokalemia: replete as needed Chronic Rib Fractures: Noted on imaging. Pain control prn Rheumatoid Arthritis: On chronic prednisone 5 mg daily History of GI bleed: Continue Protonix 40 mg BID CAD without angina Chronic systolic CHF Lower extremity edema HLD Chronic 1-2+ pitting BLE EKG with noted sinus rhythm with PACs Home meds: metoprolol succinate 12.5 mg daily furosemide 20 mg daily, chlorthalidone 25 mg daily, spironolactone 25 mg daily with potassium supplement, atorvastatin 20 mg daily Cardiology recommended repeat echo in September to reassess LV wall motion, EF and right-sided filling pressure. Echo- 50-55%, moderate valvular aortic stenosis. Continue to monitor for signs of volume overload Continue other home meds as ordered Goals of care Prior attending discussed goals of care with patient at bedside on 09/03/2024. Patient has prolonged pancytopenia which has put him at risk for severe infection, multiorgan failure, bleeding episodes that could lead to sudden cardiac arrest. He acknowledges that his health has significantly declined over the course of last month. We discussed regarding chest compression and ventilator support in case of cardiac arrest; patient reported that he does not want those aggressive intervention in case of cardiac arrest. CODE STATUS was changed to DNR/DNI. I discussed with his POA Harry at bedside on 09/04/2024 who is in agreement. Re-discussion 09/14 at bedside w/ pt, his friend Harry and Kay. Updated and re- emphasized on poor prognosis. They understand the poor prognosis and are planning to f/u w/ palliative as OP. But for now would like to try if he can improve in hospital. DVT ppx: teds, scds in setting of anemia requiring transfusion Diet: HH Dispo: pt would like to go to snf/rehab. CM assisting w/ dc plan. Now has progression of pna, will need pulm and ID re-eval prior to dc. Please note the above document was generated using voice recognition software. It may contain grammatical, syntax or spelling errors. Any formal questions or concerns about the content, text or information contained within the body of this dictation should be directly addressed to the provider for clarification Admission and Anticipated Discharge Date Admission Date: August 28, 2024 Subjective Patient seen and examined at bedside. He is comfortably sitting up in chair; not in distress Denies shortness of breath, chest pain or abdominal pain. He is needing 2L O2 today at bedside exam, reports increasing cough, obtained CXR- Progression of left lung pneumonia. Complicated with pulmonology on-call for reevaluation of the patient given immunocompromise status/increasing oxygen needs/recent antibiotic completion. No significant event overnight, reports eating ok and moving bowels ok. Patient was visited again during the afternoon. Patient's POA and friend Harry was present at bedside. We discussed about patient's need of blood transfusion every few days and very poor prognosis. We discussed about inability to continue outpatient chemotherapy while being admitted in the hospital. We also discussed about platelets not being available until later in the evening today and he has high risks of bleeding and possible . They understand and would like to stay here rather than transfer to higher center and await platelet transfusion later in the night. Patient has been explained to call for assistance when he moves out of bed to avoid fall. Physical Exam Physical Exam: Constitutional: WD/WN, vitals as above, NAD, sitting up in bed, pleasant, conversing easily Respiratory: normal respiratory effort, lungs clear to auscultation, no wheeze, rales, rhonchi. Normal insp/exp effort, no accessory muscle use Cardiovascular: RRR, no murmur, no edema Vessels: no JVD or carotid bruit Chest: normal inspection of chest, decreased breath sounds LLL. Abdomen: normal bowel sounds, soft, nontender, no hepatosplenomegaly Musculoskeletal: no cyanosis or clubbing, extremities motor strength 5/5 Skin: no rashes, warm and dry normal turgor Neurologic: PERRL, EOMI, accommodation nl, no face palsy, no dysarthria CN's II- XI intact bilaterally and moves all extremities Psychiatric: A+Ox3, euthymic affect Results & Data Results & Data Vital Signs (Past 12 Hours) Vital Signs Temp Pulse Resp BP BP Pulse Ox O2 Del Method 09/14/24 15:45 36.5 C 83 19 93/53 L 95 Room Air 09/14/24 11:44 78 18 103/58 L 94 Nasal Cannula 09/14/24 08:40 96/50 L 09/14/24 07:23 Nasal Cannula 09/14/24 07:00 36.6 C 84 18 95/53 L 93 Nasal Cannula O2 Flow Rate 09/14/24 15:45 09/14/24 11:44 4 09/14/24 08:40 09/14/24 07:23 2 09/14/24 07:00 2 (7) HTN (hypertension) Hypertension type: primary hypertension Qualified Code(s): I10 - Essential (primary) hypertension (8) COPD (chronic obstructive pulmonary disease) COPD type: unspecified COPD Qualified Code(s): J44.9 - Chronic obstructive pulmonary disease, unspecified
[2024-09-14] MEDS: 4.5GM X1 IV ONE (17:04)
[2024-09-14] MEDS: ADVANCED PROBIOTIC 625 MG CAPSULE PO SCH (17:07)
[2024-09-14] MEDS: PIPERACILLIN/TAZOBACTAM 4.5 GM/100 ML BAG IV SCH (20:26)
[2024-09-14] MEDS: ACETAMINOPHEN 325 MG TAB PO ONE (22:12)
--- NOTE | 2024-09-14 23:53 | CT Scan Report ---
Exam(s): CT CHEST Without Contrast EXAM: CT Chest Without Intravenous Contrast CLINICAL HISTORY: Reason for exam: LLL pna. TECHNIQUE: Axial computed tomography images of the chest without intravenous contrast. CTDI is 29.24 mGy and DLP is 1022.07 mGy-cm. Automated exposure control was utilized for the study. A dose lowering technique was utilized adhering to the principles of ALARA. COMPARISON: CT 08/28/2024 FINDINGS: Lungs: Large consolidation involving the left lower lobe, lingula, and posterior inferior left upper lobe. Consistent with pneumonia. Appears progressed from the prior. Cystic and emphysematous changes in the lungs. Pleural space: No pleural effusion or pneumothorax. Heart: Unremarkable. Bones/joints: No acute findings. Soft tissues: Unremarkable. Vasculature: Unremarkable. Lymph nodes: Unremarkable. IMPRESSION: Large consolidation involving the left lower lobe, lingula, and posterior inferior left upper lobe. Consistent with pneumonia. Progressed from the prior. Electronically signed by: Aung Cobian MD 09/14/24 23:52 PM
[2024-09-15 06:54] LABS: Hematocrit (blood only) 20.7 % (42.0-52.0); Hemoglobin 6.9 g/dl (14.0-18.0); Mean Corpuscular Hemoglobin 29.6 pg (25.0-34.0); Mean Corpuscular Hgb Conc 33.3 g/dL (32.0-36.0); Mean Corpuscular Volume 88.8 fL (80.0-100.0); Mean Platelet Volume 8.5 fL (9.4-12.4); Platelet Count 31 K/uL (130-400); RDW Standard Deviation 42.4 fL (36.4-46.3); Red Blood Count 2.33 M/uL (4.70-6.10); White Blood Count 0.32 K/ul (4.8-10.8)
[2024-09-15 07:09] LABS: BUN Creatinine Ratio 35.3 (10-20); Creatinine Clr Calc Pharmacy 63.6 ml/min; Magnesium 2.5 mg/dl (1.7-2.4); Phosphorus 4.3 mg/dl (2.5-4.9); Potassium 3.3 mmol/L (3.5-5.1)
[2024-09-15] MEDS ORDERED: SODIUM CHLORIDE 0.9% 50 ML IV PRN (07:23)
[2024-09-15] MEDS ORDERED: SODIUM CHLORIDE 0.9% 100 ML IV PRN (07:23)
[2024-09-15] MEDS: ACETAMINOPHEN 325 MG TAB PO ONE (08:20)
[2024-09-15] MEDS: POTASSIUM CHLORIDE CRTAB 20 MEQ TABCR PO STA (09:01)
--- NOTE | 2024-09-15 09:39 | Hematology/Oncology Prog Note ---
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 This point I had a discussion with him and his friends again explaining the terminal nature of the disease. Given that he has been in the hospital for the last 2 weeks since last week of August, is transfusion dependent I strongly encouraged discussion along the lines of hospice/palliative care. In my opinion he would be an appropriate candidate for hospice care given the aggressive cancer as well as terminal nature of the disease. At this point her hospital medicine staff is waiting for placement, he can either be discharged to facility with hospice or he could be a candidate for inpatient hospice, especially keeping in mind the new developments of hospital-acquired pneumonia Plan . Hematology will continue to follow the patient make appropriate recommendations. Admission and Anticipated Discharge Date Admission Date: August 28, 2024 Hung Maloney is very well-known to me as he has myelodysplastic syndrome, high risk with our IPSS score of 5. He is not a candidate for allogenic stem cell transplant given his advanced age at the age of 79, multiple comorbidities. He is transfusion dependent requiring platelet and packed red blood cell transfusion regularly. He is currently on hypomethylating agents with Vidaza. He has been admitted to the [facility] for the last 2 weeks because of neutropenic fever and has been needing platelet transfusions regularly. Most recently he has become progressively short of breath and has developed Hospital-acquired pneumonia. Review of Systems Review of Systems: Fatigue, short of breath, poor energy levels Constitutional: as per Subjective / HPI Eyes: as per Subjective / HPI Ear, Nose, Mouth, Throat: as per Subjective / HPI Respiratory: as per Subjective / HPI Cardiovascular: as per Subjective / HPI Gastrointestinal: as per Subjective / HPI Genitourinary: + as per Subjective / HPI Musculoskeletal: as per Subjective / HPI Integumentary: as per Subjective / HPI Neurologic: as per Subjective / HPI Psychiatric: as per Subjective / HPI Endocrine: as per Subjective / HPI Hematologic / Lymphatic: as per Subjective / HPI Physical Exam Constitutional: + ill appearing and + intoxicated appear ing Eyes: PERRL, conjunctivae normal, anicteric sclerae ENMT: external ear and nose normal, oropharynx normal Neck: trachea midline, no thyromegaly Respiratory: + respiratory distress and + cough Cardiovascular: RRR, no murmur, no edema Gastrointestinal (Abdomen): normal bowel sounds, soft, nontender, no hepatosplenomegaly Musculoskeletal: no cyanosis or clubbing, extremities motor strength 5/5 Skin: no rashes, warm and dry Results & Data Vital Signs (Past 12 Hours) Vital Signs Temp Pulse Pulse Resp BP BP BP 09/15/24 09:11 36.7 C 78 16 111/56 L 09/15/24 08:56 36.7 C 82 16 113/56 L 09/15/24 08:33 36.4 C L 82 16 106/49 L 09/15/24 07:38 09/15/24 07:38 73 09/15/24 07:11 37.0 C 78 16 103/61 09/15/24 04:34 36.6 C 72 24 108/61 09/15/24 04:15 36.6 C 77 24 102/57 L 09/15/24 03:15 36.6 C 75 24 100/55 L 09/15/24 03:14 36.4 C L 73 18 105/58 L 09/15/24 02:45 36.5 C 72 24 97/58 L 09/15/24 02:30 36.5 C 73 24 93/50 L 09/15/24 02:14 36.5 C 73 24 95/53 L 09/15/24 01:42 36.4 C L 71 19 102/48 L 09/15/24 01:42 36.5 C 71 24 95/53 L 09/15/24 00:42 36.6 C 73 24 87/43 L 09/14/24 23:42 36.6 C 73 24 92/49 L 09/14/24 23:32 75 09/14/24 23:26 36.7 C 73 16 101/57 L 09/14/24 23:12 36.4 C L 72 24 96/48 L 09/14/24 22:57 36.6 C 80 20 91/48 L 09/14/24 22:56 36.6 C 80 20 91/48 L 09/14/24 22:35 36.7 C 73 16 101/57 L Pulse Ox O2 Del Method O2 Flow Rate 09/15/24 09:11 93 09/15/24 08:56 94 09/15/24 08:33 94 09/15/24 07:38 Room Air, Nasal Cannula 09/15/24 07:38 09/15/24 07:11 95 09/15/24 04:34 97 2 09/15/24 04:15 99 2 09/15/24 03:15 98 2 09/15/24 03:14 98 Room Air 09/15/24 02:45 97 2 09/15/24 02:30 96 2 09/15/24 02:14 95 2 09/15/24 01:42 93 2 09/15/24 01:42 95 2 09/15/24 00:42 95 2 09/14/24 23:42 97 2 09/14/24 23:32 09/14/24 23:26 96 Room Air 09/14/24 23:12 96 2 09/14/24 22:57 95 2 09/14/24 22:56 95 2 09/14/24 22:35 96 2
--- NOTE | 2024-09-15 16:04 | Hospitalist Progress Note ---
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 Left lower lobe pneumonia E. coli bacteremia Streptococcus Lutetiensis bacteremia Patient presented with with cough and fevers. Resp biofire neg. CXR concerning for LLL pneumonia. Admitting sputum culture [08/28] negative. Admitting blood culture [08/28] positive for E. coli and Streptococcus lutetiensis Repeat blood culture and sputum culture from 08/30 negative. Infectious disease evaluated, patient was treated with Levaquin 750 Mg daily for E. coli bacteremia [completed treatment September 04, 2024] and Augmentin 3 times daily for Streptococcus bacteremia [completed treatment September 13, 2024]. Since she was neutropenic, patient was kept on Levaquin 500 mg daily for prophylaxis starting September 05, 2024. It is to be continued until the patient is no more neutropenic. Patient needing some oxygen 09/14, repeat chest x-ray 09/14 with progression of LL L pneumonia. Discussed with pulmonology 09/14 given recurrent/progression of pna w/ oxygen needs/immunocompromise status/recent antibiotic treatment, recommendation are CT chest without contrast, IV Zosyn, MRSA screen, blood and sputum cultures. Asked for re-eval--->Reevaluation to follow. Touch based w/ pulm again today and updated my d/w ID that no need for antifungal in this patient at this time. Discussed with ID 09/14 for reevaluation and possible antifungal coverage. Re-d/w ID 09/15, no need for antifungal therapy. MRSA screen 09/14 neg, 09/14 CT chest w/ LLL pna progression. c/w Zosyn 09/14, continue with probiotic, f/u blood and sputum culture, CT scan of chest without contrast, MRSA screen. Follow on results. Hx of MDS and immunosuppression therapy Neutropenic fever Pancytopenia(leukopenia with neutropenia, Anemia, Thrombocytopenia) MDS diagnosed via bone marrow biopsy on 06/23/2024 with noted monoclonal plasma cell population 10%, variably cellular marrow 20 to 50% with trilineage hematopoiesis. Treatment with infusion of azacitidine started on 08/17/24 x 5 days Pt with persistent anemia and thrombocytopenia requiring transfusion, has requi red multiple PRBC and platelet transfusions so far. Hemoglobin of 6.9 today, And platelets 31K today. Needs 1 U prbc transfusion, Repeat labs in AM. Pt had transfusion Rx starting 09/14, d/w onco 09/14, not likely to happen. Hematology/Oncology was consulted, appreciate recs. recommended/stated the following on 08/29/24: " Although there is no evidence that G-CSF improves Overall survival in the setting of MDS, he has pneumonia and positive blood cultures with severe neutropenia. Therefore, recommend G-CSF with filgrastim 480 mcg daily x 2 to 3 days to potentially shorten course of neutropenia. -Agree with broad-spectrum antibiotics and ID consult -Transfuse for hemoglobin below 7.5 and platelet count below of 10,000 -Follow-up with Dr. Amaya at [facility] upon discharge from hospital" Lower GI bleed; patient had episode of hematochezia on 09/03/2024; has resolved since per pt. Patient had colonoscopy on 07/16/2024 for similar issue; found to have polyp wh ich was removed which was found to be hyperplastic. Prior attending discussed with oncology patient's pancytopenia is not going to recover due to bone marrow failure secondary to MDS; cancer care center will coordinate with patient for further infusion after patient is discharged from the hospital. D/w oncology 09/11, ok to discharge patient as he will be needing frequent transfusion, oncology will coordinate care as OP. Plan to dc on Saturday w/ close f/u on Saturday w/ oncology. f/u oncology closely upon discharge. Palliative care evaluated the patient 09/10, pt will benefit from establishing OP palliative care. f/u hemonc re-ev, pending at the moment. Hypokalemia: replete as needed Chronic Rib Fractures: Noted on imaging. Pain control prn Rheumatoid Arthritis: On chronic prednisone 5 mg daily History of GI bleed: Continue Protonix 40 mg BID CAD without angina Chronic systolic CHF Lower extremity edema HLD Chronic 1-2+ pitting BLE EKG with noted sinus rhythm with PACs Home meds: metoprolol succinate 12.5 mg daily furosemide 20 mg daily, chlorthalidone 25 mg daily, spironolactone 25 mg daily with potassium supplement, atorvastatin 20 mg daily Cardiology recommended repeat echo in September to reassess LV wall motion, EF and right-sided filling pressure. Echo- 50-55%, moderate valvular aortic stenosis. Continue to monitor for signs of volume overload Continue other home meds as ordered Goals of care Prior attending discussed goals of care with patient at bedside on 09/03/2024. Patient has prolonged pancytopenia which has put him at risk for severe infection, multiorgan failure, bleeding episodes that could lead to sudden cardiac arrest. He acknowledges that his health has significantly declined over the course of last month. We discussed regarding chest com pression and ventilator support in case of cardiac arrest; patient reported that he does not want those aggressive intervention in case of cardiac arrest. CODE STATUS was changed to DNR/DNI. I discussed with his POA Harry at bedside on 09/04/2024 who is in agreement. Re-discussion 09/14 at bedside w/ pt, his friend Alirio. Updated and re- emphasized on poor prognosis. They understand the poor prognosis and are planning to f/u w/ palliative as OP. But for now would like to try if he can improve in hospital. DVT ppx: teds, scds in setting of anemia requiring transfusion Diet: Dispo: pt would like to go to snf/rehab. CM assisting w/ dc plan. Now has progression of pna, will need pulm and ID re-eval prior to dc. If condition worsens, possible palliative re-eval. Please note the above document was generated using voice recognition software. It may contain grammatical, syntax or spelling errors. Any formal questions or concerns about the content, text or information contained within the body of this dictation should be directly addressed to the provider for clarification Admission and Anticipated Discharge Date Admission Date: August 28, 2024 Subjective Patient seen and examined at bedside. He is lying in bed; not in distress, now on RA, reports improving cough. Denies shortness of breath, chest pain or abdominal pain. No significant event overnight, reports eating ok and moving bowels ok. Physical Exam Physical Exam: Constitutional: WD/WN, vitals as above, NAD, sitting up in bed, pleasant, conversing easily Respiratory: normal respiratory effort, lungs clear to auscultation, no wheeze, rales, rhonchi. Normal insp/exp effort, no accessory muscle use Cardiovascular: RRR, no murmur, no edema Vessels: no JVD or carotid bruit. 1- 2+ble edema Chest: normal inspection of chest, decreased breath sounds LLL, some occ crackles over LLL Abdomen: normal bowel sounds, soft, nontender, no hepatosplenomegaly Musculoskeletal: no cyanosis or clubbing, extremities motor strength 5/5 Skin: no rashes, warm and dry normal turgor Neurologic: PERRL, EOMI, accommodation nl, no face palsy, no dysarthria CN's II- XI intact bilaterally and moves all extremities Psychiatric: A+Ox3, euthymic affect Results & Data Results & Data Vital Signs (Past 12 Hours) Vital Signs Temp Pulse Pulse Resp BP BP Pulse Ox 09/15/24 14:59 93 09/15/24 11:15 36.7 C 75 18 104/55 L 93 09/15/24 10:41 36.6 C 75 16 110/58 L 93 09/15/24 09:41 36.6 C 75 18 107/62 93 09/15/24 09:11 36.7 C 78 16 111/56 L 93 09/15/24 08:56 36.7 C 82 16 113/56 L 94 09/15/24 08:33 36.4 C L 82 16 106/49 L 94 09/15/24 07:38 09/15/24 07:38 73 09/15/24 07:11 37.0 C 78 16 103/61 95 09/15/24 04:34 36.6 C 72 24 108/61 97 09/15/24 04:15 36.6 C 77 24 102/57 L 99 O2 Del Method O2 Flow Rate 09/15/24 14:59 09/15/24 11:15 09/15/24 10:41 09/15/24 09:41 09/15/24 09:11 09/15/24 08:56 09/15/24 08:33 09/15/24 07:38 Room Air, Nasal Cannula 09/15/24 07:38 09/15/24 07:11 09/15/24 04:34 2 09/15/24 04:15 2 (7) HTN (hypertension) Hypertension type: primary hypertension Qualified Code(s): I10 - Essential (primary) hypertension (8) COPD (chronic obstructive pulmonary disease) COPD type: unspecified COPD Qualified Code(s): J44.9 - Chronic obstructive pulmonary disease, unspecified
--- NOTE | 2024-09-15 17:00 | Pulmonology Progress Note ---
Date of Service September 15, 2024 Assessment & Plan (1) Hospital-acquired pneumonia: Plan: Patient with severe multifocal lobar pneumonia on chest x-ray, but clinically appears quite stable without any significant oxygen requirements. Zosyn restarted 09/14/2024. Agree with continuing Zosyn at this time and obtaining sputum culture if able. Hospitalist service discussed with infectious disease who did not recommend any antifungal treatment at this time. Clinical picture is not classic for fungal infection such as invasive aspergillosis, mucormycosis or other fungal illness. Continue incentive spirometry as able. Continue bronchodilators. Will continue to follow. Please call questions. Thank you. Admission and Anticipated Discharge Date Admission Date: August 28, 2024 Subjective Pulmonary reconsulted today due to severe left-sided infiltrate on x-ray and CT chest. Patient denies any respiratory complaints at present. Occasional cough with sputum production. Noted mild hemoptysis earlier today. Denies any fevers, chills or night sweats. Oxygenating well on room air. Friends at bedside. Review of Systems Review of Systems: All systems reviewed & are unremarkable except as noted in HPI & below Physical Exam Physical Exam: Constitutional: Patient appears to be of their stated age. Patient is in no apparent distress. Patient is well-developed. Eyes: Pupils are equal round and reactive to light. Conjunctivae are normal. Anicteric sclera. Ears nose, mouth and throat: Mallampati class 2. Normal posterior oropharynx. Uvula is midline. Poor dentition. Neck: Trachea is midline. Visual inspection is normal. Respiratory: Rhonchi noted in the left upper and left lower lobe. No wheezes or increased work of breathing. Cardiovascular: Regular rate and rhythm. No murmurs. No edema. Gastrointestinal: Normal bowel sounds, soft, nontender and nondistended. No hepatosplenomegaly noted. Musculoskeletal: No cyanosis. Patient is able to move all extremities. Strength is 5 out of 5 in the upper and lower extremities. Skin: Diffuse petechiae and severe bilateral lower extremity venous stasis changes. Neurologic: No obvious focal neurological deficits seen. Psychiatric: Alert and oriented x3 with a euthymic affect. Results & Data Results & Data Vital Signs (Past 12 Hours) Vital Signs Temp Pulse Pulse Resp BP BP BP 09/15/24 16:27 77 09/15/24 16:08 36.4 C L 82 18 93/53 L 09/15/24 14:59 09/15/24 11:15 36.7 C 75 18 104/55 L 09/15/24 10:41 36.6 C 75 16 110/58 L 09/15/24 09:41 36.6 C 75 18 107/62 09/15/24 09:11 36.7 C 78 16 111/56 L 09/15/24 08:56 36.7 C 82 16 113/56 L 09/15/24 08:33 36.4 C L 82 16 106/49 L 09/15/24 07:38 09/15/24 07:38 73 09/15/24 07:11 37.0 C 78 16 103/61 Pulse Ox O2 Del Method 09/15/24 16:27 09/15/24 16:08 96 Room Air 09/15/24 14:59 93 09/15/24 11:15 93 09/15/24 10:41 93 09/15/24 09:41 93 09/15/24 09:11 93 09/15/24 08:56 94 09/15/24 08:33 94 09/15/24 07:38 Room Air, Nasal Cannula 09/15/24 07:38 09/15/24 07:11 95 PG Care Time/CCT Total # of Minutes Spent Total Time Spent with Patient: Total time spent is greater than 50% in coordination of care (as documented) at patient's floor/unit and/or counseling patient: Coding Level of Care Code 22432 SUB INP/OBS CARE 2/35MIN Diagnoses Hospital-acquired pneumonia J18.9; Y95
[2024-09-16 07:02] LABS: Hematocrit (blood only) 24.8 % (42.0-52.0); Hemoglobin 8.4 g/dl (14.0-18.0); Mean Corpuscular Hemoglobin 29.5 pg (25.0-34.0); Mean Corpuscular Hgb Conc 33.9 g/dL (32.0-36.0); Mean Platelet Volume 9.2 fL (9.4-12.4); Platelet Count 29 K/uL (130-400); RDW Coefficient of Variation 13.1 % (11.5-14.5); RDW Standard Deviation 41.6 fL (36.4-46.3); Red Blood Count 2.85 M/uL (4.70-6.10)
[2024-09-16 07:16] LABS: White Blood Count 0.37 K/ul (4.8-10.8)
[2024-09-16 07:22] LABS: BUN Creatinine Ratio 35.5 (10-20); Calcium 8.3 mg/dl (8.6-10.3); Creatinine Clr Calc Pharmacy 67.1 ml/min; Potassium 3.9 mmol/L (3.5-5.1)
--- NOTE | 2024-09-16 13:48 | Hospitalist Progress Note ---
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 Left lower lobe pneumonia E. coli bacteremia Streptococcus Lutetiensis bacteremia Patient presented with with cough and fevers. Resp biofire neg. CXR concerning for LLL pneumonia. Admitting sputum culture [08/28] negative. Admitting blood culture [08/28] positive for E. coli and Streptococcus lutetiensis Repeat blood culture and sputum culture from 08/30 negative. Infectious disease evaluated, patient was treated with Levaquin 750 Mg daily for E. coli bacteremia [completed treatment September 04, 2024] and Augmentin 3 times daily for Streptococcus bacteremia [completed treatment September 13, 2024]. Since she was neutropenic, patient was kept on Levaquin 500 mg daily for prophylaxis starting September 05, 2024. It is to be continued until the patient is no more neutropenic. Patient needing some oxygen 09/14, repeat chest x-ray 09/14 with progression of LL L pneumonia. Discussed with ID 09/14 for reevaluation and possible antifungal coverage. Re-d/w ID 09/15, no need for antifungal therapy. MRSA screen 09/14 neg, 09/14 CT chest w/ LLL pna progression. c/w Zosyn 09/14, continue with probiotic, Hx of MDS and immunosuppression therapy Neutropenic fever Pancytopenia(leukopenia with neutropenia, Anemia, Thrombocytopenia) MDS diagnosed via bone marrow biopsy on 06/23/2024 with noted monoclonal plasma cell population 10%, variably cellular marrow 20 to 50% with trilineage hematopoiesis. Treatment with infusion of azacitidine started on 08/17/24 x 5 days Lower GI bleed; patient had episode of hematochezia on 09/03/2024; has resolved since per pt. Patient had colonoscopy on 07/16/2024 for similar issue; found to have polyp which was removed which was found to be hyperplastic. Prior attending discussed with oncology patient's pancytopenia is not going to recover due to bone marrow failure secondary to MDS; cancer care center will coordinate with patient for further infusion after patient is discharged from the hospital. D/w oncology 09/11, ok to discharge patient as he will be needing frequent transfusion, oncology will coordinate care as OP. Plan to dc on Saturday w/ close f/u on Saturday w/ oncology. Evaluated by hematology again on 09/15/2024; patient has high risk myelodysplastic syndrome with no curative modality treatment available due to his advanced age. Recommend hospice/palliative approach. Depending on patient clinical symptom progression; plan for either home hospice versus inpatient hospice in next few days. Hypokalemia: replete as needed Chronic Rib Fractures: Noted on imaging. Pain control prn Rheumatoid Arthritis: On chronic prednisone 5 mg daily History of GI bleed: Continue Protonix 40 mg BID CAD without angina Chronic systolic CHF Lower extremity edema HLD Chronic 1-2+ pitting BLE EKG with noted sinus rhythm with PACs Home meds: metoprolol succinate 12.5 mg daily furosemide 20 mg daily, chlorthalidone 25 mg daily, spironolactone 25 mg daily with potassium supplement, atorvastatin 20 mg daily Cardiology recommended repeat echo in September to reassess LV wall motion, EF and right-sided filling pressure. Echo- 50-55%, moderate valvular aortic stenosis. Continue to monitor for signs of volume overload Continue other home meds as ordered Goals of care Discussed with patient and patient's POA Harry bedside regarding patient's prolonged hospitalization due to sepsis, repeated need for transfusion and progressive pneumonia. We both agree that patient will benefit from comfort care measures if his clinical condition deteriorates. If patient is stable; possible discharge to home on home hospice. DVT ppx: teds, scds in setting of anemia requiring transfusion Diet: HH Dispo: Patient hospitalized with progressive pneumonia, need for repeated transfusion requiring close monitoring inpatient. Time spent evaluating patient, direct bedside care, chart review, placing orders, interpretation of diagnostic studies, discussion with consultants, patient, and family members, as well as other required patient management activities is 50 minutes Please note the above document was generated using voice recognition software. It may contain grammatical, syntax or spelling errors. Any formal questions or concerns about the content, text or information contained within the body of this dictation should be directly addressed to the provider for clarification Admission and Anticipated Discharge Date Admission Date: August 28, 2024 Subjective Patient seen and examined at bedside. He appears to be slightly short of breath on minimal exertion. He reports that he is feeling okay; no significant events overnight His friend/POA came to visit; was updated at bedside. Review of Systems Review of Systems: All systems reviewed & are unremarkable except as noted in Subjective Physical Exam Physical Exam: Constitutional: WD/WN, vitals as above, NAD, sitting up in bed, pleasant, conversing easily Respiratory: normal respiratory effort, lungs clear to auscultation, no wheeze, rales, rhonchi. Normal insp/exp effort, no accessory muscle use Cardiovascular: RRR, no murmur, no edema Vessels: no JVD or carotid bruit Chest: normal inspection of chest Abdomen: normal bowel sounds, soft, nontender, no hepatosplenomegaly Musculoskeletal: no cyanosis or clubbing, extremities motor strength 5/5 Skin: no rashes, warm and dry normal turgor Neurologic: PERRL, EOMI, accommodation nl, no face palsy, no dysarthria CN's II- XI intact bilaterally and moves all extremities Psychiatric: A+Ox3, euthymic affect Results & Data Results & Data Vital Signs (Past 12 Hours) Vital Signs Temp Pulse Pulse Resp BP BP Pulse Ox 09/16/24 11:52 36.6 C 75 18 96/57 L 94 09/16/24 08:32 36.5 C 89 18 93/49 L 95 09/16/24 08:00 91 H 09/16/24 03:55 36.4 C L 81 16 97/60 L 94 O2 Del Method 09/16/24 11:52 Room Air 09/16/24 08:32 Room Air 09/16/24 08:00 09/16/24 03:55 Room Air (7) HTN (hypertension) Hypertension type: primary hypertension Qualified Code(s): I10 - Essential (primary) hypertension (8) COPD (chronic obstructive pulmonary disease) COPD type: unspecified COPD Qualified Code(s): J44.9 - Chronic obstructive pulmonary disease, unspecified
--- NOTE | 2024-09-16 15:50 | Pulmonology Progress Note ---
Date of Service September 16, 2024 Assessment & Plan (1) Hospital-acquired pneumonia: Plan: Patient with severe multifocal lobar pneumonia on chest x-ray, but clinically appears quite stable without any significant oxygen requirements. Zosyn restarted 09/14/2024. Agree with continuing Zosyn at this time. Patient also on oral levofloxacin 500 mg daily per ID recommendations. Chest x-ray tomorrow a.m. Continue incentive spirometry as able. Continue bronchodilators. Will continue to follow. Please call questions. Thank you. Admission and Anticipated Discharge Date Admission Date: August 28, 2024 Subjective Patient seen and examined. Sitting up in a chair and denies any significant cough at present. Did have cough earlier which was productive of yellow sputum. Does endorse shortness of breath with mild exertion. No chest pain or fevers. Review of Systems Review of Systems: All systems reviewed & are unremarkable except as noted in HPI & below Physical Exam Physical Exam: Constitutional: Patient appears to be of their stated age. Patient is in no apparent distress. Patient is well-developed. Eyes: Pupils are equal round and reactive to light. Conjunctivae are normal. Anicteric sclera. Ears nose, mouth and throat: Mallampati class 2. Normal posterior oropharynx. Uvula is midline. Poor dentition. Neck: Trachea is midline. Visual inspection is normal. Respiratory: Rhonchi noted in the left upper and left lower lobe. No wheezes or increased work of breathing. Cardiovascular: Regular rate and rhythm. No murmurs. No edema. Gastrointestinal: Normal bowel sounds, soft, nontender and nondistended. No hepatosplenomegaly noted. Musculoskeletal: No cyanosis. Patient is able to move all extremities. Streng th is 5 out of 5 in the upper and lower extremities. Skin: Diffuse petechiae and severe bilateral lower extremity venous stasis changes. Neurologic: No obvious focal neurological deficits seen. Psychiatric: Alert and oriented x3 with a euthymic affect. Results & Data Results & Data Vital Signs (Past 12 Hours) Vital Signs Temp Pulse Pulse Resp BP BP Pulse Ox 09/16/24 11:52 36.6 C 75 18 96/57 L 94 09/16/24 08:32 36.5 C 89 18 93/49 L 95 09/16/24 08:00 91 H 09/16/24 03:55 36.4 C L 81 16 97/60 L 94 O2 Del Method 09/16/24 11:52 Room Air 09/16/24 08:32 Room Air 09/16/24 08:00 09/16/24 03:55 Room Air PG Care Time/CCT Total # of Minutes Spent Total Time Spent with Patient: Total time spent is greater than 50% in coordination of care (as documented) at patient's floor/unit and/or counseling patient: Coding Level of Care Code 29329 SUB INP/OBS CARE 09/26MIN Diagnoses Hospital-acquired pneumonia J18.9; Y95
[2024-09-17 07:26] LABS: Hematocrit (blood only) 23.3 % (42.0-52.0); Hemoglobin 7.8 g/dl (14.0-18.0); Mean Corpuscular Hemoglobin 29.7 pg (25.0-34.0); Mean Corpuscular Hgb Conc 33.5 g/dL (32.0-36.0); Mean Corpuscular Volume 88.6 fL (80.0-100.0); Mean Platelet Volume 9.2 fL (9.4-12.4); Neutrophils # (auto) < 0.50 K/uL (1.40-6.50); Platelet Count 20 K/uL (130-400); RDW Coefficient of Variation 13.2 % (11.5-14.5); RDW Standard Deviation 42.7 fL (36.4-46.3); Red Blood Count 2.63 M/uL (4.70-6.10)
[2024-09-17 07:30] LABS: BUN Creatinine Ratio 42.7 (10-20); Calcium 8.3 mg/dl (8.6-10.3); Potassium 4.4 mmol/L (3.5-5.1)
[2024-09-17 07:56] LABS: White Blood Count 0.46 K/ul (4.8-10.8)
--- NOTE | 2024-09-17 08:19 | XRay Report ---
EXAM: XR chest 1V portable CLINICAL HISTORY: Pneumonia. TECHNIQUE: An X-ray image of the chest is obtained in AP projection. COMPARISON: 09/14/2024 FINDINGS: Pulmonary Parenchyma: Homogenous airspace opacification in left lung middle zone is unchanged. Bilateral prominent interstitial linings Obscuration of left costophrenic angle Heart and Mediastinum: Mild cardiomegaly No mediastinal widening or masses. No hilar or mediastinal lymphadenopathy. Bony Thorax: advanced degenerative changes in bilateral shoulder joints. Soft Tissues: Soft tissues overlying the chest wall are unremarkable. IMPRESSION: Homogenous airspace opacification in the left lung middle zone is unchanged. Suggest pneumonia, clinical and lab correlation as well as follow-up imaging are recommended. In case of non-resolution, further evaluation with contrast-enhanced CT chest can be considered. Obscuration of left costophrenic angle by likely pleural reaction, stable. Rest of findings remain stable Electronically signed by Gayle Ojeda 09-17-2024 08:18 AM
[2024-09-17] MEDS: POLYETHYLENE (MIRALAX) 17 GM PACK PO PRN (09:20)
--- NOTE | 2024-09-17 09:59 | Hospitalist Progress Note ---
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 Left lower lobe pneumonia E. coli bacteremia Streptococcus Lutetiensis bacteremia Patient presented with with cough and fevers. Resp biofire neg. CXR concerning for LLL pneumonia. Admitting sputum culture [08/28] negative. Admitting blood culture [08/28] positive for E. coli and Streptococcus lutetiensis Repeat blood culture and sputum culture from 08/30 negative. Infectious disease evaluated, patient was treated with Levaquin 750 Mg daily for E. coli bacteremia [completed treatment September 04, 2024] and Augmentin 3 times daily for Streptococcus bacteremia [completed treatment September 13, 2024]. Since he was neutropenic, patient was kept on Levaquin 500 mg daily for prophylaxis starting September 05, 2024. It is to be continued until the patient is no more neutropenic. Patient needing some oxygen 09/14, repeat chest x-ray 09/14 with progression of LLL pneumonia. Discussed with ID 09/14 for reevaluation and possible antifungal coverage. Re-d/w ID 09/15, no need for antifungal therapy. MRSA screen 09/14 neg, 09/14 CT chest w/ LLL pna progression. c/w Zosyn 09/14, continue with probiotic, Plan to treat for 7 days Acute Urinary Retention s/p Pizarro on 09/17/2023 patient was found to have acute urinary retention; pizarro catheter placed continue pizarro 7 to 10 days, then TOV Hx of MDS and immunosuppression therapy Neutropenic fever Pancytopenia(leukopenia with neutropenia, Anemia, Thrombocytopenia) MDS diagnosed via bone marrow biopsy on 06/23/2024 with noted monoclonal plasma cell population 10%, variably cellular marrow 20 to 50% with trilineage hematopoiesis. Treatment with infusion of azacitidine started on 08/17/24 x 5 days Lower GI bleed; patient had episode of hematochezia on 09/03/2024; has resolved since per pt. Patient had colonoscopy on 07/16/2024 for similar issue; found to have polyp which was removed which was found to be hyperplastic. Evaluated by hematology again on 09/15/2024; patient has high risk myelodysplastic syndrome with no curative modality treatment available due to his advanced age. Recommend hospice/palliative approach. Depending on patient clinical symptom progression; plan for either home hospice versus inpatient hospice in next few days. Hypokalemia: replete as needed Chronic Rib Fractures: Noted on imaging. Pain control prn Rheumatoid Arthritis: On chronic prednisone 5 mg daily History of GI bleed: Continue Protonix 40 mg BID CAD without angina Chronic systolic CHF Lower extremity edema HLD Chronic 1-2+ pitting BLE EKG with noted sinus rhythm with PACs Home meds: metoprolol succinate 12.5 mg daily furosemide 20 mg daily, chlorthalidone 25 mg daily, spironolactone 25 mg daily with potassium supplement, atorvastatin 20 mg daily Cardiology recommended repeat echo in September to reassess LV wall motion, EF and right-sided filling pressure. Echo- 50-55%, moderate valvular aortic stenosis. Continue to monitor for signs of volume overload Continue other home meds as ordered Goals of care Discussed with patient and patient's POA Harry bedside regarding patient's prolonged hospitalization due to sepsis, repeated need for transfusion and progressive pneumonia on 09/16/2023. They both agree that patient will benefit from comfort care measures if his clinical condition deteriorates. If patient is stable; possible discharge to home on home hospice. DVT ppx: teds, scds in setting of anemia requiring transfusion Diet: HH Dispo: Patient hospitalized with progressive pneumonia, need for repeated transfusion requiring close monitoring inpatient. Possible dc in next few days on home hospice if clinically stable. Time spent evaluating patient, direct bedside care, chart review, placing orders, interpretation of diagnostic studies, discussion with consultants, jayesh nt, and family members, as well as other required patient management activities is 50 minutes Please note the above document was generated using voice recognition software. It may contain grammatical, syntax or spelling errors. Any formal questions or concerns about the content, text or information contained within the body of this dictation should be directly addressed to the provider for clarification Admission and Anticipated Discharge Date Admission Date: August 28, 2024 Subjective Patient seen and examined at bedside. He is comfortable; not in distress Reports some shortness of breath on minimal exertion He continues to saturate well on room air. Found to have urinary retention for which pizarro catheter was placed. Review of Systems Review of Systems: All systems reviewed & are unremarkable except as noted in Subjective Physical Exam Physical Exam: Constitutional: WD/WN, vitals as above, NAD, sitting up in bed, pleasant, conversing easily Respiratory: normal respiratory effort, lungs clear to auscultation, no wheeze, rales, rhonchi. Normal insp/exp effort, no accessory muscle use Cardiovascular: RRR, no murmur, no edema Vessels: no JVD or carotid bruit Chest: normal inspection of chest Abdomen: normal bowel sounds, soft, nontender, no hepatosplenomegaly Musculoskeletal: no cyanosis or clubbing, extremities motor strength 5/5 Skin: no rashes, warm and dry normal turgor Neurologic: PERRL, EOMI, accommodation nl, no face palsy, no dysarthria CN's II- XI intact bilaterally and moves all extremities Psychiatric: A+Ox3, euthymic affect Results & Data Results & Data Vital Signs (Past 12 Hours) Vital Signs Temp Pulse Pulse Resp BP BP Pulse Ox 09/17/24 08:35 36.4 C L 74 18 96/57 L 94 09/17/24 07:40 77 09/17/24 07:25 36.6 C 79 18 118/73 95 09/17/24 03:26 36.4 C L 81 19 117/60 94 09/16/24 23:23 36.6 C 72 19 123/78 93 09/16/24 22:59 82 O2 Del Method 09/17/24 08:35 Room Air 09/17/24 07:40 09/17/24 07:25 Room Air 09/17/24 03:26 Room Air 09/16/24 23:23 Room Air 09/16/24 22:59 (7) HTN (hypertension) Hypertension type: primary hypertension Qualified Code(s): I10 - Essential (primary) hypertension (8) COPD (chronic obstructive pulmonary disease) COPD type: unspecified COPD Qualified Code(s): J44.9 - Chronic obstructive pulmonary disease, unspecified
[2024-09-17] MEDS: LIDOCAINE 2% JELLY 5 ML TUBE EXT ONE (12:26)
--- NOTE | 2024-09-17 16:10 | Pulmonology Progress Note ---
Date of Service September 17, 2024 Assessment & Plan (1) Hospital-acquired pneumonia: Plan: Patient with severe multifocal lobar pneumonia on chest x-ray, but clinically appears quite stable without any significant oxygen requirements. Zosyn restarted 09/14/2024. Agree with continuing Zosyn at this time. Patient also on oral levofloxacin 500 mg daily per ID recommendations. PA and lateral chest x-ray reviewed today with no significant change compared to his chest x-ray from 09/14/2024. Continues to have an extensive multifocal left lung infiltrate. Possible tiny left-sided effusion. Too small for sampling at this time. Continue incentive spirometry as able. Continue bronchodilators. Discussed with nursing and patient. Seems that the patient is leaning towards comfort measures only or hospice which I think is completely appropriate given his terminal diagnosis of myelodysplastic syndrome. Pulmonary to sign off at this time. Please call questions. Thank you for the consult. (2) Counseling regarding goals of care: Admission and Anticipated Discharge Date Admission Date: August 28, 2024 Subjective Patient endorses increased fatigue today. Cough is about the same with occasional yellow sputum. No fevers, chills or night sweats. No chest pain no nausea or vomiting. Review of Systems Review of Systems: All systems reviewed & are unremarkable except as noted in HPI & below Physical Exam Physical Exam: Constitutional: Patient appears to be of their stated age. Patient is in no apparent distress. Patient is well-developed. Eyes: Pupils are equal round and reactive to light. Conjunctivae are normal. Anicteric sclera. Ears nose, mouth and throat: Mallampati class 2. Normal posterior oropharynx. Uvula is midline. Poor dentition. Neck: Trachea is midline. Visual inspection is normal. Respiratory: Rhonchi noted in the left upper and left lower lobe. No wheezes or increased work of breathing. Cardiovascular: Regular rate and rhythm. No murmurs. No edema. Gastrointestinal: Normal bowel sounds, soft, nontender and nondistended. No hepatosplenomegaly noted. Musculoskeletal: No cyanosis. Patient is able to move all extremities. Strength is 5 out of 5 in the upper and lower extremities. Skin: Diffuse petechiae and severe bilateral lower extremity venous stasis changes. Neurologic: No obvious focal neurological deficits seen. Psychiatric: Alert and oriented x3 with a euthymic affect. Results & Data Results & Data Vital Signs (Past 12 Hours) Vital Signs Temp Pulse Pulse Resp BP BP Pulse Ox 09/17/24 15:55 36.7 C 74 18 96/56 L 93 09/17/24 11:52 36.5 C 94 H 18 103/59 L 94 09/17/24 08:35 36.4 C L 74 18 96/57 L 94 09/17/24 07:40 77 09/17/24 07:25 36.6 C 79 18 118/73 95 O2 Del Method 09/17/24 15:55 Room Air 09/17/24 11:52 Room Air 09/17/24 08:35 Room Air 09/17/24 07:40 09/17/24 07:25 Room Air PG Care Time/CCT Total # of Minutes Spent Total Time Spent with Patient: Total time spent is greater than 50% in coordination of care (as documented) at patient's floor/unit and/or counseling patient: Coding Level of Care Code 65393 SUB INP/OBS CARE 2/35MIN Diagnoses Hospital-acquired pneumonia J18.9; Y95 Counseling regarding goals of care Z71.89
--- NOTE | 2024-09-18 13:16 | Hospitalist Progress Note ---
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 Left lower lobe pneumonia E. coli bacteremia Streptococcus Lutetiensis bacteremia Patient presented with with cough and fevers. Resp biofire neg. CXR concerning for LLL pneumonia. Admitting sputum culture [08/28] negative. Admitting blood culture [08/28] positive for E. coli and Streptococcus lutetiensis Repeat blood culture and sputum culture from 08/30 negative. Infectious disease evaluated, patient was treated with Levaquin 750 Mg daily for E. coli bacteremia [completed treatment September 04, 2024] and Augmentin 3 times daily for Streptococcus bacteremia [completed treatment September 13, 2024]. Since he was neutropenic, patient was kept on Levaquin 500 mg daily for prophylaxis starting September 05, 2024. It is to be continued until the patient is no more neutropenic. Patient needing some oxygen 09/14, repeat chest x-ray 09/14 with progression of LLL pneumonia. Discussed with ID 09/14 for reevaluation and possible antifungal coverage. Re-d/w ID 09/15, no need for antifungal therapy. MRSA screen 09/14 neg, 09/14 CT chest w/ LLL pna progression. c/w Zosyn 09/14, continue with probiotic, Plan to treat for 7 days Acute Urinary Retention s/p Pizarro on 09/17/2023 patient was found to have acute urinary retention; pizarro catheter placed continue pizarro 7 to 10 days, then TOV Hx of MDS and immunosuppression therapy Neutropenic fever Pancytopenia(leukopenia with neutropenia, Anemia, Thrombocytopenia) MDS diagnosed via bone marrow biopsy on 06/23/2024 with noted monoclonal plasma cell population 10%, variably cellular marrow 20 to 50% with trilineage hematopoiesis. Treatment with infusion of azacitidine started on 08/17/24 x 5 days Lower GI bleed; patient had episode of hematochezia on 09/03/2024; has resolved since per pt. Patient had colonoscopy on 07/16/2024 for similar issue; found to have polyp which was removed which was found to be hyperplastic. Evaluated by hematology again on 09/15/2024; patient has high risk myelodysplastic syndrome with no curative modality treatment available due to his advanced age. Recommend hospice/palliative approach. Depending on patient clinical symptom progression; plan for either home hospice versus inpatient hospice in next few days. Hypokalemia: replete as needed Chronic Rib Fractures: Noted on imaging. Pain control prn Rheumatoid Arthritis: On chronic prednisone 5 mg daily History of GI bleed: Continue Protonix 40 mg BID CAD without angina Chronic systolic CHF Lower extremity edema HLD Chronic 1-2+ pitting BLE EKG with noted sinus rhythm with PACs Home meds: metoprolol succinate 12.5 mg daily furosemide 20 mg daily, chlorthalidone 25 mg daily, spironolactone 25 mg daily with potassium supplement, atorvastatin 20 mg daily Cardiology recommended repeat echo in September to reassess LV wall motion, EF and right-sided filling pressure. Echo- 50-55%, moderate valvular aortic stenosis. Continue to monitor for signs of volume overload Continue other home meds as ordered Goals of care Discussed with patient and patient's POA Harry bedside regarding patient's prolonged hospitalization due to sepsis, repeated need for transfusion and progressive pneumonia on 09/16/2023. They both agree that patient will benefit from comfort care measures if his clinical condition deteriorates. If patient is stable; possible discharge to home on home hospice. DVT ppx: teds, scds in setting of anemia requiring transfusion Diet: HH Dispo: Patient hospitalized with progressive pneumonia, need for repeated transfusion requiring close monitoring inpatient. Possible dc in next few days on home hospice if clinically stable. Time spent evaluating patient, direct bedside care, chart review, placing orders, interpretation of diagnostic studies, discussion with consultants, jayesh nt, and family members, as well as other required patient management activities is 50 minutes Please note the above document was generated using voice recognition software. It may contain grammatical, syntax or spelling errors. Any formal questions or concerns about the content, text or information contained within the body of this dictation should be directly addressed to the provider for clarification Admission and Anticipated Discharge Date Admission Date: August 28, 2024 Subjective Patient seen and examined at bedside He is sitting up on a chair comfortably without any distress He denies any pain or discomfort No significant events overnight Review of Systems Review of Systems: All systems reviewed & are unremarkable except as noted in Subjective Physical Exam Physical Exam: Constitutional: WD/WN, vitals as above, NAD, sitting up in bed, pleasant, conversing easily Respiratory:Decreased breath sound on left lower lung field Cardiovascular: RRR, no murmur, no edema Vessels: no JVD or carotid bruit Chest: normal inspection of chest Abdomen: normal bowel sounds, soft, nontender, no hepatosplenomegaly Musculoskeletal: no cyanosis or clubbing, extremities motor strength 5/5 Skin: no rashes, warm and dry normal turgor Neurologic: PERRL, EOMI, accommodation nl, no face palsy, no dysarthria CN's II- XI intact bilaterally and moves all extremities Psychiatric: A+Ox3, euthymic affect Results & Data Results & Data Vital Signs (Past 12 Hours) Vital Signs Temp Pulse Pulse Resp BP Pulse Ox O2 Del Method 09/18/24 11:05 36.4 C L 90 18 90/57 L 95 Room Air 09/18/24 07:59 36.4 C L 85 18 103/61 94 Room Air 09/18/24 07:00 74 09/18/24 02:24 36.6 C 74 18 102/69 94 Room Air (7) HTN (hypertension) Hypertension type: primary hypertension Qualified Code(s): I10 - Essential (primary) hypertension (8) COPD (chronic obstructive pulmonary disease) COPD type: unspecified COPD Qualified Code(s): J44.9 - Chronic obstructive pulmonary disease, unspecified
--- NOTE | 2024-09-19 09:29 | Hospitalist Progress Note ---
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 Left lower lobe pneumonia E. coli bacteremia Streptococcus Lutetiensis bacteremia Patient presented with with cough and fevers. Resp biofire neg. CXR concerning for LLL pneumonia. Admitting sputum culture [08/28] negative. Admitting blood culture [08/28] positive for E. coli and Streptococcus lutetiensis Repeat blood culture and sputum culture from 08/30 negative. Infectious disease evaluated, patient was treated with Levaquin 750 Mg daily for E. coli bacteremia [completed treatment September 04, 2024] and Augmentin 3 times daily for Streptococcus bacteremia [completed treatment September 13, 2024]. Since he was neutropenic, patient was kept on Levaquin 500 mg daily for prophylaxis starting September 05, 2024. It is to be continued until the patient is no more neutropenic. Patient needing some oxygen 09/14, repeat chest x-ray 09/14 with progression of LLL pneumonia. Discussed with ID 09/14 for reevaluation and possible antifungal coverage. Re-d/w ID 09/15, no need for antifungal therapy. MRSA screen 09/14 neg, 09/14 CT chest w/ LLL pna progression. c/w Zosyn 09/14, continue with probiotic, Plan to treat for 7 days Acute Urinary Retention s/p Pizarro on 09/17/2023 patient was found to have acute urinary retention; pizarro catheter placed continue pizarro 7 to 10 days, then TOV Hx of MDS and immunosuppression therapy Neutropenic fever Pancytopenia(leukopenia with neutropenia, Anemia, Thrombocytopenia) MDS diagnosed via bone marrow biopsy on 06/23/2024 with noted monoclonal plasma cell population 10%, variably cellular marrow 20 to 50% with trilineage hematopoiesis. Treatment with infusion of azacitidine started on 08/17/24 x 5 days Lower GI bleed; patient had episode of hematochezia on 09/03/2024; has resolved since per pt. Patient had colonoscopy on 07/16/2024 for similar issue; found to have polyp which was removed which was found to be hyperplastic. Evaluated by hematology again on 09/15/2024; patient has high risk myelodysplastic syndrome with no curative modality treatment available due to his advanced age. Recommend hospice/palliative approach. Depending on patient clinical symptom progression; plan for either home hospice versus inpatient hospice in next few days. Hypokalemia: replete as needed Chronic Rib Fractures: Noted on imaging. Pain control prn Rheumatoid Arthritis: On chronic prednisone 5 mg daily History of GI bleed: Continue Protonix 40 mg BID CAD without angina Chronic systolic CHF Lower extremity edema HLD Chronic 1-2+ pitting BLE EKG with noted sinus rhythm with PACs Home meds: metoprolol succinate 12.5 mg daily furosemide 20 mg daily, chlorthalidone 25 mg daily, spironolactone 25 mg daily with potassium supplement, atorvastatin 20 mg daily Cardiology recommended repeat echo in September to reassess LV wall motion, EF and right-sided filling pressure. Echo- 50-55%, moderate valvular aortic stenosis. Continue to monitor for signs of volume overload Continue other home meds as ordered Goals of care Discussed with patient and patient's POA Harry bedside regarding patient's prolonged hospitalization due to sepsis, repeated need for transfusion and progressive pneumonia on 09/16/2023. They both agree that patient will benefit from comfort care measures if his clinical condition deteriorates. If patient is stable; possible discharge to home on home hospice. DVT ppx: teds, scds in setting of anemia requiring transfusion Diet: HH Dispo: Patient hospitalized with progressive pneumonia, need for repeated transfusion requiring close monitoring inpatient. Possible dc in next few days on home hospice if clinically stable. Please note the above document was generated using voice recognition software. It may contain grammatical, syntax or spelling errors. Any formal questions or concerns about the content, text or information contained within the body of this dictation should be directly addressed to the provider for clarification Admission and Anticipated Discharge Date Admission Date: August 28, 2024 Subjective Comfortable; not in distress. Denies fever, chills, chest pain, shortness of breath, abdominal pain or urinary symptoms. No significant overnight events Review of Systems Review of Systems: All systems reviewed & are unremarkable except as noted in Subjective Physical Exam Physical Exam: Constitutional: WD/WN, vitals as above, NAD, sitting up in bed, pleasant, conversing easily Respiratory:Decreased breath sound on left lower lung field Cardiovascular: RRR, no murmur, no edema Vessels: no JVD or carotid bruit Chest: normal inspection of chest Abdomen: normal bowel sounds, soft, nontender, no hepatosplenomegaly Musculoskeletal: no cyanosis or clubbing, extremities motor strength 5/5 Skin: no rashes, warm and dry normal turgor Neurologic: PERRL, EOMI, accommodation nl, no face palsy, no dysarthria CN's II- XI intact bilaterally and moves all extremities Psychiatric: A+Ox3, euthymic affect Results & Data Results & Data Vital Signs (Past 12 Hours) Vital Signs Temp Pulse Resp BP BP Pulse Ox O2 Del Method 09/19/24 08:59 36.4 C L 77 17 103/61 93 Room Air 09/19/24 03:47 36.8 C 102 H 16 95/46 L 90 Room Air 09/18/24 22:55 36.6 C 73 18 97/47 L 92 Room Air (7) HTN (hypertension) Hypertension type: primary hypertension Qualified Code(s): I10 - Essential (primary) hypertension (8) COPD (chronic obstructive pulmonary disease) COPD type: unspecified COPD Qualified Code(s): J44.9 - Chronic obstructive pulmonary disease, unspecified
[2024-09-20] MEDS: SODIUM CHLORIDE 0.9% 500 ML IV ONE (10:00)
[2024-09-20] MEDS: HYDROCORTISONE SOD 50 MG in SYRINGE 0 ML IV SCH (11:23)
--- NOTE | 2024-09-20 11:59 | Hospitalist Progress Note ---
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 Left lower lobe pneumonia E. coli bacteremia Streptococcus Lutetiensis bacteremia Patient presented with with cough and fevers. Resp biofire neg. CXR concerning for LLL pneumonia. Admitting sputum culture [08/28] negative. Admitting blood culture [08/28] positive for E. coli and Streptococcus lutetiensis Repeat blood culture and sputum culture from 08/30 negative. Infectious disease evaluated, patient was treated with Levaquin 750 Mg daily for E. coli bacteremia [completed treatment September 04, 2024] and Augmentin 3 times daily for Streptococcus bacteremia [completed treatment September 13, 2024]. Since he was neutropenic, patient was kept on Levaquin 500 mg daily for prophylaxis starting September 05, 2024. It is to be continued until the patient is no more neutropenic. Patient needing some oxygen 09/14, repeat chest x-ray 09/14 with progression of LLL pneumonia. Discussed with ID 09/14 for reevaluation and possible antifungal coverage. Re-d/w ID 09/15, no need for antifungal therapy. MRSA screen 09/14 neg, 09/14 CT chest w/ LLL pna progression. c/w Zosyn 09/14, continue with probiotic, Plan to treat for 7 days Acute Urinary Retention s/p Pizarro on 09/17/2023 patient was found to have acute urinary retention; pizarro catheter placed patient prefers to having pizarro for comfort. Hx of MDS and immunosuppression therapy Neutropenic fever Pancytopenia(leukopenia with neutropenia, Anemia, Thrombocytopenia) MDS diagnosed via bone marrow biopsy on 06/23/2024 with noted monoclonal plasma cell population 10%, variably cellular marrow 20 to 50% with trilineage hematopoiesis. Treatment with infusion of azacitidine started on 08/17/24 x 5 days Lower GI bleed; patient had episode of hematochezia on 09/03/2024; has resolved since per pt. Patient had colonoscopy on 07/16/2024 for similar issue; found to have polyp which was removed which was found to be hyperplastic. Evaluated by hematology again on 09/15/2024; patient has high risk myelodysplastic syndrome with no curative modality treatment available due to his advanced age. Recommend hospice/palliative approach. Depending on patient clinical symptom progression; plan for either home hospice versus inpatient hospice in next few days. Hypokalemia: replete as needed Chronic Rib Fractures: Noted on imaging. Pain control prn Rheumatoid Arthritis: On chronic prednisone 5 mg daily, on hydrocortisone for now. History of GI bleed: Continue Protonix 40 mg BID CAD without angina Chronic systolic CHF Lower extremity edema HLD Home meds: metoprolol succinate 12.5 mg daily furosemide 20 mg daily, chlorthalidone 25 mg daily, spironolactone 25 mg daily with potassium supplement, atorvastatin 20 mg daily Cardiology recommended repeat echo in September to reassess LV wall motion, EF and right-sided filling pressure. Echo- 50-55%, moderate valvular aortic stenosis. Continue to monitor for signs of volume overload Continue other home meds as ordered Goals of care Discussed with patient and patient's POA Harry bedside regarding patient's prolonged hospitalization due to sepsis, repeated need for transfusion and progressive pneumonia on 09/16/2023. They both agree that patient will benefit from comfort care measures if his clinical condition deteriorates. If patient is stable; possible discharge to home on home hospice. Discussion done with patient's POA and patient regarding stopping lab work as the focus is on comfort with possible discharge to home hospice versus inpatient hospice depending on symptoms. Agreeable. DVT ppx: teds, scds in setting of anemia requiring transfusion Diet: HH Dispo: Possible dc in next few days on home hospice if clinically stable. Please note the above document was generated using voice recognition software. It may contain grammatical, syntax or spelling errors. Any formal questions or concerns about the content, text or information contained within the body of this dictation should be directly addressed to the provider for clarification Admission and Anticipated Discharge Date Admission Date: August 28, 2024 Subjective Patient seen and examined at bedside. Blood pressure on the lower side; was given 500 cc IV fluid bolus along with hydrocortisone He denies any pain or discomfort at this time. Review of Systems Review of Systems: All systems reviewed & are unremarkable except as noted in Subjective Physical Exam Physical Exam: Constitutional: WD/WN, vitals as above, NAD, sitting up in bed, pleasant, conversing easily Respiratory:Decreased breath sound on left lower lung field Cardiovascular: RRR, no murmur, no edema Vessels: no JVD or carotid bruit Chest: normal inspection of chest Abdomen: normal bowel sounds, soft, nontender, no hepatosplenomegaly Musculoskeletal: no cyanosis or clubbing, extremities motor strength 5/5 Skin: no rashes, warm and dry normal turgor Neurologic: PERRL, EOMI, accommodation nl, no face palsy, no dysarthria CN's II- XI intact bilaterally and moves all extremities Psychiatric: A+Ox3, euthymic affect Results & Data Results & Data Vital Signs (Past 12 Hours) Vital Signs Temp Pulse Resp BP BP Pulse Ox O2 Del Method 09/20/24 11:05 36.9 C 82 17 105/52 L 94 Room Air 09/20/24 09:36 84/41 L 09/20/24 08:35 36.7 C 85 16 89/50 L 94 Room Air 09/20/24 04:45 36.5 C 74 16 105/62 90 Room Air (7) HTN (hypertension) Hypertension type: primary hypertension Qualified Code(s): I10 - Essential (primary) hypertension (8) COPD (chronic obstructive pulmonary disease) COPD type: unspecified COPD Qualified Code(s): J44.9 - Chronic obstructive pulmonary disease, unspecified
[2024-09-21 11:01] VITALS: RESP 19; TEMP 97.9; O2SAT 94
--- NOTE | 2024-09-21 13:58 | Discharge Summary ---
Date of Service September 21, 2024 Admission HPI Per Admitting Provider This is a 79-year-old male with a past medical history of RA, chronic steroid use, COPD, HTN, newly diagnosed MDS, [place], acute on chronic systolic CHF, alcohol use disorder. He was recently admitted here last month in July for concerns for a GI bleed, symptomatic anemia due to his myelodysplastic syndrome with severe pancytopenia and thrombocytopenia. He did receive transfusion at that time and goal was to try and get his hemoglobin above 8 due to cardiac disease. He underwent a colonoscopy at that time revealing 2 small polyps which were removed, and no active bleeding. Multiple hospitalizations recently: 06/22 to 07/02 for shortness of breath, pancytopenic requiring multiple transfusions, 6 PRBCs, 5 U platelets. At that time had bone marrow biopsy at that time suspicious for MDS and treated for NSTEMI at that time in the setting of severe anemia. [facility]2024 to 07/17/2024 for GI bleeding, transfused 1 unit PRBCs, 1 unit platelet, underwent colonoscopy with 2 small polyps in descending colon and rectum that were removed, no active bleeding. Discharged to home with home health. Today the patient presents for flu like symptoms with his neighbor, Kay. She reports illness x 3-4 days with sore throat, decreased appetite, cough with mucous production, congestion, and had a nose bleed earlier today. He admits to having bright red blood with wiping after bowel movements with hemorrhoids, denies dark tarry bowel movements. No significant amount of bright red blood after bowel movements. Denies hematuria. He admits to having a fever at home with temp of at least 100. Admission Exam Per Admitting Provider General: awake, alert, no apparent distress, elderly white male Head: Normocephalic, atraumatic ENT: PERRL, EOMI, no pharyngeal exudate, mucous membranes moist Extremities: + chronic venous stasis changes, multiple wounds, no bright red erythema, 1+ peripheral edema or erythema, calfs nontender to palpation Psych: Normal mood and affect Principal Diagnosis Left lower lobe pneumonia E. coli bacteremia Streptococcus Lutetiensis bacteremia High risk myelodysplastic syndrome Discharge Exam Constitutional: WD/WN, vitals as above, NAD, sitting up in bed, pleasant, conversing easily Respiratory:Decreased breath sound on left lower lung field Cardiovascular: RRR, no murmur, no edema Vessels: no JVD or carotid bruit Chest: normal inspection of chest Abdomen: normal bowel sounds, soft, nontender, no hepatosplenomegaly Musculoskeletal: no cyanosis or clubbing, extremities motor strength 5/5 Skin: no rashes, warm and dry normal turgor Neurologic: PERRL, EOMI, accommodation nl, no face palsy, no dysarthria CN's II- XI intact bilaterally and moves all extremities Psychiatric: A+Ox3, euthymic affect Discharge Data Allergies Allergy/AdvReac Type Severity Reaction Status Date / Time Iodinated Contrast Media Allergy Intermediate Hives Verified 08/25/24 07:49 iodine Allergy Intermediate HIVES Verified 08/25/24 07:49 Consultations 08/28/24 12:56 ED Decision to Admit Stat 08/28/24 13:40 Consult Infectious Diseases Stat Consult Oncology Routine Consult Pulmonology Routine 09/03/24 10:21 Consult Gastroenterology Routine 09/10/24 10:31 Consult Palliative Care Routine 09/14/24 15:53 Consult Infectious Diseases Routine Ordered Studies 08/28/24 13:40 CT chest diagnostic wo con Stat 09/14/24 16:06 CT chest diagnostic wo con Routine Hospital Course (1) 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 coli bacteremia Streptococcus Lutetiensis bacteremia High Risk MDS Patient is a 79-year-old male with a past medical history of RA, chronic steroid use, COPD, HTN, newly diagnosed MDS, [place], acute on chronic systolic CHF, alcohol use disorder presenting for evaluation of fevers at home, sore throat, cough and congestion. Patient was found to have E. coli and Streptococcus bacteremia for which he was treated with IV antibiotics and was eventually transitioned to Levaquin 500 mg daily for prophylaxis as per infectious disease recommendation. The hospitalization was complicated with left lower lobe pneumonia for which she was treated with antibiotic for 7 days. Mclean catheter was also placed during hospitalization for acute urinary retention. Patient has a history of high risk myelodysplastic syndrome for which he received multiple blood transfusions( packed RBCs, platelets) during the hospitalization. Patient was evaluated by oncology; there was no curative modality treatment available for the myelodysplastic syndrome given his advanced age. After discussion with palliative care, patient and family; patient decided to opt for hospice care at home. Patient lives alone; has plenty of friends home are willing to support him at home. No medication changes were done at the time of the discharge. Please note the above document was generated using voice recognition software. It may contain grammatical, syntax or spelling errors. Any formal questions or concerns about the content, text or information contained within the body of this dictation should be directly addressed to the provider for clarification Total Time Total Time Spent Total Time Spent (In Minutes): 45 Total Time Includes: Examination of the Patient, Discharge Planning, Medication Reconciliation, Communication With Other Providers and Other Discharge Plan Discharge Items Patient Disposition: Hospice - Home Reason For Visit: PNEUMONIA, NEUTROPENIC FEVER Discharge Diagnosis: Left lower lobe pneumonia E. coli bacteremia Streptococcus Lutetiensis bacteremia Acute Urinary Retention s/p Mclean on 09/17/2023 Hx of MDS and immunosuppression therapy Activity: Resume your previous activity Non-emergency contact: Primary Care Provider Call non-emergency contact if: you have any medication questions and your symptoms worsen Follow-up/Referrals: Corbin Salcedo MD [Primary Care Provider] - (Date & Time 09/18/2024 2:00 PM Provider: Corbin aSlcedo MD Department: [facility] ) Alphonso Amaya MD [Physician] - 09/14/24 8:15 am (Mr. Maloney, next week will be as the following per the [facility] scheduling: Saturday: Labs at 8:15 AM followed by your infusion at 9:00 AM. Saturday: Meet with Dr. Amaya at 9:20 AM followed by your infusion at 10:00 AM. Saturday: Labs at 8:15 AM followed by your infusion at 9:00 AM. : Infusion at 9:00 AM. Saturday: Labs at 10:00 AM followed by your infusion at 11:00. This may change after meeting with Dr. Amaya but this is the schedule currently.) Diet: Regular Addtl Attending Provider Instructions: You were admitted to the hospital due to infection in the blood as well as pneumonia. You are treated with antibiotic during the hospitalization. You are recommended to be on Levaquin 500 mg once a day. The Mclean catheter needs to be exchanged every 4 weeks; it was last placed on September 17, 2023. No other medication changes has been done. Pending Studies at Discharge: No Stand-Alone Forms: My [facility] Medications and DC Order Prescriptions: New levofloxacin 500 mg Tablet 500 mg PO DAILY@1100 10 Days Qty: 10 0RF guaifenesin [Mucinex] 600 mg Tablet Extended Release 12hr 1,200 mg PO Q12 7 Days Qty: 28 0RF Continued Spiriva with HandiHaler 18 mcg capsule, w/inhalation device 1 cap inhalation BID Rx Instructions: puncture 1 cap using device; one dose = 2 inhalations diclofenac sodium [Voltaren Arthritis Pain] 1 % gel 1 g topical QID PRN (Reason: joint pain) Rx Instructions: apply to single elbow, wrist or hand; for hand includes palm/fingers/back of hand coenzyme Q10 10 mg capsule 10 mg PO DAILY triamcinolone acetonide 0.1 % ointment 1 applic topical DAILY PRN (Reason: Rash) albuterol sulfate 90 mcg/actuation HFA aerosol inhaler 2 puff inhalation Q6H PRN (Reason: Shortness Of Breath) calcium carbonate 600 mg calcium (1,500 mg) tablet 600 mg PO DAILY Rx Instructions: before breakfast cholecalciferol (vitamin D3) 50 mcg (2,000 unit) capsule 50 mcg PO DAILY cyanocobalamin (vitamin B-12) 1,000 mcg capsule 1,000 mcg PO DAILY fluticasone propion-salmeterol 250-50 mcg/dose blister with device 1 inh inhalation Q12H folic acid 1 mg tablet 1 mg PO QAM metoprolol succinate 25 mg tablet extended release 24 hr 12.5 mg PO BID multivitamin Tablet 1 tab PO DAILY potassium chloride 10 mEq capsule, extended release 20 meq PO BID prednisone 5 mg tablet 5 mg PO QAM ondansetron HCl 8 mg tablet 8 mg PO DIRECTED PRN (Reason: n/v) Rx Instructions: filled 07/08 15 day supply colchicine 0.6 mg tablet 0.6 mg PO UD Rx Instructions: 0.6 mg po daily. filled 07/13 30 day supply atorvastatin 20 mg Tablet 20 mg PO QAM Qty: 30 0RF spironolactone 25 mg Tablet 25 mg PO QAM Qty: 30 0RF furosemide 20 mg tablet 20 mg PO DAILY Qty: 30 0RF acetaminophen 500 mg Tablet 500 mg PO Q6H PRN (Reason: PAIN/FEVER) pantoprazole 40 mg Tablet,Delayed Release (Dr/Ec) 40 mg PO DAILY Qty: 30 0RF chlorthalidone 25 mg tablet 25 mg PO DAILY Discontinued celecoxib 200 mg capsule 200 mg PO BID Discharge Orders: Discharge Order (Routine); Ordered 09/21/24 Ordered By: Jasmeet Lewis Admission Data Admit Date/Time: 08/28/24 13:40 Attending Provider: Jasmeet Lewis Admit Provider: Tomás Lowe Primary Care Provider: Corbin Salcedo Other Providers: Phil Alcantara; Garcia Mann; Tate Naidu I.; John Camarillo II; Vicki Yanez; Narciso Calderon; Christopher Alvarez; Aamir Dockery; Jazmyn Dexter; Leticia Petersen; Tomás Lowe; [facility]; Aj Ybarra; [facility]; [place]; [facility]
[2024-09-21 15:28] VITALS: BP 101/52; PULSE 75
== END 2024-09-21 18:51 | disposition hospice, home (50) | DRG 194 ==
LOC: ED 11:10 → SUATTDRO 13:40 → 2E 13:40 → 2S 08-30 18:32